=== PATIENT | female | born 1935 | race Caucasian/White ===

== ENCOUNTER 2017-02-16 14:44 | Inpatient (IN) | payer MEDICARE, MEDICAID ==
[2017-02-16] MEDS: traMADol TAB* 50 MG PO ONE ×2 (16:42→17:37)
--- NOTE | 2017-02-16 16:53 | RAD ---
Indication: RIGHT hip and knee pain post fall. Comparison: October 31, 2008 radiographs. Technique: Crosstable AP and crosstable lateral views of the RIGHT knee. Report: Negative for joint effusion. Unremarkable articular alignment accounting for portable technique and approximate 30 degrees flexion at the femoral-tibial articulation. While positioning and portable technique limits assessment no fracture is visualized. Unremarkable soft tissue contours. Peripheral vascular calcifications. IMPRESSION: Limited exam without evidence for fracture.
--- NOTE | 2017-02-16 16:55 | RAD ---
Indication: RIGHT hip and knee pain post fall. Comparison: March 14, 2014 Technique: AP pelvis and AP and frog-leg lateral views RIGHT hip. Report: Transcervical mildly impacted RIGHT femoral neck fracture with varus angulation. No pelvic fracture or joint diastases evident. Cannulated lag screws at the LEFT femoral neck. Unremarkable soft tissue contours. Peripheral vascular calcifications. IMPRESSION: Acute RIGHT femoral neck fracture.
[2017-02-16 16:57] LABS: Hematocrit 38 % (35-47); Hemoglobin 13.7 g/dl (12.0-16.0); Mean Corpuscular HGB Conc 36 g/dl (31-36); Mean Corpuscular Hemoglobin 32 pg (27-31); Mean Corpuscular Volume 91 fL (80-97); Mean Platelet Volume 8 um3 (7.4-10.4); Red Blood Count 4.22 10^6/ul (4.0-5.4); Red Cell Distribution Width 13 % (10.5-15); White Blood Count 10.5 10^3/ul (3.5-10.8)
[2017-02-16 17:10] LABS: Albumin 4.2 g/dL (3.2-5.2); BUN/Creatinine Ratio 15.3 (8-20); Calcium 9.4 mg/dL (8.6-10.3); EGFR African American 100.5 (>60); EGFR Non-African American 78.1 (>60); Globulin 2.7 g/dL (2-4); Potassium 4.4 mmol/L (3.5-5.0); Total Bilirubin 1.6 mg/dL (0.2-1.0); Total Protein 6.9 g/dL (6.4-8.9)
[2017-02-16] MEDS ORDERED: Acetaminophen TAB* 325 MG PO PRN (19:16)
[2017-02-16] MEDS ORDERED: HYDROmorphone INJ* 2 MG/ML CARPUJECT SYRINGE IV SLOW PU PRN (19:47)
[2017-02-16] MEDS ORDERED: Ondansetron INJ* 2 MG/ML VIAL IV PRN (19:48)
--- NOTE | 2017-02-16 21:30 | HP ---
HISTORY AND PHYSICAL: DATE OF ADMISSION: 02/16/17 PRIMARY CARE PROVIDER: None. ATTENDING PHYSICIAN: Suraj Luna MD * (report dictated by Leonila Borrego NP). CHIEF COMPLAINT: Right hip pain. HISTORY OF PRESENT ILLNESS: Ms. Finn is a 81-year-old female with past medical history significant for hypertension not currently on medication, diet controlled diabetes mellitus, osteomyelitis, and uterine cancer, who presents to the emergency room after a mechanical fall at home earlier today. The patient states that she was trying to leave her apartment when she turned quickly losing her footing and falling under her right side. The patient's pain was aggravated by movement and relieved by nothing. She was also having right knee pain. She reports chronic bilateral lower extremity swelling. She denied any lightheadedness or dizziness prior to the fall. The patient also denied any head injury or other injuries. The patient denies any fever, chills , chest pain, shortness of breath, nausea, vomiting, diarrhea, urinary symptoms such as dysuria or urgency, numbness, tingling. The patient reports left hip pain. The patient lives alone and walks with her walker. She states that she is able to go up a flight of stairs without shortness of breath. She is able to go grocery shopping. The patient called EMS, who brought her to the emergency room for further evaluation. While in the emergency room, the patient had a right hip and pelvis x-ray showing a right femoral neck fracture. The patient had a right knee x-ray showing no evidence of a fracture. She had labs that were unremarkable. She had an EKG showing a sinus rhythm and rate of 94. No acute signs of ischemia similar to previous EKG. Dr. Yip was consulted by emergency room, who recommended admission for the patient's right hip fracture. PAST MEDICAL HISTORY: 1. Hypertension. 2. Diabetes mellitus, diet controlled. 3. Osteomyelitis. 4. History of cellulitis. 5. Uterine cancer. 6. History of aortic stenosis, moderate to severe. PAST SURGICAL HISTORY: 1. Status post left hip ORIF in 1998. 2. Status post I and D of the right great toe. 3. Status post total abdominal hysterectomy with bilateral salpingo- oophorectomy in 2000. 4. Status post D and C. 5. Status post tonsillectomy at age 17. HOME MEDICATIONS: Include: 1. Ibuprofen 400 mg oral twice daily as needed for pain. 2. Probiotics 1 tablet oral daily. 3. Calcium plus D 500/600mg 1 tablet oral daily. ALLERGIES: PREDNISONE, ASPIRIN, CIPRO, PENICILLIN, SULFA, DIPHENHYDRAMINE, MORPHINE, CEPHALEXIN, AND ANTIHISTAMINES. FAMILY HISTORY: The patient's mother had a history of coronary artery disease with 2 myocardial infarctions. The patient's father had a history of congestive heart failure. The patient's father also had a history of diabetes mellitus. The patient's maternal grandmother had a history of stomach cancer and paternal grandfather with a history of colorectal cancer. SOCIAL HISTORY: The patient denies tobacco, alcohol or recreational drug use. She lives alone in senior housing. Her daughters, Judy and Dalila, will be her surrogate decision makers in the event she is unable to make decisions for herself. REVIEW OF SYSTEMS: I performed a 14-point review of systems. All the pertinent positives and negatives are mentioned in the history of present illness. The remaining review of systems is negative. PHYSICAL EXAMINATION GENERAL APPEARANCE: The patient is alert, pleasant, appears to be in no acute distress. VITAL SIGNS: Temperature 98.2, heart rate 61, respiratory rate 18, O2 sat 97% on room air, blood pressure 170/58. HEENT: Normocephalic, atraumatic. Pupils are equal and reactive to light. Extraocular movements are intact. NECK: Supple. There is no lymphadenopathy noted. RESPIRATORY: There is no accessory muscle use. The lungs are clear to auscultation bilaterally. CARDIOVASCULAR: Regular rate and rhythm. S1, S2 present. There is a 3/6 grade systolic murmur heard best at the left upper sternal border. There are no rubs or gallops heard. ABDOMEN: Soft, nontender and nondistended. There are bowel sounds present x4. EXTREMITIES: There is trace to 1+ bilateral lower extremity edema. DP and PT pulses are 2+ and symmetric. MUSCULOSKELETAL: There is no clubbing or cyanosis noted. The patient exhibits good strength in all extremities. NEUROLOGICAL: The patient is alert and oriented x4. Cranial nerves II through XII are grossly intact. PSYCHOLOGICAL: The patient is calm and cooperative. SKIN: There are no rashes or abnormalities seen. DIAGNOSTIC STUDIES/LABORATORY DATA: Sodium 139, potassium 4.4, chloride 105, CO2 29, BUN 11, creatinine 0.72, glucose 141. White blood cell count 10.5, hemoglobin 13.7, hematocrit 38, and platelet count 162,000. EKG shows a sinus rhythm, rate of 94. There are no acute signs of ischemia. This EKG is similar to previous EKG from 06/24/15. Right hip and pelvis x-ray from today. Radiologist impression: Right femoral neck fracture. Right knee x-ray from today. Radiologist impression: Limited exam without evidence of fracture. IMPRESSION: Ms. Finn is a 81-year-old female with past medical history significant for [id number] aortic stenosis, hypertension not currently on medications, diet-controlled diabetes mellitus, history of osteomyelitis and uterine cancer, who presents to the emergency room after losing her footing and falling at home sustaining a right hip fracture. She would be admitted as an inpatient for a right femoral neck fracture. ASSESSMENT/PLAN: 1. Right femoral neck fracture. The patient will be seen in consultation by Dr. Yip. The plan is for a possible surgery tomorrow. We will make the patient n.p.o. after midnight. We will type and cross 2 units of packed red blood cells. The patient will be on bedrest and have 5 pounds of [place] traction to her right lower extremity. 2. Risk stratification for surgery. According to the RCRI, the patient has 0 points placing her at a class 1 risk and a 0.4% risk of major cardiac events. The patient will need to undergo a transthoracic echocardiogram to evaluate her aortic stenosis prior to surgery in the morning. The patient has a MET score of greater than 4. She is able to walk around, she does use a walker and is able to grocery shop and reports being able to go up a flight of stairs without shortness of breath. 3. Diabetes mellitus. The patient is diet controlled. We will check a hemoglobin A1c. We will monitor glucoses a.c. and h.s. If her glucose is elevated, we will start Lispro sliding scale. We will place her on a consistent carbohydrate diet. 4. Hypertension. The patient is not currently on medications. She has been hypertensive in the emergency room. I suspect this is secondary to pain. We will follow her blood pressures and will start antihypertensives if necessary. 5. Aortic stenosis. Again, we are going to get a transthoracic echocardiogram in the morning to evaluate the patient's degree of aortic stenosis. 6. Fluids, electrolytes and nutrition. The patient will be on a consistent carbohydrate diet. 7. Code status. Full code. 8. DVT prophylaxis. The patient is at highest risk. We will place her on SCDs. We will hold chemical anticoagulation in preparation for surgery. 9. Disposition. Inpatient. TIME SPENT: Time for this admission was approximately 60 minutes, greater than half of that was spent with the patient and family discussing medications, past medical history, and the events leading up to her arrival today and performing a physical examination. The case has been reviewed with the attending, Dr. Luna, who agrees with the plan of care. Reviewed by RONALD MCGRATH 02/17/17 1215 [id number]/[facility] #: [id number] JACKIE
[2017-02-17] MEDS: traMADol TAB* 50 MG PO PRN ×2 (00:20→12:11)
--- NOTE | 2017-02-17 09:12 | ECHO ---
Patient: LULA CASTANEDA [facility] Rec#: [id number] : 1935 Date: 02/17/2017 Age: 81y Height: 165.1 cm / 65.0 in Weight: 90.72 kg / 199.9 lbs Sex: F BSA: 1.98 Room#: 335 Admit Date#: 02/16/2017 Type: Inpatient Referring: Leonila Carbajal NP Reading: Martin Chen MD Bookmaker'S Clerk: Leonila Lee RDCS CC: Martin Yip MD Transthoracic Echocardiogram Indication: Aortic Valve disorder, pre-op BP: 132/47 HR: 76 Rhythm: NSR with PACs Findings History: HTN, DM, mod-severe aortic stenosis 2013, and uterine cancer. Technical Comments: The study quality is fair. The study is technically limited due to poor acoustic windows. The study is technically limited due to patient body habitus. The study was technically limited due to the patient's inability to lay in the left lateral decubitus position. Completed at 0850. Left Ventricle: The left ventricular chamber size is normal. Moderate concentric left ventricular hypertrophy is observed. Global left ventricular wall motion and contractility are within normal limits. Left ventricular systolic function is at the lower limits of normal. The estimated ejection fraction is 50-55%. Abnormal left ventricular diastolic function is observed. Abnormal left ventricular diastolic filling is observed, consistent with impaired relaxation. Left Atrium: The left atrium is moderate to severely dilated. Right Ventricle: The right ventricular cavity size is normal. The right ventricular global systolic function is normal. Right Atrium: The right atrial cavity size is severely dilated. Aortic Valve: The aortic valve structure is not well visualized. Severe aortic leaflet calcification is visualized. There is a trace of aortic regurgitation. There is severe aortic stenosis. The mean gradient of the aortic valve is 59.1 mmHg. The peak instantaneous gradient of the aortic valve is 96.4 mmHg. The aortic valve area, by peak velocities, is calculated at 0.7 cm2. The aortic valve area, by VTI's, is calculated at 0.8 cm2. Mitral Valve: There is mitral annular calcification. The mitral valve leaflets are mildly thickened. There is moderate mitral regurgitation. The mitral regurgitant jet is eccentric. There is no evidence of mitral stenosis. Tricuspid Valve: The tricuspid valve leaflets are normal. There is moderate tricuspid regurgitation. The right ventricular systolic pressure is estimated at 64 mmHg. There is evidence of moderate to severe pulmonary hypertension. There is no tricuspid stenosis. Pulmonic Valve: The pulmonic valve appears normal. There is trace to mild pulmonic regurgitation. There is no pulmonic stenosis. Pericardium: There is no significant pericardial effusion. A pericardial fat pad is visualized. Aorta: There is mild dilatation of the ascending aorta. There is no dilatation of the aortic arch. The aortic root is normal in size. Pulmonary Artery: The main pulmonary artery appears normal. Venous: The inferior vena cava appears normal in size. There is less than 50% respiratory change in the inferior vena cava dimension. Summary: There are changes noted when compared to the previous study done on 02/28/2014,now there is increase in severity hemodynamics. MR is now moderate instead of mild then. PHTN is new now. Conclusions The left ventricular chamber size is normal. Moderate concentric left ventricular hypertrophy is observed. The estimated ejection fraction is 50-55%. Abnormal left ventricular diastolic function is observed. The left atrium is moderate to severely dilated. The left atrium is moderate to severely dilated. Severe aortic leaflet calcification is visualized. There is a trace of aortic regurgitation. There is severe aortic stenosis. There is moderate mitral regurgitation. There is moderate tricuspid regurgitation. There is trace to mild pulmonic regurgitation. There is mild dilatation of the ascending aorta. There is evidence of moderate to severe pulmonary hypertension. There is trace to mild pulmonic regurgitation. There are changes noted when compared to the previous study done on 02/28/2014,now there is increase in severity hemodynamics. MR is now moderate instead of mild then. PHTN is new now. Measurements Name Value Normal Range RVIDd (AP) 2D 3.1 cm (0.9 - 2.6) RVDdMajor (2D) 4.2 cm (2.2 - 4.4) RAd ISD 4CH 6.2 cm (3.4 - 4.9) RA (A4C)W 4.7 cm (2.9 - 4.6) IVSd (2D) 1.3 cm (0.6 - 1) LVPWd (2D) 1.2 cm (0.6 - 1) LVIDd (2D) 4.6 cm (3.6 - 5.4) LVIDs (2D) 3.8 cm - LV FS (2D) 18 % (25 - 45) Aortic Annulus 1.6 cm (1.4 - 2.6) Ao root diameter (2D) 3.1 cm (2.1 - 3.5) Ascending Ao 3.5 cm (2.1 - 3.4) Aortic arch 2.7 cm (1.8 - 3.4) LA dimension (AP) 2D 3.5 cm (2.3 - 3.8) LAd ISD 4CH 5.4 cm (2.9 - 5.3) LA ISD 4CH W 5.1 cm (2.5 - 4.5) Name Value Normal Range LA ESV SP 4CH (A/L) 120 ml - LA ESV SP 2CH (A/L) 76 ml - LA ESV BP (A/L) 96 ml - LA ESV BP (A/L) index 48.55 ml/m2 - LA ESV SP 4CH (MOD) 109 ml - LA ESV SP 2CH (MOD) 76 ml - Name Value Normal Range MV E-wave Vmax 1.26 m/sec - MV deceleration time 260 msec - MV A-wave Vmax 1.35 m/sec - MV E:A ratio 0.93 ratio - LV septal e' Vmax 0.03 m/sec - LV lateral e' Vmax 0.04 m/sec - LV E:e' septal ratio 42 ratio - LV E:e' lateral ratio 31.5 ratio - Name Value Normal Range AV Vmax 4.9 m/sec - AV VTI 100 cm - AV peak gradient 96.4 mmHg - AV mean gradient 59.1 mmHg - LVOT diameter 2 cm - LVOT Vmax 1.08 m/sec - LVOT VTI 26 cm - LVOT peak gradient 4.7 mmHg - LVOT mean gradient 3 mmHg - DOI (VTI) 0.26 ratio - CYNTHIA (continuity Vmax) 0.7 cm2 - CYNTHIA (continuity VTI) 0.8 cm2 - LAVERN Vmax 0.71 m/sec - Name Value Normal Range MV Vmax 1.52 m/sec - MV VTI 43.48 cm - MV peak gradient 9.27 mmHg - MV mean gradient 3.6 mmHg - MV PHT 88.41 msec - MR Vmax 7.03 m/sec - MR VTI 171.2 cm - MVA (PHT) 2.48 cm2 - MVA (continuity VTI) 1.84 cm2 - Name Value Normal Range TR Vmax 3.75 m/sec - TR peak gradient 56 mmHg - RAP 8 mmHg - RVSP 64 mmHg - IVC diameter 1.76 cm - Name Value Normal Range PV Vmax 0.79 m/sec - PV peak gradient 2.47 mmHg - WA end-diastolic Vmax 1.09 m/sec -
--- NOTE | 2017-02-17 10:21 | PN ---
Subjective Date of Service: 02/17/17 Interval History: Patient seen and examined at bedside. Denies fever, chills, shortness of breath , chest discomfort, N/V/D. Pt states that her pain is controlled with Tramadol. Pt is upset that she will not be able to get her hip fracture fixed here today. Discussed with Pt and her daughter about the need to transfer to another facility to get an aortic valve replacement prior to repairing her hip due to the degree of aortic stenosis. Family History: Unchanged from Admission Social History: Unchanged from Admission Past Medical History: Unchanged from Admission Objective Active Medications: Acetaminophen (Tylenol Tab*) 650 mg PO Q4H PRN Reason: FEVER/PAIN Hydromorphone HCl (Dilaudid Inj*) 0.5 mg IV SLOW PU Q4H PRN Reason: PAIN Lactated Ringer's (Lactated Ringers 1000 Ml Bag*) 1,000 mls @ 75 mls/hr IV PER RATE LANI Ondansetron HCl (Zofran Inj*) 4 mg IV Q6H PRN Reason: NAUSEA Tramadol HCl (Ultram*) 50 mg PO Q6H PRN Reason: PAIN Vital Signs 02/16/17 02/16/17 02/16/17 19:00 19:30 22:36 Temperature 98.7 F Pulse Rate 90 77 Respiratory 16 16 Rate Blood Pressure 168/94 154/61 (mmHg) O2 Sat by Pulse 99 98 Oximetry 02/17/17 02/17/17 02/17/17 00:20 00:25 02:12 Temperature 98.1 F Pulse Rate 77 Respiratory 16 16 16 Rate Blood Pressure 137/60 (mmHg) O2 Sat by Pulse 93 Oximetry 02/17/17 02/17/17 02/17/17 03:26 07:26 08:51 Temperature 98.2 F 98.4 F Pulse Rate 72 74 Respiratory 16 16 16 Rate Blood Pressure 132/47 134/42 (mmHg) O2 Sat by Pulse 92 92 Oximetry Oxygen Devices in Use Now: None Appearance: NAD, laying in bed Ears/Nose/Mouth/Throat: Mucous Membranes Moist Respiratory: Symmetrical Chest Expansion and Respiratory Effort, Clear to Auscultation Cardiovascular: NL Sounds; No Murmurs; No JVD, RRR, - - 3-4/6 systolic murmur heard best at the left upper sternal border Abdominal: NL Sounds; No Tenderness; No Distention Extremities: - Skin: No Rash or Ulcers Neurological: Alert and Oriented x 3, NL Muscle Strength and Tone Lines/Tubes/Other Access: Clean, Dry and Intact Peripheral IV - site benign Nutrition: Taking PO's Result Diagrams: 02/16/17 16:48 02/16/17 16:48 Assess/Plan/Problems-Billing Assessment: Ms. Finn is a 81 yo female with PMH significant for HTN, DM - diet controlled , osteomyelitits, aortic stenosis and uterine CA who presented to the emergency room with complaints of right hip pain after a fall at home. - Patient Problems (1) Fracture of right hip Code(s): S72.001A - FRACTURE OF UNSP PART OF NECK OF RIGHT FEMUR, INIT SNOMED Code(s): 747332794 Comment: - Surgery is on hold d/t the Pt's severe . Pt will need to have an AVR - Continue pain management and 5 lbs gallegos's traction (2) Aortic stenosis, severe Code(s): I35.0 - NONRHEUMATIC AORTIC (VALVE) STENOSIS SNOMED Code(s): 56304784 Comment: - Followed by Dr. Hernandez outpatient - worse, will possibly need to be transfered for an TAVR (3) Diabetes Code(s): E11.9 - TYPE 2 DIABETES MELLITUS WITHOUT COMPLICATIONS SNOMED Code(s) : 68263998 Comment: - Diet controlled and Hg A1c 5.8 (4) HTN (hypertension) Code(s): I10 - ESSENTIAL (PRIMARY) HYPERTENSION SNOMED Code(s): 71024350 Comment: - Not currently on medication - Normotensive at this time (5) DVT prophylaxis Code(s): GIP2645 - SNOMED Code(s): 673821929 Comment: - Heparin Sub-q and SCDs (6) Full code status Code(s): Z78.9 - OTHER SPECIFIED HEALTH STATUS SNOMED Code(s): 428531425 Status and Disposition: Inpatient. Plan for possible transfer to another facility for an AVR.
--- NOTE | 2017-02-17 11:20 | CONS ---
CONSULTATION REPORT:* ADDENDUM: I discussed this patient further with Dr. Christianson from cardiology services at [facility] in [place], who kindly will facilitate transfer for this patient to his facility for aortic valvoplasty or TAVR and then after that surgery for her left hip as per Dr. Yip. I have discussed this with the hospitalist service. Any further recommendation is pending her clinical outcome. [id number]/[facility] #: [id number] MTDD
[2017-02-17 12:08] VITALS: BP 152/50
--- NOTE | 2017-02-17 12:35 | CONS ---
CC: Hospitalist Service, Leonila Muniz NP; Dr. Yip, Orthopedic Service; Dr. Hernandez; Dr. Chen CONSULTATION REPORT: DATE OF CONSULT: 02/17/17 HISTORY OF PRESENT ILLNESS: I was asked by hospitalist service and Dr. Yip to see this 81-year-old female patient who was hospitalized after she had a fall and subsequently fracture of the left hip. She does have history of aortic stenosis and echocardiogram that is in the system from February 2014 showed her EF to be 50% to 55% with probably moderate aortic stenosis. At that time, her aortic valve area was 1.08 sq. cm and the mean gradient of 34 mmHg. Because of that, a followup transthoracic echocardiogram was done this morning and read by me. Her EF is 50% to 55%. She does have a critical aortic stenosis with significant progression of her aortic stenosis, hemodynamics appreciated her calculated aortic valve area is 0.7 sq. cm with significantly elevated mean gradient. She also was found to have moderate mitral insufficiency and also [id number] pulmonary hypertension, which is new for her. Herself, she does have history of diabetes mellitus, hypertension, history of uterine cancer. She is status post total abdominal hysterectomy and bilateral salpingo-oophorectomy, history of surgery on the right hip in 1998. She gives no history of smoking, no drinking, no illicit drug use. She gives no history of congestive heart failure. No history of myocardial infarction. No history of coronary artery disease. Cardiology consult was further requested to risk stratify her before she goes into her left hip surgery in light of her critical valvular aortic stenosis. In talking to her, she was very emotional. Her daughter was in the exam room today. She lives by herself. She stated that she is active, taking care of her daily activity. She stated that she gives no history of chest pain, no shortness of breath, no orthopnea, no PND, no dizziness, no syncope, no fever, no chills, no nausea, no vomiting, no hematochezia, no swelling in the lower extremities is appreciated. PAST MEDICAL HISTORY: Includes diabetes mellitus, diet controlled; history of systemic arterial hypertension; history of cellulitis; cancer of the uterus, status post surgery; also now critical valvular aortic stenosis; history of osteomyelitis. PAST SURGICAL HISTORY: Includes history of tonsillectomy, history of total abdominal hysterectomy and bilateral salpingo-oophorectomy, history of left hip ORIF in 1998. MEDICATIONS: As an outpatient include: 1. Calcium supplements. 2. Ibuprofen p.r.n. Her medications as an inpatient include: 1. Tylenol 650 mg p.o. q.4 hours p.r.n. 2. Zofran 4 mg IV q.6 hours p.r.n. 3. Tramadol 50 mg p.o. q.6 hours p.r.n. for pain. ALLERGIES: She had multiple allergies to medications including ASPIRIN, CEPHALEXIN, CIPRO, MORPHINE, PREDNISONE, PENICILLIN, and DIPHENHYDRAMINE. FAMILY HISTORY: No family history of premature coronary artery disease. SOCIAL HISTORY: No history of smoking, drinking, or illicit drug abuse. She lives by herself. REVIEW OF SYSTEMS: Her review of all other systems essentially is negative. PHYSICAL EXAM: She is very emotional in the exam room but she is not in acute distress. Her vitals, blood pressure is 132/47, temperature 98.2, pulse 72, she is sinus rhythm. Head and Neck Exam: Normocephalic, atraumatic head. Ears , Nose, and Throat: Essentially benign. Neck: Supple. JVP is not elevated. No carotid bruit. No masses in the neck are appreciated. Chest: Clear to auscultation. No rales, no wheezes, no added sounds appreciated. Heart: There is a grade 3-4/6 systolic murmur in the left sternal border. No rubs appreciated. Abdomen: Benign, soft, positive bowel sounds. Extremities: She is status post fracture of the left hip. Skin exam is normal. Psych: Normal affect and mood. HYDRO OPERATOR: No focal deficits are appreciated. DIAGNOSTIC STUDIES/LAB DATA: Her echo as described. Her labs, white blood cells 10.5, hemoglobin 13.7, hematocrit 38, and platelets 162. Her chemistries, sodium 139, potassium 4.4, chloride 105, carbon dioxide 29, BUN 11, creatinine 0.72. Hemoglobin A1c 5.8. LFTs are normal. Her EKG from 02/16/17, yesterday, showed her to be in normal sinus rhythm, heart rate 94 beats per minute, nonspecific T-wave abnormality is appreciated and nonspecific QRS widening is appreciated. IMPRESSION: The patient is a 81-year-old female with: 1. Status post presentation of fracture of the left hip. 2. Known history of aortic stenosis but by a recent echo done today showed her to have a critical aortic stenosis by hemodynamics, her aortic valve area is at 0.7 and the aortic valve mean gradient was 59 mmHg, peak gradient 96 mmHg. 3. Pulmonary hypertension, moderate to severe, with a PA systolic pressure about 65 mmHg. 4. Moderate mitral insufficiency. 5. Diabetes mellitus, diet controlled. 6. Systemic arterial hypertension. 7. Abnormal EKG as described. 8. Obesity. PLAN: The patient definitely given her comorbidities and aortic stenosis, which is critical, is a high risk to proceed with her surgery. This was discussed with anesthesiologist and hospitalist service. I had a lengthy discussion with the patient and her daughter was available at bedside. I indicated to her that options include to proceed to have her hip surgery done at our facility keeping in mind she is a high risk based on her age, comorbidities, and critical aortic stenosis. Other options would be consideration for percutaneous aortic valve replacement at a facility that will do that, she can have also her surgery of the hip at that facility under close observation, and the third option would be not to do anything regarding her hip or her aortic valve, which apparently that is not her choice. The patient and the daughter given the patient is active, she wants something to be done about her hip. I have discussed all options as well with the hospitalist service awaiting the family discussion and further recommendations. I have placed a phone call to Dr. Sinha at the [facility] to discuss this patient further with feasibility for TAVR for her aortic stenosis. I answered all of their concerns and questions up to their satisfaction. Continue current medications as you are already doing, for her comorbidities, pain management as well. TIME SPENT: More than half of at least 60 to 65 plus minutes was in the education and counseling mode explaining all of the above and answering all their concerns or questions up to their satisfaction. [id number]/[facility] #: [id number] JACKIE
--- NOTE | 2017-02-17 13:08 | TRS ---
CC: Dr. Martin Yip; Dr. Mumtaz Chen; [facility] * DATE OF ADMISSION: 02/16/2017. DATE OF DISCHARGE: 02/17/2017. AGE: 81. ATTENDING PHYSICIAN: Dr. Robert Luna * (dictated by Raffaele Vegas NP). PRIMARY CARE PHYSICIAN: None. PRIMARY DIAGNOSES: 1. Right femoral neck fracture. 2. Severe aortic stenosis. SECONDARY DIAGNOSES: 1. Hypertension, not currently on medications. 2. Diabetes mellitus, diet controlled. 3. History of osteomyelitis. 4. Uterine cancer. CONSULTATIONS WHILE IN THE HOSPITAL: Dr. Mumtaz Chen with Cardiology. STUDIES WHILE IN THE HOSPITAL: 1. Right hip and pelvis x-ray, 02/16/2017: Radiologist's impression: Right femoral neck fracture. 2. Right knee x-ray, 02/16/2017: Radiologist's impression: Limited exam without evidence of fracture. 3. Transthoracic echocardiogram, 02/17/2017: Test Tech's conclusion: The left ventricular chamber size is normal. Moderate concentric left ventricular hypertrophy is observed. The estimated ejection fraction is 50 to 55 percent. Abnormal left ventricular diastolic function is observed. The left atrium is moderate to severely dilated. The right atrium is moderate to severely dilated. Severe aortic leaflet calcification is visualized. There is trace of aortic regurgitation. Severe aortic stenosis. Moderate mitral regurgitation. Moderate tricuspid regurgitation. Trace to mild pulmonic regurgitation. Mild dilatation of the ascending aorta. There is evidence of moderate to severe pulmonary hypertension. There are changes noted when compared to the previous study done on 02/28/2014, now there is increase in aortic stenosis severity hemodynamics. MR is now moderate instead of mild then. Pulmonary hypertension is new now. HOME MEDICATIONS: 1. Ibuprofen 400 mg oral twice daily as needed for pain. 2. Probiotic one tablet oral daily. 3. Calcium plus D 500/600 one tablet oral daily. HOSPITAL MEDICATIONS: 1. Acetaminophen 650 mg oral every 4 hours as needed for fever or pain. 2. Heparin Sodium 5000 units subcutaneous every 8 hours. 3. Hydromorphone 0.5 mg IV every 4 hours as needed for pain. 4. Lactated Ringers 75 ml an hour. 5. Zofran 4 mg IV every 6 hours as needed for nausea. 6. Tramadol 50 mg oral every 6 hours as needed for pain. HISTORY OF PRESENT ILLNESS/HOSPITAL COURSE: Ms. Finn is a 81-year-old female with a past medical history significant for hypertension, not currently on medication, diet controlled diabetes mellitus, history of osteomyelitis and uterine cancer who presented to the emergency room after a mechanical fall at home on 02/16/2017. The patient states that she was trying to leave her apartment when she quickly turned, losing her footing, and fell on her right side. The patient's pain was aggravated by movement and relieved by nothing. The patient was also reporting right knee pain. She also reported chronic bilateral lower extremity swelling. She denied any lightheadedness or dizziness prior to her fall. She denied hitting her head or any other injuries. At baseline, the patient lives alone in senior housing and walks with a walker. She reported being able to go up a flight of stairs without shortness of breath , able to go grocery shopping and carry her groceries with the assistance of her walker. The patient called EMS and was brought to the emergency room for further evaluation of her symptoms. In the emergency room, the patient had a right hip and pelvis x-ray showing a right femoral neck fracture. The patient also had a right knee x-ray showing no evidence for fracture. She had labs that were unremarkable. She had an EKG showing a sinus rhythm at a rate of 94 with no acute signs of ischemia. This EKG was similar to previous EKG's in the computer system. Dr. Yip was initially consulted by the emergency room who recommended admission by the Hospitalists for the patient's right hip fracture. While in the hospital, the patient's pain was controlled by Tramadol. The patient underwent a transthoracic echocardiogram this morning revealing an increase in the patient's aortic stenosis severity and worsening mitral valve regurgitation that was now moderate instead of mild and new pulmonary hypertension. The patient was seen in consultation by Dr. Chen with Cardiology after the patient's echo findings of severe aortic stenosis. It was felt that the patient was a very high risk candidate for surgery and that it would be ideal for the patient to be transferred to another facility for an aortic valve replacement prior to repair of her right hip fracture. Dr. Patrice Christianson with Cardiology has accepted the patient at [facility]. Dr. Castillo Leos with Orthopedic Surgery has also been contacted by Dr. Martin Yip with Orthopedic Surgery and he plans to see the patient when she arrives at [facility]. Ms. Finn is stable for transfer to [facility] today. Vital signs are as follows: Temperature 98.1, heart rate 65, respiratory rate 16, O2 sat 91 percent on room air, blood pressure 152/50. DISCHARGE PLAN: Ms. Finn will be transferred to [facility] for possible aortic valve replacement and repair of her right hip fracture. She should be on bed rest. I will defer further management of her orthopedic status to Dr. Leos's team at [facility]. As far as the patient's diabetes, her hemoglobin A1c is 5.8 and she is diet controlled. The patient has been noted to be slightly hypertensive here with systolic blood pressures in the 130s to 170s. I suspect this is pain related, but if she continues to have hypertension, I recommend considering starting her on antihypertensives. It is to note that the patient currently does not have a primary care provider in the area. I would recommend assisting her with setting up a primary care provider prior to her discharge from [facility]. This is a summarized report of a complex medical history and hospital stay. For further details, please see the entire medical record. Time for this transfer was approximately 60 minutes, greater than half of that was spent with the patient and family discussing the transfer plans and instructions. CONDITION ON TRANSFER: Stable. RAFFAELE VEGAS, TONY [id number]/[facility] #: [id number] JACKIE
[2017-02-17] MEDS ORDERED: Heparin VIAL(*) 5000 UNITS/ML VIAL (FIVE THOUSAND) SUBCUT SCH (14:00)
--- NOTE | 2017-02-19 12:23 | ED ---
Maite Obregon Thomas, scribed for Barry Sanchez MD on 02/16/17 at 1531 . Lower Extremity - HPI Summary HPI Summary: The patient is a 81 y/o F BIBA c/o R hip pain s/p an accidental fall that occurred earlier today. The pain is constant. The pain is aggravated by movement and is alleviated by nothing. She rates the pain 6/10. She additionally c/o R knee pain, chronic bilateral leg swelling, and R hand pain. She denies dizziness and lightheadedness. She is accompanied by her daughter. PMHx: DM, heart murmur, L hip fracture. PSHx: L hip repair. SHx: retired and lives with family. FHx: cardiac disease. She is accompanied by her daughter. - History of Current Complaint Stated Complaint: FALL, HIP PAIN Time Seen by Provider: 02/16/17 15:04 Hx Obtained From: Patient, Family/Laboratory Chemical Assistant - daughter is present Hx Last Menstrual Period: post jean Mechanism Of Injury: Fall From A Standing Position Onset of Pain: Immediate Pain Intensity: 6 Pain Scale Used: 0-10 Numeric Timing: Constant Location: Is Discrete @ - R hip, R knee, R hand Associated Signs And Symptoms: Positive: Swelling - chronic bilateral, Knee Pain - R, Other - R hand pain, R hip pain; NEGATIVE: dizziness, lightheadedness. Negative: Dizziness Aggravating Factor(s): Movement Alleviating Factor(s): Nothing Able to Bear Weight: No - Allergies/Home Medications Allergies/Adverse Reactions: Allergies Allergy/AdvReac Type Severity Reaction Status Date / Time Prednisone Allergy Severe HEAVY Verified 07/02/15 15:22 BLEEDING Aspirin Allergy Unknown Unknown Verified 07/02/15 15:22 Reaction Details Ciprofloxacin Allergy Unknown Unknown Verified 07/02/15 15:22 Reaction Details Penicillins Allergy Unknown Unknown Verified 07/02/15 15:22 Reaction Details Sulfa Antibiotics Allergy Unknown Unknown Verified 07/02/15 15:22 Reaction Details Diphenhydramine Allergy Unknown Verified 07/02/15 15:22 Reaction Details Morphine AdvReac Unknown Unknown Verified 02/16/17 19:50 Reaction Details Cephalexin [From Keflex] AdvReac GI Upset Verified 07/02/15 15:22 ANTIHISTAMINES Allergy Unknown Unknown Uncoded 07/02/15 15:22 Reaction Details Home Medications: Home Medications Calcium Carbonate-Cholecalcife [Calcium 500 +D3 500-600 mg-Unit] 1 tab PO DAILY 02/16/17 [History Confirmed 02/16/17] Ibuprofen TAB* [Advil TAB*] 400 mg PO BID PRN 02/16/17 [History Confirmed ] Lactobacillus [Probiotic Acidophilus] 1 cap PO DAILY 02/16/17 [History Confirmed 02/16/17] PMH/Surg Hx/FS Hx/Imm Hx Previously Healthy: No Endocrine/Hematology History: Reports: Hx Diabetes Denies: Hx Thyroid Disease Cardiovascular History: Reports: Hx Hypertension, Other Cardiovascular Problems/ Disorders - heart murmur Denies: Hx Pacemaker/ICD Respiratory History: Denies: Hx Asthma, Hx Chronic Obstructive Pulmonary Disease (COPD) GI History: Denies: Hx Ulcer History: Denies: Hx Dialysis Musculoskeletal History: Denies: Hx Arthritis, Hx Back Problems Sensory History: Reports: Hx Cataracts - BILAT, Hx Contacts or Glasses Denies: Hx Hearing Aid Opthamlomology History: Reports: Hx Cataracts - BILAT, Hx Contacts or Glasses Neurological History: Denies: Hx Dementia, Hx Seizures Psychiatric History: Denies: Hx Panic Disorder - Cancer History Cancer Type, Location and Year: UTERINE CA Hx Chemotherapy: No Hx Radiation Therapy: No - Surgical History Surgery Procedure, Year, and Place: LEFT HIP FX/PINNING 1998, HYSTERECTOMY 2000. t&a at age 17, cataract surgery bilat eyes Hx Anesthesia Reactions: No - Immunization History Date of Tetanus Vaccine: Unk Date of Influenza Vaccine: None, philisophically opposed Infectious Disease History: No Infectious Disease History: Denies: Hx Clostridium Difficile, Hx Hepatitis, Hx Human Immunodeficiency Virus (HIV), Hx of Known/Suspected MRSA, Hx Shingles, Hx Tuberculosis, Hx Known/ Suspected VRE, Hx Known/Suspected VRSA, History Other Infectious Disease, Traveled Outside the [place] in Last 30 Days - Family History Known Family History: Positive: Cardiac Disease - Mother, father and brother - Social History Alcohol Use: None Substance Use Type: Reports: None Smoking Status (MU): Never Smoked Tobacco Have You Smoked in the Last Year: No Review of Systems Negative: Fever, Chills Negative: Erythema - eyes Negative: Sore Throat Negative: Chest Pain Negative: Shortness Of Breath, Cough Negative: Abdominal Pain, Vomiting, Nausea Negative: dysuria, hematuria Positive: Other - R hip pain, R knee pain, chronic bilateral leg swelling, R hand pain. Negative: Myalgia, Edema - legs Negative: Rash Neurological: Other - NEGATIVE: dizziness, lightheadedness All Other Systems Reviewed And Are Negative: Yes Physical Exam - Summary Physical Exam Summary: Constitutional: Well-developed, Well-nourished, Alert. (-) Distressed Skin: Warm, Dry HENT: Normocephalic; Atraumatic Eyes: Conjunctiva normal Neck: Musculoskeletal ROM normal neck. (-) JVD, (-) Stridor, (-) Tracheal deviation Cardio: Rhythm regular, rate normal, Heart sounds normal; Intact distal pulses; The pedal pulses are 2+ and symmetric. Radial pulses are 2+ and symmetric. (-) Murmur Pulmonary/Chest wall: Effort normal. (-) Respiratory distress, (-) Wheezes, (-) Rales Abd: Soft, (-) Tenderness, (-) Distension, (-) Guarding, (-) Rebound Musculoskeletal: (-) Edema. There is no palpable tenderness of the hands. I am unable to move the right leg due to the pain. There is tenderness to the mid femur. There is pain with passive ROM of the knee. THere is no knee tenderness. There is some clicking with ROM of the knee. Lymph: (-) Cervical adenopathy Neuro: Alert, Oriented x3 Psych: Mood and affect Normal Triage Information Reviewed: Yes Vital Signs On Initial Exam: Initial Vitals Temp Pulse Resp BP Pulse Ox 98.2 F 90 18 157/91 99 02/16/17 15:22 02/16/17 15:22 02/16/17 15:22 02/16/17 15:22 02/16/17 15:22 Vital Signs Reviewed: Yes - Calmar Coma Scale Coma Scale Total: 15 Diagnostics - Vital Signs Vital Signs Temp Pulse Resp BP Pulse Ox 02/16/17 15:27 86 98 02/16/17 15:22 98.2 F 90 18 157/91 99 - Laboratory Result Diagrams: 02/16/17 16:48 02/16/17 16:48 Lab Statement: Any lab studies that have been ordered have been reviewed, and results considered in the medical decision making process. - Radiology Knee XR Xray Interpretation: No Acute Changes - Limited exam without evidence for fracture. ED physician has reviewed this report and agrees. Radiology Interpretation Completed By: Radiologist Hip XR Xray Interpretation: Positive (See Comments) - Acute right femoral neck fracture. ED physician has reviewed this report and agrees. Radiology Interpretation Completed By: Radiologist - EKG 15:55 Cardiac Rate: NL - 94 BPM EKG Rhythm: Sinus Rhythm EKG Interpretation: No STEMI. Lower Extremity Course/Dx - Course Assessment/Plan: The patient is a 81 y/o F BIBA c/o R hip pain s/p an accidental fall that occurred earlier today. The pain is constant. The pain is aggravated by movement and is alleviated by nothing. She rates the pain 6/10. She additionally c/o R knee pain, chronic bilateral leg swelling, and R hand pain. She denies dizziness and lightheadedness. She is accompanied by her daughter. PMHx: DM, heart murmur, L hip fracture. PSHx: L hip repair. SHx: retired and lives with family. FHx: cardiac disease. She is accompanied by her daughter. In the ED course the patient was given Ultram. Bloodwork was obtained. Knee XR shows no Fx. Hip XR shows acute right femoral neck fracture. I consulted with Dr. Yip, orthopedics, who says that the patient will need surgery and he recommends admission by the hospitalists. He would like a Harrison's traction. I also consulted with Dr. Anderson, hospitalist, at 18:23. She will admit the patient. The patient is diagnosed with femoral head fracture. - Diagnoses Provider Diagnoses: Fracture of femoral head - Physician Notifications Discussed Care Of Patient With: Martin Yip Time Discussed With Above Provider: 17:10 Instructed by Provider To: Other - I consultd with Dr. Yip, orthopedics, who says that the patient will need surgery and he recommends admission by the hospitalists. He would like a Harrison's traction. I also consulted with Dr. Anderson, hospitalist, at 18:23. She will admit the patient. Discharge - Discharge Plan Condition: Fair Disposition: ADMITTED TO [facility] documentation as recorded by the Maite rapp Thomas accurately reflects the service I personally performed and the decisions made by me, Barry Sanchez MD.
== END 2017-02-17 13:00 | disposition short-term general hospital (02) | DRG 536 ==
LOC: ED 14:44 → SSU 18:46
PROVIDERS: ADMIT Internal Medicine; ATTEND Internal Medicine
DX: S72.001A Fracture of unspecified part of neck of right femur, initial encounter for closed fracture (principal); E11.69 Type 2 diabetes mellitus with other specified complication; I27.20 Pulmonary hypertension, unspecified; M86.9 Osteomyelitis, unspecified; I08.3 Combined rheumatic disorders of mitral, aortic and tricuspid valves; E66.9 Obesity, unspecified; I77.819 Aortic ectasia, unspecified site; W18.30XA Fall on same level, unspecified, initial encounter; I10 Essential (primary) hypertension; Z85.42 Personal history of malignant neoplasm of other parts of uterus; Z90.79 Acquired absence of other genital organ(s); Z90.722 Acquired absence of ovaries, bilateral; Z88.5 Allergy status to narcotic agent; Z88.0 Allergy status to penicillin; Z88.2 Allergy status to sulfonamides; Z88.8 Allergy status to other drugs, medicaments and biological substances; Z82.49 Family history of ischemic heart disease and other diseases of the circulatory system; Z83.3 Family history of diabetes mellitus; Z80.0 Family history of malignant neoplasm of digestive organs; Z68.33 Body mass index [BMI] 33.0-33.9, adult; Y92.039 Unspecified place in apartment as the place of occurrence of the external cause; Z79.01 Long term (current) use of anticoagulants
CPT/HCPCS: 36415; 80053; 83036; 85027; 85610; 85730; 86850; 86900; 86901; 93005; 93306; A9270-GY

== ENCOUNTER 2017-07-16 12:49 | Emergency (ER) | payer MEDICARE, MEDICAID ==
[2017-07-16 14:30] LABS: ABS Basophils 0.1 10^3/ul (0-0.2); ABS Eosinophils 0.3 10^3/ul (0-0.6); ABS Lymphocytes 1.4 10^3/ul (1.0-4.8); ABS Monocytes 0.4 10^3/ul (0-0.8); ABS Neutrophils 4.2 10^3/ul (1.5-7.7); ABS Nucleated RBC 0 10^3/ul; Corrected Retic Count 1.7 % (0.5-1.5); Hematocrit 29 % (35-47); Hematocrit for Retic CNT 29 % (35-47); Hemoglobin 10.1 g/dl (12.0-16.0); Immature Retic Fraction 0.48; Lymphocyte % 21.9 % (25-47); Mean Corpuscular HGB Conc 35 g/dl (31-36); Mean Corpuscular Hemoglobin 34 pg (27-31); Mean Corpuscular Volume 96 fL (80-97); Mean Platelet Volume 8 um3 (7.4-10.4); Nucleated Red Blood Cells % 0; Platelet Count 220 10^3/ul (150-450); RBC Retic Count 3.01 10^6/ul (4.6-6.2); Red Blood Count 3.01 10^6/ul (4.0-5.4); Red Cell Distribution Width 12 % (10.5-15); White Blood Count 6.5 10^3/ul (3.5-10.8)
[2017-07-16 14:52] LABS: EGFR Non-African American 56.6 (>60)
[2017-07-16 15:02] LABS: Urine Appearance Clear; Urine Blood 1+ (Negative); Urine Color Straw; Urine Ketones Negative (Negative); Urine Protein Negative (Negative); Urine Specific Gravity 1.004 (1.010-1.030); Urine Urobilinogen Negative (Negative)
[2017-07-16] MEDS ORDERED: Cyanocobalamin INJ * 1,000 MCG/ML VIAL 1 ML VIAL IM ONE (15:29)
[2017-07-16 16:10] VITALS: BP 155/69
--- NOTE | 2017-07-20 19:31 | ED ---
Pepe Obregon Gabriel, scribed for Chaitanya Urias MD on 07/16/17 at 1355 . Complex/Multi-Sys Presentation - HPI Summary HPI Summary: This patient is a 82 year old F presenting to [facility] after being sent by here PCP for cyanosis in her finger tips. The patient rates the pain 0/10 in severity. Patient reports being cold frequently. Patient denies SOB, black stool , and pain. Pt had blood work last week and was diagnosed with anemia. - History Of Current Complaint Chief Complaint: EDGeneral Hx Obtained From: Patient Onset/Duration: Still Present Timing: Constant Severity Currently: None Severity Initially: Mild Associated Signs And Symptoms: Positive: Other - cyanosis in her finger tips. Negative: SOB, Chest Pain, Abdominal Pain, Back Pain - Allergies/Home Medications Allergies/Adverse Reactions: Allergies Allergy/AdvReac Type Severity Reaction Status Date / Time prednisone Allergy Severe heavy Verified 07/16/17 14:02 bleeding aspirin Allergy Mild GI Upset Verified 07/16/17 14:02 cephalexin Allergy Mild GI Upset Verified 07/16/17 14:10 ciprofloxacin Allergy Mild GI Upset Verified 07/16/17 14:03 Penicillins Allergy Mild Rash Verified 07/16/17 14:04 Sulfa (Sulfonamide Allergy Mild Edema Verified 07/16/17 14:05 Antibiotics) morphine Allergy Unknown Unknown Verified 07/16/17 14:09 Reaction Details diphenhydramine Allergy GI Upset Verified 07/16/17 14:06 ANTIHISTAMINES Allergy Unknown Unknown Uncoded 07/02/15 15:22 Reaction Details PMH/Surg Hx/FS Hx/Imm Hx Endocrine/Hematology History: Reports: Hx Diabetes, Hx Anemia Denies: Hx Thyroid Disease Cardiovascular History: Reports: Hx Hypertension, Other Cardiovascular Problems/ Disorders - heart murmur Denies: Hx Aneurysm, Hx Angina, Hx Cardiac Arrest, Hx Coronary Artery Disease , Hx Deep Vein Thrombosis, Hx Pacemaker/ICD Respiratory History: Denies: Hx Asthma, Hx Chronic Obstructive Pulmonary Disease (COPD) GI History: Denies: Hx Ulcer History: Denies: Hx Dialysis Musculoskeletal History: Denies: Hx Arthritis, Hx Back Problems Sensory History: Reports: Hx Cataracts - BILAT, Hx Contacts or Glasses Denies: Hx Glaucoma, Hx Hearing Aid Opthamlomology History: Reports: Hx Cataracts - BILAT, Hx Contacts or Glasses Denies: Hx Glaucoma Neurological History: Denies: Hx Dementia, Hx Headaches, Hx Migraine, Hx Seizures, Hx Transient Ischemic Attacks (TIA) Psychiatric History: Denies: Hx Panic Disorder - Cancer History Cancer Type, 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 t&a at age 17, cataract surgery bilat eyes Hx Anesthesia Reactions: No - Immunization History Date of Tetanus Vaccine: Unk Date of Influenza Vaccine: None, philisophically opposed Infectious Disease History: No Infectious Disease History: Denies: Hx Clostridium Difficile, Hx Hepatitis, Hx Human Immunodeficiency Virus (HIV), Hx of Known/Suspected MRSA, Hx Shingles, Hx Tuberculosis, Hx Known/ Suspected VRE, Hx Known/Suspected VRSA, History Other Infectious Disease, Traveled Outside the in Last 30 Days - Family History Known Family History: Positive: Cardiac Disease - Mother, father and brother - Social History Lives: Alone Alcohol Use: None Substance Use Type: Reports: None Smoking Status (MU): Never Smoked Tobacco Have You Smoked in the Last Year: No Review of Systems Positive: Other - cyanosis in her finger tips Negative: Shortness Of Breath Gastrointestinal: Negative - black stool Musculoskeletal: Negative - pain All Other Systems Reviewed And Are Negative: Yes Physical Exam - Summary Physical Exam Summary: Appearance: Well-appearing, Well-nourished Skin: decubitus on the left heal in stage 0-1 Eyes: Normal, PERRL, EOMI, sclera anicteric ENT: Normal Neck: Supple, nontender Respiratory: Clear to auscultation Cardiovascular: S1, S2, murmur of the aortic valve replacement with no mechanical heart sounds, no rub, no gallop, no cyanosis that I can see Abdomen: Soft, nontender, no organomegaly Bowel sounds: Present Musculoskeletal: Normal, Strength/ROM Intact, no edema, pulses symmetrical Neurological: Normal, A&Ox3, cranial nerves II-XII WNL, follows commands, gait not tested, sensation intact to pin and light touch Psychiatric: affect normal, behavior appropriate, dressed appropriately, judgment intact Triage Information Reviewed: Yes Vital Signs On Initial Exam: Initial Vitals Temp Pulse Resp BP Pulse Ox 98.8 F 57 18 145/36 100 07/16/17 12:53 07/16/17 12:53 07/16/17 12:53 07/16/17 12:53 07/16/17 12:53 Vital Signs Reviewed: Yes Diagnostics - Vital Signs Vital Signs Temp Pulse Resp BP Pulse Ox 07/16/17 12:53 98.8 F 57 18 145/36 100 - Laboratory Result Diagrams: 07/16/17 14:19 07/16/17 14:19 Lab Statement: Any lab studies that have been ordered have been reviewed, and results considered in the medical decision making process. Complex Multi-Symp Course/Dx Assessment/Plan: This patient is a 82 year old F presenting to [facility] after being sent by here PCP for cyanosis in her finger tips. The patient rates the pain 0/10 in severity. Patient reports being cold frequently. Patient denies SOB , black stool, and pain. Pt had blood work last week and was diagnosed with anemia. Bloodwork shows anemia. In the ED course the patient was given B12. 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 Patient will be discharged with prescription for folic acid and follow up from Dr. Schmitz. The patient is agreeable with this plan. - Diagnoses Provider Diagnoses: Secondary hemolytic anemia, Peripheral cyanosis Discharge - Discharge Plan Condition: Good Disposition: HOME Prescriptions: Folic Acid 1 mg PO DAILY #30 tablet Patient Education Materials: Iron Rich Diet (ED), Hemolytic Anemia (DC), Vitamin B12 Deficiency (ED) Referrals: Coral Schmitz MD [Primary Care Provider] - 4 Days Additional Instructions: RETURN TO EMERGENCY DEPARTMENT FOR ANY NEW OR WORSENING SYMPTOMS The documentation as recorded by the Pepe rapp Gabriel accurately reflects the service I personally performed and the decisions made by me, Chaitanya Urias MD.
== END 2017-07-16 16:10 | disposition home or self-care (01) ==
LOC: ED 12:49
DX: T50.995A Adverse effect of other drugs, medicaments and biological substances, initial encounter (principal); R23.0 Cyanosis; D59.4 Other nonautoimmune hemolytic anemias; Z95.2 Presence of prosthetic heart valve; Z88.6 Allergy status to analgesic agent; Z88.5 Allergy status to narcotic agent; Z88.0 Allergy status to penicillin; Z88.2 Allergy status to sulfonamides; Z88.8 Allergy status to other drugs, medicaments and biological substances; Z88.3 Allergy status to other anti-infective agents
CPT/HCPCS: 36415; 80053; 81003; 81015; 82607; 82746; 85025; 85045; 87086; 96372; 99283; J3420

== ENCOUNTER 2017-09-21 11:36 | Emergency (ER) | payer MEDICARE, MEDICAID ==
--- OUTSIDE RECORDS SUMMARY | 2017-09-21 11:56 | XMS REPORT ---
:1935 External Reference #:[id number] Author Organization [facility] Address [address] [address] Phone [phone] Care Team Providers Name Role Phone Coral Schmitz MD Primary Care Physician Unavailable Payers Type Date Identification Numbers Payment Provider Subscriber Medicare Primary Effective: Policy Number: Medicare Ashley Finn 2000 [id number] PayID: [id number] [address] [place] [address] [facility] Policy Number: [id number] Medicaid Ashley Finn PayID: [id number] [address] [place] [address] Problems Date Description Provider Status Onset: 01/08/2011 Neurologic disorder associated with type Sapphire Sultana M.D. Active 2 diabetes mellitus Onset: 01/08/2011 Benign essential hypertension Sapphire Sultana M.D. Active Onset: 02/16/2014 Aortic valve disorder Zuleyka Hernandez M.D. Active Note: severe s/p TAVR Onset: 02/16/2014 Supraventricular premature beats Zuleyka Hernandez M.D. Active Onset: 02/16/2014 Essential hypertension Zuleyka Hernandez M.D. Active Onset: 08/10/2014 Cataract Sapphire Sultana M.D. Active Onset: 08/10/2014 Metabolic disease Sapphire Sultana M.D. Active Onset: 04/01/2016 Osteoporosis Coral Schmitz M.D. Active Onset: Chronic atrial fibrillation Active Onset: Coronary atherosclerosis Active Onset: Diastolic heart failure Active Onset: Left bundle branch block Active Onset: Peripheral vascular disease Active Family History Date Family Member(s) Problem(s) Comments General dementia Father Diabetes Father Congestive Heart Failure (CHF) Father Hypertension Mother Hypertension Siblings 1 Brother, valve replacement 2012 Social History Type Date Description Comments Occupation Retired ETOH Use Denies alcohol use Smoking Patient has never smoked Recreational Drug Use Denies Drug Use Daily Caffeine Consumes on average 2 cups of regular coffee per day Exercise Type/Frequency Exercises regularly walks/rides stationary bike daily General Hx Text 38 yr 2 children cig no etoh rare exercise walks caffiene 1 cup Allergies, Adverse Reactions, Alerts Date Description Reaction Status Severity Comments 12/18/2010 Penicillin Urticaria active 12/18/2010 Morphine Urticaria active 12/18/2010 Antihistamines, active Loratadine-type 01/12/2014 Aspirin active 02/16/2014 Sulfa redness/swelling LE active 02/16/2014 Ciprofloxacin active 11/16/2014 Prednisone bleeding active Medications Medication Date Status Form Strength Qnty SIG Indications Ordering Provider Atorvastatin 07/19 Active Tablets 40mg 90tab 1 by mouth E78.5 Coral Calcium /2018 s every day Cheryl Schmitz Ferrous 07/19 Active Tablets 324(38Fe) 60tab take one D64.9 Coral Gluconate /2018 mg s tablet by Schmitz mouth twice a M.D. day Underpads Extra 07/15 Active Misc 23"X36" 108un medicaid id Giacomo Salinas Large /2017 its [id number] cruz, length of M.D. need 99, icd10 r39.81 Adult Protective 07/15 Active 200un medicaid id Giacomo Salinas Underwear its [id number] johnson, length of M.D. need 99, icd10 r39.81, size xl Panty Liner/ 07/15 Active 200un medicaid id Giacomo Salinas Shield its [id number] cruz, length of M.D. need 99, icd10 r39.81, size xl Potassium 06/15 Active Tablets 20Meq 60tab once a day Coral Chloride ER /2018 ER s Cheryl Schmitz Contour Lancets 04/27 Active 100un Check bs bid E11.65 Coral /2017 its e11.65 Cheryl Schmitz Contour Strips 04/27 Active 100un Check bid Coral /2017 its Cheryl Schmitz Lancets Micro 07/17 Active Misc Thin 33G 100un use twice E11.9 Coral Thin 33G /2015 its daily and as Ainsley, needed M.D. Florentino Contour 07/17 Active Strips 60uni ck FS am E11.8 Sapphire Blood Glucose /2015 ts fasting and 2 Rd, Test Strips hours after M.D. dinner Telfa Adhesive 03/16 Active Pads 3"X4" 1unit Apply as E884.5 Zuleyka Dressing /2013 s directed Cheryl Hernandez Cloth Adhesive 03/16 Active Tape 1"X10yds 1unit E884.5 Zuleyka Surgical Tape /2013 s David 1"X10yds M.DIssa Shower Sit 03/08 Active 1unit as directed Sapphire s Cheryl Sultana Florentino Contour 01/16 Active Strips 50uni 2-3 x week Vik Blood Glucose /2013 ts Dx Code Tressa, CANCER REGISTRY COORDINATOR Test Strips 250.62 Quad Cane 01/12 Active Misc 1unit use as needed V15.88 Sapphire /[address] [email or web address], Cheryl 250.62 Ibuprofen Active Capsules 200mg 2 cap po as Unknown /0000 needed Pradaxa Active Capsules 150mg 60cap take 1 Coral s capsule by Schmitz, mouth twice a M.D. day Sotalol HCL Active Tablets 80mg one bid Unknown 0000 Furosemide Active Tablets 20mg take 1 tablet Unknown 0000 by mouth once daily Clopidogrel Active Tablets 75mg 30tab take 1 tablet Coral Bisulfate 0000 s by mouth once Schmitz, daily M.D. Spironolactone Active Tablets 25mg once a day Unknown 0000 Depend Underwear 06/18 Hx Misc 4Boxe wear as Coral For Wom s needed for Sofia Schmitz Maximum - incontinence M.DIssa Absorbency 07/15 Potassium 06/15 Hx Tablets 20Meq 1 by mouth Coral Chloride Tonie ER every day Ainsley, - M.D. 06/15 Ibuprofen 05/18 Hx Tablets 400mg 30tab 1 tablet by L03.031 Tom s mouth twice D. - daily as Shruthirajat, 04/27 needed for pain Doxycycline 05/18 Hx Tablets 100mg 14tab 1 tab by L03.031 Tom castro s mouth twice a D. - day with food Melquiadesgeraldorajat, 05/25. Doxycycline 03/06 Hx Capsules 100mg 28cap 1 capsulet by L03.115 Issac Lg s mouth twice a Peruvian, - day for 14 [employer]CER REGISTRY COORDINATOR Calcium 500 + D3 11/13 Hx Tablets 500-600mg 60tab 1 tab by Sapphire -Unit s mouth 2x per Rd, - day M.D. 07/19 Doxy 100 10/20 Hx Solution 100mg Rec D. - Irene, 10/20. Clindamycin HCL 10/10 Hx Capsules 300mg 21cap 1 tabs by L03.115 s mouth 3 times D. - a day Irene, 10/20 Cephalexin 09/12 Hx Capsules 500mg 42cap take one s capsule by D. - mouth three Irene, 10/10 times a day . Cephalexin 07/09 Hx Capsules 500mg 42cap take one s capsule by D. - mouth three Irene, 07/27 times a day . Cephalexin 11/16 Hx Tablets 500mg 20tab 1 tab by 681.10 Pato s mouth twice a Tito, CANCER REGISTRY COORDINATOR - day 07/08 Furosemide 11/16 Hx Tablets 20mg 60tab 1 tbs by 782.3 Pato s mouth twice a Francis, CANCER REGISTRY COORDINATOR - day a day - 07/17 pt not taking Metoprolol 11/16 Hx Tablets 25mg 30tab 1 by mouth 401.1 Pato Succinate ER 24HR s every day - Tito CANCER REGISTRY COORDINATOR - pt not taking 07/17 Lisinopril 09/28 Hx Tablets 2.5mg 30tab 1 by mouth 401.1 s every day - Rd, - pt not taking M.D. 07/17 Lancets 09/28 Hx Misc 100un use twice 250.[address] daily and as Rd, - needed M.D. 07/17 Clotrimazole 03/08 Hx Cream 1% 65gm apply twice a 110.5 day for 2-3 Rd, - days as M.D. 07/13 needed Nystop 03/08 Hx Powder [id number] 60uni apply twice a 110.5 t/GM ts day Rd - M.D. 07/13 No Active 01/12 Hx Unknown Medications /2013 - 01/12 Furosemide 01/12 Hx Tablets 20mg 30tab take one half 459.[address] - mouth every M.D. 03/08 Claritin 01/12 Hx Capsules 10mg 30cap 1 by mouth 995.[address], - M.D. 03/08 Florentino Contour 03/06 Hx Strips 50uni qd and prn Sapphire Blood Glucose /[address], Test Strips - M.D. 01/12 Ciprofloxacin 01/08 Hx Tablets 500mg 10tab 1 tab po 682.6 Sapphire Extended-Release /2010 ER 24HR s every day for Rd, - 10 days M.D. 01/12 Blood Pressure 12/18 Hx Misc 1unit take bp 2-3 x 401.1 Sapphire Arm Cuff /[address] - M.D. 01/12 Clindamycin HCL Hx Capsules 300mg 28cap 1 tab po qid Unknown /0000 s for 9 days - 01/08 Doxycycline Hx Tablets 100mg 1 tablet Unknown Hyclate /0000 twice a day x - 10days as per 07/08 Urgent Care /2015 visit 06/01/15 Apap 0000 Hx Tablets 325mg 2 tabs by Unknown /0000 mouth q4hrs - as needed. 07/13 Norvasc 00 Hx Tablets 10mg 1 by mouth Unknown /0000 every day - 07/13 Ceftriaxone 0000 Hx Solution 2gm iv every 24 Unknown Sodium /0000 Rec hours x 14 - days 07/10 Probiotic 00 Hx Capsules 1 by mouth Unknown Acidophilus /0000 once a day - 07/19 Clotrimazole 00 Hx Cream 1% apply once Unknown /0000 daily - 03/05 Doxycycline 00 Hx Tablets 100mg 1 po qd Unknown Hyclate /0000 - 11/11 Doxycycline 00 Hx Capsules 100mg take 1 Unknown Monohydrate /0000 capsule by - mouth once 11/17 /2015 Potassium Hx Tablets 40Meq one bid Cator, Chloride Tonie ER /0000 Kd Rodriguez MD 06/15 Atorvastatin Hx Tablets 80mg take 1 tablet Unknown Calcium /0000 by mouth at - bedtime 07/19 Metolazone Hx Tablets 2.5mg take 2 Unknown /0000 tablets by - mouth daily 07/19 30 /2017 Before Furosemide Immunizations CPT Code Status Date Vaccine Lot # [id number] Refused 07/19/2017 Pneumococcal Conjugate Vaccine 13 Valent For Intramuscular Use 50927 Refused 04/27/2017 Zoster (Zostavax) [id number] Refused 04/27/2017 Tdap - Tetanus/Diptheria/Acellular Pertussis 39047 Refused 04/27/2017 Influenza Virus Vaccine, Quadrivalent, Split, Preservative Free 32382 Refused 04/27/2017 Pneumococcal Conjugate Vaccine 13 Valent For Intramuscular Use 57761 Refused 01/12/2014 Pneumonia Vaccine [id number] Refused 01/12/2014 Flu Vaccine Split Virus Preservative Free For Indiv 3Yr Older Vital Signs Date Vital Result Comment 09/21/2017 Height 65 inches 5'5" Weight 179.00 lb BP Systolic 110 mmHg BP Diastolic 60 mmHg BMI (Body Mass Index) 29.8 kg/m2 08/18/2017 Height 65 inches 5'5" Weight 178.00 lb BP Systolic 122 mmHg BP Diastolic 66 mmHg Respiratory Rate 20 /min Pain Level 5 BMI (Body Mass Index) 29.6 kg/m2 07/28/2017 Height 65 inches 5'5" Weight 178.00 lb BP Systolic 116 mmHg BP Diastolic 72 mmHg Respiratory Rate 20 /min Body Temperature 97.6 F Pain Level 10 BMI (Body Mass Index) 29.6 kg/m2 07/19/2017 Weight 178.00 lb Heart Rate 52 /min BP Systolic Sitting 112 mmHg BP Diastolic Sitting 60 mmHg O2 % BldC Oximetry 95 % 04/27/2017 Weight 183.00 lb Heart Rate 61 /min BP Systolic Sitting 120 mmHg BP Diastolic Sitting 80 mmHg Body Temperature 97.6 F O2 % BldC Oximetry 86 % 01/28/2017 Height 65 inches 5'5" Weight 209.00 lb Heart Rate 96 /min BP Systolic Sitting 154 mmHg BP Diastolic Sitting 84 mmHg Respiratory Rate 14 /min Body Temperature 98.6 F BMI (Body Mass Index) 34.8 kg/m2 10/14/2016 Height 65 inches 5'5" Weight 207.00 lb Heart Rate 96 /min BP Systolic Sitting 148 mmHg BP Diastolic Sitting 80 mmHg Respiratory Rate 16 /min Body Temperature 99.1 F BMI (Body Mass Index) 34.4 kg/m2 07/13/2016 Height 65 inches 5'5" Weight 208.00 lb Heart Rate 64 /min BP Systolic Sitting 138 mmHg BP Diastolic Sitting 84 mmHg Respiratory Rate 14 /min Body Temperature 98.5 F BMI (Body Mass Index) 34.6 kg/m2 06/01/2016 Height 65 inches 5'5" Weight 208.00 lb Heart Rate 72 /min BP Systolic Sitting 162 mmHg BP Diastolic Sitting 84 mmHg Respiratory Rate 14 /min Body Temperature 98.5 F BMI (Body Mass Index) 34.6 kg/m2 05/18/2016 Height 65 inches 5'5" Weight 208.00 lb Heart Rate 72 /min BP Systolic Sitting 158 mmHg BP Diastolic Sitting 80 mmHg Respiratory Rate 14 /min Body Temperature 99.1 F BMI (Body Mass Index) 34.6 kg/m2 04/06/2016 Height 65 inches 5'5" Weight 205.00 lb Heart Rate 72 /min BP Systolic Sitting 140 mmHg BP Diastolic Sitting 82 mmHg Respiratory Rate 14 /min Body Temperature 98.2 F BMI (Body Mass Index) 34.1 kg/m2 03/06/2016 Height 65 inches 5'5" Weight 201.38 lb Heart Rate 80 /min BP Systolic Sitting 140 mmHg BP Diastolic Sitting 88 mmHg Respiratory Rate 14 /min Body Temperature 98.4 F BMI (Body Mass Index) 33.5 kg/m2 11/13/2015 Height 65 inches 5'5" Weight 199.00 lb Heart Rate 88 /min BP Systolic Sitting 148 mmHg BP Diastolic Sitting 80 mmHg Respiratory Rate 14 /min Body Temperature 99.3 F BMI (Body Mass Index) 33.1 kg/m2 10/25/2015 Height 65 inches 5'5" Weight 202.00 lb Heart Rate 65 /min BP Systolic Sitting 146 mmHg BP Diastolic Sitting 78 mmHg BP Systolic Recheck 132 mmHg BP Diastolic Recheck 76 mmHg Body Temperature 97.5 F O2 % BldC Oximetry 98 % BMI (Body Mass Index) 33.6 kg/m2 10/21/2015 Weight 200.00 lb cast on Heart Rate 87 /min BP Systolic Sitting 158 mmHg BP Diastolic Sitting 82 mmHg O2 % BldC Oximetry 96 % 10/16/2015 Height 65 inches 5'5" Weight 203.00 lb Heart Rate 68 /min BP Systolic Sitting 132 mmHg BP Diastolic Sitting 68 mmHg Respiratory Rate 16 /min Body Temperature 98.9 F Pain Level 9 BMI (Body Mass Index) 33.8 kg/m2 10/11/2015 Height 65 inches 5'5" Weight 203.00 lb Heart Rate 80 /min BP Systolic Sitting 146 mmHg BP Diastolic Sitting 86 mmHg Respiratory Rate 16 /min Body Temperature 98.6 F BMI (Body Mass Index) 33.8 kg/m2 09/30/2015 Height 65 inches 5'5" Weight 203.00 lb Heart Rate 88 /min BP Systolic Sitting 130 mmHg BP Diastolic Sitting 80 mmHg Respiratory Rate 14 /min Body Temperature 98.8 F BMI (Body Mass Index) 33.8 kg/m2 09/23/2015 Height 65 inches 5'5" Weight 203.00 lb Heart Rate 72 /min Respiratory Rate 18 /min Body Temperature 97.7 F Pain Level 9 BMI (Body Mass Index) 33.8 kg/m2 09/16/2015 Height 65 inches 5'5" Weight 203.00 lb Heart Rate 80 /min BP Systolic Sitting 138 mmHg BP Diastolic Sitting 70 mmHg Body Temperature 98.8 F Pain Level 6 BMI (Body Mass Index) 33.8 kg/m2 07/29/2015 Height 65 inches 5'5" Weight 201.12 lb Heart Rate 84 /min BP Systolic Sitting 152 mmHg BP Diastolic Sitting 95 mmHg Respiratory Rate 16 /min Body Temperature 98.7 F BMI (Body Mass Index) 33.5 kg/m2 07/24/2015 Height 65 inches 5'5" Weight 203.00 lb Body Temperature 96.7 F BMI (Body Mass Index) 33.8 kg/m2 07/18/2015 Height 65 inches 5'5" Weight 198.00 lb Heart Rate 79 /min BP Systolic 148 mmHg BP Diastolic 80 mmHg Body Temperature 98.1 F O2 % BldC Oximetry 98 % BMI (Body Mass Index) 32.9 kg/m2 07/15/2015 Height 65 inches 5'5" Weight 201.12 lb Heart Rate 88 /min BP Systolic Sitting 132 mmHg BP Diastolic Sitting 74 mmHg Respiratory Rate 14 /min Body Temperature 99.4 F BMI (Body Mass Index) 33.5 kg/m2 07/12/2015 Height 65 inches 5'5" Weight 203.00 lb Body Temperature 97.7 F Pain Level 4 BMI (Body Mass Index) 33.8 kg/m2 07/03/2015 Height 65 inches 5'5" Weight 203.00 lb Heart Rate 79 /min BP Systolic 152 mmHg BP Diastolic 82 mmHg BMI (Body Mass Index) 33.8 kg/m2 11/16/2014 Weight 200.00 lb Heart Rate 70 /min BP Systolic Sitting 176 mmHg BP Diastolic Sitting 78 mmHg Body Temperature 97.4 F O2 % BldC Oximetry 96 % 09/28/2014 Height 65 inches 5'5" Weight 196.00 lb Heart Rate 68 /min BP Systolic Sitting 128 mmHg BP Diastolic Sitting 80 mmHg Body Temperature 98.7 F O2 % BldC Oximetry 99 % BMI (Body Mass Index) 32.6 kg/m2 08/09/2014 Height 65 inches 5'5" Weight 193.00 lb Heart Rate 76 /min BP Systolic Sitting 146 mmHg BP Diastolic Sitting 84 mmHg O2 % BldC Oximetry 96 % BMI (Body Mass Index) 32.1 kg/m2 07/02/2014 Height 65 inches 5'5" Weight 296.00 lb Heart Rate 84 /min BP Systolic Sitting 152 mmHg recheck 138/72 BP Diastolic Sitting 79 mmHg recheck 138/72 Body Temperature 98.5 F O2 % BldC Oximetry 98 % BMI (Body Mass Index) 49.3 kg/m2 03/16/2014 Heart Rate 84 /min BP Systolic Sitting 152 mmHg Ra, reg cuff BP Diastolic Sitting 84 mmHg Ra, reg cuff BP Systolic Standing 144 mmHg Ra BP Diastolic Standing 80 mmHg Ra Respiratory Rate 16 /min 03/14/2014 Height 65 inches 5'5" Weight 203.31 lb with shoes Heart Rate 76 /min BP Systolic 140 mmHg La lg cuff BP Diastolic 80 mmHg La lg cuff BP Systolic Sitting 142 mmHg LA lg cuff BP Diastolic Sitting 70 mmHg LA lg cuff Respiratory Rate 16 /min BMI (Body Mass Index) 33.8 kg/m2 03/08/2014 Height 65 inches 5'5" Weight 202.25 lb Heart Rate 84 /min BP Systolic Sitting 124 mmHg BP Diastolic Sitting 80 mmHg Body Temperature 97.3 F Pain Level 9 O2 % BldC Oximetry 97 % BMI (Body Mass Index) 33.7 kg/m2 02/16/2014 Height 65 inches 5'5" Weight 204.00 lb Heart Rate 84 /min BP Systolic 162 mmHg Ra large cuff BP Diastolic 86 mmHg Ra large cuff BP Systolic Sitting 166 mmHg LA BP Diastolic Sitting 84 mmHg LA BP Systolic Standing 158 mmHg LA BP Diastolic Standing 84 mmHg LA Respiratory Rate 18 /min BMI (Body Mass Index) 33.9 kg/m2 01/12/2014 Weight 208.25 lb Heart Rate 74 /min BP Systolic 154 mmHg BP Diastolic 74 mmHg BP Systolic Sitting 167 mmHg BP Diastolic Sitting 78 mmHg Body Temperature 97.6 F O2 % BldC Oximetry 95 % 01/08/2011 Weight 221.00 lb Heart Rate 70 /min BP Systolic Sitting 150 mmHg BP Diastolic Sitting 76 mmHg 12/18/2010 Height 65 inches 5'5" Weight 229.00 lb Heart Rate 72 /min BP Systolic Sitting 152 mmHg L BP Diastolic Sitting 78 mmHg L Body Temperature 98.0 F BMI (Body Mass Index) 38.1 kg/m2 Results Test Date Test Result H/L Range Note Iron & Iron Binding Capacity 07/19/2017 Iron 99 g/dL 50-212 Unsaturated Iron Binding 377 g/dL Total Iron Binding Capacity 476 g/dL High 250-450 Transferrin 340 mg/dL 203-362 % Iron Saturation 21 % 15-55 Laboratory test finding 07/19/2017 Ferritin 25.1 ng/mL 11-307 LDH 241 U/L 140-271 Protein Electrophoresis 07/19/2017 Total Protein(Pep) 6.9 g/dL 6.3 - 7.9 Albumin 3.7 g/dL 3.4-4.7 Alpha-1 Globulin 0.3 g/dL 0.1-0.3 Alpha-2 Globulin 0.8 g/dL 0.6-1.0 Beta Globulin 1.0 g/dL 0.7-1.2 Gamma Globulin 1.1 g/dL 0.6-1.6 Albumin/Globulin Ratio 1.17 Impression See Comment 1 Laboratory test finding 07/19/2017 Hemoglobin A1c 5.3 5-7 Laboratory test finding 07/16/2017 Folic Acid (Folate) 19.05 ng/mL > 3.99 Vitamin B12 330 pg/mL 180-914 2 Comp Metabolic Panel 07/16/2017 Sodium 137 mmol/L 133-145 Potassium 4.2 mmol/L 3.5-5.0 Chloride 104 mmol/L 101-111 Co2 Carbon Dioxide 27 mmol/L 22-32 Anion Gap 6 mmol/L 2-11 Glucose 144 mg/dL High 70-100 Blood Urea Nitrogen 21 mg/dL 6-24 Creatinine 0.95 mg/dL 0.51-0.95 BUN/Creatinine Ratio 22.1 High 8-20 Calcium 9.8 mg/dL 8.6-10.3 Total Protein 6.6 g/dL 6.4-8.9 Albumin 4.1 g/dL 3.2-5.2 Globulin 2.5 g/dL 2-4 Albumin/Globulin Ratio 1.6 1-3 Total Bilirubin 1.80 mg/dL High 0.2-1.0 Alkaline Phosphatase 114 U/L High 34-104 Alt 11 U/L 7-52 Ast 20 U/L 13-39 Egfr Non- 56.6 >60 Egfr 72.8 >60 3 Retic Count 07/16/2017 Retic Count 2.6 % High 0.5-1.5 Corrected Retic Count 1.7 % High 0.5-1.5 Maturation Factor Retic 2.0 Retic Index 0.90 Mean Retic Volume 104.3 Immature Retic Fraction 0.48 RBC Retic Count 3.01 10^6/uL Low 4.6-6.2 Hematocrit for Retic CNT 29 % Low 35-47 CBC Auto Diff 07/16/2017 White Blood Count 6.5 10^3/uL 3.5-10.8 Red Blood Count 3.01 10^6/uL Low 4.0-5.4 Hemoglobin 10.1 g/dL Low 12.0-16.0 Hematocrit 29 % Low 35-47 Mean Corpuscular Volume 96 fL 80-97 Mean Corpuscular Hemoglobin 34 pg High 27-31 Mean Corpuscular HGB Conc 35 g/dL 31-36 Red Cell Distribution Width 12 % 10.5-15 Platelet Count 220 10^3/uL 150-450 Mean Platelet Volume 8 um3 7.4-10.4 Abs Neutrophils 4.2 10^3/uL 1.5-7.7 Abs Lymphocytes 1.4 10^3/uL 1.0-4.8 Abs Monocytes 0.4 10^3/uL 0-0.8 Abs Eosinophils 0.3 10^3/uL 0-0.6 Abs Basophils 0.1 10^3/uL 0-0.2 Abs Nucleated RBC 0 10^3/uL Granulocyte % 65.2 % 38-83 Lymphocyte % 21.9 % Low 25-47 Monocyte % 6.8 % 0-7 Eosinophil % 5.0 % 0-6 Basophil % 1.1 % 0-2 Nucleated Red Blood Cells % 0 Urine Culture And Sensitivities 07/16/2017 Urine Culture SEE RESULT BELOW 4 Urinalysis Profile 07/16/2017 Urine Color Straw Urine Appearance Clear Urine Specific [place] 1.004 Low 1.010-1.030 Urine pH 6.0 5-9 Urine Urobilinogen Negative Negative Urine Ketones Negative Negative Urine Protein Negative Negative Urine Leukocytes Negative Negative Urine Blood 1+ Negative Urine Nitrite Negative Negative Urine Bilirubin Negative Negative Urine Glucose Negative Negative Urine White Blood Cell Trace(0-5/hpf) Absent Urine Red Blood Cell Trace(0-2/hpf) Absent Urine Bacteria Absent Absent Urine Squamous Epithelial Cell Present Absent Liver Function Panel 06/30/2017 Total Protein 6.1 g/dL Low 6.4-8.9 Albumin 3.9 g/dL 3.2-5.2 Globulin 2.2 g/dL 2-4 Albumin/Globulin Ratio 1.8 1-3 Total Bilirubin 2.30 mg/dL High 0.2-1.0 Alkaline Phosphatase 91 U/L 34-104 Alt 9 U/L 7-52 Direct Bilirubin 0.40 mg/dL High 0.03-0.18 Indirect Bilirubin 1.9 mg/dL High 0.3-1.0 Ast 20 U/L 13-39 CBC Auto Diff 06/30/2017 White Blood Count 5.7 10^3/uL 3.5-10.8 Red Blood Count 2.77 10^6/uL Low 4.0-5.4 Hemoglobin 9.7 g/dL Low 12.0-16.0 Hematocrit 28 % Low 35-47 Mean Corpuscular Volume 100 fL High 80-97 Mean Corpuscular Hemoglobin 35 pg High 27-31 Mean Corpuscular HGB Conc 35 g/dL 31-36 Red Cell Distribution Width 13 % 10.5-15 Platelet Count 199 10^3/uL 150-450 Mean Platelet Volume 8 um3 7.4-10.4 Abs Neutrophils 4.0 10^3/uL 1.5-7.7 Abs Lymphocytes 1.1 10^3/uL 1.0-4.8 Abs Monocytes 0.3 10^3/uL 0-0.8 Abs Eosinophils 0.3 10^3/uL 0-0.6 Abs Basophils 0.1 10^3/uL 0-0.2 Abs Nucleated RBC 0 10^3/uL Granulocyte % 69.6 % 38-83 Lymphocyte % 18.6 % Low 25-47 Monocyte % 6.0 % 1-9 Eosinophil % 4.8 % 0-6 Basophil % 1.0 % 0-2 Nucleated Red Blood Cells % 0 Laboratory test finding 06/30/2017 LDH 243 U/L 140-271 Laboratory test finding 04/29/2017 Magnesium 1.7 mg/dL Low 1.9-2.7 Comp Metabolic Panel 04/29/2017 Albumin 4.0 g/dL 3.2-5.2 Sodium 138 mmol/L 133-145 Potassium 3.4 mmol/L Low 3.5-5.0 Chloride 99 mmol/L Low 101-111 Alkaline Phosphatase 125 U/L High 34-104 Alt 12 U/L 7-52 Ast 24 U/L 13-39 Co2 Carbon Dioxide 29 mmol/L 22-32 Anion Gap 10 mmol/L 2-11 Glucose 168 mg/dL High 70-100 Blood Urea Nitrogen 27 mg/dL High 6-24 Creatinine 1.17 mg/dL High 0.51-0.95 BUN/Creatinine Ratio 23.1 High 8-20 Calcium 9.7 mg/dL 8.6-10.3 Total Protein 6.8 g/dL 6.4-8.9 Globulin 2.8 g/dL 2-4 Albumin/Globulin Ratio 1.4 1-3 Total Bilirubin 3.30 mg/dL High 0.2-1.0 Egfr Non- 44.5 >60 Egfr 57.2 >60 5 Urine Microalbumin Random 04/29/2017 Ur Microalbumin (mg/L) < 15.0 mg/L Urine Creatinine 87.91 mg/dL Urine Microalbumin/Creatinine TNP ug/mg <31 6 Lipid Profile (Trig/Chol/HDL) 04/29/2017 Triglycerides 115 mg/dL 7 Cholesterol 97 mg/dL 8 HDL Cholesterol 34.0 mg/dL 9 LDL Cholesterol 40 mg/dL 10 Laboratory test finding 04/27/2017 Hemoglobin A1c 6.4 5-7 Laboratory test finding 10/25/2015 Hemoglobin A1c 5.6 5-7 Laboratory test finding 10/16/2015 C Reactive Protein 4.56 mg/L < 5.00 11 Basic Metabolic Panel 10/16/2015 Sodium 139 mmol/L 133-145 Potassium 4.3 mmol/L 3.5-5.0 Chloride 106 mmol/L 101-111 Co2 Carbon Dioxide 25 mmol/L 22-32 Anion Gap 8 mmol/L 2-11 Glucose 110 mg/dL High 70-100 Blood Urea Nitrogen 15 mg/dL 6-24 Creatinine 0.67 mg/dL 0.51-0.95 BUN/Creatinine Ratio 22.4 High 8-20 Calcium 9.5 mg/dL 8.6-10.3 Egfr Non- 85.1 >60 Egfr 109.5 >60 12 Comp Metabolic Panel 09/18/2015 Sodium 139 mmol/L 133-145 Potassium 4.3 mmol/L 3.5-5.0 Chloride 106 mmol/L 101-111 Co2 Carbon Dioxide 26 mmol/L 22-32 Anion Gap 7 mmol/L 2-11 Glucose 116 mg/dL High 70-100 Blood Urea Nitrogen 15 mg/dL 6-24 Creatinine 0.70 mg/dL 0.51-0.95 BUN/Creatinine Ratio 21.4 High 8-20 Calcium 9.2 mg/dL 8.6-10.3 Total Protein 6.7 g/dL 6.4-8.9 Albumin 4.4 g/dL 3.2-5.2 Globulin 2.3 g/dL 2-4 Albumin/Globulin Ratio 1.9 1-3 Total Bilirubin 1.60 mg/dL High 0.2-1.0 Alkaline Phosphatase 118 U/L High 34-104 Alt 14 U/L 7-52 Ast 22 U/L 13-39 Egfr Non- 80.9 >60 Egfr 104.1 >60 13 Lipid Profile (Trig/Chol/HDL) 09/18/2015 Triglycerides 53 mg/dL 14 Cholesterol 143 mg/dL 15 HDL Cholesterol 64.2 mg/dL 16 LDL Cholesterol 68 mg/dL 17 Laboratory test finding 09/18/2015 C Reactive Protein 4.45 mg/L < 5.00 18 Urine Microalbumin Random 07/18/2015 Ur Microalbumin (mg/L) 13.0 mg/L Urine Creatinine 80.04 mg/dL Urine Microalbumin/Creatinine 16.2 ug/mg <31 Basic Metabolic Panel 07/15/2015 Sodium 139 mmol/L 133-145 Potassium 4.1 mmol/L 3.5-5.0 Chloride 104 mmol/L 101-111 Co2 Carbon Dioxide 29 mmol/L 22-32 Anion Gap 6 mmol/L 2-11 Glucose 113 mg/dL High 70-100 Blood Urea Nitrogen 16 mg/dL 6-24 Creatinine 0.67 mg/dL 0.51-0.95 BUN/Creatinine Ratio 23.9 High 8-20 Calcium 9.2 mg/dL 8.6-10.3 Egfr Non- 85.1 >60 Egfr 109.5 >60 19 Laboratory test finding 07/15/2015 C Reactive Protein 3.57 mg/L < 5.00 20 CBC Auto Diff 07/10/2015 White Blood Count 5.9 10^3/uL 3.5-10.8 Red Blood Count 3.89 10^6/uL Low 4.0-5.4 Hemoglobin 12.4 g/dL 12.0-16.0 Hematocrit 36 % 35-47 Mean Corpuscular Volume 93 fL 80-97 Mean Corpuscular Hemoglobin 32 pg High 27-31 Mean Corpuscular HGB Conc 34 g/dL 31-36 Red Cell Distribution Width 13 % 10.5-15 Platelet Count 182 10^3/uL 150-450 Mean Platelet Volume 8 um3 7.4-10.4 Abs Neutrophils 4.0 10^3/uL 1.5-7.7 Abs Lymphocytes 1.2 10^3/uL 1.0-4.8 Abs Monocytes 0.3 10^3/uL 0-0.8 Abs Eosinophils 0.3 10^3/uL 0-0.6 Abs Basophils 0.1 10^3/uL 0-0.2 Abs Nucleated RBC 0 10^3/uL Granulocyte % 67.8 % 38-83 Lymphocyte % 20.5 % Low 25-47 Monocyte % 4.9 % 1-9 Eosinophil % 5.7 % 0-6 Basophil % 1.1 % 0-2 Nucleated Red Blood Cells % 0 Comp Metabolic Panel 07/10/2015 Sodium 137 mmol/L 133-145 Potassium 4.3 mmol/L 3.5-5.0 Chloride 105 mmol/L 101-111 Co2 Carbon Dioxide 28 mmol/L 22-32 Anion Gap 4 mmol/L 2-11 Glucose 128 mg/dL High 70-100 Blood Urea Nitrogen 12 mg/dL 6-24 Creatinine 0.65 mg/dL 0.51-0.95 BUN/Creatinine Ratio 18.5 8-20 Calcium 9.1 mg/dL 8.6-10.3 Total Protein 6.7 g/dL 6.4-8.9 Albumin 4.2 g/dL 3.2-5.2 Globulin 2.5 g/dL 2-4 Albumin/Globulin Ratio 1.7 1-3 Total Bilirubin 1.00 mg/dL 0.2-1.0 Alkaline Phosphatase 91 U/L 34-104 Alt 18 U/L 7-52 Ast 22 U/L 13-39 Egfr Non- 88.2 >60 Egfr 113.4 >60 21 Laboratory test finding 07/10/2015 C Reactive Protein 3.49 mg/L < 5.00 22 CBC Auto Diff 07/03/2015 White Blood Count 6.9 10^3/uL 3.5-10.8 Red Blood Count 3.81 10^6/uL Low 4.0-5.4 Hemoglobin 12.4 g/dL 12.0-16.0 Hematocrit 36 % 35-47 Mean Corpuscular Volume 94 fL 80-97 Mean Corpuscular Hemoglobin 33 pg High 27-31 Mean Corpuscular HGB Conc 35 g/dL 31-36 Red Cell Distribution Width 13 % 10.5-15 Platelet Count 186 10^3/uL 150-450 Mean Platelet Volume 8 um3 7.4-10.4 Abs Neutrophils 4.3 10^3/uL 1.5-7.7 Abs Lymphocytes 1.8 10^3/uL 1.0-4.8 Abs Monocytes 0.4 10^3/uL 0-0.8 Abs Eosinophils 0.4 10^3/uL 0-0.6 Abs Basophils 0.1 10^3/uL 0-0.2 Abs Nucleated RBC 0.01 10^3/uL Granulocyte % 62.4 % 38-83 Lymphocyte % 25.6 % 25-47 Monocyte % 5.3 % 1-9 Eosinophil % 6.0 % 0-6 Basophil % 0.7 % 0-2 Nucleated Red Blood Cells % 0.1 Comp Metabolic Panel 07/03/2015 Sodium 139 mmol/L 133-145 Potassium 3.9 mmol/L 3.5-5.0 Chloride 107 mmol/L 101-111 Co2 Carbon Dioxide 27 mmol/L 22-32 Anion Gap 5 mmol/L 2-11 Glucose 114 mg/dL High 70-100 Blood Urea Nitrogen 13 mg/dL 6-24 Creatinine 0.63 mg/dL 0.51-0.95 BUN/Creatinine Ratio 20.6 High 8-20 Calcium 9.0 mg/dL 8.6-10.3 Total Protein 6.6 g/dL 6.4-8.9 Albumin 4.1 g/dL 3.2-5.2 Globulin 2.5 g/dL 2-4 Albumin/Globulin Ratio 1.6 1-3 Total Bilirubin 1.00 mg/dL 0.2-1.0 Alkaline Phosphatase 91 U/L 34-104 Alt 16 U/L 7-52 Ast 21 U/L 13-39 Egfr Non- 91.4 >60 Egfr 117.5 >60 23 Laboratory test finding 07/03/2015 C Reactive Protein 3.03 mg/L < 5.00 24 Laboratory test finding 06/22/2015 Partial Thrombo Time 72.4 seconds High 26.0-36.3 PTT Magnesium 2.0 mg/dL 1.9-2.7 Blood Culture SEE RESULT BELOW 25 Inr/Protime 06/22/2015 Inr 1.11 0.89-1.11 Laboratory test finding 06/22/2015 C Reactive Protein 10.49 mg/L High &lt ; 5.00 26 B-Type Natriuretic Peptide BNP 144 pg/mL High 27 Comp Metabolic Panel 06/22/2015 Sodium 139 mmol/L 133-145 Potassium 4.1 mmol/L 3.5-5.0 Chloride 104 mmol/L 101-111 Co2 Carbon Dioxide 29 mmol/L 22-32 Anion Gap 6 mmol/L 2-11 Glucose 124 mg/dL High 70-100 Blood Urea Nitrogen 12 mg/dL 6-24 Creatinine 0.74 mg/dL 0.51-0.95 BUN/Creatinine Ratio 16.2 8-20 Calcium 9.6 mg/dL 8.6-10.3 Total Protein 7.2 g/dL 6.4-8.9 Albumin 4.4 g/dL 3.2-5.2 Globulin 2.8 g/dL 2-4 Albumin/Globulin Ratio 1.6 1-3 Total Bilirubin 1.60 mg/dL High 0.2-1.0 Alkaline Phosphatase 102 U/L 34-104 Alt 12 U/L 7-52 Ast 19 U/L 13-39 Egfr Non- 75.9 >60 Egfr 97.6 >60 28 Laboratory test finding 06/22/2015 Lactic Acid 0.9 mmol/L 0.5-2.0 29 CBC Auto Diff 06/22/2015 White Blood Count 7.0 10^3/uL 3.5-10.8 Red Blood Count 4.23 10^6/uL 4.0-5.4 Hemoglobin 13.4 g/dL 12.0-16.0 Hematocrit 40 % 35-47 Mean Corpuscular Volume 93 fL 80-97 Mean Corpuscular Hemoglobin 32 pg High 27-31 Mean Corpuscular HGB Conc 34 g/dL 31-36 Red Cell Distribution Width 13 % 10.5-15 Platelet Count 190 10^3/uL 150-450 Mean Platelet Volume 8 um3 7.4-10.4 Abs Neutrophils 4.7 10^3/uL 1.5-7.7 Abs Lymphocytes 1.5 10^3/uL 1.0-4.8 Abs Monocytes 0.4 10^3/uL 0-0.8 Abs Eosinophils 0.4 10^3/uL 0-0.6 Abs Basophils 0.1 10^3/uL 0-0.2 Abs Nucleated RBC 0 10^3/uL Granulocyte % 67.2 % 38-83 Lymphocyte % 21.3 % Low 25-47 Monocyte % 5.0 % 1-9 Eosinophil % 5.6 % 0-6 Basophil % 0.9 % 0-2 Nucleated Red Blood Cells % 0 Laboratory test 06/01/2015 Wound Culture/Sensi SEE RESULT BELOW 30 finding Laboratory test 06/01/2015 Wound Culture/Sensi SEE RESULT BELOW 31 finding CBC Auto Diff 08/09/2014 White Blood Count 7.5 10^3/uL 4.8-10.8 Red Blood Count 3.95 10^6/uL Low 4.0-5.4 Hemoglobin 13.0 g/dL 12.0-16.0 Hematocrit 37 % 35-47 Mean Corpuscular Volume 95 fL 80-97 Mean Corpuscular Hemoglobin 33 pg High 27-31 Mean Corpuscular HGB Conc 35 g/dL 31-36 Red Cell Distribution Width 13 % 10.5-15 Platelet Count 233 10^3/uL 150-450 Mean Platelet Volume 9 um3 7.4-10.4 Abs Neutrophils 4.7 10^3/uL 1.5-7.7 Abs Lymphocytes 2.0 10^3/uL 1.0-4.8 Abs Monocytes 0.4 10^3/uL 0-0.8 Abs Eosinophils 0.4 10^3/uL 0-0.6 Abs Basophils 0.1 10^3/uL 0-0.2 Abs Nucleated RBC 0 10^3/uL Granulocyte % 62.3 % 38-83 Lymphocyte % 26.0 % 25-47 Monocyte % 5.6 % 1-9 Eosinophil % 5.1 % 0-6 Basophil % 1.0 % 0-2 Nucleated Red Blood Cells % 0 Comp Metabolic Panel 08/09/2014 Sodium 140 mmol/L 133-145 Potassium 4.2 mmol/L 3.5-5.0 Chloride 105 mmol/L 101-111 Co2 Carbon Dioxide 31 mmol/L 22-32 Anion Gap 4 mmol/L 2-11 Glucose 111 mg/dL High 70-100 Blood Urea Nitrogen 12 mg/dL 6-24 Creatinine 0.67 mg/dL 0.51-0.95 BUN/Creatinine Ratio 17.9 8-20 Calcium 9.3 mg/dL 8.6-10.3 Total Protein 6.6 g/dL 6.4-8.9 Albumin 4.4 g/dL 3.2-5.2 Globulin 2.2 g/dL 2-4 Albumin/Globulin Ratio 2.0 1-3 Total Bilirubin 1.70 mg/dL High 0.2-1.0 Alkaline Phosphatase 118 U/L High 34-104 Alt 13 U/L 7-52 Ast 18 U/L 13-39 Egfr Non- 85.3 >60 Egfr 109.8 >60 32 Laboratory test finding 08/09/2014 Hemoglobin A1c 5.7 5-7 Urine Microalbumin Random 03/08/2014 Ur Microalbumin (mg/L) 19.0 mg/L Urine Creatinine 170.37 mg/dL Urine Microalbumin/Creatinine 11.1 Less Than 31 Lipid Profile (Trig/Chol/HDL) 01/12/2014 Triglycerides 55 mg/dL 33, 34 Cholesterol 143 mg/dL 33, 35 HDL Cholesterol 62.4 mg/dL 33, 36 LDL Cholesterol 70 mg/dL 33, 37 Laboratory test finding 01/12/2014 Hemoglobin A1c 5.8 5-7 Comp Metabolic Panel 01/12/2014 Sodium 139 mmol/L 133-145 33 Potassium 4.7 mmol/L 3.7-5.6 33 Chloride 105 mmol/L 101-111 33 Co2 Carbon Dioxide 28 mmol/L 22-32 33 Anion Gap 6 mmol/L 2-11 33 Glucose 116 mg/dL High 70-100 33 Blood Urea Nitrogen 13 mg/dL 6-24 33 Creatinine 0.69 mg/dL 0.51-0.95 33 BUN/Creatinine Ratio 18.8 8-20 33 Calcium 9.5 mg/dL 8.6-10.3 33 Total Protein 6.6 g/dL 6.4-8.9 33 Albumin 4.4 g/dL 3.2-5.2 33 Globulin 2.2 g/dL 2-4 33 Albumin/Globulin Ratio 2.0 1-3 33 Total Bilirubin 1.50 mg/dL High 0.2-1.0 33 Alkaline Phosphatase 93 U/L 34-104 33 Alt 18 U/L 7-52 33 Ast 23 U/L 13-39 33 Egfr Non- 82.7 >60 33 Egfr 106.4 >60 33, 38 Thyroid Panel 01/05/2011 Free Thyroxine 0.93 ng/dL 0.61-1.24 39 Thyroxine 7.7 g/dL 5-12 39 TSH 2.33 MIU/ML 0.34-5.60 39 Lipid Profile (Trig/Chol/HDL) 01/05/2011 Triglyceride 48 mg/dL 40-200 39 Cholesterol 149 mg/dL Less Than 200 39, 40 High Density Lipoprotein 57 mg/dL 40-60 39, 41 Cholesterol/HDL Ratio 2.61 AVERAGE 1-4.44 39 Low Density Lipoprotein 82 mg/dL Less Than 100 39, 42 Laboratory test finding 01/05/2011 Hemoglobin A1c 6.8 % High Less Than 6.0 39, 43 1 RESULT: No apparent monoclonal protein on serum electrophoresis. Test Performed by: [facility] - [address] [address] 2 Normal Range 180 to 914 Indeterminate Range 145 to 180 Deficient Range <145 3 Because ethnic data is not always readily available, this report includes an eGFR for both -Americans and non- Americans. The National Kidney Disease Education Program (NKDEP) does not endorse the use of the MDRD equation for patients that are not between the ages of 18 and 70, are , have extremes of body size, muscle mass, or nutritional status, or are non- or non-. According to the National Kidney Foundation, irrespective of diagnosis, the stage of the disease is based on the level of kidney function: Stage Description GFR(mL/min/1.73 m(2)) 1 Kidney damage with normal or decreased GFR 90 2 Kidney damage with mild decrease in GFR 60-89 3 Moderate decrease in GFR 30-59 4 Severe decrease in GFR 15-29 5 Kidney failure <15 (or dialysis) 4 SEE RESULT BELOW Name: TONYAASHLEY B : [address]: Chaitanya Urias MD Acct: [id number] Unit: [id number] AGE: 82 Location: ED Re07/16/17 SEX: F Status: DEP ER SPEC: [id number] GHISLAINE: 07/16/[address] [facility] [address]: Chaitanya Urias MD REQ: [id number] RECD: 07/16/17 STATUS: [facility] DR: Coral Schmitz MD _ SOURCE: URINE [facility]: ORDERED: Urine Culture Procedure Result Reported Site Urine Culture Final 07/17/17- 1220 ML No Growth (<1,000 CFU/mL) * ML - Main Lab . END OF REPORT DEPARTMENT OF PATHOLOGY, [address] [place] [address] Devante Be M.D. Director [facility] # [id number] 5 Because ethnic data is not always readily available, this report includes an eGFR for both -Americans and non- Americans. The National Kidney Disease Education Program (NKDEP) does not endorse the use of the MDRD equation for patients that are not between the ages of 18 and 70, are , have extremes of body size, muscle mass, or nutritional status, or are non- or non-. According to the National Kidney Foundation, irrespective of diagnosis, the stage of the disease is based on the level of kidney function: Stage Description GFR(mL/min/1.73 m(2)) 1 Kidney damage with normal or decreased GFR 90 2 Kidney damage with mild decrease in GFR 60-89 3 Moderate decrease in GFR 30-59 4 Severe decrease in GFR 15-29 5 Kidney failure <15 (or dialysis) 6 Unable to calculate due to low microalbumin 7 Desirable: <150 Borderline High: 150-199 High: 200-499 Very High: >500 8 Desirable: <200 Borderline High: 200-239 High: >239 9 Low: <40 Desirable: 40-60 High: >60 10 Desirable: <100 Near Optimal: 100-129 Borderline High: 130-159 High: 160-189 Very High: >189 11 Acute inflammation: >10.00 12 Because ethnic data is not always readily available, this report includes an eGFR for both -Americans and non- Americans. The National Kidney Disease Education Program (NKDEP) does not endorse the use of the MDRD equation for patients that are not between the ages of 18 and 70, are , have extremes of body size, muscle mass, or nutritional status, or are non- or non-. According to the National Kidney Foundation, irrespective of diagnosis, the stage of the disease is based on the level of kidney function: Stage Description GFR(mL/min/1.73 m(2)) 1 Kidney damage with normal or decreased GFR 90 2 Kidney damage with mild decrease in GFR 60-89 3 Moderate decrease in GFR 30-59 4 Severe decrease in GFR 15-29 5 Kidney failure <15 (or dialysis) 13 Because ethnic data is not always readily available, this report includes an eGFR for both -Americans and non- Americans. The National Kidney Disease Education Program (NKDEP) does not endorse the use of the MDRD equation for patients that are not between the ages of 18 and 70, are , have extremes of body size, muscle mass, or nutritional status, or are non- or non-. According to the National Kidney Foundation, irrespective of diagnosis, the stage of the disease is based on the level of kidney function: Stage Description GFR(mL/min/1.73 m(2)) 1 Kidney damage with normal or decreased GFR 90 2 Kidney damage with mild decrease in GFR 60-89 3 Moderate decrease in GFR 30-59 4 Severe decrease in GFR 15-29 5 Kidney failure <15 (or dialysis) 14 Desirable <150 Borderline high 150-199 High 200-499 Very High >500 15 Desirable <200 Borderline high 200-239 High >239 16 Low <40 Desirable: 40-60 High: >60 17 Desirable: <100 mg/dL Near Optimal: 100-129 mg/dL Borderline High: 130-159 mg/dL High: 160-189 mg/dL Very High: >189 mg/dL 18 Acute inflammation: >10.00 19 Because ethnic data is not always readily available, this report includes an eGFR for both -Americans and non- Americans. The National Kidney Disease Education Program (NKDEP) does not endorse the use of the MDRD equation for patients that are not between the ages of 18 and 70, are , have extremes of body size, muscle mass, or nutritional status, or are non- or non-. According to the National Kidney Foundation, irrespective of diagnosis, the stage of the disease is based on the level of kidney function: Stage Description GFR(mL/min/1.73 m(2)) 1 Kidney damage with normal or decreased GFR 90 2 Kidney damage with mild decrease in GFR 60-89 3 Moderate decrease in GFR 30-59 4 Severe decrease in GFR 15-29 5 Kidney failure <15 (or dialysis) 20 Acute inflammation: >10.00 21 Because ethnic data is not always readily available, this report includes an eGFR for both -Americans and non- Americans. The National Kidney Disease Education Program (NKDEP) does not endorse the use of the MDRD equation for patients that are not between the ages of 18 and 70, are , have extremes of body size, muscle mass, or nutritional status, or are non- or non-. According to the National Kidney Foundation, irrespective of diagnosis, the stage of the disease is based on the level of kidney function: Stage Description GFR(mL/min/1.73 m(2)) 1 Kidney damage with normal or decreased GFR 90 2 Kidney damage with mild decrease in GFR 60-89 3 Moderate decrease in GFR 30-59 4 Severe decrease in GFR 15-29 5 Kidney failure <15 (or dialysis) 22 Acute inflammation: >10.00 23 Because ethnic data is not always readily available, this report includes an eGFR for both -Americans and non- Americans. The National Kidney Disease Education Program (NKDEP) does not endorse the use of the MDRD equation for patients that are not between the ages of 18 and 70, are , have extremes of body size, muscle mass, or nutritional status, or are non- or non-. According to the National Kidney Foundation, irrespective of diagnosis, the stage of the disease is based on the level of kidney function: Stage Description GFR(mL/min/1.73 m(2)) 1 Kidney damage with normal or decreased GFR 90 2 Kidney damage with mild decrease in GFR 60-89 3 Moderate decrease in GFR 30-59 4 Severe decrease in GFR 15-29 5 Kidney failure <15 (or dialysis) 24 Acute inflammation: >10.00 25 SEE RESULT BELOW Name: ASHLEY FINN Jef : [address]: Jacob Ye MD Acct: [id number] Unit: [id number] AGE: 80 Location: [place] [address] Re06/23/15 Dis: 06/27/15 SEX: F Status: DIS IN SPEC: [id number] GHISLAINE: 06/23/[address] [facility] [address]: Jarod Miller MD REQ: [id number] RECD: 06/23/15 STATUS: COMP OTHR DR: Sapphire Sultana MD _ SOURCE: BLOOD,VENO SPDESC: ORDERED: Blood Cult COMMENTS: Patient is On Antibiotics? NO WENT FOR SECOND SET OF BC AND PATIENT WAS NOT IN THE ROOM SHE WAS GETTING AN ULTRA SOUND- [id number] Procedure Result Reported Site Aerobic Culture Bottle Final 06/28/151242 ML No Growth Day 5 Anaerobic Culture Bottle Final 06/28/151242 ML No Growth Day 5 * ML - MAIN LAB ([facility]) . END OF REPORT * ML=Testing performed at Main Lab DEPARTMENT OF PATHOLOGY, [address] [place] [address] Devante Be M.D. Director [facility] # [id number] 26 Acute inflammation: >10.00 27 >100 to <200 pg/mL: likely compensated congestive heart failure (CHF) 200 to 400 pg/mL: likely moderate CHF >400 pg/mL: likely moderate to severe CHF 28 Because ethnic data is not always readily available, this report includes an eGFR for both -Americans and non- Americans. The National Kidney Disease Education Program (NKDEP) does not endorse the use of the MDRD equation for patients that are not between the ages of 18 and 70, are , have extremes of body size, muscle mass, or nutritional status, or are non- or non-. According to the National Kidney Foundation, irrespective of diagnosis, the stage of the disease is based on the level of kidney function: Stage Description GFR(mL/min/1.73 m(2)) 1 Kidney damage with normal or decreased GFR 90 2 Kidney damage with mild decrease in GFR 60-89 3 Moderate decrease in GFR 30-59 4 Severe decrease in GFR 15-29 5 Kidney failure <15 (or dialysis) 29 [facility] Severe Sepsis and Septic Shock Management Bundle Measure requires all lactic acids initially measuring >2.0mmol/L be repeated. 30 SEE RESULT BELOW Name: ASHLEY FINN : [address]: Deepak Taylor Acct: [id number] Unit: [id number] AGE: 80 Location: [facility] Re06/01/15 SEX: F Status: DEP ER SPEC: [id number] GHISLAINE: 06/01/15-[address] [facility] [address]: Diego PAK REQ: [id number] RECD: 06/02/15123 STATUS: AKILAH ESQUIVEL DR: Lorri Velez MD _ SOURCE: TOE [facility] ORDERED: Culture Stain Procedure Result Reported Site Wound/Misc Gram Stain Final 06/02/15- 1331 ML 2+ Neutrophils 1+ Epithelial Cells 1+ Gram Negative Bacilli 1+ Gram Negative Diplococci Wound/Misc Culture Final 06/04/15- 0913 ML Organism 1 STAPHYLOCOCCUS AUREUS Quantity 1+ Beta Lactamase Negative Organism 2 NORMAL RANDI Quantity 1+ 1. STAPHYLOCOCCUS AUREUS M.I.C. RX --------- ------ Penicillin 0.06 S Clindamycin <=0.25 S Erythromycin >=8 R Gentamicin <=0.5 S Linezolid 2 S Nitrofurantoin <=16 S Oxacillin <=0.25 S * Quinupristin/Dalfopristin <=0.25 S Rifampin <=0.5 S Tetracycline <=1 S CONTINUED ON NEXT PAGE * ML=Testing performed at Main Lab DEPARTMENT OF PATHOLOGY, [address] [place] [address] Devante Be M.D. Director [facility] # [id number] Patient: ASHLEY FINN [id number] (Continued) Specimen: [id number] Collected: 06/01/15-1299 Received: 06/02/15-1231 (Continued) Procedure Result Reported Site Wound/Misc Culture Final (continued) 06/04/15- 912 1. STAPHYLOCOCCUS AUREUS (continued) M.I.C. RX --------- ------ Doxycycline - Deduced S * Minocycline - Deduced S Trimethoprim/Sulfamethoxazole <=10 S Vancomycin 1 S Imipenem-Deduced S * Ampicillin/Sulbactam-Deduced S Cefazolin-Deduced S * These antibiotics are not available in the [facility] Formulary Contact the Microbiology Department for any additional antibiotic reporting. * ML - MAIN LAB ([facility]) . END OF REPORT * ML=Testing performed at Main Lab DEPARTMENT OF PATHOLOGY, [address] [place] [address] Devante Be M.D. Director [facility] # [id number] 31 SEE RESULT BELOW Name: ASHLEY FINN : [address]: Deepak Taylor Acct: [id number] Unit: [id number] AGE: 80 Location: [facility] Re06/01/15 SEX: F Status: DEP ER SPEC: [id number] GHISLAINE: 06/01/15-[address] [facility] [address]: Diego PAK REQ: [id number] RECD: 06/02/15123 STATUS: RES DR: Lorri Velez MD _ SOURCE: TOE SPDESC:RT THIRD ORDERED: Culture Stain Procedure Result Reported Site Wound/Misc Gram Stain Final 06/02/15- 1331 ML 2+ Neutrophils 1+ Epithelial Cells 1+ Gram Negative Bacilli 1+ Gram Negative Diplococci Wound/Misc Culture PENDING * ML - MAIN LAB ([facility]) . END OF REPORT * ML=Testing performed at Main Lab DEPARTMENT OF PATHOLOGY, [address] [place] [address] Devante Be M.D. Director [facility] # [id number] 32 Because ethnic data is not always readily available, this report includes an eGFR for both -Americans and non- Americans. The National Kidney Disease Education Program (NKDEP) does not endorse the use of the MDRD equation for patients that are not between the ages of 18 and 70, are , have extremes of body size, muscle mass, or nutritional status, or are non- or non-. According to the National Kidney Foundation, irrespective of diagnosis, the stage of the disease is based on the level of kidney function: Stage Description GFR(mL/min/1.73 m(2)) 1 Kidney damage with normal or decreased GFR 90 2 Kidney damage with mild decrease in GFR 60-89 3 Moderate decrease in GFR 30-59 4 Severe decrease in GFR 15-29 5 Kidney failure <15 (or dialysis) 33 FASTING 10 HOUR 34 Desirable <150 Borderline high 150-199 High 200-499 Very High >500 35 Desirable <200 Borderline high 200-239 High >239 36 Low <40 Desirable: 40-60 High: >60 37 Desirable <100 Near Optimal 100-129 Borderline high 130-159 High 160-189 Very High >189 38 Because ethnic data is not always readily available, this report includes an eGFR for both -Americans and non- Americans. The National Kidney Disease Education Program (NKDEP) does not endorse the use of the MDRD equation for patients that are not between the ages of 18 and 70, are , have extremes of body size, muscle mass, or nutritional status, or are non- or non-. According to the National Kidney Foundation, irrespective of diagnosis, the stage of the disease is based on the level of kidney function: Stage Description GFR(mL/min/1.73 m(2)) 1 Kidney damage with normal or decreased GFR 90 2 Kidney damage with mild decrease in GFR 60-89 3 Moderate decrease in GFR 30-59 4 Severe decrease in GFR 15-29 5 Kidney failure <15 (or dialysis) 39 FASTING 40 CHOLESTEROL INTERPRETATION: Desirable: Less than 200 MG/DL Borderline-High Risk: 200-239 MG/DL High-Risk: 240 MG/DL and over 41 HDL INTERPRETATION: Undesirable: High Risk: Less than 40 MG/DL Desirable: Low Risk: Greater than 60 MG/DL 42 LDL INTERPRETATION: Low Risk Optimal Level: LDL Less than 100 MG/DL Near or Above Optimal: LDL 100-129 MG/DL Borderline High Risk: LDL 130-159 MG/DL High Risk: LDL 160-189 MG/DL Very High Risk: LDL Greater than 189 MG/DL 43 THERAPEUTIC TARGET FOR THE TREATMENT OF DIABETES MELLITUS PATIENTS IS <7% HBA1C, AND IN SELECTIVE PATIENTS <6.0%. PLEASE REFER TO [employer] DIABETIC CARE GUIDELINES FOR FURTHER INFORMATION. Procedures Date CPT Code Description Status Comment 06/12/2017 Diabetic Foot Exam Completed 02/17/2017 28156 ECHO Transthorasic Realtime 2D Completed W Doppler & Color Flow Hosp 11/19/2016 27697 Destruction Of Benign Lesions Completed Any Method 1-14 lesions 10/29/2016 04206 Destruction Of Benign Lesions Completed Any Method 1-14 lesions 01/21/2016 Mammogram Completed 10/31/2015 Bone Mineral Density Test Completed 06/25/2015 72895 Amputation Toe MP JT Completed 06/23/2015 13239 EKG, Interpretation Only Completed 02/04/2015 Diabetic Retinal Eye Exam Completed 01/15/2015 Mammogram Completed 01/12/2015 Mammogram Completed Document: 01/12/14 - Mammogram Result 08/09/2014 Diabetic Retinal Eye Exam Completed 02/28/2014 51294 ECHO Transthoracic, Real-Time Completed 2D With Doppler And Color Flow 02/16/2014 98612 EKG Tracing & Completed Interpretation 01/12/2014 Mammogram Completed 07/09/2011 Mammogram Completed 01/08/2011 Mammogram Completed Encounters Type Date Location Provider CPT E/M Dx Office Visit 09/15/2017 [facility] [place] [address] L89.620 2:30p [facility] E11.621 Office Visit 08/18/2017 1:45p [facility] M.D. 74832 M76.62 C.M.A. Office Visit 07/28/2017 1:30p [facility] M.D. 23611 M76.62 C.M.A. M79.672 Office Visit 07/19/2017 12:10p [facility] Coral Schmitz M.D. 17020 E11.8 - [place] D64.9 M79.672 E78.5 Office Visit 04/27/2017 2:00p [facility] Coral Schmitz M.D. 51522 E11.8 - [place] I50.32 I87.2 M20.61 L89.329 H61.23 E78.5 R10.11 R25.2 Office Visit 02/17/2017 10:47a [facility] Mary Chen, 67957 Z01.810 MStephanie S72.001D I35.0 Office Visit 02/17/2017 [facility] Sharlene, 62421 S72.001A 9:49a Assoc,[facility] Hospital[facility] E11.8 I10 Office Visit 02/16/2017 [facility] Sharlene, 62224 S72.001A 9:48a Assoc,pc CANCER REGISTRY COORDINATOR Hospitalists E11.8 I10 Office Visit 01/28/2017 2:20p [facility] Nat Bonilla, 35967 Z86.19 Infectious Diseases M.DIssa R60.0 I87.2 I89.0 Office Visit 10/14/2016 2:00p [facility] Nat Bonilla, 87961 Z86.19 Infectious Diseases M.D. R21 Office Visit 07/13/2016 2:40p [facility] Nat Bonilla, 98361 R60.0 Infectious Diseases M.D. Z86.19 M21.41 Office Visit 06/01/2016 3:20p [facility] Nat Bonilla, 20786 R60.0 Infectious Diseases M.D. I87.2 L03.115 Office Visit 05/18/2016 2:20p [facility] Nat Bonilla, 98588 R60.0 Infectious Diseases M.D. L03.031 Office Visit 04/06/2016 2:40p [facility] Nat Bonilla, 89820 R21 Infectious Diseases M.D. R60.0 I87.2 Office Visit 03/06/2016 4:00p [facility] Internal Medicine Issac Woodward, TONY [address] L03.115 - [address] Office Visit 11/13/2015 2:20p [facility] Tom Mishra 24764 L03.119 Infectious Sanjana Bonilla M.D. Office Visit 10/21/2015 4:00p [facility] Tom Mishra 78634 L03.115 Infectious Diseases Cheryl Bonilla L97.511 Office Visit 10/16/2015 2:15p [facility] M.D. 85014 L03.115 C.M.AIssa M86.271 L03.031 Office Visit 10/11/2015 11:10a [facility] Tom Mishra 30622 L03.115 Infectious Diseases Cheryl Bonilla L97.511 M86.171 Office Visit 09/30/2015 3:40p [facility] Tom Mishra 82974 L03.115 Infectious Diseases Cheryl Bonilla L97.511 Office Visit 09/16/2015 3:20p [facility] Tom Mishra 31435 Z89.421 Infectious Sanjana Bonilla M.D. L03.115 Office Visit 07/29/2015 3:20p [facility] Tom Mishra 28074 M86.671 Infectious Sanjana Bonilla M.D. Z89.421 Office Visit 07/18/2015 11:40a [facility] Internal Medicine Sapphire Sultana M.D. 60751 M86.671 - Sumit M25.511 E11.8 I10 Office Visit 07/15/2015 2:20p [facility] Tom Mishra 54360 M86.671 Infectious Diseases Cheryl Bonilla M79.604 M79.89 Office Visit 06/27/2015 1:35p [facility], Shayla Calvillo, 04067 L03.119 Hospitalists N.P. I10 E11.8 I49.9 Office Visit 06/26/2015 1:34p [facility] Shayla Calvillo, 92980 L03.119 Hospitalists N.P. 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 I10 E11.8 I49.9 Office Visit 06/23/2015 8:08a [facility] Tom Mishra 34709 L03.115 Infectious Diseases Cheryl Bonilla L97.519 E11.9 B95.8 Office Visit 06/22/2015 1:31p [facility], 88396 L03.119 Assoc, Hospitalists N.P. I10 E11.8 I49.9 Office Visit 11/16/2014 10:30a [facility] [place] [address] 681.10 [place] 782.3 401.1 Office Visit 09/28/2014 11:40a [facility] Medicine Sapphire Sultana M.D. 92788 250.00 - [place]erman V15.88 401.1 627.8 Office Visit 08/09/2014 12:40p [facility] Medicine Sapphire Sultana M.D. 47396 250.62 - [place] V15.88 401.1 366.9 250.00 Office Visit 07/02/2014 2:00p [facility] [place] [address] V72.84 [place] 366.9 Office Visit 03/16/2014 11:30a [facility] PASHA Rogers 58368 424.1 401.1 E884.5 Office Visit 03/14/2014 11:00a [facility] Zuleyka Hernandez M.D. 95941 E884.5 [facility] 424.1 959.01 401.9 Office Visit 03/08/2014 10:40a [facility] Internal Medicine Sapphire Sultana M.D. 86481 110.5 - [place] 840.8 844.9 Office Visit 02/16/2014 11:30a [facility] Zuleyka Hernandez M.D. 59309 424.1 [employer] 785.9 427.61 401.9 Office Visit 01/12/2014 9:40a [facility] Medicine Sapphire Sultana M.D. 21419 995.3 - [place] 277.9 401.1 424.1 459.81 785.9 V76.19 Office Visit 01/08/2011 11:00a DO Not Use [employer] AT Sapp[place] Sultana M.D. [address] [facility] 401.1 682.6 Office Visit 12/18/2010 4:00p DO Not Use [employer] AT [place] Sultana M.D. 03636 682.6 [place] 682.6 401.1 401.1 Plan of Care Future Appointment(s):09/29/2017 1:45 pm - Nolan Verde M.D. at [facility]10/19/2017 1:00 pm - Coral Schmitz M.D. at [facility] Internal Medicine - [id number]/15/2018 - Coral Schmizt M.D.L03.031 Cellulitis of right toeComments:I am concerned aboutbone infection , and I think it is a good idea to go to the hospital for admission to [facility] , spoke with Dr. Miller
--- OUTSIDE RECORDS SUMMARY | 2017-09-21 11:56 | XMS REPORT ---
:1935 External Reference #:[id number] Author Organization product development director [facility] Address [address] [place] [address] Phone [phone] Care Team Providers Name Role Phone Sultana Sapphire Primary Care Physician Unavailable Payers Type Date Identification Numbers Payment Provider Subscriber Medicare Primary Policy Number: [id number] Medicare [facility] Ashley Finn PayID: [id number] [address] [address] [place] [address] Medigap Part B Policy Number: [id number] Medicaid [place] Ashley Finn PayID: [id number] [address] [place] [address] Problems Date Description Provider Status Onset: 09/22/2011 History of malignant neoplasm of Chago Catalan M.D. Active uterine body Onset: 04/22/2012 Heart murmur Chago Catalan M.D. Active Family History Date Family Member(s) Problem(s) Comments General Cancer General Heart Disease General Heart Murmur General Hypertension General Diabetes Father due to Natural Causes () Mother due to Heart Disease () Number of Children 1Healthy Paternal Grandfather due to Rectal Cancer () Paternal Grandmother due to Natural Causes () Maternal Grandfather due to Natural Causes () Maternal Grandmother due to Stomach Cancer () Social History Type Date Description Comments Education Highest level of education completed is 12th grade Marital Status Patient is single Living Situation Patient lives alone Cigarette Use Never smoked cigarettes Alcohol Does not drink alcohol Smoking Patient has never smoked Drug Use Never used drugs Daily Caffeine Drinks on average 1 cup of coffee a day Exercise Type/Frequency Current Exercises regularly Seat Belt/Car Seat Always uses a seat belt Currently Active The patient is currently not sexually active Contraceptive Methods Does not currently use any method of control STD's No STD history Allergies, Adverse Reactions, Alerts Date Description Reaction Status Severity Comments 08/14/2004 Penicillin active 08/14/2004 Antihistamine active 01/24/2009 Morphine active 04/22/2012 Aspirin active 03/07/2015 Sulfa active 03/07/2015 Cipro active 03/07/2015 Prednisone active Medications Medication Date Status Form Strength Qnty SIG Indications Ordering Provider Calmoseptine 08/31/ Active Ointment 0.44-20.6% 113gm apply thin Chago Brown 2018 layer to Gelber, affected M.D. area tid Iron / Active Tablets 28mg Unknown 0000 Lasix / Active Tablets 20mg 1 by mouth Unknown 0000 every day as needed wt gain 3 lbs or more with edema Potassium / Active Tablets 75mg Unknown 0000 Plavix / Active Tablets 75mg Unknown 0000 Pradaxa / Active Capsules 150mg one tablet Unknown 0000 by mouth twice a day Clotrimazole-7 09/23/ Hx Cream 1% 1Tube apply to B37.3 Chago Maria G. 2015 - area twice Gelber, 03/12/ a day M.D. 2015 Zovirax 03/07/ Hx Ointment 5% 30gm apply to Chago Maria G. 2014 - area 5 x Gelber, 09/23/ aday M.D. 2015 No Active 10/28/ Hx Unknown Medications 2012 - 2014 Clotrimazole 04/22/ Hx Cream 1% 15gm apply to Chago Maria G. 2011 - area bid x Gelber, days M.D. 2012 Florentino Microlet 04/03/ Hx Misc 100uni use as Chago A. Lanckeaton 2008 directed Gelber, 05/24/ M.D. 2012 Ascensia Elite 02/07/ Hx STRP 100uni Use as Chago A. Test 2008 Directed Gelber, M.D. 2011 Elite XL Test 01/24/ Hx 100uni Use as Chago A. Strips 2008 Directed Gelber, 01/15/ M.D. 2012 Lancets 01/24/ Hx Misc 23G 100uni as Chago Brown 2008 - Directed Gelber, 05/24/ M.D. 2011 Elite XL 10/05/ Hx 100uni To Use Chago Brown Glucose Test 2007 - ts Daily For Gelber, Strips 01/08/ Blood M.D. 2008 Sugar Testing Glucose Test 10/03/ Hx 100uni To Use qid Chago Brown Strips 2007 - For Blood Gelber, 10/05/ Sugar M.D. 2007 Testing Micro Lancets 09/12/ Hx 1units 1 box to Chago Brown For Blood 2005 - use w/ Gelber, Glucose Testing 01/08/ elite xl M.D. 2008 glucose meter Keflex / Hx Unknown - 2015 Calcium + D3 / Hx Tablets 600-200 1 po qd Unknown - 2017 Probiotic / Hx Capsules 1 po qd Unknown - 2017 Medications Administered in Office Medication Date Status Form Strength Qnty SIG Indications Ordering Provider PT SCRN Tbco Administered Injection Chago Brown Id as Non User 018 Cheryl Catalan Vital Signs Date Vital Result Comment 08/31/2017 BP Systolic 108 mmHg BP Diastolic 70 mmHg Height 62.5 inches 5'2.50" Weight 178.00 lb BMI (Body Mass Index) 32.0 kg/m2 Last Menstrual Period [id number] 1 Parity 1 08/09/2017 BP Systolic 142 mmHg BP Diastolic 76 mmHg Height 62.5 inches 5'2.50" Weight 180.00 lb BMI (Body Mass Index) 32.4 kg/m2 Last Menstrual Period [id number] 1 Parity 1 03/26/2016 BP Systolic 146 mmHg BP Diastolic 76 mmHg Height 62.5 inches 5'2.50" Weight 208.00 lb BMI (Body Mass Index) 37.4 kg/m2 1 Parity 1 09/24/2015 BP Systolic 140 mmHg BP Diastolic 92 mmHg Height 62.5 inches 5'2.50" 1 Parity 1 03/07/2015 BP Systolic 146 mmHg BP Diastolic 76 mmHg Height 62.5 inches 5'2.50" Weight 198.00 lb BMI (Body Mass Index) 35.6 kg/m2 Last Menstrual Period [id number] 1 Parity 1 02/27/2014 BP Systolic 128 mmHg BP Diastolic 76 mmHg Height 62.5 inches 5'2.50" Weight 202.00 lb BMI (Body Mass Index) 36.4 kg/m2 1 Parity 1 05/29/2013 BP Systolic 138 mmHg BP Diastolic 82 mmHg Height 62.5 inches 5'2.50" Weight 204.00 lb BMI (Body Mass Index) 36.7 kg/m2 1 Parity 1 10/28/2012 BP Systolic 142 mmHg BP Diastolic 78 mmHg Height 62.5 inches 5'2.50" Weight 205.00 lb BMI (Body Mass Index) 36.9 kg/m2 1 Parity 1 04/22/2012 BP Systolic 132 mmHg BP Diastolic 74 mmHg Height 62.5 inches 5'2.50" Weight 197.00 lb BMI (Body Mass Index) 35.5 kg/m2 1 Parity 1 09/22/2011 BP Systolic 116 mmHg BP Diastolic 68 mmHg Height 62.5 inches 5'2.50" Weight 190.00 lb BMI (Body Mass Index) 34.2 kg/m2 04/09/2011 BP Systolic 126 mmHg BP Diastolic 82 mmHg Height 62.5 inches 5'2.50" Weight 196.00 lb BMI (Body Mass Index) 35.3 kg/m2 1 Parity 1 09/02/2010 BP Systolic 122 mmHg BP Diastolic 74 mmHg Weight 232.00 lb 1 Parity 1 10/31/2009 BP Systolic 132 mmHg BP Diastolic 76 mmHg Height 63 inches 5'3" Weight 228.00 lb BMI (Body Mass Index) 40.4 kg/m2 01/24/2009 BP Systolic 156 mmHg BP Diastolic 84 mmHg Height 63 inches 5'3" Weight 226.00 lb BMI (Body Mass Index) 40.0 kg/m2 03/29/2008 BP Systolic 130 mmHg BP Diastolic 70 mmHg Height 63 inches 5'3" Weight 224.00 lb BMI (Body Mass Index) 39.7 kg/m2 Last Menstrual Period 0 08/30/2006 BP Systolic 160 mmHg BP Diastolic 86 mmHg Height 63 inches 5'3" Weight 236.00 lb BMI (Body Mass Index) 41.8 kg/m2 Last Menstrual Period 0 1 Parity 1 09/18/2005 BP Systolic 172 mmHg BP Diastolic 80 mmHg Height 63 inches 5'3" Weight 234.00 lb BMI (Body Mass Index) 41.4 kg/m2 1 Parity 2 1 adopted Results Test Date Test Result H/L Range Note Laboratory test finding 03/26/2016 Cytology SEE RESULT BELOW 1 Laboratory test finding 09/24/2015 Cytology SEE RESULT BELOW 2 Human Papilloma Virus Rna Negative Negative 3 Laboratory test finding 03/07/2015 Cytology SEE RESULT BELOW 4 Laboratory test finding 02/27/2014 Cytology RUN DATE: <SEE NOTE&gt ; 5 Laboratory test finding 05/29/2013 Cytology RUN DATE: <SEE NOTE&gt ; 6 Laboratory test finding 10/28/2012 Cytology RUN DATE: <SEE NOTE&gt ; 7 Laboratory test finding 04/22/2012 Cytology RUN DATE: <SEE NOTE&gt ; 8 Laboratory test finding 09/22/2011 Cytology <SEE NOTE&gt ; 9 Laboratory test finding 04/09/2011 Cytology <SEE NOTE&gt ; 10 Laboratory test finding 09/02/2010 Cytology <SEE NOTE&gt ; 11 Laboratory test finding 10/31/2009 Cytology <SEE NOTE&gt ; 12 Laboratory test finding 01/24/2009 Cytology <SEE NOTE&gt ; 13 Laboratory test finding 03/29/2008 Cytology <SEE NOTE&gt ; 14 Laboratory test finding 08/30/2006 Cytology <SEE NOTE&gt ; 15 Pap Test 09/22/2005 Cytology Run: 09/23/05 14 <SEE NOTE> 16 1 SEE RESULT BELOW Name: ASHLEY FINN : [address]: Chago Catalan MD Acct: [id number] Unit: [id number] AGE: 81 Location: [facility] Re03/26/16 SEX: F Status: REG REF SPEC: [id number] GHISLAINE: 03/26/16-[address]: Chago Catalan MD REQ: [id number] RECD: 03/26/16 STATUS: SOUT _ ORDERED: IMAGE ANALYSIS COMMENTS: [id number] FINAL DIAGNOSIS Negative for Intraepithelial lesion or Malignancy A. Vaginal Specimen Adequacy: Satisfactory of evaluation Patient Information: HPV: Thin Layer Pap Test w/reflex to high risk HPV RNA testing when ASCUS Actual Specimen Date: 03/26/16 LMP If Unknown: 1990 Date of Last Specimen: 09/24/15 Post Menopausal?: Y Hysterectomy?: Y Other Pertinent History: HX of uterine cancer. Signed (signature on file) Sarahy Granger MD [id number] This Pap test was evaluated with the assistance of the ThinPrep Test Imaging System. Due to cytologic findings at the director financial planning microscope, comprehensive manual rescreening by a Blocker [employer] Forms may be required. The Pap Smear is a screening test designed to aid in the detection of premalignant and malignant conditions of the uterine cervix. It is not a diagnostic procedure and should not be used as the sole means of detecting cervical cancer. Both false- positive and false- negative reports do occur. Depending on your risk status, a Pap smear should be obtained and evaluated every 1-3 years. END OF REPORT * ML=Testing performed at Main Lab DEPARTMENT OF PATHOLOGY, [address] [place] [address] Devante Be M.D. Director [facility] # [id number] 2 SEE RESULT BELOW Name: ASHLEY FINN Jef : [address]: Chago Catalan MD Acct: [id number] Unit: [id number] AGE: 80 Location: [facility] Re09/24/15 SEX: F Status: REG REF SPEC: [id number] GHISLAINE: 09/24/15-[address]: Chago Catalan MD REQ: [id number] RECD: 09/24/15 STATUS: SOUT _ ORDERED: IMAGE ANALYSIS, HPV/Thin Prep COMMENTS: [id number] FINAL DIAGNOSIS Negative for Intraepithelial lesion or Malignancy Fungal organisms morphologically consistent with Esperanza species A. Vaginal Specimen Adequacy: Satisfactory of evaluation Patient Information: HPV: High risk HPV RNA testing regardless of pap results. Actual Specimen Date: 09/24/15 Date of Last Specimen: 03/07/15 Post Menopausal?: Y Hysterectomy?: Y Date Time Test Result Flag (u) Normal Range 09/24/15 1418 HPV RNA Negative Negative The high-risk HPV types detected by the assay include: 16, 18, 31, 33, 35, 39, 45, 51, 52, 56, 58, 59, 66, and 68. Signed (signature on file) JESUSITA Correa ([facility]) 09/24 1407 This Pap test was evaluated with the assistance of the Forrstp Test Imaging System. Due to cytologic findings at the director financial planning microscope, comprehensive manual rescreening by a Blocker [employer] Forms may be required. The Pap Smear is a screening test designed to aid in the detection of premalignant and malignant conditions of the uterine cervix. It is not a diagnostic procedure and should not be used as the sole means of detecting cervical cancer. Both false- positive and false- negative reports do occur. Depending on your risk status, a Pap smear should be obtained and evaluated every 1-3 years. END OF REPORT * ML=Testing performed at Main Lab DEPARTMENT OF PATHOLOGY, [address] [place] [address] Devante Be M.D. Director [facility] # [id number] 3 The high-risk HPV types detected by the assay include: 16, 18, 31, 33, 35, 39, 45, 51, 52, 56, 58, 59, 66, and 68. 4 SEE RESULT BELOW Name: TONYAASHLEY Jef : [address]: Chago Catalan MD Acct: [id number] Unit: [id number] AGE: 79 Location: [facility] Re03/07/15 SEX: F Status: REG REF SPEC: [id number] GHISLAINE: 03/07/15 [facility] DR: Chago Catalan MD REQ: [id number] RECD: 03/07/15 STATUS: SOUT _ ORDERED: IMAGE ANALYSIS FINAL DIAGNOSIS Negative for Intraepithelial lesion or Malignancy A. Vaginal Specimen Adequacy: Satisfactory of evaluation Patient Information: HPV: Thin Layer Pap Test w/reflex to high risk HPV RNA testing when ASCUS Actual Specimen Date: 03/07/15 LMP If Unknown: 1990 Date of Last Specimen: 02/27/14 Previous Abnormal Pap Smears?:Y If Yes, enter Diagnosis: Endometrial cancer Signed (signature on file) Sarahy Granger MD 06/24 1438 This Pap test was evaluated with the assistance of the ThinPrep Test Imaging System. Due to cytologic findings at the director financial planning microscope, comprehensive manual rescreening by a Blocker [employer] Forms may be required. The Pap Smear is a screening test designed to aid in the detection of premalignant and malignant conditions of the uterine cervix. It is not a diagnostic procedure and should not be used as the sole means of detecting cervical cancer. Both false- positive and false- negative reports do occur. Depending on your risk status, a Pap smear should be obtained and evaluated every 1-3 years. END OF REPORT * ML=Testing performed at Main Lab DEPARTMENT OF PATHOLOGY, [facility] [employer] [place], [place] [address] Devante Be M.D. Director [facility] # [id number] 5 RUN DATE: 02/28/14 [facility] LAB LIVE PAGE 1 RUN TIME: 5713 [facility] [employer] [place], [place] [address] Specimen Inquiry Name: ASHLEY FINN : [address]: Chago Catalan MD Acct: [id number] Unit: [id number] AGE: 78 Location: [facility] Re02/27/14 SEX: F Status: REG REF SPEC: [id number] GHISLAINE: 02/27/14 [facility] DR: Chago Catalan MD REQ: [id number] RECD: 02/27/14 STATUS: SOUT _ ORDERED: IMAGE ANALYSIS FINAL DIAGNOSIS Negative for Intraepithelial lesion or Malignancy A. Vaginal Specimen Adequacy: Satisfactory of evaluation Patient Information: HPV: Thin Layer Pap Test w/reflex to high risk HPV DNA testing when ASCUS Actual Specimen Date: 02/27/14 LMP If Unknown: 1990 Date of Last Specimen: 05/29/13 Hysterectomy?: Y Previous Abnormal Pap Smears?:Y Other Pertinent History: Endometrial cancer Signed (signature on file) JESUSITA Herrera ([facility]) 02/28/14 1525 This Pap test was evaluated with the assistance of the NetragonPrep Test Imaging System. Due to cytologic findings at the director financial planning microscope, comprehensive manual rescreening by a Blocker [employer] Forms may be required. The Pap Smear is a screening test designed to aid in the detection of premalignant and malignant conditions of the uterine cervix. It is not a diagnostic procedure and should not be used as the sole means of detecting cervical cancer. Both false- positive and false- negative reports do occur. Depending on your risk status, a Pap smear shoudl be obtained and evaluated every 1-3 years. END OF REPORT * ML=Testing performed at Main Lab DEPARTMENT OF PATHOLOGY, [facility] [employer] [place], [place] [address] Devante eB M.D. Director [facility] # [id number] 6 RUN DATE: 05/30/13 [facility] LAB LIVE PAGE 1 RUN TIME: 5432 [facility] [employer] [place], [place] [address] Specimen Inquiry Name: ASHLEY FINN : [address]: Chago Catalan MD Acct: [id number] Unit: [id number] AGE: 78 Location: [facility] Re05/29/13 SEX: F Status: REG REF SPEC: [id number] GHISLAINE: 05/29/13-1354 [facility] DR: Chago Catalan MD REQ: [id number] RECD: 05/29/13633 STATUS: SOUT _ ORDERED: IMAGE ANALYSIS FINAL DIAGNOSIS Negative for Intraepithelial lesion or Malignancy A. Vaginal Specimen Adequacy: Satisfactory of evaluation Patient Information: HPV: Thin Layer Pap Test w/reflex to high risk HPV DNA testing when ASCUS Actual Specimen Date: 05/29/13 LMP If Unknown: 2000 Date of Last Specimen: 10/28/12 Hysterectomy?: Y Signed (signature on file) Svetlana JESUSITA Deshpande ([facility]) 05/30/13 1236 This Pap test was evaluated with the assistance of the NetragonPrep Test Imaging System. Due to cytologic findings at the director financial planning microscope, comprehensive manual rescreening by a Blocker [employer] Forms may be required. The Pap Smear is a screening test designed to aid in the detection of premalignant and malignant conditions of the uterine cervix. It is not a diagnostic procedure and should not be used as the sole means of detecting cervical cancer. Both false- positive and false- negative reports do occur. Depending on your risk status, a Pap smear shoudl be obtained and evaluated every 1-3 years. END OF REPORT * ML=Testing performed at Main Lab DEPARTMENT OF PATHOLOGY, [facility] [employer] [place] [address] Devante Be M.D. Director [facility] Permit #[id number] 7 RUN DATE: 10/31/12 [facility] LAB LIVE PAGE 1 RUN TIME: 1306 [facility] [employer] [place], [place] [address] Specimen Inquiry Name: TONYAASHLEY Jef : [address]: Chago Catalan MD Acct: [id number] Unit: [id number] AGE: 77 Location: [facility] Re10/28/12 SEX: F Status: REG REF SPEC: [id number] GHISLAINE: 10/28/12-1333 [facility] DR: Chago Catalan MD REQ: [id number] RECD: 10/28/12 STATUS: SOUT _ ORDERED: IMAGE ANALYSIS FINAL DIAGNOSIS Negative for Intraepithelial lesion or Malignancy A. Vaginal Specimen Adequacy: Satisfactory of evaluation Patient Information: HPV: Thin Layer Pap Test w/reflex to high risk HPV DNA testing when ASCUS Actual Specimen Date: 10/30/12 Date of Last Specimen: 04/22/12 Post Menopausal?: Y Hysterectomy?: Y Signed (signature on file) JESUSITA Correa ([facility]) 10/31 1305 This Pap test was evaluated with the assistance of the VIPerks Test Imaging System. Due to cytologic findings at the director financial planning microscope, comprehensive manual rescreening by a Blocker [employer] Forms may be required. The Pap Smear is a screening test designed to aid in the detection of premalignant and malignant conditions of the uterine cervix. It is not a diagnostic procedure and should not be used as the sole means of detecting cervical cancer. Both false- positive and false- negative reports do occur. Depending on your risk status, a Pap smear shoudl be obtained and evaluated every 1-3 years. END OF REPORT * ML=Testing performed at Main Lab DEPARTMENT OF PATHOLOGY, [facility] [employer] [place], [place] [address] Devante Be M.D. Director [facility] Permit #[id number] 8 RUN DATE: 04/26/12 [facility] LAB LIVE PAGE 1 RUN TIME: [address] [place] [address] Specimen Inquiry Name: TONYAASHLEY Jef : [address]: Hossein FRANK,Chago Brown Acct: [id number] Unit: [id number] AGE: 77 Location: [facility] Re04/22/12 SEX: F Status: REG REF SPEC: [id number] GHISLAINE: 04/22/12-145[facility] DR: Hossein FRANK, Chago Brown REQ: [id number] RECD: 04/25/12-0889 STATUS: SOUT _ ORDERED: IMAGE ANALYSIS Negative for Intraepithelial lesion or Malignancy A. Vaginal Specimen Adequacy: Satisfactory of evaluation Patient Information: HPV: Thin Layer Pap Test w/reflex to high risk HPV DNA testing when ASCUS Actual Specimen Date: 04/22/12 Date of Last Specimen: 09/22/11 Previous Abnormal Pap Smears?:Y If Yes, enter Diagnosis: Endometrial cancer Signed (signature on file) JESUSITA Correa ([facility]) 04/26 1047 This Pap test was evaluated with the assistance of the NetragonPrep Test Imaging System. Due to cytologic findings at the director financial planning microscope, comprehensive manual rescreening by a Blocker [employer] Forms may be required. The Pap Smear is a screening test designed to aid in the detection of premalignant and malignant conditions of the uterine cervix. It is not a diagnostic procedure and should not be used as the sole means of detecting cervical cancer. Both false- positive and false- negative reports do occur. Depending on your risk status, a Pap smear shoudl be obtained and evaluated every 1-3 years. END OF REPORT * ML=Testing performed at Main Lab DEPARTMENT OF PATHOLOGY, [address] [place] [address] Devante Be M.D. Director [facility] Permit #[id number] --- RUN DATE: 09/23/11 [facility] NMI LIVE PAGE 1 RUN TIME: 1128 Specimen Inquiry RUN USER: INTERFACE -- Name: ASHLEY FINN Status: REG REF Re09/22/11 Age/Sex: 76/F Unit#: [id number] Location: [facility]. : [birth year] -- Specimen: [id number] SOUT Spec Date:09/22/[address]: Chago aggarwal MD Spec Type: CYTOLOGY Received:09/23/11 Copies to: SOURCE VAGINAL Thin Prep with Reflex HPV Test PATIENT INFORMATION ACTUAL COLLECTION DATE: 09/22/11 POST MENOPAUSAL? Yes HYSTERECTOMY? Yes PREVIOUS ABNORMAL PAP SMEARS Yes If YES, diagnosis: endometrial cancer ADEQUACY OF SPECIMEN Satisfactory for evaluation * DIAGNOSIS NEGATIVE FOR INTRAEPITHELIAL LESION OR MALIGNANCY * This Pap test was evaluated with the assistance of the ThinPrep Pap Test Imaging System. The Pap Smear is a screening test designed to aid in the detection of premalign ant and malignant conditions of the uterine cervix. It is not a diagnostic procedure a nd should not be used as the sole means of detecting cervical cancer. Both false- positiv e and false-negative reports do occur. Depending on your risk status, a Pap smear marva uld be obtained and evaluated every one to three years. Initial evaluation performed by Opal WILEY(AS[facility]) 09/23/11 Final Interpretation electronically signed by: Opal WILEY(ASCP) 09/23/11 1128 -- -- DEPARTMENT OF PATHOLOGY, [address] [place] [address] [facility] Permit #[id number] Cheryl Chappell M.D. Sales Technician Home Theater Dir amari -- 10 ---- RUN DATE: 04/10/11 [facility] NMI LIVE PAGE 1 RUN TIME: 3734 Specimen Inquiry RUN USER: INTERFACE -- Name: ASHLEY FINN Status: REG REF Re04/09/11 Age/Sex: 76/F Unit#: [id number] Location: [facility]. : [birth year] -- Specimen: [id number] SOUT Spec Date: 04/09/[address]: Chago carver MD Spec Type: CYTOLOGY Received: 04/10/11-1103 Copies to: SOURCE VAGINAL Thin Prep with Reflex HPV Test PATIENT INFORMATION ACTUAL COLLECTION DATE: 04/09/11 HYSTERECTOMY? Yes PREVIOUS ABNORMAL PAP SMEARS Yes If YES, diagnosis: endometrial cancer PATIENT HISTORY: Last menstrual period 08/2010 ADEQUACY OF SPECIMEN Satisfactory for evaluation * DIAGNOSIS NEGATIVE FOR INTRAEPITHELIAL LESION OR MALIGNANCY * This Pap test was evaluated with the assistance of the ThinPrep Pap Test Imaging System. The Pap Smear is a screening test designed to aid in the detection of premalign ant and malignant conditions of the uterine cervix. It is not a diagnostic procedure a nd should not be used as the sole means of detecting cervical cancer. Both false- positiv e and false-negative reports do occur. Depending on your risk status, a Pap smear marva uld be obtained and evaluated every one to three years. Initial evaluation performed by Opal WILEY(ASCP) 04/10/11 Final Interpretation electronically signed by: Opal WILEY(ASCP) 04/10/11 1413 -- -- DEPARTMENT OF PATHOLOGY, [address] [place] [address] [facility] Permit #[id number] Cheryl Chappell M.D. Sales Technician Home [employer] Dir amari -- 11 ---- RUN DATE: 09/03/10 [facility] NMI LIVE PAGE 1 RUN TIME: 1301 Specimen Inquiry RUN USER: INTERFACE -- Name: ASHLEY FINN Status: REG REF Re09/02/10 Age/Sex: 75/F Unit#: [id number] Location: [facility]. : [birth year] -- Specimen: [id number] [id number] Spec Date: 09/02/[address]: Chago carver MD Spec Type: CYTOLOGY Received: 09/03/10 Copies to: SOURCE VAGINAL Thin Prep with Reflex HPV Test PATIENT INFORMATION ACTUAL COLLECTION DATE: 09/02/10 HYSTERECTOMY? Yes DATE OF PRIOR SPECIMEN: 10/31/09 ADEQUACY OF SPECIMEN Satisfactory for evaluation * DIAGNOSIS NEGATIVE FOR INTRAEPITHELIAL LESION OR MALIGNANCY * This Pap test was evaluated with the assistance of the ThinPrep Pap Test Imaging System. The Pap Smear is a screening test designed to aid in the detection of premalign ant and malignant conditions of the uterine cervix. It is not a diagnostic procedure a nd should not be used as the sole means of detecting cervical cancer. Both false- positiv e and false-negative reports do occur. Depending on your risk status, a Pap smear marva uld be obtained and evaluated every one to three years. Final Interpretation electronically signed by: Bjorn DESHPANDE(ASCP) 04/27/11 130 0 -- -- DEPARTMENT OF PATHOLOGY, [address] [place] [address] [facility] Permit #[id number] Cheryl Chappell M.D. Sales Technician Home Theater Dir amari -- 12 ---- RUN DATE: 11/01/09 [facility] NMI LIVE PAGE 1 RUN TIME: 0351 Specimen Inquiry RUN USER: INTERFACE -- Name: ASHLEY FINN Status: REG REF Re10/31/09 Age/Sex: 74/F Unit#: [id number] Location: [facility]. : 37 -- Specimen: [id number] SOUT Spec Date: 10/31/[address]: Chago carver MD Spec Type: CYTOLOGY Received: 11/01/09-1147 Copies to: SOURCE VAGINAL Thin Prep with Reflex HPV Test PATIENT INFORMATION ACTUAL COLLECTION DATE: 10/31/09 POST MENOPAUSAL? Yes HYSTERECTOMY? Yes PREVIOUS ABNORMAL PAP SMEARS Yes If YES, diagnosis: Uterine cancer ADEQUACY OF SPECIMEN Satisfactory for evaluation * DIAGNOSIS NEGATIVE FOR INTRAEPITHELIAL LESION OR MALIGNANCY * Reactive cellular changes associated with * Inflammation (includes typical repair) * This Pap test was evaluated with the assistance of the ThinPrep Pap Test Imaging System. Due to cytologic findings at the director financial planning microscope, comprehensive manual rescreening by a [employer] was required. The Pap Smear is a screening test designed to aid in the detection of premalign ant and malignant conditions of the uterine cervix. It is not a diagnostic procedure a nd should not be used as the sole means of detecting cervical cancer. Both false- positiv e and false-negative reports do occur. Depending on your risk status, a Pap smear marva uld be obtained and evaluated every one to three years. Initial evaluation performed by Bjorn DESHPANDE(ASC) 11/01/09 Final Interpretation electronically signed by: MINERVA COLES 11/01/09 1453 -- DEPARTMENT OF PATHOLOGY, [address] [place] [address] [facility] Permit #[id number] Devante Be M.D. Director Minerva Coles M.D. Sales Technician Home Theater Dir amari -- 13 ---- RUN DATE: 01/25/09 [facility] NMI LIVE PAGE 1 RUN TIME: 6606 Specimen Inquiry RUN USER: INTERFACE -- Name: ASHLEY FINN Status: REG REF Re01/24/09 Age/Sex: 73/F Unit#: [id number] [facility] -- Specimen: [id number] [id number] Spec Date: 01/24/[address]: Chago carver MD Spec Type: CYTOLOGY Received: 01/25/09-1128 Copies to: SOURCE ECTOCERVICAL/ENDOCERVICAL Thin Prep with Reflex HPV Test PATIENT INFORMATION ACTUAL COLLECTION DATE: 01/24/09 PREVIOUS ABNORMAL PAP SMEARS No DATE OF PRIOR SPECIMEN: 05/10/07 ADEQUACY OF SPECIMEN Satisfactory for evaluation * Lab. info. hx. indicates hysterectomy with cx. removed 2000 DIAGNOSIS NEGATIVE FOR INTRAEPITHELIAL LESION OR MALIGNANCY * This Pap test was evaluated with the assistance of the ThinPrep Pap Test Imaging System. The Pap Smear is a screening test designed to aid in the detection of premalign ant and malignant conditions of the uterine cervix. It is not a diagnostic procedure a nd should not be used as the sole means of detecting cervical cancer. Both false- positiv e and false-negative reports do occur. Depending on your risk status, a Pap smear marva uld be obtained and evaluated every one to three years. Final Interpretation electronically signed by: Bjorn DESHPANDE(ASCP) 01/25/09 141 5 -- -- DEPARTMENT OF PATHOLOGY, [address] [place] [address] [facility] Permit #[id number] Cheryl Chappell M.D. Assistant Dir amari -- 14 ---- RUN DATE: 03/30/08 [facility] NMI LIVE PAGE 1 RUN TIME: 9937 Specimen Inquiry RUN USER: INTERFACE -- Name: ASHLEY FINN Status: REG REF Re03/29/08 Age/Sex: 73/F Unit#: [id number] Location: [facility]. : 37 -- Specimen: [id number] SOUT Spec Date: 03/29/[address]: Chago carver MD Spec Type: CYTOLOGY Received: 03/30/08-1259 Copies to: SOURCE VAGINAL Thin Prep with Reflex HPV Test PATIENT INFORMATION ACTUAL COLLECTION DATE: 03/29/08 HYSTERECTOMY? Yes DATE OF PRIOR SPECIMEN: 10/05/07 ADEQUACY OF SPECIMEN Satisfactory for evaluation * DIAGNOSIS NEGATIVE FOR INTRAEPITHELIAL LESION OR MALIGNANCY * This Pap test was evaluated with the assistance of the ThinPrep Pap Test Imaging System. The Pap Smear is a screening test designed to aid in the detection of premalign ant and malignant conditions of the uterine cervix. It is not a diagnostic procedure a nd should not be used as the sole means of detecting cervical cancer. Both false- positive and false-negative reports do occur. Depending on your risk status, a Pap smear marva uld be obtained and evaluated every one to three years. Final Interpretation electronically signed by: Opal WILEY(ASCP) 03/30/08 1636 -- -- DEPARTMENT OF PATHOLOGY, [address] [place] [address] [facility] Permit #[id number] Cheryl Chappell M.D. Sales Technician Home Theater amari -- 15 ---- RUN DATE: 09/02/06 [facility] NMI LIVE PAGE 1 RUN TIME: 1345 Specimen Inquiry RUN USER: INTERFACE [id number] ASHLEY FINN 71/F <REG REF 08/30> ([id number]) CATHIE Catalan MD, Chago Parsons -- Specimen: [id number] SOUT Spec Date: 08/30/[address]: Chago carver MD Spec Type: CYTOLOGY Received: 09/01/06-1146 Copies to: SOURCE VAGINAL Thin Prep with Reflex HPV Test PATIENT INFORMATION ACTUAL COLLECTION DATE: 08/30/06 HYSTERECTOMY? Yes PREVIOUS ABNORMAL PAP SMEARS Yes If YES, diagnosis: Endometrial cancer PATIENT HISTORY: Prior 09/2005, Unknown ADEQUACY OF SPECIMEN Satisfactory for evaluation * DIAGNOSIS NEGATIVE FOR INTRAEPITHELIAL LESION OR MALIGNANCY * This Pap test was evaluated with the assistance of the [employer] Radio Pap Test Imaging System. The Pap Smear is a screening test designed to aid in the detection of premalign ant and malignant conditions of the uterine cervix. It is not a diagnostic procedure a nd should not be used as the sole means of detecting cervical cancer. Both false- positive and false-negative reports do occur. Depending on your risk status, a Pap smear marva uld be obtained and evaluated every one to three years. Final Interpretation electronically signed by: Opal WILEY(ASCP) 09/02/06 1345 -- -- DEPARTMENT OF PATHOLOGY, [address] [place] [address] [facility] Permit #[id number] Makayla Morris II, M.D. Director Devante Be M.D. Sales Technician Home Theater Bjorn irector -- Run: 09/23/05 1448 LIS Specimen Inquiry Run User: INTERFACE -- Name: ASHLEY FINN Age/Sex: 70/F Location: [facility] Facility#: [id number] Unit#: [id number] Status: REG REF Room/Bed: Re09/18/05 Disch: Att Dr: Chago Catalan MD. -- Spec #: [id number] Recd: 09/22/050843 Status: NOAH Norris #: [id number] SpType: CYTOLOGY Sub Dr: Gelber,Chago A. MD. ADEQUACY OF SPECIMEN Satisfactory for evaluation * DIAGNOSIS NEGATIVE FOR INTRAEPITHELIAL LESION OR MALIGNANCY * Reactive cellular changes associated with * Inflammation (includes typical repair) * Anucleate squames consistent with hyperkeratosis. SOURCE VAGINAL Thin Prep with Reflex HPV Test The Pap Smear is a screening test designed to aid in the detection of premalign ant and malignant conditions of the uterine cervix. It is not a diagnostic procedure an d should not be used as the sole means of detecting cervical cancer. Both false-positive and false-negative reports do occur. Depending on your risk status, a Pap smear marva uld be obtained and evaluated every one to three years. PATIENT INFORMATION ACTUAL COLLECTION DATE: 09/18/05 POST MENOPAUSAL? Yes HYSTERECTOMY? Yes PREVIOUS ABNORMAL PAP SMEARS Yes If YES, diagnosis: VAGINAL/UTERINE CANCER DATE OF PRIOR SPECIMEN: 02/26/05 PREVIOUS CYTOLOGY/SURGICAL SPECIMEN #: [id number] UTERINE VAGINAL CARCINOMA -- Signed Bjorn DESHPANDE(ASC) 09/23/05 MAKAYLA MORRIS MD 09/23/05 -- END OF REPORT Procedures Date CPT Code Description Status 01/28/2017 Mammogram Completed Encounters Type Date Location Provider CPT E/M Dx Office Visit 08/09/2017 9:40a [facility] Chago Catalan M.D. 13520 L02.224 Office Visit 03/26/2016 1:00p [facility] Chago Catalan M.D. 30409 Z01.411 Office Visit 09/24/2015 1:20p [facility] Chago Catalan M.D. 68066 Z85.42 B37.3 Office Visit 03/07/2015 1:00p [facility] Chago Catalan M.D. 56756 Z01.419 Z85.42 Office Visit 02/27/2014 1:20p [facility] Chago Catalan M.D. 83003 V10.42 Office Visit 05/29/2013 1:20p [facility] Chago Catalan M.D. 37702 V10.42 Office Visit 10/28/2012 1:00p [facility] Office Chago Catalan M.D. 82678 V10.42 V67.01 Office Visit 04/22/2012 2:40p [facility] Chago Catalan M.D. 27176 V10.42 V67.01 785.2 V76.2 V15.89 Office Visit 09/22/2011 1:00p [facility] Office Chago Catalan M.D. 93134 V15.89 V10.42 Office Visit 04/09/2011 1:00p [facility] Office Chago Catalan M.D. 54922 V67.01 V15.89 233.2 V72.31 V76.2 Office Visit 09/02/2010 1:00p [facility] Chago Catalan M.D. 60101 V15.89 Office Visit 10/31/2009 1:20p [facility] Chago Catalan M.D. 09863 233.2 Office Visit 01/24/2009 2:00p [facility] Chago Catalan M.D. 69179 V72.31 V15.89 V76.2 Office Visit 03/29/2008 3:20p [facility] Chago Catalan M.D. 83538 233.2 Office Visit 10/04/2007 2:20p [facility] Chago Catalan M.D. 84145 233.2 V72.31 V15.89 Office Visit 08/30/2006 1:20p [facility] Chago Catalan M.D. 07806 V72.31 233.2 V76.41 V76.2 Office Visit 09/18/2005 1:00p [facility] Chago Catalan M.D. 02768 V76.2 233.2 V72.31 V76.41 Office Visit 02/26/2005 1:20p [facility] Chago Catalan M.D. 01497 239.5 Office Visit 08/14/2004 11:00a [facility] Office Chago Catalan M.D. 88703 239.5 Office Visit 03/13/2003 2:15p [facility] Chago Catalan M.D. 50480 239.5 Plan of Care 08/31/2017 - Chago Catalan M.D.L02.224 Furuncle of groinComments:resolved
--- NOTE | 2017-09-21 12:50 | RAD ---
INDICATION: Erythema and swelling overlying the distal right great toe TECHNIQUE: 3 views of the right great toe were obtained. FINDINGS: The visualized bones exhibit diffuse demineralization. 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 There is valgus deformity involving the first and second metatarsal phalangeal and interphalangeal joints. There is no definite focal bony destruction there would be seen in the setting of osteomyelitis. IMPRESSION: Degenerative changes as described above without definite radiographic signs of osteomyelitis.
[2017-09-21 13:12] LABS: ABS Basophils 0 10^3/ul (0-0.2); ABS Eosinophils 0.3 10^3/ul (0-0.6); ABS Lymphocytes 1.7 10^3/ul (1.0-4.8); ABS Monocytes 0.5 10^3/ul (0-0.8); ABS Neutrophils 4.9 10^3/ul (1.5-7.7); ABS Nucleated RBC 0 10^3/ul; Eosinophil % 4.4 % (0-6); Hematocrit 29 % (35-47); Hemoglobin 10.1 g/dl (12.0-16.0); Mean Corpuscular HGB Conc 35 g/dl (31-36); Mean Corpuscular Hemoglobin 34 pg (27-31); Mean Corpuscular Volume 96 fL (80-97); Mean Platelet Volume 8.2 um3 (7.4-10.4); Nucleated Red Blood Cells % 0.1; Platelet Count 202 10^3/ul (150-450); Red Blood Count 3.01 10^6/ul (4.0-5.4); Red Cell Distribution Width 15 % (10.5-15); White Blood Count 7.4 10^3/ul (3.5-10.8)
[2017-09-21 13:22] LABS: EGFR Non-African American 71.1 (>60)
[2017-09-21 14:08] VITALS: BP 125/49
--- NOTE | 2017-09-21 15:47 | ED ---
Pepe Obregon Gabriel, scribed for Jayme Mares MD on 09/21/17 at 1155 . Skin Complaint - HPI Summary HPI Summary: This patient is a 82 year old F presenting to [facility] accompanied by her mother after being sent by her PCP for a right foot infection. Pt has had the wound for a week and it began draining this morning. The patient rates the pain 4/10 in severity. Patient reports edema of the affected foot. She is a diet- controlled diabetic with A1c of 5.3 last check. Pt is on blood thinner. She had multiple foot infections and a toe amputation. - History of Current Complaint Chief Complaint: EDSoftTissueLowExtr Time Seen by Provider: 09/21/17 11:46 Stated Complaint: RT FOOT PROBLEM-DR SENT Hx Obtained From: Patient, Family/Jewel Hole Finish Opener Hx Last Menstrual Period: post jean Onset/Duration: Started Weeks Ago, Still Present Timing: Constant Onset Severity: Mild Current Severity: Mild Pain Intensity: 4 Pain Scale Used: 0-10 Numeric Associated Signs & Symptoms: Negative - fever - Additional Pertinent History Primary Care Physician: [id number] - Allergy/Home Medications Allergies/Adverse Reactions: Allergies Allergy/AdvReac Type Severity Reaction Status Date / Time prednisone Allergy Severe heavy Verified 07/16/17 14:02 bleeding aspirin Allergy Mild GI Upset Verified 07/16/17 14:02 cephalexin Allergy Mild GI Upset Verified 07/16/17 14:10 ciprofloxacin Allergy Mild GI Upset Verified 07/16/17 14:03 Penicillins Allergy Mild Rash Verified 07/16/17 14:04 Sulfa (Sulfonamide Allergy Mild Edema Verified 07/16/17 14:05 Antibiotics) morphine Allergy Unknown Unknown Verified 07/16/17 14:09 Reaction Details diphenhydramine Allergy GI Upset Verified 07/16/17 14:06 ANTIHISTAMINES Allergy Unknown Unknown Uncoded 07/02/15 15:22 Reaction Details Home Medications: Home Medications Aspirin EC TAB* [Ecotrin EC Low Dose 81 MG*] 81 mg PO DAILY 09/21/17 [History Confirmed 09/21/17] Atorvastatin* [Lipitor*] 40 mg PO DAILY 09/21/17 [History Confirmed 09/21/17] Dabigatran CAP(NF) [Pradaxa CAP(NF)] 150 mg PO BID 09/21/17 [History Confirmed 09/21/17] Ferrous Sulfate TAB* 325 mg PO DAILY 09/21/17 [History Confirmed 09/21/17] Potassium Chlor TAB* [Klor Con ER TAB*] 20 meq PO DAILY 09/21/17 [History Confirmed 09/21/17] Sotalol TAB* [Betapace 80 MG TAB*] 80 mg PO BID 09/21/17 [History Confirmed ] Spironolactone TAB* [Aldactone TAB*] 25 mg PO DAILY 09/21/17 [History Confirmed 09/21/17] PMH/Surg Hx/FS Hx/Imm Hx Endocrine/Hematology History: Reports: Hx Diabetes Denies: Hx Thyroid Disease, Hx Anemia Cardiovascular History: Reports: Hx Atrial Fibrillation, Hx Hypertension, Other Cardiovascular Problems/Disorders - heart murmur Denies: Hx Aneurysm, Hx Angina, Hx Cardiac Arrest, Hx Coronary Artery Disease , Hx Deep Vein Thrombosis, Hx Pacemaker/ICD Respiratory History: Denies: Hx Asthma, Hx Chronic Obstructive Pulmonary Disease (COPD) GI History: Denies: Hx Ulcer History: Denies: Hx Dialysis Musculoskeletal History: Denies: Hx Arthritis, Hx Back Problems Sensory History: Reports: Hx Cataracts - BILAT, Hx Contacts or Glasses Denies: Hx Glaucoma, Hx Hearing Aid Opthamlomology History: Reports: Hx Cataracts - BILAT, Hx Contacts or Glasses Denies: Hx Glaucoma Neurological History: Denies: Hx Dementia, Hx Headaches, Hx Migraine, Hx Seizures, Hx Transient Ischemic Attacks (TIA) Psychiatric History: Denies: Hx Panic Disorder - Cancer History Cancer Type, 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 t&a at age 17, cataract surgery bilat eyes Hx Anesthesia Reactions: No - Immunization History Date of Tetanus Vaccine: Unk Date of Influenza Vaccine: None, philisophically opposed Infectious Disease History: No Infectious Disease History: Denies: Hx Clostridium Difficile, Hx Hepatitis, Hx Human Immunodeficiency Virus (HIV), Hx of Known/Suspected MRSA, Hx Shingles, Hx Tuberculosis, Hx Known/ Suspected VRE, Hx Known/Suspected VRSA, History Other Infectious Disease, Traveled Outside the [place] in Last 30 Days - Family History Known Family History: Positive: Cardiac Disease - Mother, father and brother - Social History Lives: With Family Alcohol Use: None Substance Use Type: Reports: None Smoking Status (MU): Never Smoked Tobacco Have You Smoked in the Last Year: No Review of Systems Negative: Fever Positive: Edema Positive: Other - wound to the right foot All Other Systems Reviewed And Are Negative: Yes Physical Exam - Summary Physical Exam Summary: Appearance: Well appearing, no pain distress Skin: warm, dry, reflects adequate perfusion Head/face: normal Eyes: EOMI, YESENIA ENT: normal Neck: supple, non-tender Respiratory: CTA, breath sounds present Cardiovascular: RRR, pulses symmetrical, blowing systolic murmur Abdomen: non-tender, soft Bowel Sounds: present Musculoskeletal: normal, strength/ROM intact, very flat arches, bilateral LE 1- 2 pitting edema, great toe of right foot is diffusely tender, ingrown nail plate , yellowish drainage from proximal fold, hard callous of plantar surface off the tarsal metal tarsal joint Neuro: normal, sensory motor intact, A&Ox3 Triage Information Reviewed: Yes Vital Signs On Initial Exam: Initial Vitals Temp Pulse Resp BP Pulse Ox 97.5 F 80 16 145/25 96 09/21/17 11:38 09/21/17 11:38 09/21/17 11:38 09/21/17 11:38 09/21/17 11:38 Vital Signs Reviewed: Yes Procedures - Procedure Summary Procedure Summary: Incision and drainage of paronychia: The digit was cleaned with chlorhexidine. A Digital block using 4cc lido 1% was performed. I bluntly dissected off the toenail and removed it. Then I placed 2x2 gauze square under the nail fold. The wound was dressed with 2 x 2 gauze and Coban overlying to provide some pressure. Bleeding was minimal. She tolerated this well without complication. She was given a postop shoe to accommodate the dressing. Diagnostics - Vital Signs Vital Signs Temp Pulse Resp BP Pulse Ox 09/21/17 11:38 97.5 F 80 16 145/25 96 - Laboratory Lab Results: Lab Results 09/21/17 09/21/17 09/21/17 Range/Units 12:49 12:49 12:49 WBC 7.4 (3.5-10.8) 10^3/ul RBC 3.01 L (4.0-5.4) 10^6/ul Hgb 10.1 L (12.0-16.0) g/dl Hct 29 L (35-47) % MCV 96 (80-97) fL MCH 34 H (27-31) pg MCHC 35 (31-36) g/dl RDW 15 (10.5-15) % Plt Count 202 (150-450) 10^3/ul MPV 8.2 (7.4-10.4) um3 Neut % (Auto) 65.2 (38-83) % Lymph % (Auto) 23.0 L (25-47) % [place] % (Auto) 6.8 (0-7) % Eos % (Auto) 4.4 (0-6) % Baso % (Auto) 0.6 (0-2) % Absolute Neuts (auto) 4.9 (1.5-7.7) 10^3/ul Absolute Lymphs (auto) 1.7 (1.0-4.8) 10^3/ul Absolute Monos (auto) 0.5 (0-0.8) 10^3/ul Absolute Eos (auto) 0.3 (0-0.6) 10^3/ul Absolute Basos (auto) 0 (0-0.2) 10^3/ul Absolute Nucleated RBC 0 10^3/ul Nucleated RBC % 0.1 ESR 42 H (0-40) mm/Hr Sodium 139 (139-145) mmol/L Potassium 5.0 (3.5-5.0) mmol/L Chloride 108 (101-111) mmol/L Carbon Dioxide 26 (22-32) mmol/L Anion Gap 5 (2-11) mmol/L BUN 16 (6-24) mg/dL Creatinine 0.78 (0.51-0.95) mg/dL Est GFR ( Amer) 91.4 (>60) Est GFR (Non-Af Amer) 71.1 (>60) BUN/Creatinine Ratio 20.5 H (8-20) Glucose 123 H (70-100) mg/dL Lactic Acid 1.5 (0.5-2.0) mmol/L Calcium 9.4 (8.6-10.3) mg/dL C-Reactive Protein 5.02 H (< 5.00) mg/L Result Diagrams: 09/21/17 12:49 09/21/17 12:49 Lab Statement: Any lab studies that have been ordered have been reviewed, and results considered in the medical decision making process. - Radiology toe xray Radiology Interpretation Completed By: Radiologist - Degenerative changes as described above without definite radiographic signs of osteomyelitis. ED physician has reviewed this radiology report. Course/Dx - Course Course Of Treatment: Patient with obvious perionychia with yellowish drainage from the proximal nail fold. IV antibiotic given. Patient with multiple drug allergies. Culture obtained. Incision and drainage and toenail removal performed. Discussed with the surgeon to provide her wound care. They did not recommend waiting given that she was on anticoagulant. Bleeding was minimal. She will follow-up with wound care tomorrow. - Differential Diagnoses - Skin Complaint Differential Diagnoses: Other - Paronychia, soft tissue infection, osteomyelitis , microangiopathy, large vessel arterial insufficiency - Diagnoses Provider Diagnoses: Paronychia of great toe of right foot - Physician Notifications Discussed Care Of Patient With: Diego Dash - recommends incision and drainage at the bedside without delay for anticoagulant Time Discussed With Above Provider: 12:34 Instructed by Provider To: Other - We discussed patient care with Dr. Dash and they recommended taking the toenail off myself. Discharge - Sign-Out/Discharge Documenting (check all that apply): Discharge/Admit/Transfer - Discharge Plan Condition: Good Disposition: HOME Prescriptions: Clindamycin Cap(NF) [Clindamycin Cap 300 mg Cap(NF)] 300 mg PO TID #21 cap Lactobacillus Acidophilus [Acidophilus Lactobacilli] 1 cap PO BID #20 cap Patient Education Materials: Paronychia (ED) Referrals: Sourav Steele MD [Medical Doctor] - Coral Schmitz MD [Primary Care Provider] - Additional Instructions: Keep clean and dry. Warm compresses on the area. Continue antibiotic and probiotic. Wound check in 1-2 days by wound care or your doctor. There is no evidence at this time for osteomyelitis. - Billing Disposition and Condition Condition: GOOD Disposition: HOME The documentation as recorded by the Pepe rapp Gabriel accurately reflects the service I personally performed and the decisions made by , Jayme Mares MD.
== END 2017-09-21 14:07 | disposition home or self-care (01) ==
LOC: ED 11:36
DX: L03.031 Cellulitis of right toe (principal); E11.9 Type 2 diabetes mellitus without complications; Z89.429 Acquired absence of other toe(s), unspecified side; Z88.8 Allergy status to other drugs, medicaments and biological substances; Z88.6 Allergy status to analgesic agent; Z88.3 Allergy status to other anti-infective agents; Z88.0 Allergy status to penicillin; Z88.2 Allergy status to sulfonamides
CPT/HCPCS: 10060; 36415; 80048; 83605; 85025; 85652; 86140; 87040; 87070; 87205; 87640; 87641; 99282

== ENCOUNTER 2017-09-21 23:30 | Emergency (ER) | payer MEDICARE, MEDICAID ==
[2017-09-22] MEDS ORDERED: Bupivacaine 0.5% W/EPI SDV* 10 ML VIAL INJ ONE (01:33)
[2017-09-22] MEDS ORDERED: Bupivacaine 0.5% W/EPI SDV* 30 ML VIAL INJ ONE (01:33)
[2017-09-22] MEDS ORDERED: Lidocaine 1%* 5 ML VIAL INJ ONE (01:34)
[2017-09-22 02:55] VITALS: BP 136/57
--- NOTE | 2017-09-24 20:46 | ED ---
Rodolfo Obregon Sixian, scribed for Shan Taveras MD on 09/22/17 at 0139 . Lower Extremity - HPI Summary HPI Summary: This patient is a 82 year old F presenting to ED with a chief complaint of LE complaints of her right big toe since 1300 today. The patient rates the pain 10/ 10 in severity. Symptoms aggravated and alleviated by nothing. The pt was here earlier today and states that her toenail was removed. Her pain has increased and she took Tylenol at home. - History of Current Complaint Chief Complaint: EDExtremityLower Stated Complaint: RT FOOT PAIN Time Seen by Provider: 09/22/17 01:30 Hx Obtained From: Patient Hx Last Menstrual Period: post jean Onset of Pain: Hours, Prior to Arrival Onset/Duration: Hours Severity Currently: Severe Pain Intensity: 10 Pain Scale Used: 0-10 Numeric Timing: Constant, Lasting Hours Associated Signs And Symptoms: Positive: Negative Aggravating Factor(s): Nothing Alleviating Factor(s): Nothing - Allergies/Home Medications Allergies/Adverse Reactions: Allergies Allergy/AdvReac Type Severity Reaction Status Date / Time prednisone Allergy Severe heavy Verified 09/21/17 23:35 bleeding aspirin Allergy Mild GI Upset Verified 09/21/17 23:35 cephalexin Allergy Mild GI Upset Verified 09/21/17 23:35 ciprofloxacin Allergy Mild GI Upset Verified 09/21/17 23:35 Penicillins Allergy Mild Rash Verified 09/21/17 23:35 Sulfa (Sulfonamide Allergy Mild Edema Verified 09/21/17 23:35 Antibiotics) morphine Allergy Unknown Unknown Verified 09/21/17 23:35 Reaction Details diphenhydramine Allergy GI Upset Verified 09/21/17 23:35 ANTIHISTAMINES Allergy Unknown Unknown Uncoded 09/21/17 23:35 Reaction Details PMH/Surg Hx/FS Hx/Imm Hx Endocrine/Hematology History: Reports: Hx Diabetes Denies: Hx Thyroid Disease, Hx Anemia Cardiovascular History: Reports: Hx Atrial Fibrillation, Hx Hypertension, Other Cardiovascular Problems/Disorders - heart murmur Denies: Hx Aneurysm, Hx Angina, Hx Cardiac Arrest, Hx Coronary Artery Disease , Hx Deep Vein Thrombosis, Hx Pacemaker/ICD Respiratory History: Denies: Hx Asthma, Hx Chronic Obstructive Pulmonary Disease (COPD) GI History: Denies: Hx Ulcer History: Denies: Hx Dialysis Musculoskeletal History: Denies: Hx Arthritis, Hx Back Problems Sensory History: Reports: Hx Cataracts - BILAT, Hx Contacts or Glasses Denies: Hx Glaucoma, Hx Hearing Aid Opthamlomology History: Reports: Hx Cataracts - BILAT, Hx Contacts or Glasses Denies: Hx Glaucoma Neurological History: Denies: Hx Dementia, Hx Headaches, Hx Migraine, Hx Seizures, Hx Transient Ischemic Attacks (TIA) Psychiatric History: Denies: Hx Panic Disorder - Cancer History Cancer Type, 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 t&a at age 17, cataract surgery bilat eyes Hx Anesthesia Reactions: No - Immunization History Date of Tetanus Vaccine: Unk Date of Influenza Vaccine: None, philisophically opposed Infectious Disease History: No Infectious Disease History: Denies: Hx Clostridium Difficile, Hx Hepatitis, Hx Human Immunodeficiency Virus (HIV), Hx of Known/Suspected MRSA, Hx Shingles, Hx Tuberculosis, Hx Known/ Suspected VRE, Hx Known/Suspected VRSA, History Other Infectious Disease, Traveled Outside the [place] in Last 30 Days - Family History Known Family History: Positive: Cardiac Disease - Mother, father and brother - Social History Alcohol Use: None Substance Use Type: Reports: None Smoking Status (MU): Never Smoked Tobacco Have You Smoked in the Last Year: No Review of Systems Negative: Fever Musculoskeletal: Other - pain in R big toe All Other Systems Reviewed And Are Negative: Yes Physical Exam - Summary Physical Exam Summary: Appearance: Well-appearing, Well-nourished, lying in bed comfortably Skin: Warm, dry, no obvious rash Eyes: sclera anicteric, no conjunctiva pallor ENT: mucous membranes moist, pharynx appears normal Neck: Supple, nontender Respiratory: Clear to auscultation, no signs of respiratory distress Cardiovascular: Normal S1, S2. No murmurs. Normal distal pulses in tibial and radial bilaterally. Abdomen: Soft, nontender, normal active bowel sounds present Musculoskeletal: Normal, Strength/ROM Intact Neurological: A&Ox3, awake and alert, mentation is normal, speech is fluent and appropriate Psychiatric: affect is normal, does not appear anxious or depressed Triage Information Reviewed: Yes Vital Signs On Initial Exam: Initial Vitals Temp Pulse Resp BP Pulse Ox 97.4 F 59 14 148/42 99 09/21/17 23:31 09/21/17 23:31 09/21/17 23:31 09/21/17 23:31 09/21/17 23:31 Vital Signs Reviewed: Yes Musculoskeletal: Positive: Other - The left great toe has had nail removed, there is some mild oozing from the nail bed. There is some mild erythema and swelling which family says is better than pre procedure. Diagnostics - Vital Signs Vital Signs Temp Pulse Resp BP Pulse Ox 09/21/17 23:31 97.4 F 59 14 148/42 99 - Laboratory Lab Statement: Any lab studies that have been ordered have been reviewed, and results considered in the medical decision making process. Lower Extremity Course/Dx - Course Course Of Treatment: Pt presents with worsening pain after removal of nail to treat paronychia earlier today. Presumably had a block then which has now worn off. Pt was given a digital block with a mix of 1% lidocaine and 0.5% bupivicaine w/ epi, total of 7 ml on both sides of the base of the toe. - Diagnoses Provider Diagnoses: Paronychia of great toe of left foot Discharge - Sign-Out/Discharge Documenting (check all that apply): Discharge/Admit/Transfer - Discharge Plan Condition: Improved Disposition: HOME Referrals: Corla Schmitz MD [Primary Care Provider] - Additional Instructions: Follow up as scheduled with wound care. Leave this dressing on until you see them. They may elect to leave it on, or they may decide to change it, but I would defer to their judgment. The block that I gave you should last at least through the night. RETURN TO THE EMERGENCY DEPARTMENT FOR CHANGING OR WORSENING SYMPTOMS. - Billing Disposition and Condition Condition: IMPROVED Disposition: HOME The documentation as recorded by the Rodolfo rapp Sixian accurately reflects the service I personally performed and the decisions made by me, Shan Taveras MD.
== END 2017-09-22 02:57 | disposition home or self-care (01) ==
LOC: ED 23:30
DX: L03.031 Cellulitis of right toe (principal); Z88.8 Allergy status to other drugs, medicaments and biological substances; Z88.6 Allergy status to analgesic agent; Z88.3 Allergy status to other anti-infective agents; Z88.0 Allergy status to penicillin; Z88.2 Allergy status to sulfonamides
CPT/HCPCS: 96374; 99283

== ENCOUNTER → 2018-01-06 11:05 | Day surgery (SDC) | payer MEDICARE, MEDICAID ==
[~2018-01-06 11:05] MED LIST: Clopidogrel TAB* 75 MG ONE; Flumazenil* 0.1 MG/ML 5 ML MDV ONE; Heparin 2 UNITS/ML IVPREMIX* 1,000 ML IV ONE; Heparin(*) 1000 UNIT/ML 10 ML VIAL CATH LAB IV ONE; Iodixanol* (CONTRAST) 320 MG/ML 100 ML SDV ONE; Ketorolac INJ* 30 MG/ML 1 ML VIAL ONE; LORazepam TAB(*) 1 MG ONE; Lidocaine 1% INJ* 10 MG/ML 30 ML SDV ONE; Midazolam* 1 MG/ML 10 ML VIAL (10 MG) ONE; Naloxone* 0.4 MG/ML 1 ML VIAL ONE; Ondansetron INJ* 2 MG/ML VIAL ONE; VERAPAMIL 2.5 MG/ML 2 ML VIAL ** 5 mg/2 ml ONE; fentaNYL* 50 MCG/ML 2 ML VIAL (100 MCG VIAL) ONE; nitroGLYCERIN DRIP* 25,000 MCG/250 ML BTL ONE
[2018-01-06 11:54] LABS: ABS Basophils 0.1 10^3/ul (0-0.2); ABS Eosinophils 0.4 10^3/ul (0-0.6); ABS Lymphocytes 1.4 10^3/ul (1.0-4.8); ABS Monocytes 0.4 10^3/ul (0-0.8); ABS Neutrophils 5.5 10^3/ul (1.5-7.7); ABS Nucleated RBC 0 10^3/ul; Hematocrit 33 % (35-47); Hemoglobin 11.7 g/dl (12.0-16.0); Lymphocyte % 18.1 % (25-47); Mean Corpuscular HGB Conc 36 g/dl (31-36); Mean Corpuscular Hemoglobin 34 pg (27-31); Mean Corpuscular Volume 96 fL (80-97); Mean Platelet Volume 8.6 um3 (7.4-10.4); Nucleated Red Blood Cells % 0; Platelet Count 206 10^3/ul (150-450); Red Blood Count 3.45 10^6/ul (4.00-5.40); Red Cell Distribution Width 13 % (10.5-15); White Blood Count 7.8 10^3/ul (3.5-10.8)
[2018-01-06 12:10] LABS: EGFR Non-African American 60.2 (>60)
[2018-01-06 12:22] LABS: INR 2.06 (0.77-1.02)
--- NOTE | 2018-01-06 18:03 | RAD ---
CPT II Codes: G9500 Procedure(s) performed: 1. Diagnostic left lower extremity arteriogram. 2. Revascularization of occluded left distal superficial femoral artery. 3. Atherectomy and balloon angioplasty of the left superficial femoral artery 4. Balloon angioplasty of the left posterior tibial artery. 5. Minx closure device to the left common femoral arteriotomy. Date of service: January 06, 2018 Indication for procedure: Nonhealing left heel wound Comparison: CTA aorta with runoff October 12, 2017 Contrast: 75 mL of Visipaque Fluoroscopy Time: 30.7 minutes Vessels Accessed: Percutaneous access was obtained with ultrasound guidance in the left common femoral artery in the antegrade direction towards the foot. Catheter arteriography, with the catheter tip located within the lumen of the following arteries, was performed at the left superficial femoral artery, left popliteal artery and left posterior tibial artery. Anesthesia: Conscious sedation with IV Fentanyl and Versed as well as local 1% lidocaine injected locally at the arteriotomy site. Conscious sedation time: Timeout: 1345 hours Case end: 1611 hours Total conscious sedation time: 2 hours and 26 minutes Additional medications: * 400 mcg IA nitroglycerin injected intermittently throughout the course of the procedure to alleviate arterial spasm. * IV heparin 2000 Units to achieve a goal ACT of 250-300. * The patient received 1 mg of p.o. Ativan prior to the onset of the procedure. PROCEDURE NOTE AND INTRAPROCEDURAL IMAGING FINDINGS: Immediately prior to the procedure the patient signed consent after thoroughly discussing all risks, benefits and alternative therapies. The patient was positioned on the fluoroscopy table in the supine position and the bilateral groins were shaved, prepped and the patient was draped in standard sterile fashion. Using fluoroscopic imaging the location of the left common femoral head was marked externally with a skin marker on the patient's groin. Utilizing sonographic guidance and palpation, the left common femoral artery was cannulated overlying the femoral head with a 21-gauge needle. An ultrasound image was saved. A microwire was slowly and smoothly advanced into the common femoral artery under fluoroscopic imaging. No buckling of the wire was visualized to indicate dissection. Under fluoroscopic control the microwire was directed into the left superficial femoral artery. The needle was removed and over the wire a 5-Swiss sheath was advanced until the tip terminated in the left superficial femoral artery. The wire and stiffener removed and blood was freely expressed from the sheath. A 0.035 inch Bentson wire was advanced into the left superficial femoral artery, the 5-Swiss sheath removed and replaced with a 5-Swiss SideArm access sheath. Despite prior CTA calcified vasculopathy required catheter arteriography for superior characterization of the left lower extremity arteries. Through the side arm of the access sheath arteriography was performed demonstrating appropriate arteriotomy at the left common femoral artery. The distal left external iliac artery is patent flowing into the femoral profundus and proximal left superficial femoral artery. Through the side arm of the access sheath the more distal left superficial femoral artery was imaged revealing a focal calcified occlusion at the distal left superficial femoral artery as it courses through Jason's canal. Utilizing a 4-Swiss curved tip catheter and a hydrophilic 0.035 inch wire the occlusion was passed and the 4-Swiss curved tip catheter was advanced into the popliteal artery. Contrast arteriography was performed from this point demonstrating the popliteal artery to be adequately patent providing in-line flow into the proximal upper half of the left anterior tibial artery, tibioperoneal trunk and the proximal portions of the peroneal artery and posterior tibial artery. From the popliteal artery contrast arteriography was performed of the lower left leg demonstrating in-line flow in the anterior tibial artery up to the ankle. The peroneal artery is diminutive but provides in-line flow to the ankle. The left posterior tibial artery becomes increasingly narrowed before becoming totally occluded at approximately the lower third left leg. Finally contrast arteriography of the left foot was performed this demonstrated in-line flow in the left anterior tibial artery into the dorsalis pedis artery and essentially demonstrated single vessel runoff into the foot from the ESTEFANI. Small supplemental branches from the peroneal artery are seen. The posterior tibial artery is essentially occluded beyond the lower third of the left leg. There is collateralized retrograde filling provided by the left ESTEFANI and pedal loop to cover the heel including the tarsal branches and plantar branches of the hindfoot. Over the 0.035 inch wire the 5-Swiss access sheath was exchanged for a 7-Swiss, 23 cm access sheath which was advanced into the superficial femoral artery under fluoroscopic control. Wire exchange was performed positioning a 0.0014" Viper wire across the occluded left distal superficial femoral artery. Under fluoroscopic control the wire was advanced to the mid-level left posterior tibial artery securing access. Over the Viper wire atherectomy was performed at the calcified occlusion of the distal left superficial femoral artery utilizing a Borden 2.4 Deflecting atherectomy device. Contrast was injected intermittently demonstrating improved patency at the previously occluded location of the distal left superficial femoral artery. Satisfied with the appearance postatherectomy the device was removed and over the microwire a 5 mm x 40 mm Nanocross the lumen was advanced across the previous site of occlusion and balloon angioplasty was performed. The balloon was inflated to 13 ariel corresponding to an approximate diameter of 5.36 mm. The balloon remained inflated for minimum of 2 minutes to address vasospasm. Subsequent arteriogram showed brisk flow through the previously occluded left distal superficial femoral artery. Contrast was seen filling as far as the proximal left ESTEFANI and tibioperoneal trunk. Next, attention was turned to try to revascularize the occluded left posterior tibial artery. Utilizing a 0.014" Advantage wire and a [email or web address] microcatheter the wire was advanced as far as the level of the upper half of the calcaneus. With the wire securing access the catheter was removed and a Nanocross Elite 2.0-1.5 mm x 210 mm balloon was advanced into the left posterior tibial artery and balloon angioplasty was performed. Unfortunately the balloon could not be advanced beyond the lower third of the left lower leg where the WINDOW TINTER was most severely occluded. With the wire still in place the 2 10 mm length balloon was removed and replaced with a 1.5 mm x 15 mm Emerge balloon which was advanced further almost approaching the ankle joint and balloon angioplasty was performed. The strategy was to create a channel that the larger balloon could be advanced through. Unfortunately, the 210 mm length balloon that was previously used was not able to be advanced further than the level of the ankle joint. The balloon was removed and the microwire was exchanged for a 4-Swiss catheter for a 0.035 inch Savant Systemsson wire which securing access across the previously occluded distal left superficial femoral artery. Over the wire balloon angioplasty was performed at the superficial femoral artery with a 6 mm x 60 mm paclitaxel coated InPact balloon. The balloon was inflated to 12 ariel corresponding to a diameter measurement of 6.37 mm. The balloon remained inflated for a total of 3 minutes to a sure adequate drug delivery to the endothelium. The balloon was removed and arteriogram from the proximal left superficial femoral artery demonstrated wide patency through the artery and into the proximal portion of the left anterior tibial artery and the proximal most portions of the peroneal and posterior tibial artery as well as the tibioperoneal trunk. Over the wire the access sheath was exchanged for a new 7-Swiss, 11 cm length access sheath intended specifically for percutaneous arterial closure. Through the side arm of the access sheath additional arteriograms of the left common femoral artery demonstrated an appropriate puncture of the common femoral artery above the bifurcation and below the inferior epigastric artery. After an appropriate resterilization of the arteriotomy and exchange for new sterile gloves, a Minx closure device was deployed at the common femoral arteriotomy and pressure held for approximately 15 minutes. There were no signs of bleeding at the percutaneous arterial access site and the site was dressed with sterile gauze and Tegaderm. The patient tolerated the procedure well and was transferred to angiography holding bay for standard post procedural observation. SUMMARY OF PROCEDURE, IMAGING FINDINGS AND INTERVENTIONS PERFORMED: 1. Diagnostic studies performed: * Arterial access was obtained at the left common femoral artery in the antegrade direction (i.e. towards the foot) with ultrasound guidance. A sonographic image was recorded. * Diagnostic catheter angiography (necessary to perform the appropriate interventions) was performed with the catheter tip in the left superficial femoral artery, left popliteal artery and left posterior tibial artery. * Catheter arteriography was performed of the entire left lower extremity arterial segment from the left external iliac artery to the forefoot * At the conclusion of the procedure arteriography was performed through the side arm of the access sheath to image the distal left external iliac artery, left common femoral artery and proximal superficial femoral artery and femoral profundus. 2. Interpretation of diagnostic studies performed: * Focal occlusion at the distal left superficial femoral artery as the artery passes through Jason's canal. * Approximately at the distal third left lower leg the left posterior tibial artery becomes completely occluded. * Arteriography performed for the purpose of deploying a percutaneous arterial closure device demonstrates adequately patent right external iliac artery, common femoral artery and proximal superficial femoral artery and femoral profundus. 3. Surgical interventions performed: * Catheter wire revascularization of the occluded distal left superficial femoral artery. * Atherectomy of the left superficial femoral artery utilizing a 2.4 Borden Deflecting Atherectomy catheter. * Balloon angioplasty of the distal left superficial femoral artery first with a 5 mm x 40 Nanocross and later with a 6 mm x 60 mm paclitaxel coated InPact balloon. * Attempt was made to revascularize the distally occluded left posterior tibial artery. The balloon was advanced as far as the level of the ankle joint but communication with the pedal loop was not achieved. * Balloon angioplasty of the left posterior tibial artery with a Garpun Elite 2.0-1.5 mm x 210 mm balloon and a 1.5 mm x 15 mm Kaleio Emerge balloon. * Closure of the left common femoral artery was achieved with a Minx closure device followed by 15 minutes of gentle manual pressure. 4. Interpretation of interventions performed: * Final arteriography demonstrated brisk flow through the previously occluded distal left superficial femoral artery as far as the proximal ESTEFANI and proximal most peroneal and posterior tibial arteries. Plan: 1. Aspirin 81 mg p.o. daily for life. 2. Plavix 75 mg p.o. every other day x 6 months. 3. Clinical and imaging follow-up according to standard Interventional Radiology protocol.
--- NOTE | 2018-01-06 18:24 | PN ---
Progress Note - Progress Note Date of Service: 01/06/18 SOAP: Date of Service: 01/06/18 Subjective: Left heel pain is unchanged. No pain in forefoot or LLE. 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 Minx closure device deployed at left CF arteriotomy without issue. Plan: 1. Discharge to home. 2. Signs and symptoms of distal left foot emboli (cyanotic discoloration, black toes, new forefoot pain) were discussed with the patient and her daughter Amaya. They were very specifically instructed to come to ER if signs of emboli occur. 3. Visiting nurse scheduled to see patient tomorrow. 4. Plavix 75 mg PO every day (1st dose today). 5. Routine IR follow up barring any post endovascular complication.
[2018-01-06 18:42] VITALS: BP 145/70
--- NOTE | 2018-01-07 11:33 | RAD ---
INDICATION: Reduced ulceration at the left foot status post atherectomy of calcified occlusion of the left superficial femoral artery COMPARISON: Same day catheter arteriography as well as CT aorta with runoff TECHNIQUE: Humphrey scale, color Doppler, and spectral analysis utilized to image the left lower extremity arteries. Flow velocities were determined at each visualized artery. REPORT: Due to readily palpable pulses at the left common femoral and popliteal arteries only the popliteal and infrapopliteal arteries were examined. There is flow documented through the popliteal artery into the tibioperoneal trunk and proximal anterior tibial artery. There is mild increase in flow velocity at the tibioperoneal trunk measuring up to 136 cm/s. The left posterior tibial artery is occluded in its distal third consistent with prior imaging including the arteriography. The peroneal artery where visualized measures 57 cm/s. There is flow in the anterior tibial artery throughout its length continuing into the dorsalis pedis artery. Slow flow velocity as recorded in the distalmost ESTEFANI measuring 12 cm/s while flow velocity in the left dorsalis pedis artery measures 29 cm/s. IMPRESSION: 1. 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 2. Although velocity is slow to the distal left ESTEFANI and dorsalis pedis artery patency appears a maintained. Examination is exacerbated by the patient's bradycardia with a heart rate not exceeding 45 bpm (this is the patient's pharmacologic baseline).
== END | disposition home or self-care (01) ==
LOC: CHICATH 11:05
PROVIDERS: ATTEND Radiology Diagnostic Radiology
DX: I70.262 Atherosclerosis of native arteries of extremities with gangrene, left leg (principal); Z79.899 Other long term (current) drug therapy; I10 Essential (primary) hypertension; M81.0 Age-related osteoporosis without current pathological fracture; I47.1 Supraventricular tachycardia; I48.91 Unspecified atrial fibrillation; I35.0 Nonrheumatic aortic (valve) stenosis; I44.7 Left bundle-branch block, unspecified; I25.10 Atherosclerotic heart disease of native coronary artery without angina pectoris; E11.9 Type 2 diabetes mellitus without complications; Z79.01 Long term (current) use of anticoagulants
CPT/HCPCS: 36415; 76937; 80048; 85025; 85347; 85610; 85730; 99156; 99157; A9270-GY; C1724; C1725; C1760; C1769; C1887; C1894; C2623; J1644; J1885; J2250; J2310; J2405; J3010

== ENCOUNTER 2018-02-02 13:33 | Inpatient (IN) | payer MEDICARE, MEDICAID ==
--- OUTSIDE RECORDS SUMMARY | 2018-02-02 13:44 | XMS REPORT | Continuity of Care Document ---
:1935 External Reference #:[id number] Author Name Apollo Braga MD Address [address] [address] Care Team Providers Name Role Phone Coral Schmitz M.D. Care Team Information Shoe Singer Unavailable Coral Schmitz M.D. Primary Care Physician Unavailable Payers Type Date Identification Numbers Payment Provider Subscriber Policy Number: [id number] Medicare-[facility] Ashley Finn PayID: [id number] [address] [place] [address] Policy Number: [id number] Medicaid/C Ashley Finn Group Name: 2 1 Medicare Primary PayID: [id number] [address] [place] [address] Advance Directives Description No Information Available Problems Description No Information Family History Date Family Member(s) Problem(s) Comments General Diabetes General Heart Attack General Heart Disease Social History Type Date Description Comments Sex Unknown Occupation Retired Tobacco Use Start: Unknown Never Smoked Cigarettes Tobacco Use Start: Unknown Never Smoked Cigars Tobacco Use Start: Unknown Never Smoked A Pipe Smokeless Tobacco Never Used Smokeless Tobacco ETOH Use Denies alcohol use Tobacco Use Start: Unknown Patient has never smoked Smoking Status Reviewed: 01/27/18 Patient has never smoked Allergies, Adverse Reactions, Alerts Date Description Reaction Status Severity Comments 05/28/2017 Ahist Antihistamine Active 05/28/2017 Aspirin Active 05/28/2017 Morphine Active 05/28/2017 Penicillin Active 05/28/2017 Prednisone Active 05/28/2017 sulfa Active Medications Medication Date Status Form Strength Qnty SIG Indications Ordering Provider Spironolactone 00/00/ Active Tablets 25mg Unknown 0000 Atorvastatin 00/00/ Active Tablets 80mg take 1 Unknown Calcium 0000 tablet by mouth at bedtime Clopidogrel 00/00/ Active Tablets 75mg take 1 Unknown Bisulfate 0000 tablet by mouth once daily Sotalol HCL / Active Tablets 80mg take 1 Unknown 0000 tablet by mouth twice a day Pradaxa / Active Capsules 150mg take 1 Unknown 0000 capsule by mouth twice a day Aspir-81 / Active Tablets DR 81mg 1 by Schmitz, 0000 mouth Coral every day M.D. Iron (Ferrous / Active Tablets 256(28Fe) as needed Ainsley Gluconate) 0000 mg Coral M.D. Furosemide / Hx Tablets 40mg take 1 Unknown 0000 - tablet by mouth 2017 once daily Potassium / Hx Tablets ER 20Meq take 2 Unknown Chloride Tonie ER 0000 - tablets by mouth 2017 twice a day Immunizations Description No Information Available Vital Signs Date Vital Result Comment 01/27/2018 12:28pm Weight 176.00 lb Weight 79.834 kg Height 65 inches 5'5" Height in cm's 165.1 cm BMI (Body Mass Index) 29.3 kg/m2 05/28/2017 10:41am BP Systolic 130 mmHg BP Diastolic 73 mmHg Heart Rate 66 /min Respiratory Rate 16 /min Weight 176.00 lb Weight 79.834 kg Height 65 inches 5'5" Height in cm's 165.1 cm BMI (Body Mass Index) 29.3 kg/m2 Results Description No Information Available Procedures Date Code Description Status 01/27/2018 66367 Tympanometry Completed 01/27/2018 83784 Comprehensive Audiogram Completed Encounters Type Date Location Provider Dx Diagnosis Office Visit 01/27/2018 Arcelia,Lio Salinas R51 Headache 11:30a 05/10/07 MD Maria Luz Office Visit 05/28/2017 Arcelia,After Apollo Salinas H61.23 Impacted cerumen, 10:45a 05/10/07 MD Maria Luz bilateral Plan of Treatment No Information Available
--- OUTSIDE RECORDS SUMMARY | 2018-02-02 13:45 | XMS REPORT ---
:1935 External Reference #:[id number] Author Organization [facility] Address [address] [place] [address] [place] [address] Phone [phone] Care Team Providers Name Role Phone Coral Schmitz MD Primary Care Physician Unavailable Payers Type Date Identification Numbers Payment Provider Subscriber Medicare Primary Effective: Policy Number: Medicare Ashley Finn 1998 [id number] PayID: [id number] [address] [place] [address] [facility] Part B Policy Number: [id number] Medicaid Ashley Finn PayID: [id number] [address] [place] [address] Problems Date Description Provider Status Onset: 01/08/2011 [...] block Active Onset: Peripheral vascular disease Active Onset: 10/19/2017 Urge incontinence of urine Coral Schmitz M.D. Active Onset: 11/17/2017 Atherosclerosis of arteries of the Aniket Jose M.D. Active extremities Family History Date Family Member(s) Problem(s) Comments General dementia Father Diabetes Father Congestive Heart Failure (CHF) Father Hypertension Mother Hypertension Siblings 1 Brother, valve replacement 2012 Social History Type Date Description Comments Lives With Daughter Occupation Retired ETOH Use Denies alcohol use Smoking Patient has never smoked Recreational Drug Use Denies Drug Use Daily Caffeine Consumes on average 1 cup of regular coffee per day Exercise Type/Frequency Does not exercise General Hx Text 38 yr 2 children cig no etoh rare exercise walks caffiene 1 cup Allergies, Adverse Reactions, Alerts Date Description Reaction Status Severity Comments 12/18/2010 Penicillin Urticaria active 12/18/2010 Morphine Urticaria active 12/18/2010 Antihistamines, active Loratadine-type 02/16/2014 Sulfa redness/swelling LE active 02/16/2014 Ciprofloxacin active 11/16/2014 Prednisone bleeding active Medications Medication Date Status Form Strength Qnty SIG Indications Ordering Provider Atorvastatin 11/17 Active Tablets 40mg 1 by mouth E78.5 Coral Calcium /2018 every day Cheryl Schmitz Clopidogrel 11/17 Active Tablets 75mg 180ta 75 mg by mouth I70.262 Aniket Ackerman Bisulfate /2018 bs daily to be Damon, started 5-7 M.D. days before arteriography with Dr. Jose. Aspirin Adult 10/19 Active Tablets 81mg 90tab once a day Coral Low Dose /2018 DR ken take otc Cheryl Schmitz Ferrous 07/19 Active Tablets 324(38Fe) 60tab take one D64.9 Coral Gluconate /2018 mg s tablet by Schmitz, mouth once a M.D. day Underpads Extra 07/15 Active Misc 23"X36" 108un medicaid id Giacomo MedinaIssa Black /2018 its [id number], Haylie, length of need M.D. 99, icd10 r39.81 Adult 07/15 Active 200un medicaid id Coral Protective its [id number], Schmitz, Underwear length of need M.D. 99, icd10 r39.81, size large Panty Liner/ 07/15 Active 200un medicaid id Giacomo Tovar its [id number], Haylie, length of need M.D. 99, icd10 r39.81, size xl Contour Lancets 04/27 Active 100un Check bs bid E11.65 its e11.65 Cheryl Schmitz Contour Strips 04/27 Active 100un Check bid Coral /2017 its Cheryl Schmitz Lancets Micro 07/17 Active Misc Thin 33G 100un use twice E11.9 Coral Thin 33G its daily and as Ainsley, needed M.D. Florentino Contour 07/17 Active Strips 60uni ck FS am E11.8 [place] Blood Glucose ts fasting and 2 Rd Test Charlene hours after M.D. dinner Telfa Adhesive 03/16 Active Pads 3"X4" 1unit Apply as E884.5 Zuleyka Dressing /2013 s directed Cheryl Hernandez Cloth Adhesive 03/16 Active Tape 1"X10yds 1unit E884.5 Zuleyka Surgical Tape /2013 s David 1"X10yds M.DIssa Shower Sit 03/08 Active 1unit as directed [place]hire /2014 s Cheryl Sultana Florentino Contour 01/16 Active Strips 50uni 2-3 x week Vik Blood Glucose /2013 ts Dx Code 250.62 TONY Bustillos Test Strips Quad Cane 01/12 Active Misc 1unit use as needed V15.88 S[place]hire s dx code Rd v15.88, 250.62 M.DIssa Pradaxa Active Capsules 150mg 60cap take 1 capsule s by mouth twice Schmitz, a day M.D. Sotalol HCL Active Tablets 80mg one bid Unknown 0000 Furosemide Active Tablets 20mg as needed Unknown Spironolactone Active Tablets 25mg once a day Unknown Tylenol Extra Active Tablets 500mg 2 by mouth 3 Unknown Strength /0000 times daily as needed Nitrofurantoin 11/24 Hx Capsules 100mg 10cap 1 by mouth Coral Macrocrystal /2017 s twice a day Ainsley, - M.D. 11/29 Potassium 11/17 Hx Tablets 10Meq 1 by mouth Coral Chloride Tonie ER every day Ainsley, ER - M.D. 01/12 Atorvastatin 11/04 Hx Tablets 80mg 1 by mouth E78.5 Coral Calcium /2017 every day Ainsley, - M.D. 11/17 Potassium 11/04 Hx Tablets 20Meq 1 by mouth Coral Chloride Tonie ER every day Schmitz, ER - M.D. 11/17 Potassium 10/20 Hx Tablets 10Meq 90tab 1 by mouth Coral Chloride Tonie ER s every day Ainsley, ER - M.D. 11/04 Benzonatate 09/29 Hx Capsules 100mg 7caps 1 tab at J20.9 Coral /2017 night as Ainsley, - needed for M.D. 10/06 cough Atorvastatin 07/19 Hx Tablets 40mg 90tab 1 by mouth E78.5 Coral Calcium /2017 s every day Ainsley, - M.D. 11/04 Depend 06/18 Hx Misc 4Boxe wear as needed Coral Underwear s for Curtis Schmitz Men Large - incontinence M.D. Maximum 07/15 Absorbency Potassium 06/15 Hx Tablets 20Meq 1 by mouth Coral Chloride Tonie ER every day Ainsley, ER - M.D. 06/15 Potassium 06/15 Hx Tablets 20Meq 60tab once a day Coral Chloride ER ER s Ainsley - M.D. 10/20 Ibuprofen 05/18 Hx Tablets 400mg 30tab 1 tablet by L03.031 Tom s mouth twice D. - daily as Irene, 04/27 needed for .D. pain Doxycycline 05/18 Hx Tablets 100mg 14tab 1 tab by mouth L03.031 Tom Hyclate /2016 s twice a day D. - with food Irene, 05/25 M.D. Doxycycline 03/06 Hx Capsules 100mg 28cap 1 capsulet by L03.115 Issac Hyclate s mouth twice a Cuban, - day for 14 [employer] Calcium 500 + 11/13 Hx Tablets 500-600mg 60tab 1 tab by mouth Sapphire -Unit s 2x per day Rd, - M.D. 07/19 Doxy 100 10/20 Hx Solution 100mg Rec D. - Irene, 10/20.D Clindamycin HCL 10/10 Hx Capsules 300mg 21cap 1 tabs by L03.115 s mouth 3 times D. - a day Irene, 10/20. Cephalexin 09/12 Hx Capsules 500mg 42cap take one s capsule by D. - mouth three Irene, 10/10 times a day . Cephalexin 07/09 Hx Capsules 500mg 42cap take one s capsule by D. - mouth three Irene, 07/27 times a day . Cephalexin 11/16 Hx Tablets 500mg 20tab 1 tab by mouth 681.10 s twice a day TONY Francis - 07/08 Furosemide 11/16 Hx Tablets 20mg 60tab 1 tbs by mouth 782.3 s twice a day a TONY Francis - day - pt not 07/17 Metoprolol 11/16 Hx Tablets 25mg 30tab 1 by mouth 401.1 Pato Succinate ER ER 24HR s every day - pt TONY Francis - not taking 07/17 Lisinopril 09/28 Hx Tablets 2.5mg 30tab 1 by mouth 401.1 s every day - pt Rd, - not taking M.D. 07/17 Lancets 09/28 Hx Misc 100un use twice 250.00 its daily and as Rd, - needed M.D. 07/17 Clotrimazole 03/08 Hx Cream 1% 65gm apply twice a 110.5 day for 2-3 Rd, - days as needed M.D. 07/13 Nystop 03/08 Hx Powder 251143Dxq 60uni apply twice a 110.5 t/GM ts day Kd Sultana M.D. 07/13 No Active 01/12 Hx Unknown Medications /2013 - 01/12 Furosemide 01/12 Hx Tablets 20mg 30tab take one half 459.[address] - mouth every M.D. 03/08 Claritin 01/12 Hx Capsules 10mg 30cap 1 by mouth 995.3 s every day Kd Sultana M.D. 03/08 Florentino Contour 03/06 Hx Strips 50uni qd and prn [place] Blood Glucose ts Rd Test Strips - M.DIssa 01/12 Ciprofloxacin 01/08 Hx Tablets 500mg 10tab 1 tab po every 682.6 [place] Extended- ER 24HR s day for 10 Sultana e - eliseo .DIssa 01/12 Blood Pressure 12/18 Hx Misc 1unit take bp 2-3 x 401.1 [place] Arm Cuff s per day Kd Sultana M.D. 01/12 Clindamycin HCL Hx Capsules 300mg 28cap 1 tab po qid Unknown /0000 s for 9 days - 01/08 Ibuprofen Hx Capsules 200mg 2 cap po as Unknown /0000 needed - 10/19 Doxycycline Hx Tablets 100mg 1 tablet twice Unknown Hyclate /0000 a day x 10days - as per Urgent 07/08 Care visit /201506/01/15 Apap 00 Hx Tablets 325mg 2 tabs by Unknown /0000 mouth q4hrs as - needed. 07/13 Norvasc Hx Tablets 10mg 1 by mouth Unknown /0000 every day - 07/13 Ceftriaxone Hx Solution 2gm iv every 24 Unknown Sodium /0000 Rec hours x 14 - days 07/10 Probiotic 00 Hx Capsules 1 by mouth Unknown Acidophilus /0000 once a day - 07/19 Clotrimazole Hx Cream 1% apply once Unknown /0000 daily - 03/05 Doxycycline Hx Tablets 100mg 1 po qd Unknown Hyclate /0000 - 11/11 Doxycycline 0000 Hx Capsules 100mg take 1 capsule Unknown Monohydrate /0000 by mouth once - daily 11/17 Potassium 00 Hx Tablets 40Meq one bid Cator, Chloride Tonie /0000 SHARLENE Rodriguez MD 06/15 Atorvastatin 00 Hx Tablets 80mg take 1 tablet Unknown Calcium /0000 by mouth at - bedtime 07/19 Metolazone 00 Hx Tablets 2.5mg take 2 tablets Unknown /0000 by mouth daily - 30 Minutes 07/19 Furosemide Clopidogrel 00 Hx Tablets 75mg 30tab take 1 tablet Coral Bisulfate /0000 s by mouth once Schmitz, - daily M.D. 07/20 Clindamycin HCL Hx Capsules 300mg take two tabs Unknown /0000 one hour prior - to dental work 09/28 Probiotic 00 Hx Capsules 1 by mouth Unknown Acidophilus /0000 every day - 10/02 Clopidogrel 00 Hx Tablets 75mg 1 by mouth Unknown Bisulfate /0000 every day - 11/16 Immunizations CPT Code Status Date Vaccine Lot # [id number] Refused 01/18/2018 Influenza Virus Vaccine, Quadrivalent, Split, Preservative Free [id number] Refused 07/19/2017 Pneumococcal Conjugate Vaccine 13 Valent For Intramuscular Use 95037 Refused 04/27/2017 Zoster (Zostavax) [id number] Refused 04/27/2017 Tdap - Tetanus/Diptheria/Acellular Pertussis 69882 Refused 04/27/2017 Influenza Virus Vaccine, Quadrivalent, Split, Preservative Free 68336 Refused 04/27/2017 Pneumococcal Conjugate Vaccine 13 Valent For Intramuscular Use 95141 Refused 01/12/2014 Pneumonia Vaccine [id number] Refused 01/12/2014 Flu Vaccine Split Virus Preservative Free For Indiv 3Yr Older Vital Signs Date Vital Result Comment 01/18/2018 Height 65 inches 5'5" Weight 178.00 lb Heart Rate 52 /min BP Systolic Sitting 118 mmHg BP Diastolic Sitting 74 mmHg O2 % BldC Oximetry 99 % BMI (Body Mass Index) 29.6 kg/m2 01/12/2018 Height 65 inches 5'5" Weight 175.00 lb Heart Rate 58 /min BP Systolic Sitting 155 mmHg BP Diastolic Sitting 59 mmHg Respiratory Rate 18 /min Body Temperature 97.3 F BMI (Body Mass Index) 29.1 kg/m2 12/27/2017 Height 65 inches 5'5" Weight 178.00 lb Heart Rate 54 /min BP Systolic Sitting 134 mmHg BP Diastolic Sitting 78 mmHg O2 % BldC Oximetry 97 % BMI (Body Mass Index) 29.6 kg/m2 11/17/2017 Height 65 inches 5'5" Weight 178.00 lb w/ shoes Heart Rate 56 /min BP Systolic Sitting 142 mmHg lue lg cuff BP Diastolic Sitting 64 mmHg lue lg cuff Respiratory Rate 18 /min BMI (Body Mass Index) 29.6 kg/m2 Ejection Fraction 50-55% echo 03/30/17 10/19/2017 Height 65 inches 5'5" Weight 174.00 lb Heart Rate 52 /min BP Systolic 124 mmHg BP Diastolic 54 mmHg O2 % BldC Oximetry 99 % BMI (Body Mass Index) 29.0 kg/m2 09/29/2017 Height 65 inches 5'5" Weight 174.00 lb Heart Rate 34 /min BP Systolic Sitting 130 mmHg BP Diastolic Sitting 72 mmHg O2 % BldC Oximetry 98 % BMI (Body Mass Index) 29.0 kg/m2 09/24/2017 Weight 176.00 lb Heart Rate 74 /min BP Systolic Sitting 94 mmHg BP Diastolic Sitting 56 mmHg Body Temperature 99.8 F tylenol at 10:00am O2 % BldC Oximetry 95 % 09/21/2017 Height 65 inches 5'5" Weight 179.00 [...] Test Result H/L Range Note Laboratory test 01/06/2018 Partial Thrombo 187.4 seconds High 26.0-36.3 1 finding Time PTT Inr/Protime 01/06/2018 Inr 2.06 High 0.77-1.02 2 CBC Auto Diff 01/06/2018 White Blood Count 7.8 10^3/uL 3.5-10.8 Red Blood Count 3.45 10^6/uL Low 4.00-5.40 Hemoglobin 11.7 g/dL Low 12.0-16.0 Hematocrit 33 % Low 35-47 Mean Corpuscular Volume 96 fL 80-97 Mean Corpuscular Hemoglobin 34 pg High 27-31 Mean Corpuscular HGB Conc 36 g/dL 31-36 Red Cell Distribution Width 13 % 10.5-15 Platelet Count 206 10^3/uL 150-450 Mean Platelet Volume 8.6 um3 7.4-10.4 Abs Neutrophils 5.5 10^3/uL 1.5-7.7 Abs Lymphocytes 1.4 10^3/uL 1.0-4.8 Abs Monocytes 0.4 10^3/uL 0-0.8 Abs Eosinophils 0.4 10^3/uL 0-0.6 Abs Basophils 0.1 10^3/uL 0-0.2 Abs Nucleated RBC 0 10^3/uL Granulocyte % 70.5 % 38-83 Lymphocyte % 18.1 % Low 25-47 Monocyte % 5.6 % 0-7 Eosinophil % 5.0 % 0-6 Basophil % 0.8 % 0-2 Nucleated Red Blood Cells % 0 Laboratory test finding 01/06/2018 Poc Activated Clotting 282 seconds 3 Time Laboratory test finding 01/06/2018 Poc Activated Clotting 314 seconds 4 Time Basic Metabolic Panel 01/06/2018 Sodium 140 mmol/L 135-145 Chloride 107 mmol/L 101-111 Co2 Carbon Dioxide 26 mmol/L 22-32 Glucose 121 mg/dL High 70-100 Blood Urea Nitrogen 18 mg/dL 6-24 Creatinine 0.90 mg/dL 0.51-0.95 BUN/Creatinine Ratio 20.0 8-20 Calcium 9.7 mg/dL 8.6-10.3 Egfr Non- 60.2 >60 Egfr 72.9 >60 5 Potassium 5.0 mmol/L 3.5-5.0 Anion Gap 7 mmol/L 2-11 Laboratory test finding 01/06/2018 Poc Activated Clotting 306 seconds 6 Time Laboratory test finding 01/06/2018 Poc Activated Clotting 306 seconds 7 Time Basic Metabolic Panel 12/17/2017 Sodium 140 mmol/L 135-145 Potassium 4.7 mmol/L 3.5-5.0 Chloride 109 mmol/L 101-111 Co2 Carbon Dioxide 25 mmol/L 22-32 Anion Gap 6 mmol/L 2-11 Calcium 9.0 mg/dL 8.6-10.3 Glucose 152 mg/dL High 70-100 Blood Urea Nitrogen 22 mg/dL 6-24 Creatinine 0.91 mg/dL 0.51-0.95 BUN/Creatinine Ratio 24.2 High 8-20 Egfr Non- 59.5 >60 Egfr 72.0 >60 8 Urinalysis Profile 11/26/2017 Urine Color Yellow 9 Urine Appearance Clear 9 Urine Specific [place] 1.009 Low 1.010-1.030 9 Urine pH 5.0 5-9 9 Urine Urobilinogen Negative Negative 9 Urine Ketones Negative Negative 9 Urine Protein Negative Negative 9 Urine Leukocytes Negative Negative 9 Urine Blood Negative Negative 9 Urine Nitrite Negative Negative 9 Urine Bilirubin Negative Negative 9 Urine Glucose Negative Negative 9 Urine Culture And 11/26/2017 Urine Culture SEE RESULT BELOW 9, 10 Sensitivities Laboratory test 11/11/2017 Potassium 4.8 mmol/L 3.5-5.0 finding Laboratory test 10/20/2017 Potassium 5.0 mmol/L 3.5-5.0 finding Laboratory test 10/19/2017 Hemoglobin A1c 5.2 5-7 finding Rapid Influenza A & B 09/24/2017 Influenza A NEGATIVE Negative 11 Molecular Molecular Influenza B Molecular NEGATIVE Negative Laboratory test 09/24/2017 Rapid Influenza A B SEE RESULT BELOW 12 finding Antigen Basic Metabolic Panel 09/21/2017 Sodium 139 mmol/L 139-145 Potassium 5.0 mmol/L 3.5-5.0 Chloride 108 mmol/L 101-111 Co2 Carbon Dioxide 26 mmol/L 22-32 Anion Gap 5 mmol/L 2-11 Glucose 123 mg/dL High 70-100 Blood Urea Nitrogen 16 mg/dL 6-24 Creatinine 0.78 mg/dL 0.51-0.95 BUN/Creatinine Ratio 20.5 High 8-20 Calcium 9.4 mg/dL 8.6-10.3 Egfr Non- 71.1 >60 Egfr 91.4 >60 13 Laboratory test finding 09/21/2017 C Reactive Protein 5.02 mg/L High < 5.00 14 Lactic Acid 1.5 mmol/L 0.5-2.0 15 Laboratory test 09/21/2017 MRSA/S. aureus Ssti SEE RESULT BELOW 16 finding PCR Wound Culture/Sensi 09/21/2017 Wound/Misc SEE RESULT BELOW 17 Culture-Gram Stain Laboratory test 09/21/2017 Erythrocyte Sed Rate 42 mm/Hr High 0-40 finding Blood Culture SEE RESULT BELOW 18 CBC Auto Diff 09/21/2017 White Blood Count 7.4 10^3/uL 3.5-10.8 Red Blood Count 3.01 10^6/uL Low 4.0-5.4 Hemoglobin 10.1 g/dL Low 12.0-16.0 Hematocrit 29 % Low 35-47 Mean Corpuscular Volume 96 fL 80-97 Mean Corpuscular Hemoglobin 34 pg High 27-31 Mean Corpuscular HGB Conc 35 g/dL 31-36 Red Cell Distribution Width 15 % 10.5-15 Platelet Count 202 10^3/uL 150-450 Mean Platelet Volume 8.2 um3 7.4-10.4 Abs Neutrophils 4.9 10^3/uL 1.5-7.7 Abs Lymphocytes 1.7 10^3/uL 1.0-4.8 Abs Monocytes 0.5 10^3/uL 0-0.8 Abs Eosinophils 0.3 10^3/uL 0-0.6 Abs Basophils 0 10^3/uL 0-0.2 Abs Nucleated RBC 0 10^3/uL Granulocyte % 65.2 % 38-83 Lymphocyte % 23.0 % Low 25-47 Monocyte % 6.8 % 0-7 Eosinophil % 4.4 % 0-6 Basophil % 0.6 % 0-2 Nucleated Red Blood Cells % 0.1 Iron & Iron Binding Capacity 07/19/2017 Iron [...] 0.6-1.6 Albumin/Globulin Ratio 1.17 Impression See Comment 19 Laboratory test finding 07/19/2017 Hemoglobin A1c 5.3 5-7 Urinalysis Profile 07/16/2017 Urine Color Straw Urine Appearance Clear Urine Specific [place] 1.004 Low 1.010-1.030 Urine pH 6.0 5-9 Urine Urobilinogen Negative Negative Urine Ketones Negative Negative Urine Protein Negative Negative Urine Leukocytes Negative Negative Urine Blood 1+ Negative Urine Nitrite Negative Negative Urine Bilirubin Negative Negative Urine Glucose Negative Negative Urine White Blood Cell Trace(0-5/hpf) Absent Urine Red Blood Cell Trace(0-2/hpf) Absent Urine Bacteria Absent Absent Urine Squamous Epithelial Cell Present Absent Urine Culture And 07/16/2017 Urine Culture SEE RESULT BELOW 20 Sensitivities CBC Auto Diff 07/16/2017 White Blood Count [...] 0-2 Nucleated Red Blood Cells % 0 Retic Count 07/16/2017 Retic Count 2.6 % High 0.5-1.5 Corrected Retic Count 1.7 % High 0.5-1.5 Maturation Factor Retic 2.0 Retic Index 0.90 Mean Retic Volume 104.3 Immature Retic Fraction 0.48 RBC Retic Count 3.01 10^6/uL Low 4.6-6.2 Hematocrit for Retic CNT 29 % Low 35-47 Comp Metabolic Panel 07/16/2017 Sodium 137 mmol/L [...] Egfr Non- 56.6 >60 Egfr 72.8 >60 21 Laboratory test finding 07/16/2017 Folic Acid (Folate) 19.05 ng/mL >3.99 Vitamin B12 330 pg/mL 180-914 22 Liver Function Panel 06/30/2017 Total Protein 6.1 [...] test finding 06/30/2017 LDH 243 U/L 140-271 Lipid Profile (Trig/Chol/HDL) 04/29/2017 Triglycerides 115 mg/dL 23 Cholesterol 97 mg/dL 24 HDL Cholesterol 34.0 mg/dL 25 LDL Cholesterol 40 mg/dL 26 Urine Microalbumin Random 04/29/2017 Ur Microalbumin (mg/L) < 15.0 mg/L Urine Creatinine 87.91 mg/dL Urine Microalbumin/Creatinine TNP ug/mg <31 27 Comp Metabolic Panel 04/29/2017 Albumin 4.0 g/dL [...] Egfr Non- 44.5 >60 Egfr 57.2 >60 28 Laboratory test finding 04/29/2017 Magnesium 1.7 mg/dL Low 1.9-2.7 Laboratory test finding 04/27/2017 Hemoglobin A1c 6.4 5-7 Laboratory test finding 10/25/2015 Hemoglobin A1c 5.6 5-7 Laboratory test finding 10/16/2015 C Reactive Protein 4.56 mg/L < 5.00 29 Basic Metabolic Panel 10/16/2015 Sodium 139 mmol/L 133-145 Potassium 4.3 mmol/L 3.5-5.0 Chloride 106 mmol/L 101-111 Co2 Carbon Dioxide 25 mmol/L 22-32 Anion Gap 8 mmol/L 2-11 Glucose 110 mg/dL High 70-100 Blood Urea Nitrogen 15 mg/dL 6-24 Creatinine 0.67 mg/dL 0.51-0.95 BUN/Creatinine Ratio 22.4 High 8-20 Calcium 9.5 mg/dL 8.6-10.3 Egfr Non- 85.1 >60 Egfr 109.5 >60 30 Comp Metabolic Panel 09/18/2015 Sodium 139 mmol/L [...] Egfr Non- 80.9 >60 Egfr 104.1 >60 31 Lipid Profile (Trig/Chol/HDL) 09/18/2015 Triglycerides 53 mg/dL 32 Cholesterol 143 mg/dL 33 HDL Cholesterol 64.2 mg/dL 34 LDL Cholesterol 68 mg/dL 35 Laboratory test finding 09/18/2015 C Reactive Protein 4.45 mg/L < 5.00 36 Urine Microalbumin Random 07/18/2015 Ur Microalbumin (mg/L) [...] Egfr Non- 85.1 >60 Egfr 109.5 >60 37 Laboratory test finding 07/15/2015 C Reactive Protein 3.57 mg/L < 5.00 38 CBC Auto Diff 07/10/2015 White Blood Count [...] Egfr Non- 88.2 >60 Egfr 113.4 >60 39 Laboratory test finding 07/10/2015 C Reactive Protein 3.49 mg/L < 5.00 40 CBC Auto Diff 07/03/2015 White Blood Count [...] Egfr Non- 91.4 >60 Egfr 117.5 >60 41 Laboratory test finding 07/03/2015 C Reactive Protein 3.03 mg/L < 5.00 42 Laboratory test finding 06/22/2015 Partial Thrombo Time 72.4 seconds High 26.0-36.3 PTT Magnesium 2.0 mg/dL 1.9-2.7 Blood Culture SEE RESULT BELOW 43 Inr/Protime 06/22/2015 Inr 1.11 0.89-1.11 Laboratory test finding 06/22/2015 C Reactive Protein 10.49 mg/L High < 5.00 44 B-Type Natriuretic Peptide BNP 144 pg/mL High 45 Comp Metabolic Panel 06/22/2015 Sodium 139 mmol/L [...] Egfr Non- 75.9 >60 Egfr 97.6 >60 46 Laboratory test finding 06/22/2015 Lactic Acid 0.9 mmol/L 0.5-2.0 47 CBC Auto Diff 06/22/2015 White Blood Count [...] Blood Cells % 0 Laboratory test finding 06/01/2015 Wound Culture/Sensi SEE RESULT BELOW 48 Laboratory test finding 06/01/2015 Wound Culture/Sensi SEE RESULT BELOW 49 Laboratory test finding 08/09/2014 Hemoglobin A1c 5.7 5-7 Comp Metabolic Panel 08/09/2014 Sodium 140 mmol/L [...] Egfr Non- 85.3 >60 Egfr 109.8 >60 50 CBC Auto Diff 08/09/2014 White Blood Count [...] Nucleated Red Blood Cells % 0 Urine Microalbumin Random 03/08/2014 Ur Microalbumin (mg/L) 19.0 mg/L Urine Creatinine 170.37 mg/dL Urine Microalbumin/Creatinine 11.1 Less Than 31 Lipid Profile (Trig/Chol/HDL) 01/12/2014 Triglycerides 55 mg/dL 51, 52 Cholesterol 143 mg/dL 51, 53 HDL Cholesterol 62.4 mg/dL 51, 54 LDL Cholesterol 70 mg/dL 51, 55 Comp Metabolic Panel 01/12/2014 Sodium 139 mmol/L 133-145 51 Potassium 4.7 mmol/L 3.7-5.6 51 Chloride 105 mmol/L 101-111 51 Co2 Carbon Dioxide 28 mmol/L 22-32 51 Anion Gap 6 mmol/L 2-11 51 Glucose 116 mg/dL High 70-100 51 Blood Urea Nitrogen 13 mg/dL 6-24 51 Creatinine 0.69 mg/dL 0.51-0.95 51 BUN/Creatinine Ratio 18.8 8-20 51 Calcium 9.5 mg/dL 8.6-10.3 51 Total Protein 6.6 g/dL 6.4-8.9 51 Albumin 4.4 g/dL 3.2-5.2 51 Globulin 2.2 g/dL 2-4 51 Albumin/Globulin Ratio 2.0 1-3 51 Total Bilirubin 1.50 mg/dL High 0.2-1.0 51 Alkaline Phosphatase 93 U/L 34-104 51 Alt 18 U/L 7-52 51 Ast 23 U/L 13-39 51 Egfr Non- 82.7 >60 51 Egfr 106.4 >60 51, 56 Laboratory test finding 01/12/2014 Hemoglobin A1c 5.8 5-7 Thyroid Panel 01/05/2011 Free Thyroxine 0.93 ng/dL 0.61-1.24 57 Thyroxine 7.7 g/dL 5-12 57 TSH 2.33 MIU/ML 0.34-5.60 57 Lipid Profile (Trig/Chol/HDL) 01/05/2011 Triglyceride 48 mg/dL 40-200 57 Cholesterol 149 mg/dL Less Than 200 57, 58 High Density Lipoprotein 57 mg/dL 40-60 57, 59 Cholesterol/HDL Ratio 2.61 AVERAGE 1-4.44 57 Low Density Lipoprotein 82 mg/dL Less Than 100 57, 60 Laboratory test finding 01/05/2011 Hemoglobin A1c 6.8 % High Less Than 6.0 57, 61 1 Verbal to [id number] by [email or web address] at 1222 on 01/06/18. Results read back accurately. 2 Verbal to [id number] by [email or web address] at 1222 on 01/06/18. Results read back accurately. 3 Rac Specialist: [id number] Reference Range: 74-125 seconds 4 Rac Specialist: [id number] Reference Range: 74-125 seconds 5 Because ethnic data is not always [...] 5 Kidney failure <15 (or dialysis) 6 Rac Specialist: [id number] Reference Range: 74-125 seconds 7 Rac Specialist: [id number] Reference Range: 74-125 seconds 8 Because ethnic data is not always readily [...] 15-29 5 Kidney failure <15 (or dialysis) 9 [id number] SEE RESULT BELOW Name: ASHLEY FINN : [address]: Coral Schmitz MD Acct: [id number] Unit: [id number] AGE: 82 Location: [facility] Re11/26/17 SEX: F Status: REG REF SPEC: [id number] GHISLAINE: 11/26/17-[address]: Coral Schmitz MD REQ: [id number] RECD: 11/26/17 STATUS: COMP _ S[facility] ORDERED: Urine Culture COMMENTS: [id number] QUERIES: Urine Source: Random Procedure Result Reported Site Urine Culture Final 11/27/17- 1612 ML No growth of clinically significant organisms * ML - Main Lab . END OF REPORT DEPARTMENT OF PATHOLOGY, [address] [place] [address] Devante Be M.D. Director [facility] # [id number] 11 Rac Specialist: [id number] 12 SEE RESULT BELOW Name: ASHLEY FINN: [address]: Gabriela Lopez MD Acct: [id number] Unit: [id number] AGE: 82 Location: [facility] Re09/24/17 SEX: F Status: REG REF SPEC: [id number] GHISLAINE: 09/24/[address]: Gabriela Lopez MD REQ: [id number] RECD: 09/24/17 STATUS: COMP _ SOURCE: NASAL SPDESC: ORDERED: Flu A B Request COMMENTS: [id number] Procedure Result Reported Site Rapid Influenza A B Request Final 09/24/172043 ML Specimen received for Influenza A/B Molecular testing * ML - Main Lab . END OF REPORT DEPARTMENT OF PATHOLOGY, [address] [place] [address] Devante Be M.D. Director [facility] # [id number] 13 Because ethnic data is not always [...] 5 Kidney failure <15 (or dialysis) 14 Acute inflammation: >10.[address] [facility] Severe Sepsis and Septic Shock Management Bundle Measure requires all lactic acids initially measuring >2.0 mmol/L be repeated. 16 SEE RESULT BELOW Name: ASHLEY FINN : [address]: Jayme Mares MD Acct: [id number] Unit: [id number] AGE: 82 Location: ED Re09/21/17 SEX: F Status: DEP ER SPEC: [id number] GHISLAINE: 09/21/17-[address]: Jayme Mares MD REQ: [id number] RECD: 09/21/17 STATUS: AKILAH ESQUIVEL DR: Coral Schmitz MD _ SOURCE: TOE SPDESC:RIGHT LEG ORDERED: MRSA/SA SSTI, Culture Stain Procedure Result Reported Site MRSA/S. aureus SSTI PCR Final 09/21/17- 1402 ML Organism 1 MRSA NEGATIVE Organism 2 S.AUREUS NEGATIVE Wound/Misc Gram Stain Final 09/21/17- 1251 ML 3+ Epithelial Cells 4+ Neutrophils 4+ Gram Positive Cocci 1+ Gram Positive Bacilli Wound/Misc Culture Final 09/23/17- 0843 ML Organism 1 NORMAL RANDI Quantity 2+ * ML - Main Lab . END OF REPORT DEPARTMENT OF PATHOLOGY, [address] [place] [address] Devante Be M.D. Director [facility] # [id number] 17 SEE RESULT BELOW Name: ASHLEY FINN Jef : [address]: Jayme Mares MD Acct: [id number] Unit: [id number] AGE: 82 Location: ED Re09/21/17 SEX: F Status: REG ER SPEC: [id number] GHISLAINE: 09/21/17-[address]: Jayme Mares MD REQ: [id number] RECD: 09/21/17122 STATUS: RES LAURITAHR DR: Coral Schmitz MD _ SOURCE: TOE SPDESC:RIGHT LEG ORDERED: Culture Stain Procedure Result Reported Site Wound/Misc Gram Stain Final 09/21/17- 1251 ML 3+ Epithelial Cells 4+ Neutrophils 4+ Gram Positive Cocci 1+ Gram Positive Bacilli Wound/Misc Culture PENDING * ML - Main Lab . END OF REPORT DEPARTMENT OF PATHOLOGY, [address] [place] [address] Devante Be M.D. Director [facility] # [id number] 18 SEE RESULT BELOW Name: ASHLEY FINN : [address]: Jayme Mares MD Acct: [id number] Unit: [id number] AGE: 82 Location: ED Re09/21/17 SEX: F Status: DEP ER SPEC: [id number] GHISLAINE: 09/21/17 [facility] DR: Jayme Mares MD REQ: [id number] RECD: 09/21/17 STATUS: AKILAH ESQUIVEL DR: Coral Schmitz MD _ SOURCE: BLOOD,VENO SPDESC: ORDERED: Blood Cult COMMENTS: Patient is On Antibiotics? NO Procedure Result Reported Site Aerobic Culture Bottle Final 09/26/17- 1302 ML No Growth Day 5 Anaerobic Culture Bottle Final 09/26/17- 1302 ML No Growth Day 5 * ML - Main Lab . END OF REPORT DEPARTMENT OF PATHOLOGY, [address] [place] [address] Devante Be M.D. Director [facility] # [id number] 19 RESULT: No apparent monoclonal protein on serum electrophoresis. Test Performed by: [address] [address] 20 SEE RESULT BELOW Name: ASHLEY FINN : [address]: Chaitanya Urisa MD Acct: [id number] Unit: [id number] AGE: 82 Location: ED Re07/16/17 SEX: F Status: DEP ER SPEC: [id number] GHISLAINE: 07/16/17 [facility] DR: Chaitanya Urias MD REQ: [id number] RECD: 07/16/17 STATUS: AKILAH ESQUIVEL DR: Coral Schmitz MD _ SOURCE: URINE SPDESC: ORDERED: Urine Culture Procedure Result Reported Site Urine Culture Final 07/17/17- 1220 ML No Growth (<1,000 CFU/mL) * ML - Main Lab . END OF REPORT DEPARTMENT OF PATHOLOGY, [address] [place] [address] Devante Be M.D. Director [facility] # [id number] 21 Because ethnic data is not always [...] 5 Kidney failure <15 (or dialysis) 22 Normal Range 180 to 914 Indeterminate Range 145 to 180 Deficient Range <145 23 Desirable: <150 Borderline High: 150-199 High: 200-499 Very High: >500 24 Desirable: <200 Borderline High: 200-239 High: >239 25 Low: <40 Desirable: 40-60 High: >60 26 Desirable: <100 Near Optimal: 100-129 Borderline High: 130-159 High: 160-189 Very High: >189 27 Unable to calculate due to low microalbumin 28 Because ethnic data is not always [...] 5 Kidney failure <15 (or dialysis) 29 Acute inflammation: >10.00 30 Because ethnic data is not always readily [...] 15-29 5 Kidney failure <15 (or dialysis) 31 Because ethnic data is not always readily [...] 15-29 5 Kidney failure <15 (or dialysis) 32 Desirable <150 Borderline high 150-199 High 200-499 Very High >500 33 Desirable <200 Borderline high 200-239 High >239 34 Low <40 Desirable: 40-60 High: >60 35 Desirable: <100 mg/dL Near Optimal: 100-129 mg/dL Borderline High: 130-159 mg/dL High: 160-189 mg/dL Very High: >189 mg/dL 36 Acute inflammation: >10.00 37 Because ethnic data is not always readily [...] 15-29 5 Kidney failure <15 (or dialysis) 38 Acute inflammation: >10.00 39 Because ethnic data is not always readily [...] 15-29 5 Kidney failure <15 (or dialysis) 40 Acute inflammation: >10.00 41 Because ethnic data is not always readily [...] 15-29 5 Kidney failure <15 (or dialysis) 42 Acute inflammation: >10.00 43 SEE RESULT BELOW Name: TONYAASHLEY WAY : [address]: Jacob Ye MD Acct: [id number] Unit: [id number] AGE: 80 Location: [facility] 419-02 Re06/23/15 Dis: 06/27/15 SEX: F Status: DIS IN SPEC: [id number] GHISLAINE: 06/23/[address] [facility] [address]: Jarod Miller MD REQ: [id number] RECD: 06/23/15 STATUS: AKILAH ESQUIVEL DR: Sapphire Sultana MD _ SOURCE: BLOOD,VENO SPDESC: ORDERED: Blood Cult COMMENTS: Patient is On Antibiotics? NO WENT FOR SECOND SET OF BC AND PATIENT WAS NOT IN THE ROOM SHE WAS GETTING AN ULTRA SOUND- [id number] Procedure Result Reported Site Aerobic Culture Bottle Final 06/28/15- 1242 ML No Growth Day 5 Anaerobic Culture Bottle Final 06/28/15- 1242 ML No Growth Day 5 * ML - MAIN LAB ([facility]) . END OF REPORT * ML=Testing performed at Main Lab DEPARTMENT OF PATHOLOGY, [address] [place] [address] Devante Be M.D. Director [facility] # [id number] 44 Acute inflammation: >10.00 45 >100 to <200 pg/mL: likely compensated congestive heart failure (CHF) 200 to 400 pg/mL: likely moderate CHF >400 pg/mL: likely moderate to severe CHF 46 Because ethnic data is not always readily [...] 15-29 5 Kidney failure <15 (or dialysis) [address] [facility] Severe Sepsis and Septic Shock Management Bundle Measure requires all lactic acids initially measuring >2.0mmol/L be repeated. 48 SEE RESULT BELOW Name: TONYAASHLEY Jef : [address]: Deepak Taylor Acct: [id number] Unit: [id number] AGE: 80 Location: [facility] Re06/01/15 SEX: F Status: DEP ER SPEC: [id number] GHISLAINE: 06/01/15-[address] [facility] [address]: Diego Anne III PA REQ: [id number] RECD: 06/02/15 STATUS: AKILAH ESQUIVEL DR: Lorri Velez MD [...] performed at Main Lab DEPARTMENT OF PATHOLOGY, [address] [place] [address] Devante Be M.D. Director [facility] # [id number] Patient: TONYAASHLEY Fuchs [id number] (Continued) Specimen: [id number] Collected: 06/01/15 Received: 06/02/15-1230 (Continued) Procedure Result Reported Site Wound/Misc Culture Final (continued) 06/04/15912 1. STAPHYLOCOCCUS AUREUS (continued) M.I.C. RX --------- ------ Doxycycline - Deduced S * Minocycline - Deduced S Trimethoprim/Sulfamethoxazole <=10 S Vancomycin 1 S Imipenem-Deduced S * Ampicillin/Sulbactam-Deduced S Cefazolin-Deduced S * These antibiotics are not available in the [facility] Formulary Contact the Microbiology Department for any additional antibiotic reporting. * ML - MAIN LAB ([facility]) . END OF REPORT * ML=Testing performed at Main Lab DEPARTMENT OF PATHOLOGY, [address] [place] [address] Devante Be M.D. Director [facility] # [id number] 49 SEE RESULT BELOW Name: ASHLEY FINN : [address]: Deepak Taylor Acct: [id number] Unit: [id number] AGE: 80 Location: [facility] Re06/01/15 SEX: F Status: DEP ER SPEC: [id number] GHISLAINE: 06/01/15-[address] [place] [address] DR: Diego PAK REQ: [id number] RECD: 06/02/15-1231 STATUS: RES [facility] DR: Lorri Velez MD _ SOURCE: TOE [facility]:RT THIRD ORDERED: Culture Stain Procedure Result Reported Site Wound/Misc Gram Stain Final 06/02/15- 1331 ML 2+ Neutrophils 1+ Epithelial Cells 1+ Gram Negative Bacilli 1+ Gram Negative Diplococci Wound/Misc Culture PENDING * ML - MAIN LAB ([facility]) . END OF REPORT * ML=Testing performed at Main Lab DEPARTMENT OF PATHOLOGY, [address] [place] [address] Devante Be M.D. Director [facility] # [id number] 50 Because ethnic data is not always readily [...] 15-29 5 Kidney failure <15 (or dialysis) 51 FASTING 10 HOUR 52 Desirable <150 Borderline high 150-199 High 200-499 Very High >500 53 Desirable <200 Borderline high 200-239 High >239 54 Low <40 Desirable: 40-60 High: >60 55 Desirable <100 Near Optimal 100-129 Borderline high 130-159 High 160-189 Very High >189 56 Because ethnic data is not always readily [...] 15-29 5 Kidney failure <15 (or dialysis) 57 FASTING 58 CHOLESTEROL INTERPRETATION: Desirable: Less than 200 MG/DL Borderline-High Risk: 200-239 MG/DL High-Risk: 240 MG/DL and over 59 HDL INTERPRETATION: Undesirable: High Risk: Less than 40 MG/DL Desirable: Low Risk: Greater than 60 MG/DL 60 LDL INTERPRETATION: Low Risk Optimal Level: LDL Less than 100 MG/DL Near or Above Optimal: LDL 100-129 MG/DL Borderline High Risk: LDL 130-159 MG/DL High Risk: LDL 160-189 MG/DL Very High Risk: LDL Greater than 189 MG/DL 61 THERAPEUTIC TARGET FOR THE TREATMENT OF DIABETES MELLITUS PATIENTS IS <7% HBA1C, AND IN SELECTIVE PATIENTS <6.0%. PLEASE REFER TO [employer] DIABETIC CARE GUIDELINES FOR FURTHER INFORMATION. Procedures Date CPT Code Description Status Comment 06/12/2017 Diabetic Foot Exam Completed 02/17/2017 04396 ECHO Transthorasic Realtime 2D Completed W Doppler & Color Flow Hosp 11/19/2016 54488 Destruction Of Benign Lesions Completed Any Method 1-14 lesions 10/29/2016 36879 Destruction Of Benign Lesions Completed Any Method 1-14 lesions 01/21/2016 Mammogram Completed 10/31/2015 Bone Mineral Density Test Completed 06/25/2015 19082 Amputation Toe MP JT Completed 06/23/2015 94704 EKG, Interpretation Only Completed 02/04/2015 Diabetic Retinal Eye Exam Completed 01/15/2015 Mammogram Completed 01/12/2015 Mammogram Completed Document: 01/12/14 - Mammogram Result 08/09/2014 Diabetic Retinal Eye Exam Completed 02/28/2014 09614 ECHO Transthoracic, Real-Time Completed 2D With Doppler And Color Flow 02/16/2014 02653 EKG Tracing & Interpretation Completed 01/12/2014 Mammogram Completed 07/09/2011 Mammogram Completed 01/08/2011 Mammogram Completed Encounters Type Date Location Provider CPT E/M Dx Office Visit 01/12/2018 [facility] [place] [address] E11.621 2:00p [facility] Office Visit 12/27/2017 [facility] Coral Schmitz, 52857 R51 10:10a - Daya Luna Office Visit 12/22/2017 [place] [place] [address] E11.621 2:00p [facility] Office Visit 12/08/2017 [facility] [place] [address] E11.621 2:15p [facility] L89.620 Office Visit 11/24/2017 2:00p [facility] [place] [address] E11.621 [facility] Office Visit 11/17/2017 2:45p [facility] Aniket Jose, 44959 I70.262 Of Meena Luna Office Visit 11/11/2017 12:45p [facility] [place] [address] L89.620 [facility] E11.621 Office Visit 11/03/2017 2:00p [facility] [place] [address] E11.621 [facility] Office Visit 10/27/2017 1:30p [facility] [place] [address] E11.621 [facility] Office Visit 10/20/2017 1:00p [facility] [place] [address] E11.621 [facility] L89.620 Office Visit 10/19/2017 1:00p [facility] Coral Schmitz 94323 E11.621 Kd Stapleton M.D. I73.9 N39.41 E87.6 Office Visit 10/13/2017 2:30p [facility] [place] [address] L89.620 [facility] E11.621 Office Visit 10/06/2017 2:30p [facility] [place] [address] L89.620 [facility] Office Visit 09/29/2017 2:40p [facility] Coral Schmitz 25125 J20.9 - Daya Luna D64.9 Office Visit 09/29/2017 12:45p [facility] [place] [address] L89.620 [facility] E11.621 Office Visit 09/24/2017 11:20a [facility] Internal Gabriela Lopez 41640 R05 Zeb Arana M.D. Office Visit 09/22/2017 1:30p [facility] [place] [address] E11.621 [facility] L89.620 Office Visit 09/21/2017 10:10a [facility] Coral Schmitz 04015 L03.031 Kd Stapleton M.D. E11.621 Office Visit 09/15/2017 2:30p [facility] [place] [address] L89.620 [facility] E11.621 Office Visit 08/18/2017 1:45p [facility] M.D. 53937 M76.62 C.M.AIssa Office Visit 07/28/2017 1:30p [facility] M.D. 54724 M76.62 C.M.A. M79.672 Office Visit 07/19/2017 12:10p [facility] Internal Nanda QuinonezD. 57375 E11.8 - [place] D64.9 M79.672 E78.5 Office Visit 04/27/2017 2:00p [facility] Coral Schmitz M.D. 16909 E11.8 - [place] I50.32 I87.2 M20.61 L89.329 H61.23 E78.5 R10.11 R25.2 Office Visit 02/17/2017 10:47a [facility] Mary Chen, 50295 Z01.810 M.DIssa S72.001D I35.0 Office Visit 02/17/2017 [facility] KvngElmo, 98394 S72.001A 9:49a Assoc,pc [employer] Hospitalists E11.8 I10 Office Visit 02/16/2017 [facility] Sharlene, 19320 S72.001A 9:48a Assoc,pc [employer] Hospitalists E11.8 I10 Office Visit 01/28/2017 2:20p [facility] Nat Bonilla, 92960 Z86.19 Infectious Diseases M.D. R60.0 I87.2 I89.0 Office Visit 10/14/2016 2:00p [facility] Nat Bonilla, 90668 Z86.19 Infectious Diseases M.D. R21 Office Visit 07/13/2016 2:40p [facility] Nat Bonilla, 84997 R60.0 Infectious Diseases M.D. Z86.19 M21.41 Office Visit 06/01/2016 3:20p [facility] Nat Bonilla, 96371 R60.0 Infectious Diseases M.D. I87.2 L03.115 Office Visit 05/18/2016 2:20p [facility] Nat Bonilla, 34634 R60.0 Infectious Diseases M.D. L03.031 Office Visit 04/06/2016 2:40p [facility] Nat Bonilla, 70988 R21 Infectious Diseases M.D. R60.0 I87.2 Office Visit 03/06/2016 4:00p [facility] [place] [address] L03.[address] - [address] Office Visit 11/13/2015 2:20p [facility] Nat Mishra 87647 L03.119 Infectious Sanjana Bonilla M.D. Office Visit 10/21/2015 4:00p [facility] Nat Mishra 12007 L03.115 Infectious Diseases Cheryl Bonilla L97.511 Office Visit 10/16/2015 2:15p [facility] M.D. 10957 L03.115 C.M.AIssa M86.271 L03.031 Office Visit 10/11/2015 11:10a [facility] Nat Mishra 79371 L03.115 Infectious Diseases Cheryl Bonilla L97.511 M86.171 Office Visit 09/30/2015 3:40p [facility] Nat Mishra 20054 L03.115 Infectious Sanjana Bonilla M.D. L97.511 Office Visit 09/16/2015 3:20p [facility] Nat Mishra 95856 Z89.421 Infectious Sanjana Bonilla M.D. L03.115 Office Visit 07/29/2015 3:20p [facility] Nat Mishra 56270 M86.671 Infectious Sanjana Bonilla M.D. Z89.421 Office Visit 07/18/2015 11:40a [facility] Sapphire Sultana M.D. 15640 M86.671 - [place] M25.511 E11.8 I10 Office Visit 07/15/2015 2:20p [facility] Nat Mishra 04895 M86.671 Infectious Sanjana Bonilla M.D. M79.604 M79.89 Office Visit 06/27/2015 1:35p [facility], Shayla Calvillo, 75026 L03.119 Hospitalists N.P. I10 E11.8 I49.9 Office Visit 06/26/2015 1:34p [facility], Shayla Calvillo, 35232 L03.119 Hospitalists N.P. I10 E11.8 I49.9 Office Visit 06/26/2015 8:45a [facility] Nat Mishra 34896 M86.571 Infectious Diseases Cheryl Bonilla B95.61 E11.9 Z89.411 E66.9 Office Visit 06/25/2015 7:00a [facility], 96478 M86.671 Shannon Luna M86.171 Office Visit 06/25/2015 1:33p [facility], 18922 L03.119 Assoc, Hospitalists [employer] I10 E11.8 I49.9 Office Visit 06/24/2015 1:33p [facility], 29814 L03.119 Assoc,pc Hospitalists [employer] I10 E11.8 I49.9 Office Visit 06/23/2015 1:32p [facility], 37402 L03.119 Assoc, Hospitalists N.P. I10 E11.8 I49.9 Office Visit 06/23/2015 8:08a [facility] Bjorn 73293 L03.115 Infectious Diseases Cheryl Bonilla L97.519 E11.9 B95.8 Office Visit 06/22/2015 1:31p [facility], 88711 L03.119 Assoc, Hospitalists N.P. I10 E11.8 I49.9 Office Visit 11/16/2014 10:30a [facility] [place] [address] 681.10 [place] 782.3 401.1 Office Visit 09/28/2014 11:40a [facility] Sapphire Sultana M.D. 53552 250.00 - [place] V15.88 401.1 627.8 Office Visit 08/09/2014 12:40p [facility] Sapphire Sultana M.D. 51206 250.62 - [place] V15.88 401.1 366.9 250.00 Office Visit 07/02/2014 2:00p [facility] [place] [address] V72.84 [place] 366.9 Office Visit 03/16/2014 11:30a [facility] PASHA Rogers 34132 424.1 401.1 E884.5 Office Visit 03/14/2014 11:00a [facility] Z[facility]ka Hernandez M.D. 58981 E884.5 [facility] 424.1 959.01 401.9 Office Visit 03/08/2014 10:40a [facility] Sapphire Sultana M.D. 40033 110.5 - [place] 840.8 844.9 Office Visit 02/16/2014 11:30a [facility] Z[facility]ka Hernandez M.D. 85278 424.1 [employer] 785.9 427.61 401.9 Office Visit 01/12/2014 9:40a [facility] Sapphire Sultana M.D. 57730 995.3 - [place] 277.9 401.1 424.1 459.81 785.9 V76.19 Office Visit 01/08/2011 11:00a DO Not Use [facility] [employer] AT Sapphire Sultana M.D. 31794 250.62 [facility] 401.1 682.6 Office Visit 12/18/2010 4:00p DO Not Use [employer] AT Sapphire Sultana M.D. 14602 682.6 [facility] 682.6 401.1 401.1 Plan of Care Future Appointment(s):04/20/2018 12:10 pm - Coral Schmitz M.D. at [facility] - Kvcwopixi21/11/2018 - Coral Schmitz M.D.H70.11 Chronic mastoiditis, right earComments:your hearing is affected on the right side and for the lump on your Right side behind the ear , I amreferring you to an ENTReferral:Apollo Braga MD, [id number] HeadacheComments:sometimes headaches are due to medication called spironolactone and sotalol can cause headache too, you can discuss with Dr. Garcia you can use tylenol for the headache
[2018-02-02] MEDS ORDERED: NS 0.9% 1000 ML* 2,000 ML IV ONE (13:51)
[2018-02-02] MEDS ORDERED: Acetaminophen TAB* 325 MG PO ONE (13:51)
[2018-02-02] MEDS ORDERED: cefTRIAXone(*) 2 GM in NS 0.9% 100 ML* 100 ML IVPB ONE (13:53)
[2018-02-02] MEDS ORDERED: Vancomycin(*) 1,250 MG in NS 0.9% 250 ML* 250 ML IVPB ONE (13:54)
[2018-02-02] MEDS ORDERED: NS 0.9% 250 ML* 250 ML ONE (13:57)
[2018-02-02 14:26] LABS: ABS Basophils 0 10^3/ul (0-0.2); ABS Eosinophils 0 10^3/ul (0-0.6); ABS Lymphocytes 0.4 10^3/ul (1.0-4.8); ABS Monocytes 0.4 10^3/ul (0-0.8); ABS Neutrophils 9.4 10^3/ul (1.5-7.7); ABS Nucleated RBC 0 10^3/ul; Eosinophil % 0 % (0-6); Hematocrit 30 % (35-47); Hemoglobin 10.5 g/dl (12.0-16.0); Lymphocyte % 3.9 % (25-47); Mean Corpuscular HGB Conc 35 g/dl (31-36); Mean Corpuscular Hemoglobin 34 pg (27-31); Mean Corpuscular Volume 97 fL (80-97); Mean Platelet Volume 8.1 um3 (7.4-10.4); Nucleated Red Blood Cells % 0; Platelet Count 141 10^3/ul (150-450); Red Blood Count 3.12 10^6/ul (4.00-5.40); Red Cell Distribution Width 13 % (10.5-15); White Blood Count 10.2 10^3/ul (3.5-10.8)
[2018-02-02 14:43] LABS: EGFR Non-African American 47.3 (>60); INR 2.09 (0.77-1.02)
--- NOTE | 2018-02-02 14:53 | RAD ---
HISTORY: HEADACHE SEPSIS COMPARISONS: September 24, 2017 VIEWS: 1: frontal AP view of the chest at 2:39 PM FINDINGS: LINES AND TUBES: None. CARDIOMEDIASTINAL SILHOUETTE: The cardiomediastinal silhouette is normal for portable technique. PLEURA: The costophrenic angles are sharp. No pleural abnormalities are noted. LUNG PARENCHYMA: There is hyperinflation. ABDOMEN: The upper abdomen is clear. There is no subphrenic gas. BONES AND SOFT TISSUES: No bone or soft tissue abnormalities are noted. IMPRESSION: NO ACTIVE CARDIOPULMONARY DISEASE.
--- NOTE | 2018-02-02 15:21 | RAD ---
HISTORY: HEADACHE FEVER COMPARISONS: August 03, 2014 TECHNIQUE: Multiple contiguous axial CT scans were obtained of the head without intravenous contrast. FINDINGS: HEMORRHAGE/INFARCT: There is no hemorrhage or acute infarct. MASSES/SHIFT: There is no mass or shift. EXTRA-AXIAL SPACES: There are no extra-axial fluid collections. SULCI AND VENTRICLES: The sulci and ventricles are normal in size and position for the patient's stated age. CEREBRUM: There are no focal parenchymal abnormalities. BRAINSTEM: There are no focal parenchymal abnormalities. CEREBELLUM: There are no focal parenchymal abnormalities. VESSELS: The vessels are grossly normal. PARANASAL SINUSES: The paranasal sinuses are clear. ORBITS: The orbits are unremarkable. BONES AND SOFT TISSUE: No bone or soft tissue abnormalities are noted. OTHER: None IMPRESSION: NO ACUTE INTRACRANIAL PATHOLOGY.
[2018-02-02 16:26] LABS: Urine Appearance Cloudy; Urine Blood 1+ (Negative); Urine Color Amber; Urine Ketones Negative (Negative); Urine Protein 1+(30 mg/dL) (Negative); Urine Specific Gravity 1.027 (1.010-1.030); Urine Urobilinogen Negative (Negative)
[2018-02-02 16:28] LABS: Urine Red Blood Cell 1+(3-5/hpf) (Absent); Urine White Blood Cell Trace(0-5/hpf) (Absent)
[2018-02-02] MEDS ORDERED: Aspirin 81 mg CHEW TAB* 81 MG TAB.CHEW PO ONE (16:38)
--- NOTE | 2018-02-02 16:38 | ED ---
Headache - HPI Summary HPI Summary: This patient is an 82 year old F presenting to [facility] accompanied by her daughter and her daughters stefan with a chief complaint of dull HADLEY for 7 weeks. She notes a recent MRI for similar sx was (-). She was referred to her ENT who found nothing diagnostic. She endorses a bad tooth which bothered her for the past few days. Yesterday, 02/01/18 pt noted lethargy, fatigue, hypersomnia, weakness, and photophobia. Her daughter endorses temperature of 99 (normal temperature of 97). In ED her temperature was 101.1. Pt endorses neck stiffness (PMHx bone spurs), tachycardia, new onset RUE pain, non-productive cough, constant rhinorrhea (chronic), frequency (baseline, secondary to diuretics for PMHx CHF, she denies other urinary sx), abd pain, N/V with 2x emetic episodes, decreased appetite, and a left foot ulcer (pt is at wound care once every three weeks). She denies diarrhea. The patient denies PMHx HADELY or migraines. PMHx chronic neck pain; she denies recent change, PMHx CHF DM, peripheral neuropathy, and hip fx. SHx valve replacement, angioplasty. 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 - Allergies/Home Medications Allergies/Adverse Reactions: Allergies Allergy/AdvReac Type Severity Reaction Status Date / Time prednisone Allergy Severe heavy Verified 02/02/18 14:57 bleeding aspirin Allergy Mild GI Upset Verified 02/02/18 14:57 cephalexin Allergy Mild GI Upset Verified 02/02/18 14:57 ciprofloxacin Allergy Mild GI Upset Verified 02/02/18 14:57 Penicillins Allergy Mild Rash Verified 02/02/18 14:57 Sulfa (Sulfonamide Allergy Mild Edema Verified 02/02/18 14:57 Antibiotics) morphine Allergy Unknown Unknown Verified 02/02/18 14:57 Reaction Details diphenhydramine Allergy GI Upset Verified 02/02/18 14:57 ANTIHISTAMINES Allergy Unknown Unknown Uncoded 02/02/18 14:57 Reaction Details Home Medications: Home Medications Aspirin EC TAB* [Ecotrin EC Low Dose 81 MG*] 81 mg PO DAILY 02/02/18 [History Confirmed 02/02/18] Clopidogrel TAB* [Plavix TAB*] 75 mg PO DAILY 02/02/18 [History Confirmed ] Ferrous Gluconate [Iron] 236 mg PO DAILY 02/02/18 [History Confirmed 02/02/18] PMH/Surg Hx/FS Hx/Imm Hx Endocrine/Hematology History: Reports: Hx Diabetes Denies: Hx Thyroid Disease, Hx Anemia Cardiovascular History: Reports: Hx Atrial Fibrillation, Hx Hypertension, Other Cardiovascular Problems/Disorders - heart murmur Denies: Hx Aneurysm, Hx Angina, Hx Cardiac Arrest, Hx Coronary Artery Disease , Hx Deep Vein Thrombosis, Hx Pacemaker/ICD Respiratory History: Denies: Hx Asthma, Hx Chronic Obstructive Pulmonary Disease (COPD) GI History: Denies: Hx Ulcer History: Denies: Hx Dialysis, Hx Renal Disease Musculoskeletal History: Denies: Hx Arthritis, Hx Back Problems Sensory History: Reports: Hx Cataracts - BILAT, Hx Contacts or Glasses Denies: Hx Glaucoma, Hx Deafness, Hx Hearing Aid Opthamlomology History: Reports: Hx Cataracts - BILAT, Hx Contacts or Glasses Denies: Hx Glaucoma EENT History: Denies: Hx Deafness Neurological History: Denies: Hx Dementia, Hx Headaches, Hx Migraine, Hx Seizures, Hx Transient Ischemic Attacks (TIA) Psychiatric History: Denies: Hx Panic Disorder - Cancer History Cancer Type, 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 HYSTERECTOMY 2000,. T&A at age 17,. CATARACTS bilat eyes,. CARDIAC CATH (BALLOONING) FEB 2017,. RIGHT HIP PARTIAL REPLACEMENT SURGERY FOR FX,. OPEN HEART/HEART VALVE REPLACEMENT MAR 2017, Hx Anesthesia Reactions: No - Immunization History Date of Tetanus Vaccine: Unk Date of Influenza Vaccine: refuses Infectious Disease History: No Infectious Disease History: Denies: Hx Clostridium Difficile, Hx Hepatitis, Hx Human Immunodeficiency Virus (HIV), Hx of Known/Suspected MRSA, Hx Shingles, Hx Tuberculosis, Hx Known/ Suspected VRE, Hx Known/Suspected VRSA, History Other Infectious Disease, Traveled Outside the [place] in Last 30 Days - Family History Known Family History: Positive: Cardiac Disease - Mother, father and brother - Social History Occupation: Retired Lives: With Family Alcohol Use: None Hx Substance Use: No Substance Use Type: Reports: None Hx Tobacco Use: No Smoking Status (MU): Never Smoked Tobacco Have You Smoked in the Last Year: No Review of Systems Positive: Fever, Fatigue - w/ lethargy, Other - hypersomnia. Negative: Chills Positive: Photophobia. Negative: Erythema Positive: Nasal Discharge - chronic rhinorrhea. Negative: Sore Throat Positive: Palpitations - tachycardia. Negative: Chest Pain Positive: Cough - non-productive. Negative: Shortness Of Breath Positive: Abdominal Pain, Vomiting, Nausea, Other - decreased appetite. Negative: Diarrhea Positive: frequency - chronic. Negative: dysuria, hematuria Positive: Arthralgia - neck, Myalgia - neck, RUE Positive: Other - LLE ulcer. Negative: Rash Neurological: Other - NEGATIVE: dizziness Positive: Headache, Weakness All Other Systems Reviewed And Are Negative: Yes Physical Exam - Summary Physical Exam Summary: Constitutional: Well-developed, Well-nourished, Alert. (-) Distressed Skin: Warm, Dry. Stage 1 decubitus skin changes HENT: Normocephalic; Atraumatic, no dental pain or abscess. Eyes: Conjunctiva normal Neck: Reduced neck ROM. (-) JVD, (-) Stridor, (-) Tracheal deviation Cardio: Rhythm regular, rate normal, Heart sounds normal; Intact distal pulses; The pedal pulses are 2+ and symmetric. Radial pulses are 2+ and symmetric. (-) Murmur Pulmonary/Chest wall: Effort normal. (-) Respiratory distress, (-) Wheezes, (-) Rales. No chest pain. Abd: Soft, (-) epigastric tenderness, (-) Distension, (-) Guarding, (-) Rebound Musculoskeletal: (-) Edema. Reduced neck ROM Lymph: (-) Cervical adenopathy Neuro: Alert, Oriented x3 Psych: Mood and affect Normal Triage Information Reviewed: Yes Vital Signs On Initial Exam: Initial Vitals Temp Pulse Resp BP Pulse Ox 101.1 F 84 18 124/45 98 02/02/18 13:38 02/02/18 13:38 02/02/18 13:38 02/02/18 13:38 02/02/18 13:38 Vital Signs Reviewed: Yes Diagnostics - Vital Signs Vital Signs Temp Pulse Resp BP Pulse Ox 02/02/18 15:55 61 24 104/37 96 02/02/18 15:41 99.8 F 71 20 117/51 96 02/02/18 15:25 65 19 117/51 97 02/02/18 15:16 70 99/80 96 02/02/18 15:00 80 96 02/02/18 14:55 71 94/37 95 02/02/18 14:07 83 99 02/02/18 14:06 73 147/59 99 02/02/18 13:38 101.1 F 84 18 124/45 98 - Laboratory Lab Results: Lab Results 02/02/18 02/02/18 02/02/18 Range/Units 14:12 14:12 14:12 WBC 10.2 (3.5-10.8) 10^3/ul RBC 3.12 L (4.00-5.40) 10^6/ul Hgb 10.5 L (12.0-16.0) g/dl Hct 30 L (35-47) % MCV 97 (80-97) fL MCH 34 H (27-31) pg MCHC 35 (31-36) g/dl RDW 13 (10.5-15) % Plt Count 141 L (150-450) 10^3/ul MPV 8.1 (7.4-10.4) um3 Neut % (Auto) 92.2 H (38-83) % Lymph % (Auto) 3.9 L (25-47) % [place] % (Auto) 3.4 (0-7) % Eos % (Auto) 0 (0-6) % Baso % (Auto) 0.5 (0-2) % Absolute Neuts (auto) 9.4 H (1.5-7.7) 10^3/ul Absolute Lymphs (auto) 0.4 L (1.0-4.8) 10^3/ul Absolute Monos (auto) 0.4 (0-0.8) 10^3/ul Absolute Eos (auto) 0 (0-0.6) 10^3/ul Absolute Basos (auto) 0 (0-0.2) 10^3/ul Absolute Nucleated RBC 0 10^3/ul Nucleated RBC % 0 INR (Anticoag Therapy) 2.09 H (0.77-1.02) APTT 185.8 H* (26.0-36.3) seconds Sodium 135 (135-145) mmol/L Potassium 4.6 (3.5-5.0) mmol/L Chloride 103 (101-111) mmol/L Carbon Dioxide 24 (22-32) mmol/L Anion Gap 8 (2-11) mmol/L BUN 22 (6-24) mg/dL Creatinine 1.11 H (0.51-0.95) mg/dL Est GFR ( Amer) 57.2 (>60) Est GFR (Non-Af Amer) 47.3 (>60) BUN/Creatinine Ratio 19.8 (8-20) Glucose 200 H (70-100) mg/dL Lactic Acid (0.5-2.0) mmol/L Calcium 9.1 (8.6-10.3) mg/dL Total Bilirubin 3.40 H (0.2-1.0) mg/dL AST 30 (13-39) U/L ALT 20 (7-52) U/L Alkaline Phosphatase 110 H (34-104) U/L Troponin I 0.53 H* (<0.04) ng/mL Total Protein 6.3 L (6.4-8.9) g/dL Albumin 3.9 (3.2-5.2) g/dL Globulin 2.4 (2-4) g/dL Albumin/Globulin Ratio 1.6 (1-3) Urine Color Urine Appearance Urine pH (5-9) Ur Specific [place] (1.010-1.030) Urine Protein (Negative) Urine Ketones (Negative) Urine Blood (Negative) Urine Nitrate (Negative) Urine Bilirubin (Negative) Urine Urobilinogen (Negative) Ur Leukocyte Esterase (Negative) Urine WBC (Auto) (Absent) Urine RBC (Auto) (Absent) Ur Squamous Epith Cells (Absent) Urine Bacteria (Absent) Hyaline Casts (Absent) Urine Glucose (Negative) Influenza A (Rapid) (Negative) Influenza B (Rapid) (Negative) 02/02/18 02/02/18 02/02/18 Range/Units 14:12 14:40 16:15 WBC (3.5-10.8) 10^3/ul RBC (4.00-5.40) 10^6/ul Hgb (12.0-16.0) g/dl Hct (35-47) % MCV (80-97) fL MCH (27-31) pg MCHC (31-36) g/dl RDW (10.5-15) % Plt Count (150-450) 10^3/ul MPV (7.4-10.4) um3 Neut % (Auto) (38-83) % Lymph % (Auto) (25-47) % [place] % (Auto) (0-7) % Eos % (Auto) (0-6) % Baso % (Auto) (0-2) % Absolute Neuts (auto) (1.5-7.7) 10^3/ul Absolute Lymphs (auto) (1.0-4.8) 10^3/ul Absolute Monos (auto) (0-0.8) 10^3/ul Absolute Eos (auto) (0-0.6) 10^3/ul Absolute Basos (auto) (0-0.2) 10^3/ul Absolute Nucleated RBC 10^3/ul Nucleated RBC % INR (Anticoag Therapy) (0.77-1.02) APTT (26.0-36.3) seconds Sodium (135-145) mmol/L Potassium (3.5-5.0) mmol/L Chloride (101-111) mmol/L Carbon Dioxide (22-32) mmol/L Anion Gap (2-11) mmol/L BUN (6-24) mg/dL Creatinine (0.51-0.95) mg/dL Est GFR ( Amer) (>60) Est GFR (Non-Af Amer) (>60) BUN/Creatinine Ratio (8-20) Glucose (70-100) mg/dL Lactic Acid 2.9 H* (0.5-2.0) mmol/L Calcium (8.6-10.3) mg/dL Total Bilirubin (0.2-1.0) mg/dL AST (13-39) U/L ALT (7-52) U/L Alkaline Phosphatase (34-104) U/L Troponin I (<0.04) ng/mL Total Protein (6.4-8.9) g/dL Albumin (3.2-5.2) g/dL Globulin (2-4) g/dL Albumin/Globulin Ratio (1-3) Urine Color Olga Lidia Urine Appearance Cloudy Urine pH 5.0 (5-9) Ur Specific [place] 1.027 (1.010-1.030) Urine Protein 1+(30 mg/dl) A (Negative) Urine Ketones Negative (Negative) Urine Blood 1+ A (Negative) Urine Nitrate Negative (Negative) Urine Bilirubin Negative (Negative) Urine Urobilinogen Negative (Negative) Ur Leukocyte Esterase Trace A (Negative) Urine WBC (Auto) Trace(0-5/hpf) (Absent) Urine RBC (Auto) 1+(3-5/hpf) A (Absent) Ur Squamous Epith Cells Present A (Absent) Urine Bacteria Absent (Absent) Hyaline Casts Present A (Absent) Urine Glucose Negative (Negative) Influenza A (Rapid) Negative (Negative) Influenza B (Rapid) Negative (Negative) Result Diagrams: 02/02/18 14:12 02/02/18 14:12 Lab Statement: Any lab studies that have been ordered have been reviewed, and results considered in the medical decision making process. - Radiology CXR Xray Interpretation: No Acute Changes Radiology Interpretation Completed By: Radiologist - No active cardiopulmonary disease. Dr. Sanchez has reviewed this report. - CT Brain CT Interpretation: No Acute Changes CT Interpretation Completed By: Radiologist - No acute intracranial pathology. Dr. Sanchez has reviewed this report. - EKG 1357 Cardiac Rate: NL - 78 EKG Rhythm: Sinus Rhythm Ectopy: None EKG Interpretation: ST depressions in V5 and V6, no STEMI, and LBBB. Headache Course/Dx - Course Course Of Treatment: An 82-year-old F presents to the ED with a CC of HADLEY for 7 weeks. (+) neck pain and stiffness, photophobia, weakness, fatigue, hypersomnia , lethargy, decreased appetite, N/V with 2 emetic episodes, abd pain, non- productive cough, chronic rhinorrhea, chronic frequency, a LLE ulcer, fever ( 101.1 max). (-) diarrhea. Pt rx blood thinners. States she had a recent MRI which came up (-), and was referred to ENT who found nothing diagnostic for her sx. A CXR was (-). A CT brain was (-). An EKG reveals NSR of 78 BPM with no STEMI, ST depressions in V5 and V6, and LBBB. In the ED course, pt was given tylenol, nl saline, ceftriaxone, vitamin K, ASA, and vancomycin. Pt showed abnl levels of RBC, H&H, MCH, Plt count, neut %, Lymph %, abs neuts, abs lymphs, INR , an APTT of 185.8, creatinine, glucose, a lactic acid of 2.9, total bilirubin, alkaline phosphatase, a trop of 0.53, total protein, urine protein, urine blood , urine RBC, urine squamous epi cells, and urine hyaline casts. - Diagnoses Provider Diagnoses: New onset left bundle branch block (LBBB), ST segment depression, Sepsis, unspecified organism - Physician Notifications Discussed Care Of Patient With: Robert Luna Time Discussed With Above Provider: 16:30 Instructed by Provider To: Other - Accepts admission. Requested 10 mg vitamin K PO to be administered. Discharge - Sign-Out/Discharge Documenting (check all that apply): Patient Departure - admit - Discharge Plan Disposition: ADMITTED TO [facility] Referrals: Coral Schmitz MD [Primary Care Provider] - - Attestation Statements Document Initiated by Scribe: Yes Documenting Scribe: Bebeto Mohr Provider For Whom Scribe is Documenting (Include Credential): Dr. Barry Sanchez MD Scribe Attestation: Bebeto Obregon, scribed for Dr. Barry Sanchez MD on 02/02/18 at 1937. Consult Consult: [id number] Dr. Mistry: Anesthesiologist, DASHA recommends no LP for 7 days on plavix. Suggests LP could be dangerous for this pt.
[2018-02-02] MEDS ORDERED: Phytonadione Oral Solution* 5 MG/25 ML UDC PO ONE (17:08)
[2018-02-02] MEDS ORDERED: Ondansetron INJ* 2 MG/ML VIAL IV PRN (18:57)
[2018-02-02] MEDS ORDERED: Vancomycin(*) 1,000 MG in NS 0.9% 250 ML* 250 ML IVPB SCH (19:00)
[2018-02-02] MEDS ORDERED: NS 0.9% 1000 ML* 1,000 ML IV SCH (19:00)
[2018-02-02] MEDS ORDERED: Vancomycin per Pharmacy* NOTE FOLLOW UP SCH (19:00)
[2018-02-02] MEDS ORDERED: Dextrose 50% Syringe 50 ML* 25 GM/50 ML SYRINGE IV PUSH PRN (19:06)
[2018-02-02] MEDS ORDERED: Atorvastatin* 40 MG TAB PO SCH (21:00)
[2018-02-02] MEDS: Sotalol TAB* 80 MG PO SCH (22:37)
--- NOTE | 2018-02-02 23:46 | RAD ---
EXAM: MR Left Lower Extremity Without Intravenous Contrast, Foot EXAM DATE/TIME: 02/02/2018 10:01 PM CLINICAL HISTORY: The patient age is 82 years old and is female; Signs and symptoms and condition or disease; Other: Non healing ulcer; Edema; No, it is generalized; Patient HX: C/O fevers, chills and redness & pain in left foot, known non healing ulcer on left heel; Additional info: Pain redness, . * a lot of patient motion d/t pain, scanned propellers and repeats when possible, however half way through patient was unable to tolerate further repeats d/t severe pain Facility exam id and description: Mr paco keller wo mri lower extremity left w/o TECHNIQUE: Multiplanar magnetic resonance images of the left foot without intravenous contrast. COMPARISON: DX [facility] L FOOT LEFT 3+ VWS 07/28/2017 2:10 PM FINDINGS: This study concentrates on the hindfoot/ankle. Artifacts: Motion artifact limits this study. LIGAMENTS: Motion artifact limits evaluation of the deltoid ligament, without a visualized acute tear. Motion artifact limits evaluation of the anterior and posterior tibiofibular and talofibular ligaments, without a full-thickness tear visualized. TENDONS: Flexor: No visualized acute tear. Extensor: No visualized acute tear. Peroneal: No visualized acute tear. Tibialis anterior: No visualized acute tear. Tibialis posterior: No visualized acute tear. There is soft tissue swelling adjacent to the Achilles tendon, without a definitive acute tear. This is likely due to an extension of the soft tissue swelling within the hindfoot or due to true Achilles paratendinitis. Muscles: There is significant muscle atrophy. Fluid: There is a small subtalar joint effusion. There is minimal fluid within the retrocalcaneal bursa. Minimal fluid is seen within the tibiotalar joint, without significant effusion. Sinus tarsi: Edema is seen within the sinus tarsi. Plantar fascia: Heel pad swelling is seen adjacent to the proximal plantar fascia, and plantar fasciitis cannot be excluded. Bones/joints: Mild patchy edema is identified within the bone marrow of the posterior calcaneus. This is concerning for osteomyelitis in the appropriate clinical setting. There is a small collection of fluid lateral to the calcaneus and subtalar joint. This measures approximately 2.3 x 0.7 x 0.9 cm. This is suggestive of a synovial cyst, although an infectious etiology cannot be excluded. Calcaneal spurs are visualized. Dorsal degenerative spurring of the mid foot is visualized. There is no dislocation of the hindfoot/ankle. Soft tissues: There is soft tissue swelling of the heel pad and posterior to the calcaneus. Additional soft tissue swelling or cellulitis is identified at the dorsum of the foot and lateral to the ankle. IMPRESSION: 1. There is soft tissue swelling of the heel pad and posterior to the calcaneus. 2. Mild patchy edema is identified within the bone marrow of the posterior calcaneus. This is concerning for osteomyelitis in the appropriate clinical setting. 3. There is soft tissue swelling adjacent to the Achilles tendon, without a definitive acute tear. This is likely due to an extension of the soft tissue swelling within the hindfoot or due to Achilles paratendinitis. 4. Additional soft tissue swelling or cellulitis is identified at the dorsum of the foot and lateral to the ankle. 5. There is a small subtalar joint effusion. 6. There is a small collection of fluid lateral to the calcaneus and subtalar joint. This measures approximately 2.3 x 0.7 x 0.9 cm. This is suggestive of a synovial cyst, although an infectious etiology cannot be excluded. 7. Additional findings described above.
[2018-02-03] MEDS: metroNIDAZOLE IV 500 MG/100ML* 500 MG/100 ML BAG IVPB SCH ×2 (01:50→08:36)
--- NOTE | 2018-02-03 02:24 | HP ---
CC: Dr. Coral Schmitz; Dr. Romero; Dr. Iniguez; Dr. Luis * HISTORY AND PHYSICAL: DATE OF ADMISSION: 02/02/18 PRIMARY CARE PROVIDER: Dr. Coral Schmitz. ATTENDING PHYSICIAN WHILE IN THE HOSPITAL: Dr. Thelma Cortez * (report dictated by Alec Reeves NP). CHIEF COMPLAINT: 1. Weakness. 2. Nausea and vomiting. HISTORY OF PRESENT ILLNESS: Ms. Finn is an 82-year-old female patient who carries a pretty significant past medical history. She has a history of aortic stenosis, status post TAVR; history of paroxysmal atrial fibrillation; history of peripheral vascular disease; status post angioplasty to the left lower extremity; history of left heel ulcer; history of diastolic CHF; CAD; left bundle branch block; diabetes; and osteoporosis. Also history of hypertension. She comes into our ER today stating that the pretty much since last night she has been feeling weak, fatigued, she has vomited twice. She denied any chest pain or shortness of breath. Denied having any recent cough. She admitted to having chills and just not feeling well. Her daughter was concerned today when all the patient wanted to do today was just lie in bed. She could barely get up to check her blood pressure which she does every morning and so the daughter was concerned and brought her into the hospital. The patient does state that over the last 7 weeks she has been having a headache. She described it as a dull ache in the occipital part of her head. She says that it is constant, she has it on a daily basis. There is no photophobia with it. Denied nausea or vomiting associated with it. She says that the headache today has not really changed. She said this was a feeling that she did not want to check her blood sugar today, which was abnormal for the patient. She typically checks her sugar every morning and she did not want to get out of bed, so she was concerned. She has been having a headache for the last 7 weeks intermittently almost on a daily basis, mostly on the back of her head on the right side. She says that the headache today is now worse. She says her neck is always stiff. She has bone spurs on her cervical spine and she has been told that her spine is almost fuse because of how bad her cervical spine is. She said she had typically limited range of motion to this. She did admit to having chills today and there has been no chest pain, no coughing, no shortness of breath, no abdominal pain, no dysuria, frequency, but she came in, was evaluated, her troponin was elevated. It was noted that she had a fever of 101. There was concern for a possible meningitis, possible underlying infection and we were asked to evaluate for admission. PAST MEDICAL HISTORY: Significant for: 1. Hypertension. 2. Diabetes. 3. Left bundle branch block, chronic. 4. AFib. 5. CAD. 6. Aortic stenosis, status post TAVR. 7. CHF, diastolic. 8. Left heel ulcer. 9. Peripheral vascular disease. PAST SURGICAL HISTORY: 1. She has had a left hip ORIF. 2. Right hip total arthroplasty. 3. TAVR. 4. Cardiac catheterization with known occlusion of the RCA with collaterals. No stent placed. 5. Hysterectomy. 6. Angioplasty to the left lower extremity. 7. Right third toe amputation. HOME MEDICATIONS: According to the list provided includes: 1. Ferrous gluconate 236 mg p.o. daily. 2. Sotalol 80 mg p.o. b.i.d. 3. Pradaxa 150 mg p.o. b.i.d. 4. Aspirin 81 mg daily. 5. Spironolactone 25 mg daily. 6. Plavix 75 mg daily. 7. Lipitor 40 mg daily. ALLERGIES TO MEDICATIONS: Include PREDNISONE, ASPIRIN, although she is taking aspirin currently, KEFLEX, CIPRO, PENICILLIN, SULFA, MORPHINE, DIPHENHYDRAMINE, and ANTIHISTAMINES. FAMILY HISTORY: Her mother at the age of 62 of unknown reasons. Father had a history of diabetes and CVA. SOCIAL HISTORY: She does not smoke. She does not drink. Surrogate decision maker is her daughter. REVIEW OF SYSTEMS: There is a documented fever here. She denied any significant weight change. There was no double vision. There is no ear discharge. She did admit to rhinorrhea, but this has been chronic. She denies having any chest pain. No shortness of breath. No abdominal pain. There are 2 episodes of nausea and vomiting. There is no dysuria, no frequency. No seizure. No loss of consciousness. No pruritus and no skin ulcerations. Review of 14 systems completed, all others were negative. PHYSICAL EXAMINATION GENERAL: At this time, Ms. Finn is an 82-year-old female patient. She appears to be well nourished, well developed. She is sitting in the ED stretcher. She does not appear to be in any acute distress. VITAL SIGNS: Blood pressure 119/53, pulse 52, respirations 20, O2 sat 97%, temperature 101.1, it is now 99.8. HEENT: Head: Atraumatic and normocephalic. Eyes: EOMs intact. Sclerae: Anicteric, not pale. Throat: Oral mucosa appears to be moist. No oropharyngeal erythema. NECK: Supple. She has limited range of motion in the neck, but she is able to bend the neck forward. This is not causing her exquisite pain. She is nontender. She has good rotation of the cervical spine again with no pain on passive range of motion. Negative Babinski sign and Kernig sign. LUNGS: Clear to auscultation bilaterally. There was no wheezes, no rales, no rhonchi was heard. HEART: Sounds S1, S2. She had regular rate and rhythm. She had no murmurs, rubs, or gallops. ABDOMEN: Soft, it was flat. It was nontender. Bowel sounds were present. EXTREMITIES: Pulses were diminished in the pedal area, but they were palpable. She had no peripheral edema. She had 5/5 strength. NEUROLOGIC: She is awake, she is alert. She is oriented x3. Her tongue is midline. Her traffic monitor specialist were equal. She had no gross focal deficits. SKIN: Intact. She does have a small ulcer to the left heel, which is open to air. There is some mild erythema surrounding and there is tenderness to the heel. The right foot, the right great toe appears to be erythematic, but again no pain, erythema, or warmth felt. Otherwise skin in intact. LABORATORY DATA/DIAGNOSTIC STUDIES: WBC of 10.2, RBC of 3.12, hemoglobin of 10.5, hematocrit of 30, platelet count of 141. ESR pending. Her INR was 2.09, PTT of 185.8. The sodium was 135, potassium of 4.6, chloride of 103, bicarb 24 , BUN 22, creatinine 1.11, glucose 200. Initial lactate was 2.9, it is now 1.0. The calcium was 9.0. Total bili 3.4, AST 30, ALT 20. The troponin was 0.53. CRP pending. Albumin of 3.9. Urine showed 1+ protein, 1+ blood, 1+ rbc, trace leukocyte esterase. Serology is negative for flu. She had multiple imaging here in the ED starting out with chest x-ray. No acute disease noted on the x-ray. She had a brain CT obtained today, which showed no acute intracranial pathology. She had an EKG obtained today showing a left bundle branch block, rate of 78. Previous EKG from February of last year shows a normal sinus rhythm with no left bundle branch block. According to her old records, left bundle branch is chronic and this was from Dr. Garcia's notes, her washing machine loader. We do have an EKG from 12/29/17, which does show the left bundle branch block. Old medical records were reviewed. ASSESSMENT AND PLAN: Ms. Finn is an 82-year-old female patient coming in to the ED today with complaints of not feeling well, nausea, vomiting and in the ED , there was concern because she had headache, she had neck stiffness, and a fever that was concerning for meningitis. We were asked to evaluate for admission. She will be admitted under inpatient status for: 1. Sepsis. Again source is unclear. I do not believe that the patient has meningitis. She is really able to move her neck okay. She had no pain. The headache has been going for 7 weeks, it is no worse. Doing an LP certainly there is more risk right now associated with it. The patient is a vasculopath, holding her Plavix for a week in the setting of known peripheral vascular disease, coronary artery disease, and now having strong suspicion of meningitis I think is not warranted at this point. I could treat her empirically and get Dr. Luis to weigh in on this, but I do not think we should just stop her antiplatelet therapy. I am holding her Pradaxa until we hear from Dr. Luis, we may need to restart this tomorrow, but at this point, I think we can hold off. She was reversed here in the ED. I will give her empiric antibiotics and will panculture her. She is having some heel pain and tenderness, so I am going to MRI the heel as the ulcer in the left heel to make sure there is not any underlying infection, abscess collection that may be contributing to this. I am going to try to identify the source and will continue to follow. 2. Headaches. It sounds like she has been having chronic headaches that may be coming from her neck, it is particularly in the occipital area. I did touch base with Neurology. They will evaluate tomorrow, but I am holding of an LP at this point again. I think the risk of holding her antiplatelet therapy outweigh the benefits of an LP at this point. I think the risks are too high. I want to have Neurology and ID evaluate the patient. 3. Hypertension. Continue meds prescribed. 4. Diabetes. I will put on her a lispro sliding scale. 5. History of left bundle branch block, elevated troponin. She has got an EKG , has left bundle branch block. She does have a murmur on exam, it is 2/6 murmur on the aortic listening area. I am going to re-evaluate her echo. She had an echo with her primary washing machine loader that showed and EF of 50% to 55%. This was the notes in the chart. This was in August of this year. So, I am going to repeat this to make sure there has not been any changes. I will cycle the troponin. She is not having chest pain. We will continue to monitor. 6. Aortic stenosis. Again, we are going to get an echo. We will evaluate her TAVR. 7. Atrial fibrillation. Continue her sotalol, holding Pradaxa tonight until we touch base with Dr. Luis tomorrow. 8. Coronary artery disease. She is on beta-jose, aspirin, statin therapy. We will continue. 9. History of congestive heart failure. She appears to be euvolemic. I am holding her Aldactone in the setting of giddiness, we can diurese as needed. She did not appear to be acutely overloaded. 10. Left heel ulcer. Again, I am going to evaluate this with an MRI given the pain on palpation. 11. Peripheral vascular disease. Continue with her Plavix, aspirin, statin therapy. 12. Deep venous thrombosis prophylaxis. Again, her INR is 2.09. Her PTT is 185. I have ordered SCDs for the time being. We will need to again re- evaluate. We want to restart the Pradaxa tomorrow based on impression from Dr. Luis. I will continue aspirin and Plavix therapy. 13. Code status: She is a full code. 14. Fluids and nutrition: She can have a consistent carb diet. TIME SPENT: Time spent on the admission was 60 minutes, greater than half the time was spent [id number] with the patient obtaining my history and physical, other half time was spent going over the plan of care with the patient and implementing the plan of care. I did discuss the plan of care with my attending, Dr. Cortez; she is in agreement. ALEC REEVES, RETAIL TIRE SALES MANAGER [id number]/CPS #: [id number] JACKIE
--- NOTE | 2018-02-03 03:04 | PN ---
Progress Note - Progress Note Date of Service: 02/03/18 Note: Nursing called relaying report blood CX with gram positive resembling pneumococcus. Will order urine antigen and add azithromycin to current regimen which already contains coeftriaxone until further characterization yielded.
[2018-02-03] MEDS: cefTRIAXone(*) 2 GM in NS 0.9% 100 ML* 100 ML IVPB SCH ×2 (03:14→13:35)
[2018-02-03] MEDS ORDERED: Azithromycin IV(*) 500 MG in NS 0.9% 250 ML* 250 ML IVPB SCH (04:00)
[2018-02-03] MEDS: Vancomycin(*) 1,000 MG in NS 0.9% 250 ML* 250 ML IVPB SCH ×2 (04:17→15:37)
[2018-02-03 06:28] LABS: Hematocrit 25 % (35-47); Hemoglobin 8.7 g/dl (12.0-16.0); Mean Corpuscular HGB Conc 35 g/dl (31-36); Mean Corpuscular Hemoglobin 34 pg (27-31); Mean Corpuscular Volume 96 fL (80-97); Mean Platelet Volume 8.4 um3 (7.4-10.4); Platelet Count 95 10^3/ul (150-450); Red Blood Count 2.57 10^6/ul (4.00-5.40); Red Cell Distribution Width 13 % (10.5-15); White Blood Count 5.3 10^3/ul (3.5-10.8)
[2018-02-03 06:53] LABS: ABS Basophils 0 10^3/ul (0-0.2); ABS Eosinophils 0 10^3/ul (0-0.6); ABS Lymphocytes 0.7 10^3/ul (1.0-4.8); ABS Monocytes 0.2 10^3/ul (0-0.8); ABS Neutrophils 4.3 10^3/ul (1.5-7.7); ABS Nucleated RBC 0 10^3/ul; Eosinophil % 0.1 % (0-6); Lymphocyte % 13.1 % (25-47); Nucleated Red Blood Cells % 0.1
[2018-02-03] MEDS: Insulin LISPRO* 1 UNITS UNIT SUBCUT SCH ×3 (08:38→17:15)
[2018-02-03] MEDS ORDERED: Clopidogrel TAB* 75 MG PO SCH (09:00)
[2018-02-03] MEDS ORDERED: Aspirin EC TAB* 81 MG TAB.EC PO SCH (09:00)
[2018-02-03] MEDS: Sotalol TAB* 80 MG PO SCH ×2 (09:57→21:42)
--- NOTE | 2018-02-03 12:00 | ECHO ---
Patient: LULA CASTANEDA [facility] Rec#: [id number] : 1935 Date: 02/03/2018 Age: 82y Height: 165 cm / 65.0 in Weight: 79.38 kg / 175.0 lbs Sex: F BSA: 1.87 Room#: 437 Admit Date#: 02/02/2018 Type: Inpatient Referring: Alec Reeves NP Reading: Sourav Valle DO Automatic Corn Grinder Operator: Leonila Lee RDCS CC: LEONARDO DUNCAN CC: Robson Garcia Transthoracic Echocardiogram Indication: Valvular disease, weakness. BP: 120/54 HR: 75 Rhythm: NSR with PACs Findings History: S/P TAVR 03/26 Bioprosthetic Coker Odalis, A-fib, PVD, CHF, CAD, LBBB, DM, HTN. Technical Comments: The study quality is fair. Completed at 1130. Left Ventricle: The left ventricular chamber size is normal. Mild concentric left ventricular hypertrophy is observed. There is normal left ventricular systolic function. The estimated ejection fraction is 55-60%. There is a left ventricular septal wall motion abnormality observed, possibly due to the presence of a left bundle branch block. The assessment of diastolic function is non-diagnostic. The mid inferior, and apical inferior wall segments are hypokinetic (score 2). Overall wallmotion score index is 2.00 Left Atrium: The left atrium is moderately dilated. Right Ventricle: The right ventricular chamber size and systolic function are within normal limits. Right Atrium: The right atrium is mildly dilated. Aortic Valve: There is a trace of aortic regurgitation. The mean gradient of the aortic valve is 16 mmHg. peak velocity 3 m/s. AT is 67 ms and dimensionless index is 0.46 suggestive of non-obstructive prosthesis. A bio-prosthetic aortic valve is present. #[id number] coker odalis valve by history Mitral Valve: Moderate mitral annular calcification present. The mitral valve leaflets are moderately thickened. Mitral valve leaflet mobility is mildly restricted. There is mild mitral regurgitation. There is mild mitral stenosis. The mean gradient across the mitral valve is 3 mmHg. Tricuspid Valve: The tricuspid valve leaflets are normal. There is mild tricuspid regurgitation. There is evidence of mild pulmonary hypertension. There is no tricuspid stenosis. Pulmonic Valve: The pulmonic valve appears normal. There is a trace pulmonic regurgitation. There is no pulmonic stenosis. Pericardium: There is no significant pericardial effusion. Aorta: There is no dilatation of the ascending aorta. The aortic arch is not well visualized. The aortic root is normal in size. Pulmonary Artery: The main pulmonary artery is not well visualized. Venous: The inferior vena cava is dilated. There is a greater than 50% respiratory change in the inferior vena cava dimension. Conclusions The left ventricular chamber size is normal. Mild concentric left ventricular hypertrophy is observed. There is normal left ventricular systolic function. The estimated ejection fraction is 55-60%. There is a left ventricular septal wall motion abnormality observed,due to the presence of a left bundle branch block. The mid inferior, and apical inferior wall segments are hypokinetic The left atrium is moderately dilated. The right ventricular chamber size and systolic function are within normal limits. A bio-prosthetic aortic valve is present that appears to be functioning normally. Post-TAVR baseline gradients not available at time of interpretation for comparison. Mild mitral regurgitation/stenosis, valve not well visualized There is evidence of mild pulmonary hypertension. No post-TAVR echos available for comparison at time of interpretation Measurements Name Value Normal Range RVIDd (AP) 2D 2.9 cm (0.9 - 2.6) RVDdMajor (2D) 4.5 cm (2.2 - 4.4) RAd ISD 4CH 4.9 cm (3.4 - 4.9) RA (A4C)W 4.9 cm (2.9 - 4.6) IVSd (2D) 1.2 cm (0.6 - 1) LVPWd (2D) 1.1 cm (0.6 - 1) LVIDd (2D) 4.5 cm (3.6 - 5.4) LVIDs (2D) 3.7 cm - LV FS (2D) 17 % (25 - 45) Aortic Annulus 1.6 cm (1.4 - 2.6) Ao root diameter (2D) 2.2 cm (2.1 - 3.5) Ascending Ao 3.2 cm (2.1 - 3.4) LAd ISD 4CH 5.4 cm (2.9 - 5.3) LA ISD 4CH W 4.7 cm (2.5 - 4.5) Name Value Normal Range LA ESV SP 4CH (A/L) 90.3 ml - Name Value Normal Range MV E-wave Vmax 1.6 m/sec - MV deceleration time 339 msec - MV A-wave Vmax 1.2 m/sec - MV E:A ratio 1.3 ratio - LV septal e' Vmax 0.05 m/sec - LV lateral e' Vmax 0.07 m/sec - LV E:e' septal ratio 32 ratio - LV E:e' lateral ratio 22.9 ratio - Name Value Normal Range AV Vmax 3 m/sec - AV VTI 55.1 cm - AV peak gradient 36 mmHg - AV mean gradient 16 mmHg - LVOT diameter 2 cm - LVOT Vmax 1.2 m/sec - LVOT VTI 25.9 cm - LVOT peak gradient 6 mmHg - LVOT mean gradient 3 mmHg - DOI (VTI) 0.47 ratio - Name Value Normal Range MV Vmax 1.5 m/sec - MV VTI 54.3 cm - MV peak gradient 8 mmHg - MV mean gradient 3 mmHg - Name Value Normal Range TR Vmax 2.8 m/sec - TR peak gradient 32 mmHg - RAP 8 mmHg - RVSP 40 mmHg - IVC diameter 2.1 cm - Name Value Normal Range PV Vmax 0.8 m/sec - PV VTI 2 cm - Wallmotion BAS Not Seen BA Not Seen BAL Not Seen KYLE Not Seen BI Not Seen BIS Not Seen MAS Not Seen MA Not Seen MAL Not Seen MIL Not Seen VA Hypokinetic MIS Not Seen Not Seen AA Not Seen AL Not Seen AI Hypokinetic APEX Not Seen
[2018-02-03 12:04] LABS: Hematocrit 27 % (35-47); Hemoglobin 9.4 g/dl (12.0-16.0)
[2018-02-03] MEDS: Acetaminophen TAB* 325 MG PO PRN (15:35)
--- NOTE | 2018-02-03 16:49 | PN ---
Subjective Date of Service: 02/03/18 Interval History: Seen with [id number] at bedside Feels better Headache is occiptal but not present now had MRI last month for evalutation of HADLEY Objective Active Medications: Acetaminophen (Tylenol Tab*) 650 mg PO Q4H PRN PRN Reason: FEVER/PAIN Last Admin: 02/03/18 15:35 Dose: 650 mg Aspirin (Aspirin Ec Tab*) 81 mg PO DAILY@1000 [facility] Atorvastatin Calcium (Lipitor*) 40 mg PO QPM@2200 [facility] Clopidogrel Bisulfate (Plavix Tab*) 75 mg PO EVERY OTHER DAY [facility] Dabigatran (Pradaxa Cap(Nf)) 150 mg PO BID [facility] Dextrose (D50w Syringe 50 Ml*) 12.5 gm IV PUSH .FOR FS < 60 - SS PRN PRN Reason: FS < 60 Sodium Chloride (Ns 0.9% 1000 Ml*) 1,000 mls @ 75 mls/hr IV PER RATE [facility] Last Admin: 02/02/18 22:38 Dose: 75 mls/hr Ceftriaxone Sodium 2 gm/ (Sodium Chloride) 100 mls @ 200 mls/hr IVPB Q12H [facility] Last Admin: 02/03/18 13:35 Dose: 200 mls/hr Insulin Human Lispro (Humalog*) 0 units SUBCUT AC [facility]; Protocol Last Admin: 02/03/18 12:36 Dose: 2 units Ondansetron HCl (Zofran Inj*) 4 mg IV Q6H PRN PRN Reason: NAUSEA Sotalol HCl (Betapace Tab*) 80 mg PO BID@1000,2200 [facility] Spironolactone (Aldactone Tab*) 25 mg PO DAILY [facility] Vital Signs - 8 hr 02/03/18 02/03/18 02/03/18 11:34 15:11 15:21 Temperature 98.3 F 97.8 F Pulse Rate 60 48 Respiratory 20 16 Rate Blood Pressure 125/41 104/32 108/58 (mmHg) O2 Sat by Pulse 100 100 Oximetry Oxygen Devices in Use Now: None Appearance: NAD Eyes: No Scleral Icterus, PERRLA Ears/Nose/Mouth/Throat: NL Teeth, Lips, Gums, Clear Oropharnyx Neck: NL Appearance and Movements; NL JVP, Trachea Midline Respiratory: Symmetrical Chest Expansion and Respiratory Effort, Clear to Auscultation Cardiovascular: RRR, - - mid peaking MATTHEW RUSB, low rumbling LLSB Abdominal: NL Sounds; No Tenderness; No Distention, No Hepatosplenomegaly Lymphatic: No Cervical Adenopathy Extremities: - - trace LE edema Skin: - - small tunneling ulcer on left heel with surrounding erythema Neurological: Alert and Oriented x 3 Result Diagrams: 02/03/18 11:48 02/03/18 05:45 Additional Lab and Data: Lab Results 02/02/18 02/02/18 02/02/18 Range/Units 14:12 14:12 14:12 WBC 10.2 (3.5-10.8) 10^3/ul RBC 3.12 L (4.00-5.40) 10^6/ul Hgb 10.5 L (12.0-16.0) g/dl Hct 30 L (35-47) % MCV 97 (80-97) fL MCH 34 H (27-31) pg MCHC 35 (31-36) g/dl RDW 13 (10.5-15) % Plt Count 141 L (150-450) 10^3/ul MPV 8.1 (7.4-10.4) um3 Neut % (Auto) 92.2 H (38-83) % Lymph % (Auto) 3.9 L (25-47) % [place] % (Auto) 3.4 (0-7) % Eos % (Auto) 0 (0-6) % Baso % (Auto) 0.5 (0-2) % Absolute Neuts (auto) 9.4 H (1.5-7.7) 10^3/ul Absolute Lymphs (auto) 0.4 L (1.0-4.8) 10^3/ul Absolute Monos (auto) 0.4 (0-0.8) 10^3/ul Absolute Eos (auto) 0 (0-0.6) 10^3/ul Absolute Basos (auto) 0 (0-0.2) 10^3/ul Absolute Nucleated RBC 0 10^3/ul Nucleated RBC % 0 INR (Anticoag Therapy) 2.09 H (0.77-1.02) APTT 185.8 H* (26.0-36.3) seconds Sodium 135 (135-145) mmol/L Potassium 4.6 (3.5-5.0) mmol/L Chloride 103 (101-111) mmol/L Carbon Dioxide 24 (22-32) mmol/L Anion Gap 8 (2-11) mmol/L BUN 22 (6-24) mg/dL Creatinine 1.11 H (0.51-0.95) mg/dL Est GFR ( Amer) 57.2 (>60) Est GFR (Non-Af Amer) 47.3 (>60) BUN/Creatinine Ratio 19.8 (8-20) Glucose 200 H (70-100) mg/dL Lactic Acid (0.5-2.0) mmol/L Calcium 9.1 (8.6-10.3) mg/dL Total Bilirubin 3.40 H (0.2-1.0) mg/dL AST 30 (13-39) U/L ALT 20 (7-52) U/L Alkaline Phosphatase 110 H (34-104) U/L Troponin I 0.53 H* (<0.04) ng/mL Total Protein 6.3 L (6.4-8.9) g/dL Albumin 3.9 (3.2-5.2) g/dL Globulin 2.4 (2-4) g/dL Albumin/Globulin Ratio 1.6 (1-3) Urine Color Urine Appearance Urine pH (5-9) Ur Specific [place] (1.010-1.030) Urine Protein (Negative) Urine Ketones (Negative) Urine Blood (Negative) Urine Nitrate (Negative) Urine Bilirubin (Negative) Urine Urobilinogen (Negative) Ur Leukocyte Esterase (Negative) Urine WBC (Auto) (Absent) Urine RBC (Auto) (Absent) Ur Squamous Epith Cells (Absent) Urine Bacteria (Absent) Hyaline Casts (Absent) Urine Glucose (Negative) Influenza A (Rapid) (Negative) Influenza B (Rapid) (Negative) 02/02/18 02/02/18 02/02/18 Range/Units 14:12 14:40 16:15 WBC (3.5-10.8) 10^3/ul RBC (4.00-5.40) 10^6/ul Hgb (12.0-16.0) g/dl Hct (35-47) % MCV (80-97) fL MCH (27-31) pg MCHC (31-36) g/dl RDW (10.5-15) % Plt Count (150-450) 10^3/ul MPV (7.4-10.4) um3 Neut % (Auto) (38-83) % Lymph % (Auto) (25-47) % [place] % (Auto) (0-7) % Eos % (Auto) (0-6) % Baso % (Auto) (0-2) % Absolute Neuts (auto) (1.5-7.7) 10^3/ul Absolute Lymphs (auto) (1.0-4.8) 10^3/ul Absolute Monos (auto) (0-0.8) 10^3/ul Absolute Eos (auto) (0-0.6) 10^3/ul Absolute Basos (auto) (0-0.2) 10^3/ul Absolute Nucleated RBC 10^3/ul Nucleated RBC % INR (Anticoag Therapy) (0.77-1.02) APTT (26.0-36.3) seconds Sodium (135-145) mmol/L Potassium (3.5-5.0) mmol/L Chloride (101-111) mmol/L Carbon Dioxide (22-32) mmol/L Anion Gap (2-11) mmol/L BUN (6-24) mg/dL Creatinine (0.51-0.95) mg/dL Est GFR ( Amer) (>60) Est GFR (Non-Af Amer) (>60) BUN/Creatinine Ratio (8-20) Glucose (70-100) mg/dL Lactic Acid 2.9 H* (0.5-2.0) mmol/L Calcium (8.6-10.3) mg/dL Total Bilirubin (0.2-1.0) mg/dL AST (13-39) U/L ALT (7-52) U/L Alkaline Phosphatase (34-104) U/L Troponin I (<0.04) ng/mL Total Protein (6.4-8.9) g/dL Albumin (3.2-5.2) g/dL Globulin (2-4) g/dL Albumin/Globulin Ratio (1-3) Urine Color Olga Lidia Urine Appearance Cloudy Urine pH 5.0 (5-9) Ur Specific [place] 1.027 (1.010-1.030) Urine Protein 1+(30 mg/dl) A (Negative) Urine Ketones Negative (Negative) Urine Blood 1+ A (Negative) Urine Nitrate Negative (Negative) Urine Bilirubin Negative (Negative) Urine Urobilinogen Negative (Negative) Ur Leukocyte Esterase Trace A (Negative) Urine WBC (Auto) Trace(0-5/hpf) (Absent) Urine RBC (Auto) 1+(3-5/hpf) A (Absent) Ur Squamous Epith Cells Present A (Absent) Urine Bacteria Absent (Absent) Hyaline Casts Present A (Absent) Urine Glucose Negative (Negative) Influenza A (Rapid) Negative (Negative) Influenza B (Rapid) Negative (Negative) Microbiology and Other Data: Microbiology 02/03/18 12:23 Stool Occult Blood (CARRIE) - Final Stool 02/02/18 14:12 Aerobic Blood Culture - Preliminary Blood Venous Streptococcus Infantarius Anaerobic Blood Culture - Preliminary Streptococcus Infantarius 02/02/18 14:11 Aerobic Blood Culture - Preliminary Blood Venous Streptococcus Infantarius Anaerobic Blood Culture - Preliminary Streptococcus Infantarius 02/02/18 16:15 Urine Culture - Final Urine 02/02/18 16:15 Streptococcus pneumoniae Ag Screen - Final Urine Negative S. pneumo Antigen 02/02/18 14:30 Influenza Types A,B Antigen - Final Nasal Specimen received for Influenza A/B Molecular testing Assess/Plan/Problems-Billing Assessment: 82 yo F h/o s/p TAVR, afib, CAD, CHF, DM2, PVD, non healing ulcer left heel followed by wound care s/p angioplasty of left leg for revascularization last month presented with fever and fatigue found with strep bacteremia - Patient Problems (1) Streptococcal bacteremia Comment: Suspect left heel ulcer as source c/w CTX 2gIV daily check UGO (2) Chronic wound of extremity Comment: followed in wound care clinic angioplasty last month to improve wound healing (3) Osteomyelitis Comment: Suggestive on MRI Will attempt to set up bone biopsy. I would like to avoid significant trauma to the heel given chronicity of previous wound c/w CTX and vanco until biopsy (4) Atrial fibrillation Comment: restart pradaxa plavix QOD for PVD (5) Diabetes Comment: Recheck hBA1c (6) Elevated troponin I level Comment: suspect type 2 demand monitor maintain on tele (7) DVT prophylaxis Comment: pradaxa
--- NOTE | 2018-02-03 21:23 | CONS ---
CONSULTATION REPORT: DATE OF CONSULT: 02/03/18 REQUESTING PROVIDER: Alec Reeves NP CONSULTING SERVICE: Infectious Disease. REASON FOR CONSULTATION: Nausea, malaise, and sepsis. IMPRESSION: 1. Sepsis present on admission due to gram-positive bacteremia. She has 4 of 4 bottles growing gram-positive cocci in chains could be Streptococcus or Enterococcus. She does have a prosthetic heart valve so endocarditis is high on differential. 2. Status post right hip hemiarthroplasty, which is asymptomatic. I do not think that is infected. She does not have other prosthetic material present. She has a small left calcaneus ulcer, which I do not think is infected or the source of her current issues. 3. Type 2 diabetes. 4. Peripheral vascular disease. 5. Allergies to CIPRO, PENICILLIN, SULFA, and KEFLEX, but tolerating CEFTRIAXONE. RECOMMENDATION: We will continue vancomycin, and ceftriaxone. We will wait for the more information on the organism in the blood. Stop Flagyl and azithromycin. She is going to have a transthoracic echocardiogram, assuming that is negative, she will need a transesophageal echocardiogram. HISTORY OF PRESENT ILLNESS: This is an 82-year-old woman with a right hip hemiarthroplasty and a prosthetic heart valve, admitted with a few weeks of malaise, decreased energy, which has been worsening over the last week and included nausea, vomiting, inability to get out of bed on the day of admission. Her daughter got her to the emergency room. She was febrile at 38.4 and hypotensive. Her influenza PCR was negative, and pneumococcal antigen was negative. Her blood cultures are 4 of 4 bottles positive gram-positive cocci in chains. She had an MRI of her foot, which showed some soft tissue edema, bone edema in the calcaneus. She has had fever overnight. She has no right hip pain or spine pain. PAST MEDICAL HISTORY: 1. Status post TAVR. 2. Right hip fracture, status post hemiarthroplasty. 3. Hypertension. 4. Type 2 diabetes. 5. Left bundle branch block. 6. Atrial fibrillation. 7. Coronary disease. 8. Diastolic heart failure. 9. Peripheral vascular disease. 10. Status post left hip open reduction and internal fixation. 11. Status post hysterectomy. 12. Status post left lower extremity angioplasty. 13. Status post right third toe amputation. ALLERGIES: PREDNISONE, ASPIRIN, KEFLEX, CIPRO, PENICILLIN, SULFA, MORPHINE and BENADRYL. MEDICATIONS: 1. Tylenol. 2. Aspirin. 3. Lipitor. 4. Plavix. 5. Ceftriaxone 2 g every 12 hours. 6. Vancomycin 1 g every 12 hours. 7. Sotalol. SOCIAL HISTORY: She is a non-smoker. No injection drugs. Lives in [place]. No travel. FAMILY HISTORY: No recurrent infections. REVIEW OF SYSTEMS: All negative other than as noted above to 14 point review of systems. PHYSICAL EXAM: Vital Signs: Temperature 37, heart rate 70, respiratory rate 20 , blood pressure 120/49, oxygen saturation 99% on room air. In general, she is awake, and not in distress. Neurologic: She is oriented x3. Follows all commands. Moves all her extremities. HEENT: There is no conjunctival hemorrhage. Oropharynx without lesions. Neck: Supple without mass. Heart: Regular rate and rhythm without murmurs, rubs or gallops. Lungs: Clear to auscultation bilaterally. Abdomen: Soft, nontender, nondistended. There are bowel sounds present. Skin: There is no rash or splinter hemorrhage. Musculoskeletal: There is no spine tenderness to palpation. No joint tenderness. There is no Log [place] sign and she has range of motion both hips without pain. LABORATORY DATA: White blood cell count 5, hemoglobin 8, platelets 95. Creatinine 0.9, troponin 0.5. Please see impressions and recommendations as outlined above. Thank you for asking me to see Ms. Finn in consultation. [id number]/[facility] #: [id number] JACKIE
[2018-02-03] MEDS: Atorvastatin* 40 MG TAB PO SCH (21:42)
[2018-02-03] MEDS: CMC:Dabigatran CAP(NF) 150 MG CAP PO SCH (21:42)
[2018-02-04] MEDS: cefTRIAXone(*) 2 GM in NS 0.9% 100 ML* 100 ML IVPB SCH ×2 (03:33→15:01)
[2018-02-04 05:47] LABS: Hematocrit 24 % (35-47); Hemoglobin 8.4 g/dl (12.0-16.0); Mean Corpuscular HGB Conc 35 g/dl (31-36); Mean Corpuscular Hemoglobin 34 pg (27-31); Mean Corpuscular Volume 97 fL (80-97); Mean Platelet Volume 9.1 um3 (7.4-10.4); Platelet Count 85 10^3/ul (150-450); Red Blood Count 2.48 10^6/ul (4.00-5.40); Red Cell Distribution Width 13 % (10.5-15); White Blood Count 4.3 10^3/ul (3.5-10.8)
[2018-02-04 05:48] LABS: ABS Basophils 0 10^3/ul (0-0.2); ABS Eosinophils 0.2 10^3/ul (0-0.6); ABS Lymphocytes 0.9 10^3/ul (1.0-4.8); ABS Monocytes 0.5 10^3/ul (0-0.8); ABS Neutrophils 2.7 10^3/ul (1.5-7.7); ABS Nucleated RBC 0 10^3/ul
[2018-02-04 06:13] LABS: ABS Basophils 0 10^3/ul (0-0.2); ABS Neutrophils 2.9 10^3/ul (1.5-7.7); Monocytes % 2 % (0-7)
[2018-02-04 06:58] LABS: EGFR Non-African American 67.1 (>60)
[2018-02-04] MEDS: Insulin LISPRO* 1 UNITS UNIT SUBCUT SCH (09:06)
[2018-02-04] MEDS ORDERED: Vancomycin(*) 1,250 MG in NS 0.9% 250 ML* 250 ML IVPB ONE (10:00)
[2018-02-04] MEDS ORDERED: Vancomycin per Pharmacy* NOTE FOLLOW UP SCH (10:00)
[2018-02-04] MEDS ORDERED: Clopidogrel TAB* 75 MG PO SCH (10:00)
[2018-02-04] MEDS ORDERED: Midazolam* 1 MG/ML 10 ML VIAL (10 MG) ONE (12:15)
[2018-02-04] MEDS ORDERED: Naloxone* 0.4 MG/ML 1 ML VIAL ONE (12:15)
[2018-02-04] MEDS ORDERED: fentaNYL* 50 MCG/ML 2 ML VIAL (100 MCG VIAL) ONE (12:15)
[2018-02-04] MEDS ORDERED: Flumazenil* 0.1 MG/ML 5 ML MDV ONE (12:16)
[2018-02-04] MEDS ORDERED: Lidocaine 2% VISCOUS* 15 ML UDC ONE (12:16)
[2018-02-04] MEDS ORDERED: Vancomycin Trough Check NOTE FOLLOW UP ONE (14:30)
[2018-02-04] MEDS: Spironolactone TAB* 25 MG PO SCH (15:41)
[2018-02-04] MEDS: CMC:Dabigatran CAP(NF) 150 MG CAP PO SCH ×2 (15:41→21:44)
[2018-02-04] MEDS: Aspirin EC TAB* 81 MG TAB.EC PO SCH (15:42)
[2018-02-04] MEDS: Sotalol TAB* 80 MG PO SCH ×2 (15:42→21:55)
--- NOTE | 2018-02-04 16:14 | TEE ---
Patient: LULA CASTANEDA [facility] Rec#: [id number] : 1935 Date: 02/04/2018 Age: 82y Height: 165 cm / 65.0 in Weight: 184 kg / 405.5 lbs Sex: F BSA: 2.67 Room#: 437 Admit Date#: 02/02/2018 Type: Inpatient Referring: Jacob Ye MD Performing: Sourav Valle DO Reading: Sourav Valle DO Visual Effects Editor: Gabriela Crow CS Nurse: Liliya Vera RN CC: Robson Garcia CC: LEONARDO DUNCAN Transesophageal Echocardiogram Indication: Strep Bacteremia BP: 156/67 HR: 89 Rhythm: NSR with PVCs Findings History: S/P TAVR 03/2017,bioprosthetic Coker Odalis, A-fib,PVD,CHF,CAD,LBBB,DM,HTN. Technical Comments: The study quality is good. Completed at 1445. Left Ventricle: The left ventricular chamber size is normal. There is normal left ventricular systolic function. The estimated ejection fraction is 55-60%. Left Atrium: The left atrium is moderately dilated. There is no thrombus visualized in the left atrial appendage. Right Ventricle: The right ventricular chamber size and systolic function are within normal limits. Right Atrium: The right atrium is mildly dilated. A patent foramen ovale is demonstrated by color Doppler. , small Aortic Valve: A bovine bio-prosthetic aortic valve is present. There is a paravalvular leak of the bio-prosthetic aortic valve. that is mild. It appears centered at 1 to 2 o'clock on short axis UGO view. There is no aortic vegetation present. Mitral Valve: Moderate mitral annular calcification present. Mild mitral leaflet calcification is visualized. There is prolapse of the anterior leaflet of the mitral valve. that is mild. There does appear to be degenerative related detached chordae tendineae There is moderate mitral regurgitation. EOA 23 mm2 and RVol 47 ml There is no evidence of pulmonary vein flow reversal. No vegetation is observed on the mitral valve. Tricuspid Valve: The tricuspid valve leaflets are normal. There is mild to moderate tricuspid regurgitation. There is evidence of mild pulmonary hypertension. There is no tricuspid stenosis. No vegetation is observed on the tricuspid valve. Pulmonic Valve: The pulmonic valve appears normal. There is a trace pulmonic regurgitation. There is no pulmonic stenosis. No vegetation is observed on the pulmonic valve. Pericardium: There is no significant pericardial effusion. Aorta: There is no dilatation of the ascending aorta. There is no dilatation of the aortic arch. There is no dilation of the aortic root. There is plaque visualized in the descending aorta.moderate Pulmonary Artery: The main pulmonary artery appears normal. UGO Procedures: History and physical as well as labs were reviewed. The patient was in a fasting state. Risks and benefits of the procedure, including alternatives, were discussed and written informed consent was obtained. The patient and/or their health care labor service representative expressed understanding of the procedure, risks and benefits. Baseline and continuous monitoring of blood pressure, heart rate, pulse oximetry and heart rhythm was performed throughout the procedure. The appropriate time-out procedure was performed as per [facility] protocol. The patient was placed in the left lateral decubitus position. The patient's posterior pharynx was anesthetized with 20ml of 2% viscous lidocaine. The patient received IV Midazolam with a total dose of 4 mg. The patient received IV Fentanyl with a total dose of 50mcg. An oral bite block was inserted for protection of oral dentition. The multiplane transesophageal echocardiogram probe was inserted through the posterior oropharynx and advanced into the esophagus without difficulty. Multiple 2D images were obtained of the heart and its related structures. Color flow Doppler was used for evaluation. Spectral Doppler was also used. The atrial septum was interrogated with color flow Doppler. At the conclusion of the procedure the probe was removed with continuous suction without complications. The patient tolerated the procedure with no apparent complications. Conclusions There is normal left ventricular systolic function. The left atrium is moderately dilated. The right ventricular chamber size and systolic function are within normal limits. A bovine #[id number] odalis bio-prosthetic aortic valve is present that appears to be functioning normally. There is a mild paravalvular leak of the bio-prosthetic aortic valve as described within report, previously noted on 08/2017 TTE There is mild anterior leaflet mitral valve prolapse with moderate eccentric mitral regurgitation that was previously noted 03/2017 UGO. There does appear to be a degenerative related detached chordae tendineae. There is mild to moderate tricuspid regurgitation. There is moderate plaque visualized in the descending aorta/arch There is no echocardiographic evidence of infectious endocarditis Measurements Name Value Normal Range Aortic Annulus 1.7 cm (1.4 - 2.6) Ao root diameter (2D) 2.6 cm (2.1 - 3.5) Ascending Ao 3.2 cm (2.1 - 3.4) Name Value Normal Range MV E-wave Vmax 1.7 m/sec - MV deceleration time 204 msec - MV A-wave Vmax 1.1 m/sec - Name Value Normal Range MR Vmax 6.7 m/sec - MR VTI 215 cm - MR vena contracta 0.7 cm - MR PISA radius 0.6 cm - Name Value Normal Range TV Vmax 3 m/sec - RAP 3 mmHg - RVSP 39 mmHg -
--- NOTE | 2018-02-04 18:02 | PN ---
Subjective Date of Service: 02/04/18 Interval History: Feeling better, energy better, hair got cleaned up which felt good Objective Active Medications: Acetaminophen (Tylenol Tab*) 650 mg PO Q4H PRN PRN Reason: FEVER/PAIN Last Admin: 02/03/18 15:35 Dose: 650 mg Aspirin (Aspirin Ec Tab*) 81 mg PO DAILY@1000 [facility] Last Admin: 02/04/18 15:42 Dose: Not Given Atorvastatin Calcium (Lipitor*) 40 mg PO QPM@2200 [facility] Last Admin: 02/03/18 21:42 Dose: 40 mg Clopidogrel Bisulfate (Plavix Tab*) 75 mg PO EVERY OTHER DAY [facility] Dabigatran (Pradaxa Cap(Nf)) 150 mg PO BID [facility] Last Admin: 02/04/18 15:41 Dose: Not Given Dextrose (D50w Syringe 50 Ml*) 12.5 gm IV PUSH .FOR FS < 60 - SS PRN PRN Reason: FS < 60 Sodium Chloride (Ns 0.9% 1000 Ml*) 1,000 mls @ 75 mls/hr IV PER RATE [facility] Last Admin: 02/02/18 22:38 Dose: 75 mls/hr Ceftriaxone Sodium 2 gm/ (Sodium Chloride) 100 mls @ 200 mls/hr IVPB Q12H [facility] Last Admin: 02/04/18 15:01 Dose: 200 mls/hr Vancomycin HCl 1,000 mg/ (Sodium Chloride) 250 mls @ 166.667 mls/hr IVPB Q12H [facility] Ondansetron HCl (Zofran Inj*) 4 mg IV Q6H PRN PRN Reason: NAUSEA Pharmacy Consult (Vancomycin Per Pharmacy*) 1 note FOLLOW UP .VANC PER PHARMACY [facility] Pharmacy Profile Note (Vancomycin Trough Check) 1 note FOLLOW UP 929 ONE Stop: 02/06/18 09:31 Sotalol HCl (Betapace Tab*) 80 mg PO BID@1000,2200 [facility] Last Admin: 02/04/18 15:42 Dose: Not Given Spironolactone (Aldactone Tab*) 25 mg PO DAILY [facility] Last Admin: 02/04/18 15:41 Dose: Not Given Vital Signs - 8 hr 02/04/18 02/04/18 02/04/18 11:32 12:08 12:41 Temperature 98.8 F Pulse Rate 60 64 84 Respiratory 22 24 23 Rate Blood Pressure 127/40 156/67 168/87 (mmHg) O2 Sat by Pulse 100 99 98 Oximetry 02/04/18 02/04/18 02/04/18 12:44 12:47 12:49 Temperature Pulse Rate 85 53 85 Respiratory 20 21 20 Rate Blood Pressure 148/70 130/58 131/62 (mmHg) O2 Sat by Pulse 99 100 100 Oximetry 02/04/18 02/04/18 02/04/18 12:52 12:54 12:57 Temperature Pulse Rate 53 54 54 Respiratory 20 19 20 Rate Blood Pressure 129/56 116/60 125/53 (mmHg) O2 Sat by Pulse 100 100 100 Oximetry 02/04/18 02/04/18 02/04/18 12:59 13:01 13:02 Temperature Pulse Rate 54 53 89 Respiratory 20 20 18 Rate Blood Pressure 130/53 140/70 (mmHg) O2 Sat by Pulse 100 100 100 Oximetry 02/04/18 02/04/18 02/04/18 13:04 13:07 13:09 Temperature Pulse Rate 86 55 65 Respiratory 19 19 21 Rate Blood Pressure 109/57 109/62 121/53 (mmHg) O2 Sat by Pulse 100 100 99 Oximetry 02/04/18 02/04/18 02/04/18 13:12 13:14 13:17 Temperature Pulse Rate 53 55 63 Respiratory 21 21 22 Rate Blood Pressure 120/60 109/63 121/57 (mmHg) O2 Sat by Pulse 96 95 96 Oximetry 02/04/18 02/04/18 02/04/18 13:20 13:22 13:24 Temperature Pulse Rate 60 62 83 Respiratory 21 21 18 Rate Blood Pressure 130/60 136/64 157/67 (mmHg) O2 Sat by Pulse 94 95 98 Oximetry 02/04/18 02/04/18 02/04/18 13:30 13:50 15:31 Temperature 97.9 F 97.4 F Pulse Rate 63 101 51 Respiratory 22 14 16 Rate Blood Pressure 136/64 112/36 116/46 (mmHg) O2 Sat by Pulse 96 97 98 Oximetry Oxygen Devices in Use Now: None Appearance: sitting on edge of bed, NAD Eyes: No Scleral Icterus, PERRLA Ears/Nose/Mouth/Throat: NL Teeth, Lips, Gums, Clear Oropharnyx Neck: NL Appearance and Movements; NL JVP, Trachea Midline Respiratory: Symmetrical Chest Expansion and Respiratory Effort, Clear to Auscultation Cardiovascular: RRR, - - holosystolic murmur Lymphatic: No Cervical Adenopathy, No Axillary Adenopathy Extremities: - - trace-1+ edema Skin: - - small ulcer on back of left heel with surrounding erythema Neurological: Alert and Oriented x 3 Result Diagrams: 02/04/18 05:32 02/04/18 05:32 Additional Lab and Data: Lab Results 02/02/18 02/02/18 02/02/18 Range/Units 14:12 14:12 14:12 WBC 10.2 (3.5-10.8) 10^3/ul RBC 3.12 L (4.00-5.40) 10^6/ul Hgb 10.5 L (12.0-16.0) g/dl Hct 30 L (35-47) % MCV 97 (80-97) fL MCH 34 H (27-31) pg MCHC 35 (31-36) g/dl RDW 13 (10.5-15) % Plt Count 141 L (150-450) 10^3/ul MPV 8.1 (7.4-10.4) um3 Neut % (Auto) 92.2 H (38-83) % Lymph % (Auto) 3.9 L (25-47) % [place] % (Auto) 3.4 (0-7) % Eos % (Auto) 0 (0-6) % Baso % (Auto) 0.5 (0-2) % Absolute Neuts (auto) 9.4 H (1.5-7.7) 10^3/ul Absolute Lymphs (auto) 0.4 L (1.0-4.8) 10^3/ul Absolute Monos (auto) 0.4 (0-0.8) 10^3/ul Absolute Eos (auto) 0 (0-0.6) 10^3/ul Absolute Basos (auto) 0 (0-0.2) 10^3/ul Absolute Nucleated RBC 0 10^3/ul Nucleated RBC % 0 INR (Anticoag Therapy) 2.09 H (0.77-1.02) APTT 185.8 H* (26.0-36.3) seconds Sodium 135 (135-145) mmol/L Potassium 4.6 (3.5-5.0) mmol/L Chloride 103 (101-111) mmol/L Carbon Dioxide 24 (22-32) mmol/L Anion Gap 8 (2-11) mmol/L BUN 22 (6-24) mg/dL Creatinine 1.11 H (0.51-0.95) mg/dL Est GFR ( Amer) 57.2 (>60) Est GFR (Non-Af Amer) 47.3 (>60) BUN/Creatinine Ratio 19.8 (8-20) Glucose 200 H (70-100) mg/dL Lactic Acid (0.5-2.0) mmol/L Calcium 9.1 (8.6-10.3) mg/dL Total Bilirubin 3.40 H (0.2-1.0) mg/dL AST 30 (13-39) U/L ALT 20 (7-52) U/L Alkaline Phosphatase 110 H (34-104) U/L Troponin I 0.53 H* (<0.04) ng/mL Total Protein 6.3 L (6.4-8.9) g/dL Albumin 3.9 (3.2-5.2) g/dL Globulin 2.4 (2-4) g/dL Albumin/Globulin Ratio 1.6 (1-3) Urine Color Urine Appearance Urine pH (5-9) Ur Specific [place] (1.010-1.030) Urine Protein (Negative) Urine Ketones (Negative) Urine Blood (Negative) Urine Nitrate (Negative) Urine Bilirubin (Negative) Urine Urobilinogen (Negative) Ur Leukocyte Esterase (Negative) Urine WBC (Auto) (Absent) Urine RBC (Auto) (Absent) Ur Squamous Epith Cells (Absent) Urine Bacteria (Absent) Hyaline Casts (Absent) Urine Glucose (Negative) Influenza A (Rapid) (Negative) Influenza B (Rapid) (Negative) 02/02/18 02/02/18 02/02/18 Range/Units 14:12 14:40 16:15 WBC (3.5-10.8) 10^3/ul RBC (4.00-5.40) 10^6/ul Hgb (12.0-16.0) g/dl Hct (35-47) % MCV (80-97) fL MCH (27-31) pg MCHC (31-36) g/dl RDW (10.5-15) % Plt Count (150-450) 10^3/ul MPV (7.4-10.4) um3 Neut % (Auto) (38-83) % Lymph % (Auto) (25-47) % [place] % (Auto) (0-7) % Eos % (Auto) (0-6) % Baso % (Auto) (0-2) % Absolute Neuts (auto) (1.5-7.7) 10^3/ul Absolute Lymphs (auto) (1.0-4.8) 10^3/ul Absolute Monos (auto) (0-0.8) 10^3/ul Absolute Eos (auto) (0-0.6) 10^3/ul Absolute Basos (auto) (0-0.2) 10^3/ul Absolute Nucleated RBC 10^3/ul Nucleated RBC % INR (Anticoag Therapy) (0.77-1.02) APTT (26.0-36.3) seconds Sodium (135-145) mmol/L Potassium (3.5-5.0) mmol/L Chloride (101-111) mmol/L Carbon Dioxide (22-32) mmol/L Anion Gap (2-11) mmol/L BUN (6-24) mg/dL Creatinine (0.51-0.95) mg/dL Est GFR ( Amer) (>60) Est GFR (Non-Af Amer) (>60) BUN/Creatinine Ratio (8-20) Glucose (70-100) mg/dL Lactic Acid 2.9 H* (0.5-2.0) mmol/L Calcium (8.6-10.3) mg/dL Total Bilirubin (0.2-1.0) mg/dL AST (13-39) U/L ALT (7-52) U/L Alkaline Phosphatase (34-104) U/L Troponin I (<0.04) ng/mL Total Protein (6.4-8.9) g/dL Albumin (3.2-5.2) g/dL Globulin (2-4) g/dL Albumin/Globulin Ratio (1-3) Urine Color Olga Lidia Urine Appearance Cloudy Urine pH 5.0 (5-9) Ur Specific [place] 1.027 (1.010-1.030) Urine Protein 1+(30 mg/dl) A (Negative) Urine Ketones Negative (Negative) Urine Blood 1+ A (Negative) Urine Nitrate Negative (Negative) Urine Bilirubin Negative (Negative) Urine Urobilinogen Negative (Negative) Ur Leukocyte Esterase Trace A (Negative) Urine WBC (Auto) Trace(0-5/hpf) (Absent) Urine RBC (Auto) 1+(3-5/hpf) A (Absent) Ur Squamous Epith Cells Present A (Absent) Urine Bacteria Absent (Absent) Hyaline Casts Present A (Absent) Urine Glucose Negative (Negative) Influenza A (Rapid) Negative (Negative) Influenza B (Rapid) Negative (Negative) Microbiology and Other Data: Microbiology 02/03/18 12:23 Stool Occult Blood (CARRIE) - Final Stool 02/02/18 14:12 Aerobic Blood Culture - Preliminary Blood Venous Streptococcus Infantarius Anaerobic Blood Culture - Preliminary Streptococcus Infantarius 02/02/18 14:11 Aerobic Blood Culture - Preliminary Blood Venous Streptococcus Infantarius Anaerobic Blood Culture - Preliminary Streptococcus Infantarius 02/02/18 16:15 Urine Culture - Final Urine 02/02/18 16:15 Streptococcus pneumoniae Ag Screen - Final Urine Negative S. pneumo Antigen 02/02/18 14:30 Influenza Types A,B Antigen - Final Nasal Specimen received for Influenza A/B Molecular testing Assess/Plan/Problems-Billing Assessment: 82 yo F h/o s/p TAVR, afib, CAD, CHF, DM2, PVD, non healing ulcer left heel followed by wound care s/p angioplasty of left leg for revascularization last month presented with fever and fatigue found with strep bacteremia - Patient Problems (1) Streptococcal bacteremia Comment: Suspect left heel ulcer as source c/w CTX 2gIV daily Vancomycin UGO without e/o IE Repeat blood cx for clearing (2) Chronic wound of extremity Comment: followed in wound care clinic angioplasty last month to improve wound healing (3) Osteomyelitis Comment: Suggestive on MRI Perc biopsy to be done with pathology at procedure. Radiology is helping arrange the timing. At the earliest is Wednesday. The abelardo follow up with me or the covering provider with more details Wednesday. I would like to avoid significant trauma to the heel given chronicity of previous wound therefore attemp perc biopsy to confirm osteo and need for [facility] abx c/w CTX and vanco until biopsy May need PICC (4) Atrial fibrillation Comment: restart pradaxa sotalol plavix QOD for PVD (5) Diabetes Comment: Hba1c is 5.0 Pt does not have DM2 All coverage and FSG stopped (6) Elevated troponin I level Comment: suspect type 2 demand monitor maintain on tele (7) DVT prophylaxis Comment: pradaxa
[2018-02-04] MEDS: Vancomycin(*) 1,000 MG in NS 0.9% 250 ML* 250 ML IVPB SCH (21:43)
[2018-02-04] MEDS: Atorvastatin* 40 MG TAB PO SCH (21:44)
[2018-02-05] MEDS: cefTRIAXone(*) 2 GM in NS 0.9% 100 ML* 100 ML IVPB SCH ×2 (03:13→13:24)
[2018-02-05] MEDS: Vancomycin(*) 1,000 MG in NS 0.9% 250 ML* 250 ML IVPB SCH ×2 (09:00→22:15)
[2018-02-05] MEDS: Aspirin EC TAB* 81 MG TAB.EC PO SCH (10:09)
[2018-02-05] MEDS: Spironolactone TAB* 25 MG PO SCH (10:09)
[2018-02-05] MEDS: CMC:Dabigatran CAP(NF) 150 MG CAP PO SCH ×2 (10:09→22:15)
[2018-02-05] MEDS: Sotalol TAB* 80 MG PO SCH ×2 (10:09→22:42)
[2018-02-05] MEDS: Clopidogrel TAB* 75 MG PO SCH ×2 (10:13→10:29)
[2018-02-05] MEDS ORDERED: Furosemide IV* 10 MG/ML 2 ML VIAL (20 MG) IV SLOW PU ONE (13:28)
--- NOTE | 2018-02-05 15:29 | PN ---
Subjective Date of Service: 02/05/18 Interval History: Had episode of non radiating dull chest discomfort worse with deep inspiration this AM that resolved without intervention. EKG with LBBB at that time Otherwise feels energy is increasing, wants to walk Left heel pain present Objective Active Medications: Acetaminophen (Tylenol Tab*) 650 mg PO Q4H PRN PRN Reason: FEVER/PAIN Last Admin: 02/03/18 15:35 Dose: 650 mg Aspirin (Aspirin Ec Tab*) 81 mg PO DAILY@1000 [facility] Last Admin: 02/05/18 10:09 Dose: 81 mg Atorvastatin Calcium (Lipitor*) 40 mg PO QPM@2200 [facility] Last Admin: 02/04/18 21:44 Dose: 40 mg Clopidogrel Bisulfate (Plavix Tab*) 75 mg PO EVERY OTHER DAY [facility] Last Admin: 02/05/18 10:29 Dose: 75 mg Dabigatran (Pradaxa Cap(Nf)) 150 mg PO BID [facility] Last Admin: 02/05/18 10:09 Dose: 150 mg Dextrose (D50w Syringe 50 Ml*) 12.5 gm IV PUSH .FOR FS < 60 - SS PRN PRN Reason: FS < 60 Ceftriaxone Sodium 2 gm/ (Sodium Chloride) 100 mls @ 200 mls/hr IVPB Q12H [facility] Last Admin: 02/05/18 13:24 Dose: 200 mls/hr Vancomycin HCl 1,000 mg/ (Sodium Chloride) 250 mls @ 166.667 mls/hr IVPB Q12H [facility] Last Admin: 02/05/18 09:00 Dose: 166.667 mls/hr Ondansetron HCl (Zofran Inj*) 4 mg IV Q6H PRN PRN Reason: NAUSEA Pharmacy Consult (Vancomycin Per Pharmacy*) 1 note FOLLOW UP .VANC PER PHARMACY [facility] Pharmacy Profile Note (Vancomycin Trough Check) 1 note FOLLOW UP 929 ONE Stop: 02/06/18 09:31 Sotalol HCl (Betapace Tab*) 80 mg PO BID@1000,2200 [facility] Last Admin: 02/05/18 10:09 Dose: 80 mg Spironolactone (Aldactone Tab*) 25 mg PO DAILY [facility] Last Admin: 02/05/18 10:09 Dose: 25 mg Vital Signs - 8 hr 02/05/18 02/05/18 07:31 08:00 Temperature 98.3 F Pulse Rate 84 Respiratory 18 20 Rate Blood Pressure 140/50 (mmHg) O2 Sat by Pulse 99 Oximetry Oxygen Devices in Use Now: None Appearance: NAD Eyes: No Scleral Icterus, PERRLA Ears/Nose/Mouth/Throat: NL Teeth, Lips, Gums, Clear Oropharnyx Neck: NL Appearance and Movements; NL JVP, Trachea Midline Respiratory: Symmetrical Chest Expansion and Respiratory Effort, - - rales in bases Cardiovascular: RRR Abdominal: NL Sounds; No Tenderness; No Distention, No Hepatosplenomegaly Lymphatic: No Cervical Adenopathy Extremities: - - 1+ le edema Skin: - - left heel erythematous, small amount of discharge on dressing Neurological: Alert and Oriented x 3 Result Diagrams: 02/04/18 05:32 02/04/18 05:32 Additional Lab and Data: Lab Results 02/02/18 02/02/18 02/02/18 Range/Units 14:12 14:12 14:12 WBC 10.2 (3.5-10.8) 10^3/ul RBC 3.12 L (4.00-5.40) 10^6/ul Hgb 10.5 L (12.0-16.0) g/dl Hct 30 L (35-47) % MCV 97 (80-97) fL MCH 34 H (27-31) pg MCHC 35 (31-36) g/dl RDW 13 (10.5-15) % Plt Count 141 L (150-450) 10^3/ul MPV 8.1 (7.4-10.4) um3 Neut % (Auto) 92.2 H (38-83) % Lymph % (Auto) 3.9 L (25-47) % [place] % (Auto) 3.4 (0-7) % Eos % (Auto) 0 (0-6) % Baso % (Auto) 0.5 (0-2) % Absolute Neuts (auto) 9.4 H (1.5-7.7) 10^3/ul Absolute Lymphs (auto) 0.4 L (1.0-4.8) 10^3/ul Absolute Monos (auto) 0.4 (0-0.8) 10^3/ul Absolute Eos (auto) 0 (0-0.6) 10^3/ul Absolute Basos (auto) 0 (0-0.2) 10^3/ul Absolute Nucleated RBC 0 10^3/ul Nucleated RBC % 0 INR (Anticoag Therapy) 2.09 H (0.77-1.02) APTT 185.8 H* (26.0-36.3) seconds Sodium 135 (135-145) mmol/L Potassium 4.6 (3.5-5.0) mmol/L Chloride 103 (101-111) mmol/L Carbon Dioxide 24 (22-32) mmol/L Anion Gap 8 (2-11) mmol/L BUN 22 (6-24) mg/dL Creatinine 1.11 H (0.51-0.95) mg/dL Est GFR ( Amer) 57.2 (>60) Est GFR (Non-Af Amer) 47.3 (>60) BUN/Creatinine Ratio 19.8 (8-20) Glucose 200 H (70-100) mg/dL Lactic Acid (0.5-2.0) mmol/L Calcium 9.1 (8.6-10.3) mg/dL Total Bilirubin 3.40 H (0.2-1.0) mg/dL AST 30 (13-39) U/L ALT 20 (7-52) U/L Alkaline Phosphatase 110 H (34-104) U/L Troponin I 0.53 H* (<0.04) ng/mL Total Protein 6.3 L (6.4-8.9) g/dL Albumin 3.9 (3.2-5.2) g/dL Globulin 2.4 (2-4) g/dL Albumin/Globulin Ratio 1.6 (1-3) Urine Color Urine Appearance Urine pH (5-9) Ur Specific [place] (1.010-1.030) Urine Protein (Negative) Urine Ketones (Negative) Urine Blood (Negative) Urine Nitrate (Negative) Urine Bilirubin (Negative) Urine Urobilinogen (Negative) Ur Leukocyte Esterase (Negative) Urine WBC (Auto) (Absent) Urine RBC (Auto) (Absent) Ur Squamous Epith Cells (Absent) Urine Bacteria (Absent) Hyaline Casts (Absent) Urine Glucose (Negative) Influenza A (Rapid) (Negative) Influenza B (Rapid) (Negative) 02/02/18 02/02/18 02/02/18 Range/Units 14:12 14:40 16:15 WBC (3.5-10.8) 10^3/ul RBC (4.00-5.40) 10^6/ul Hgb (12.0-16.0) g/dl Hct (35-47) % MCV (80-97) fL MCH (27-31) pg MCHC (31-36) g/dl RDW (10.5-15) % Plt Count (150-450) 10^3/ul MPV (7.4-10.4) um3 Neut % (Auto) (38-83) % Lymph % (Auto) (25-47) % [place] % (Auto) (0-7) % Eos % (Auto) (0-6) % Baso % (Auto) (0-2) % Absolute Neuts (auto) (1.5-7.7) 10^3/ul Absolute Lymphs (auto) (1.0-4.8) 10^3/ul Absolute Monos (auto) (0-0.8) 10^3/ul Absolute Eos (auto) (0-0.6) 10^3/ul Absolute Basos (auto) (0-0.2) 10^3/ul Absolute Nucleated RBC 10^3/ul Nucleated RBC % INR (Anticoag Therapy) (0.77-1.02) APTT (26.0-36.3) seconds Sodium (135-145) mmol/L Potassium (3.5-5.0) mmol/L Chloride (101-111) mmol/L Carbon Dioxide (22-32) mmol/L Anion Gap (2-11) mmol/L BUN (6-24) mg/dL Creatinine (0.51-0.95) mg/dL Est GFR ( Amer) (>60) Est GFR (Non-Af Amer) (>60) BUN/Creatinine Ratio (8-20) Glucose (70-100) mg/dL Lactic Acid 2.9 H* (0.5-2.0) mmol/L Calcium (8.6-10.3) mg/dL Total Bilirubin (0.2-1.0) mg/dL AST (13-39) U/L ALT (7-52) U/L Alkaline Phosphatase (34-104) U/L Troponin I (<0.04) ng/mL Total Protein (6.4-8.9) g/dL Albumin (3.2-5.2) g/dL Globulin (2-4) g/dL Albumin/Globulin Ratio (1-3) Urine Color Olga Lidia Urine Appearance Cloudy Urine pH 5.0 (5-9) Ur Specific [place] 1.027 (1.010-1.030) Urine Protein 1+(30 mg/dl) A (Negative) Urine Ketones Negative (Negative) Urine Blood 1+ A (Negative) Urine Nitrate Negative (Negative) Urine Bilirubin Negative (Negative) Urine Urobilinogen Negative (Negative) Ur Leukocyte Esterase Trace A (Negative) Urine WBC (Auto) Trace(0-5/hpf) (Absent) Urine RBC (Auto) 1+(3-5/hpf) A (Absent) Ur Squamous Epith Cells Present A (Absent) Urine Bacteria Absent (Absent) Hyaline Casts Present A (Absent) Urine Glucose Negative (Negative) Influenza A (Rapid) Negative (Negative) Influenza B (Rapid) Negative (Negative) Microbiology and Other Data: Microbiology 02/03/18 12:23 Stool Occult Blood (CARRIE) - Final Stool 02/02/18 14:12 Aerobic Blood Culture - Preliminary Blood Venous Streptococcus Infantarius Anaerobic Blood Culture - Preliminary Streptococcus Infantarius 02/02/18 14:11 Aerobic Blood Culture - Preliminary Blood Venous Streptococcus Infantarius Anaerobic Blood Culture - Preliminary Streptococcus Infantarius 02/02/18 16:15 Urine Culture - Final Urine 02/02/18 16:15 Streptococcus pneumoniae Ag Screen - Final Urine Negative S. pneumo Antigen 02/02/18 14:30 Influenza Types A,B Antigen - Final Nasal Specimen received for Influenza A/B Molecular testing Assess/Plan/Problems-Billing Assessment: 82 yo F h/o s/p TAVR, afib, CAD, CHF, DM2, PVD, non healing ulcer left heel followed by wound care s/p angioplasty of left leg for revascularization last month presented with fever and fatigue found with strep bacteremia - Patient Problems (1) Streptococcal bacteremia Comment: Suspect left heel ulcer as source c/w CTX 2gIV daily Vancomycin UGO without e/o IE Repeat blood cx for clearing (2) Chronic wound of extremity Comment: followed in wound care clinic angioplasty last month to improve wound healing (3) Osteomyelitis Comment: Suggestive on MRI Perc biopsy to be done with pathology at procedure. Radiology is helping arrange the timing. At the earliest is Wednesday. They will follow up with me or the covering provider with more details Wednesday. I would like to avoid significant trauma to the heel given chronicity of previous wound therefore attemp perc biopsy to confirm osteo and need for group home abx c/w CTX and vanco until biopsy May need PICC (4) Atrial fibrillation Comment: restart pradaxa sotalol plavix QOD for PVD lasix x 1 for rales on 02/05 (5) Diabetes Comment: Hba1c is 5.0 Pt does not have DM2 All coverage and FSG stopped (6) Elevated troponin I level Comment: suspect type 2 demand monitor maintain on tele (7) DVT prophylaxis Comment: pradaxa
[2018-02-05] MEDS: Atorvastatin* 40 MG TAB PO SCH (22:42)
[2018-02-05] MEDS: Acetaminophen TAB* 325 MG PO PRN (23:34)
[2018-02-06] MEDS: cefTRIAXone(*) 2 GM in NS 0.9% 100 ML* 100 ML IVPB SCH ×2 (02:12→13:36)
[2018-02-06 05:21] LABS: ABS Basophils 0 10^3/ul (0-0.2); ABS Eosinophils 0.3 10^3/ul (0-0.6); ABS Lymphocytes 1.3 10^3/ul (1.0-4.8); ABS Monocytes 0.5 10^3/ul (0-0.8); ABS Neutrophils 2.9 10^3/ul (1.5-7.7); ABS Nucleated RBC 0 10^3/ul; Eosinophil % 5.9 % (0-6); Hematocrit 25 % (35-47); Hemoglobin 8.8 g/dl (12.0-16.0); Lymphocyte % 25.7 % (25-47); Mean Corpuscular HGB Conc 36 g/dl (31-36); Mean Corpuscular Hemoglobin 34 pg (27-31); Mean Corpuscular Volume 95 fL (80-97); Mean Platelet Volume 8.3 um3 (7.4-10.4); Nucleated Red Blood Cells % 0.1; Platelet Count 106 10^3/ul (150-450); Red Blood Count 2.59 10^6/ul (4.00-5.40); Red Cell Distribution Width 13 % (10.5-15)
[2018-02-06 05:38] LABS: EGFR Non-African American 83.3 (>60)
[2018-02-06] MEDS ORDERED: Vancomycin Trough Check NOTE FOLLOW UP ONE (09:30)
[2018-02-06] MEDS: Spironolactone TAB* 25 MG PO SCH (09:51)
[2018-02-06] MEDS: Aspirin EC TAB* 81 MG TAB.EC PO SCH (09:51)
[2018-02-06] MEDS: CMC:Dabigatran CAP(NF) 150 MG CAP PO SCH ×2 (09:51→22:03)
[2018-02-06] MEDS: Sotalol TAB* 80 MG PO SCH ×2 (09:51→22:03)
[2018-02-06] MEDS: Vancomycin(*) 1,000 MG in NS 0.9% 250 ML* 250 ML IVPB SCH (11:09)
[2018-02-06] MEDS: Acetaminophen TAB* 325 MG PO PRN (11:16)
--- NOTE | 2018-02-06 16:54 | PN ---
Subjective Date of Service: 02/06/18 Interval History: Sitting up in chair Left heel still painful but improving no SOB but notes LE swelling Objective Active Medications: Acetaminophen (Tylenol Tab*) 650 mg PO Q4H PRN PRN Reason: FEVER/PAIN Last Admin: 02/06/18 11:16 Dose: 650 mg Aspirin (Aspirin Ec Tab*) 81 mg PO DAILY@1000 [facility] Last Admin: 02/06/18 09:51 Dose: 81 mg Atorvastatin Calcium (Lipitor*) 40 mg PO QPM@2200 [facility] Last Admin: 02/05/18 22:42 Dose: 40 mg Clopidogrel Bisulfate (Plavix Tab*) 75 mg PO EVERY OTHER DAY [facility] Last Admin: 02/05/18 10:29 Dose: 75 mg Dabigatran (Pradaxa Cap(Nf)) 150 mg PO BID [facility] Last Admin: 02/06/18 09:51 Dose: 150 mg Dextrose (D50w Syringe 50 Ml*) 12.5 gm IV PUSH .FOR FS < 60 - SS PRN PRN Reason: FS < 60 Ceftriaxone Sodium 2 gm/ (Sodium Chloride) 100 mls @ 200 mls/hr IVPB Q12H [facility] Last Admin: 02/06/18 13:36 Dose: 200 mls/hr Ondansetron HCl (Zofran Inj*) 4 mg IV Q6H PRN PRN Reason: NAUSEA Sotalol HCl (Betapace Tab*) 80 mg PO BID@1000,2200 [facility] Last Admin: 02/06/18 09:51 Dose: 80 mg Spironolactone (Aldactone Tab*) 25 mg PO DAILY [facility] Last Admin: 02/06/18 09:51 Dose: 25 mg Vital Signs - 8 hr 02/06/18 02/06/18 12:00 15:29 Temperature 97.8 F 98.0 F Pulse Rate 73 61 Respiratory 20 14 Rate Blood Pressure 137/51 121/46 (mmHg) O2 Sat by Pulse 99 100 Oximetry Oxygen Devices in Use Now: None Appearance: NAD Eyes: No Scleral Icterus, PERRLA Ears/Nose/Mouth/Throat: NL Teeth, Lips, Gums, Clear Oropharnyx Neck: NL Appearance and Movements; NL JVP, Trachea Midline Respiratory: Symmetrical Chest Expansion and Respiratory Effort, Clear to Auscultation Cardiovascular: RRR, - - 2/6 holosystolic murmur Abdominal: NL Sounds; No Tenderness; No Distention, No Hepatosplenomegaly Lymphatic: No Cervical Adenopathy Extremities: - - left heel erythema with small punctate ulcer with minimal drainage Neurological: Alert and Oriented x 3 Result Diagrams: 02/06/18 05:10 02/06/18 05:10 Additional Lab and Data: Lab Results 02/02/18 02/02/18 02/02/18 Range/Units 14:12 14:12 14:12 WBC 10.2 (3.5-10.8) 10^3/ul RBC 3.12 L (4.00-5.40) 10^6/ul Hgb 10.5 L (12.0-16.0) g/dl Hct 30 L (35-47) % MCV 97 (80-97) fL MCH 34 H (27-31) pg MCHC 35 (31-36) g/dl RDW 13 (10.5-15) % Plt Count 141 L (150-450) 10^3/ul MPV 8.1 (7.4-10.4) um3 Neut % (Auto) 92.2 H (38-83) % Lymph % (Auto) 3.9 L (25-47) % Ocean % (Auto) 3.4 (0-7) % Eos % (Auto) 0 (0-6) % Baso % (Auto) 0.5 (0-2) % Absolute Neuts (auto) 9.4 H (1.5-7.7) 10^3/ul Absolute Lymphs (auto) 0.4 L (1.0-4.8) 10^3/ul Absolute Monos (auto) 0.4 (0-0.8) 10^3/ul Absolute Eos (auto) 0 (0-0.6) 10^3/ul Absolute Basos (auto) 0 (0-0.2) 10^3/ul Absolute Nucleated RBC 0 10^3/ul Nucleated RBC % 0 INR (Anticoag Therapy) 2.09 H (0.77-1.02) APTT 185.8 H* (26.0-36.3) seconds Sodium 135 (135-145) mmol/L Potassium 4.6 (3.5-5.0) mmol/L Chloride 103 (101-111) mmol/L Carbon Dioxide 24 (22-32) mmol/L Anion Gap 8 (2-11) mmol/L BUN 22 (6-24) mg/dL Creatinine 1.11 H (0.51-0.95) mg/dL Est GFR ( Amer) 57.2 (>60) Est GFR (Non-Af Amer) 47.3 (>60) BUN/Creatinine Ratio 19.8 (8-20) Glucose 200 H (70-100) mg/dL Lactic Acid (0.5-2.0) mmol/L Calcium 9.1 (8.6-10.3) mg/dL Total Bilirubin 3.40 H (0.2-1.0) mg/dL AST 30 (13-39) U/L ALT 20 (7-52) U/L Alkaline Phosphatase 110 H (34-104) U/L Troponin I 0.53 H* (<0.04) ng/mL Total Protein 6.3 L (6.4-8.9) g/dL Albumin 3.9 (3.2-5.2) g/dL Globulin 2.4 (2-4) g/dL Albumin/Globulin Ratio 1.6 (1-3) Urine Color Urine Appearance Urine pH (5-9) Ur Specific [place] (1.010-1.030) Urine Protein (Negative) Urine Ketones (Negative) Urine Blood (Negative) Urine Nitrate (Negative) Urine Bilirubin (Negative) Urine Urobilinogen (Negative) Ur Leukocyte Esterase (Negative) Urine WBC (Auto) (Absent) Urine RBC (Auto) (Absent) Ur Squamous Epith Cells (Absent) Urine Bacteria (Absent) Hyaline Casts (Absent) Urine Glucose (Negative) Influenza A (Rapid) (Negative) Influenza B (Rapid) (Negative) 02/02/18 02/02/18 02/02/18 Range/Units 14:12 14:40 16:15 WBC (3.5-10.8) 10^3/ul RBC (4.00-5.40) 10^6/ul Hgb (12.0-16.0) g/dl Hct (35-47) % MCV (80-97) fL MCH (27-31) pg MCHC (31-36) g/dl RDW (10.5-15) % Plt Count (150-450) 10^3/ul MPV (7.4-10.4) um3 Neut % (Auto) (38-83) % Lymph % (Auto) (25-47) % Ocean % (Auto) (0-7) % Eos % (Auto) (0-6) % Baso % (Auto) (0-2) % Absolute Neuts (auto) (1.5-7.7) 10^3/ul Absolute Lymphs (auto) (1.0-4.8) 10^3/ul Absolute Monos (auto) (0-0.8) 10^3/ul Absolute Eos (auto) (0-0.6) 10^3/ul Absolute Basos (auto) (0-0.2) 10^3/ul Absolute Nucleated RBC 10^3/ul Nucleated RBC % INR (Anticoag Therapy) (0.77-1.02) APTT (26.0-36.3) seconds Sodium (135-145) mmol/L Potassium (3.5-5.0) mmol/L Chloride (101-111) mmol/L Carbon Dioxide (22-32) mmol/L Anion Gap (2-11) mmol/L BUN (6-24) mg/dL Creatinine (0.51-0.95) mg/dL Est GFR ( Amer) (>60) Est GFR (Non-Af Amer) (>60) BUN/Creatinine Ratio (8-20) Glucose (70-100) mg/dL Lactic Acid 2.9 H* (0.5-2.0) mmol/L Calcium (8.6-10.3) mg/dL Total Bilirubin (0.2-1.0) mg/dL AST (13-39) U/L ALT (7-52) U/L Alkaline Phosphatase (34-104) U/L Troponin I (<0.04) ng/mL Total Protein (6.4-8.9) g/dL Albumin (3.2-5.2) g/dL Globulin (2-4) g/dL Albumin/Globulin Ratio (1-3) Urine Color Olga Lidia Urine Appearance Cloudy Urine pH 5.0 (5-9) Ur Specific [place] 1.027 (1.010-1.030) Urine Protein 1+(30 mg/dl) A (Negative) Urine Ketones Negative (Negative) Urine Blood 1+ A (Negative) Urine Nitrate Negative (Negative) Urine Bilirubin Negative (Negative) Urine Urobilinogen Negative (Negative) Ur Leukocyte Esterase Trace A (Negative) Urine WBC (Auto) Trace(0-5/hpf) (Absent) Urine RBC (Auto) 1+(3-5/hpf) A (Absent) Ur Squamous Epith Cells Present A (Absent) Urine Bacteria Absent (Absent) Hyaline Casts Present A (Absent) Urine Glucose Negative (Negative) Influenza A (Rapid) Negative (Negative) Influenza B (Rapid) Negative (Negative) Microbiology and Other Data: Microbiology 02/03/18 12:23 Stool Occult Blood (CARRIE) - Final Stool 02/02/18 14:12 Aerobic Blood Culture - Preliminary Blood Venous Streptococcus Infantarius Anaerobic Blood Culture - Preliminary Streptococcus Infantarius 02/02/18 14:11 Aerobic Blood Culture - Preliminary Blood Venous Streptococcus Infantarius Anaerobic Blood Culture - Preliminary Streptococcus Infantarius 02/02/18 16:15 Urine Culture - Final Urine 02/02/18 16:15 Streptococcus pneumoniae Ag Screen - Final Urine Negative S. pneumo Antigen 02/02/18 14:30 Influenza Types A,B Antigen - Final Nasal Specimen received for Influenza A/B Molecular testing Assess/Plan/Problems-Billing Assessment: 82 yo F h/o s/p TAVR, afib, CAD, CHF, DM2, PVD, non healing ulcer left heel followed by wound care s/p angioplasty of left leg for revascularization last month presented with fever and fatigue found with strep bacteremia - Patient Problems (1) Streptococcal bacteremia Comment: Suspect left heel cellulitis and/or osteomyelitis as source c/w CTX 2gIV daily d/c Vancomycin UGO without e/o IE Repeat blood cx clear (2) Chronic wound of extremity Comment: followed in wound care clinic angioplasty last month to improve wound healing (3) Osteomyelitis Comment: Suggestive on MRI Suspect benefit to bone biopsy given uncertain dx based on MRI alone. Can consider long course abx regardless since sensitivity of bone biopsy is diminishing on abx Perc biopsy to be done with pathology at procedure. Radiology is helping arrange the timing. At the earliest is Wednesday. They will follow up with me or the covering provider with more details Wednesday. I would like to avoid significant trauma to the heel given chronicity of previous wound therefore attemp perc biopsy to confirm osteo and need for alf abx c/w CTX May need PICC ID consult (4) Atrial fibrillation Comment: restart pradaxa sotalol plavix QOD for PVD lasix x 1 for rales on 02/05 (5) Diabetes Comment: Hba1c is 5.0 Pt does not have DM2 All coverage and FSG stopped (6) Elevated troponin I level Comment: suspect type 2 demand monitor maintain on tele (7) DVT prophylaxis Comment: pradaxa
[2018-02-06] MEDS: Atorvastatin* 40 MG TAB PO SCH (22:03)
[2018-02-07] MEDS: Acetaminophen TAB* 325 MG PO PRN (00:03)
[2018-02-07] MEDS: cefTRIAXone(*) 2 GM in NS 0.9% 100 ML* 100 ML IVPB SCH (02:09)
[2018-02-07 05:58] LABS: INR 1.88 (0.77-1.02)
[2018-02-07] MEDS: CMC:Dabigatran CAP(NF) 150 MG CAP PO SCH ×3 (08:08→22:05)
--- NOTE | 2018-02-07 09:08 | PN ---
Progress Note - Progress Note Date of Service: 02/07/18 SOAP: Subjective: CC: bacteremia HPI: 82 yo woman with TAVR and 6 weeks of malaise and anorexia, multiple decayed teeth and VGS bacteremia. UGO no vegetation. Has had left heel ulcer which is nearly resolved but a few days of heel tenderness which is better here. Staying off of it more than she did at home. No fever, rash, or diarrhea. Feels much better. Objective: Vital Signs Temp 36.4 C 02/07/18 03:30 Pulse 47 02/07/18 03:30 Resp 18 02/07/18 07:41 BP 130/44 02/07/18 03:30 Pulse Ox 99 02/07/18 03:30 Intake & Output 02/06/18 02/07/18 02/07/18 18:59 06:59 18:59 Intake Total 1870 593 Output Total 525 1550 Balance 1345 -957 Intake: IV Fluids 350 113 ABX - CEFTRIAXONE 113 ABX - VANCOMYCIN 350 Oral 1520 480 Output: Urine 525 1550 Other: # Bowel Movements 0 Gen:awake, no distress HEENT: no thrush; most teeth absent, some mandibular decayed teeth present Neck: no mass Heart:RRR no murmur Lungs:CTA BL Abd:+BS NTND soft Skin: no rash MSK: no spine tendernes or heel tenderness; left plantar calcaneal 1 mm ulcer no erythema MRI Left foot: calcaneous BM edema, no mention of weighting; adjacent fluid collection Microbiology 02/04/18 14:41 Blood Venous Aerobic Blood Culture - Preliminary No Growth Day 2 02/04/18 14:41 Blood Venous Anaerobic Blood Culture - Preliminary No Growth Day 2 02/02/18 14:12 Blood Venous Aerobic Blood Culture - Final Streptococcus Infantarius 02/02/18 14:12 Blood Venous Anaerobic Blood Culture - Final Streptococcus Infantarius 02/02/18 14:11 Blood Venous Aerobic Blood Culture - Final Streptococcus Infantarius 02/02/18 14:11 Blood Venous Anaerobic Blood Culture - Final Streptococcus Infantarius 02/03/18 12:23 Stool Stool Occult Blood (CARRIE) - Final 02/02/18 16:15 Urine Urine Culture - Final 02/02/18 16:15 Urine Streptococcus pneumoniae Ag Screen - Final Negative S. pneumo Antigen 02/02/18 14:30 Nasal Influenza Types A,B Antigen - Final Specimen received for Influenza A/B Molecular testing Laboratory Results - last 24 hr 02/06/18 02/07/18 10: 05:35 INR (Anticoag Therapy) 1.88 H Vancomycin Trough 17.8 Assessment: 1. Strep infantarius bacteremia in setting of TAVR and subacute illness, no vegetation and no subvalvular abscess by UGO. Overall presentation is due to infective endocarditis. There is an assoc between S. 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 2. Left heel pain, resolving chronic ulcer; chronic osteomyelitis with abscess 3. Cephalosporin allergy, tolerating ceftriaxone 4. obesity 5. Diabetes T2 Plan: 1. Ceftriaxone 2 gm daily (decr from Q12), day , weekly cbc, cmp, crp. Can hold off on bone biopsy. Discussed with Dr Anderson 35 minutes floor time >50% face to face in counseling regarding further diagnostic questions and antibiotic plans
[2018-02-07] MEDS: Sotalol TAB* 80 MG PO SCH ×2 (10:16→22:05)
[2018-02-07] MEDS: Aspirin EC TAB* 81 MG TAB.EC PO SCH (10:16)
[2018-02-07] MEDS: Spironolactone TAB* 25 MG PO SCH (10:16)
[2018-02-07] MEDS: Clopidogrel TAB* 75 MG PO SCH (10:17)
[2018-02-07] MEDS ORDERED: cefTRIAXone(*) 2 GM in NS 0.9% 100 ML* 100 ML IVPB SCH (14:00)
[2018-02-07] MEDS ORDERED: Lactobacillus Acidophilus* 1 TAB PO ONE (15:44)
--- NOTE | 2018-02-07 16:39 | PN ---
Subjective Date of Service: 02/07/18 Interval History: Pt feels well.no new complaints. Objective Active Medications: Acetaminophen (Tylenol Tab*) 650 mg PO Q4H PRN PRN Reason: FEVER/PAIN Last Admin: 02/07/18 00:03 Dose: 650 mg Aspirin (Aspirin Ec Tab*) 81 mg PO DAILY@1000 [facility] Last Admin: 02/07/18 10:16 Dose: 81 mg Atorvastatin Calcium (Lipitor*) 40 mg PO QPM@2200 [facility] Last Admin: 02/06/18 22:03 Dose: 40 mg Clopidogrel Bisulfate (Plavix Tab*) 75 mg PO EVERY OTHER DAY [facility] Last Admin: 02/07/18 10:17 Dose: 75 mg Dabigatran (Pradaxa Cap(Nf)) 150 mg PO BID@0900,2200 [facility] Last Admin: 02/07/18 10:17 Dose: 150 mg Dextrose (D50w Syringe 50 Ml*) 12.5 gm IV PUSH .FOR FS < 60 - SS PRN PRN Reason: FS < 60 Ceftriaxone Sodium 2 gm/ (Sodium Chloride) 100 mls @ 200 mls/hr IVPB Q24HR [facility] Lactobacillus Rhamnosus (Lactobacillus Acidophilus*) 1 tab PO BID [facility] Ondansetron HCl (Zofran Inj*) 4 mg IV Q6H PRN PRN Reason: NAUSEA Sotalol HCl (Betapace Tab*) 80 mg PO BID@1000,2200 [facility] Last Admin: 02/07/18 10:16 Dose: 80 mg Spironolactone (Aldactone Tab*) 25 mg PO DAILY [facility] Last Admin: 02/07/18 10:16 Dose: 25 mg Vital Signs - 8 hr 02/07/18 15:21 Temperature 96.6 F Pulse Rate 57 Respiratory 16 Rate Blood Pressure 124/45 (mmHg) O2 Sat by Pulse 100 Oximetry Oxygen Devices in Use Now: None Appearance: 82 yo F in nAD, aAOx3 Eyes: No Scleral Icterus, PERRLA Ears/Nose/Mouth/Throat: NL Teeth, Lips, Gums, Mucous Membranes Moist Neck: NL Appearance and Movements; NL JVP, Trachea Midline Respiratory: Symmetrical Chest Expansion and Respiratory Effort, Clear to Auscultation Cardiovascular: NL Sounds; No Murmurs; No JVD, RRR Abdominal: NL Sounds; No Tenderness; No Distention Lymphatic: No Cervical Adenopathy Extremities: No Clubbing, Cyanosis, - - +1 pitting pedal edema Skin: No Nodules or Sclerosis, - - L heel ulcer at 1 cm in diam Neurological: Alert and Oriented x 3, NL Muscle Strength and Tone Result Diagrams: 02/06/18 05:10 02/06/18 05:10 Additional Lab and Data: Lab Results 02/02/18 02/02/18 02/02/18 Range/Units 14:12 14:12 14:12 WBC 10.2 (3.5-10.8) 10^3/ul RBC 3.12 L (4.00-5.40) 10^6/ul Hgb 10.5 L (12.0-16.0) g/dl Hct 30 L (35-47) % MCV 97 (80-97) fL MCH 34 H (27-31) pg MCHC 35 (31-36) g/dl RDW 13 (10.5-15) % Plt Count 141 L (150-450) 10^3/ul MPV 8.1 (7.4-10.4) um3 Neut % (Auto) 92.2 H (38-83) % Lymph % (Auto) 3.9 L (25-47) % Towns % (Auto) 3.4 (0-7) % Eos % (Auto) 0 (0-6) % Baso % (Auto) 0.5 (0-2) % Absolute Neuts (auto) 9.4 H (1.5-7.7) 10^3/ul Absolute Lymphs (auto) 0.4 L (1.0-4.8) 10^3/ul Absolute Monos (auto) 0.4 (0-0.8) 10^3/ul Absolute Eos (auto) 0 (0-0.6) 10^3/ul Absolute Basos (auto) 0 (0-0.2) 10^3/ul Absolute Nucleated RBC 0 10^3/ul Nucleated RBC % 0 INR (Anticoag Therapy) 2.09 H (0.77-1.02) APTT 185.8 H* (26.0-36.3) seconds Sodium 135 (135-145) mmol/L Potassium 4.6 (3.5-5.0) mmol/L Chloride 103 (101-111) mmol/L Carbon Dioxide 24 (22-32) mmol/L Anion Gap 8 (2-11) mmol/L BUN 22 (6-24) mg/dL Creatinine 1.11 H (0.51-0.95) mg/dL Est GFR ( Amer) 57.2 (>60) Est GFR (Non-Af Amer) 47.3 (>60) BUN/Creatinine Ratio 19.8 (8-20) Glucose 200 H (70-100) mg/dL Lactic Acid (0.5-2.0) mmol/L Calcium 9.1 (8.6-10.3) mg/dL Total Bilirubin 3.40 H (0.2-1.0) mg/dL AST 30 (13-39) U/L ALT 20 (7-52) U/L Alkaline Phosphatase 110 H (34-104) U/L Troponin I 0.53 H* (<0.04) ng/mL Total Protein 6.3 L (6.4-8.9) g/dL Albumin 3.9 (3.2-5.2) g/dL Globulin 2.4 (2-4) g/dL Albumin/Globulin Ratio 1.6 (1-3) Urine Color Urine Appearance Urine pH (5-9) Ur Specific [place] (1.010-1.030) Urine Protein (Negative) Urine Ketones (Negative) Urine Blood (Negative) Urine Nitrate (Negative) Urine Bilirubin (Negative) Urine Urobilinogen (Negative) Ur Leukocyte Esterase (Negative) Urine WBC (Auto) (Absent) Urine RBC (Auto) (Absent) Ur Squamous Epith Cells (Absent) Urine Bacteria (Absent) Hyaline Casts (Absent) Urine Glucose (Negative) Influenza A (Rapid) (Negative) Influenza B (Rapid) (Negative) 02/02/18 02/02/18 02/02/18 Range/Units 14:12 14:40 16:15 WBC (3.5-10.8) 10^3/ul RBC (4.00-5.40) 10^6/ul Hgb (12.0-16.0) g/dl Hct (35-47) % MCV (80-97) fL MCH (27-31) pg MCHC (31-36) g/dl RDW (10.5-15) % Plt Count (150-450) 10^3/ul MPV (7.4-10.4) um3 Neut % (Auto) (38-83) % Lymph % (Auto) (25-47) % Towns % (Auto) (0-7) % Eos % (Auto) (0-6) % Baso % (Auto) (0-2) % Absolute Neuts (auto) (1.5-7.7) 10^3/ul Absolute Lymphs (auto) (1.0-4.8) 10^3/ul Absolute Monos (auto) (0-0.8) 10^3/ul Absolute Eos (auto) (0-0.6) 10^3/ul Absolute Basos (auto) (0-0.2) 10^3/ul Absolute Nucleated RBC 10^3/ul Nucleated RBC % INR (Anticoag Therapy) (0.77-1.02) APTT (26.0-36.3) seconds Sodium (135-145) mmol/L Potassium (3.5-5.0) mmol/L Chloride (101-111) mmol/L Carbon Dioxide (22-32) mmol/L Anion Gap (2-11) mmol/L BUN (6-24) mg/dL Creatinine (0.51-0.95) mg/dL Est GFR ( Amer) (>60) Est GFR (Non-Af Amer) (>60) BUN/Creatinine Ratio (8-20) Glucose (70-100) mg/dL Lactic Acid 2.9 H* (0.5-2.0) mmol/L Calcium (8.6-10.3) mg/dL Total Bilirubin (0.2-1.0) mg/dL AST (13-39) U/L ALT (7-52) U/L Alkaline Phosphatase (34-104) U/L Troponin I (<0.04) ng/mL Total Protein (6.4-8.9) g/dL Albumin (3.2-5.2) g/dL Globulin (2-4) g/dL Albumin/Globulin Ratio (1-3) Urine Color Olga Lidia Urine Appearance Cloudy Urine pH 5.0 (5-9) Ur Specific [place] 1.027 (1.010-1.030) Urine Protein 1+(30 mg/dl) A (Negative) Urine Ketones Negative (Negative) Urine Blood 1+ A (Negative) Urine Nitrate Negative (Negative) Urine Bilirubin Negative (Negative) Urine Urobilinogen Negative (Negative) Ur Leukocyte Esterase Trace A (Negative) Urine WBC (Auto) Trace(0-5/hpf) (Absent) Urine RBC (Auto) 1+(3-5/hpf) A (Absent) Ur Squamous Epith Cells Present A (Absent) Urine Bacteria Absent (Absent) Hyaline Casts Present A (Absent) Urine Glucose Negative (Negative) Influenza A (Rapid) Negative (Negative) Influenza B (Rapid) Negative (Negative) Microbiology and Other Data: Microbiology 02/03/18 12:23 Stool Occult Blood (CARRIE) - Final Stool 02/02/18 14:12 Aerobic Blood Culture - Preliminary Blood Venous Streptococcus Infantarius Anaerobic Blood Culture - Preliminary Streptococcus Infantarius 02/02/18 14:11 Aerobic Blood Culture - Preliminary Blood Venous Streptococcus Infantarius Anaerobic Blood Culture - Preliminary Streptococcus Infantarius 02/02/18 16:15 Urine Culture - Final Urine 02/02/18 16:15 Streptococcus pneumoniae Ag Screen - Final Urine Negative S. pneumo Antigen 02/02/18 14:30 Influenza Types A,B Antigen - Final Nasal Specimen received for Influenza A/B Molecular testing Assess/Plan/Problems-Billing Assessment: 82 yo F h/o s/p TAVR, afib, CAD, CHF, DM2, PVD, non healing ulcer left heel followed by wound care s/p angioplasty of left leg for revascularization last month presented with fever and fatigue found with strep bacteremia - Patient Problems (1) Streptococcal bacteremia Comment: Suspect left heel cellulitis could be the source, but pt has also poor dentition. As per D/w / Janelle no further w/up of left heel ulcer is needed for now c/w CTX 2gIV daily x 36 days, d/c to home f/u at infusion center after UGO without e/o IE Repeat blood cx neg (2) Aortic stenosis, severe Comment: s/p TAVR (3) Chronic wound of extremity Comment: followed in wound care clinic angioplasty last month to improve wound healing (4) Diabetes Comment: Hba1c is 5.0 Pt does not have DM2 All coverage and FSG stopped (5) Elevated troponin I level Comment: suspect type 2 demand monitor maintain on tele (6) DVT prophylaxis Comment: pradaxa Status and Disposition: inpatient
[2018-02-07] MEDS: Lactobacillus Acidophilus* 1 TAB PO SCH (22:05)
[2018-02-07] MEDS: Atorvastatin* 40 MG TAB PO SCH (22:05)
[2018-02-08 06:01] LABS: ABS Basophils 0.1 10^3/ul (0-0.2); ABS Eosinophils 0.3 10^3/ul (0-0.6); ABS Lymphocytes 1.4 10^3/ul (1.0-4.8); ABS Monocytes 0.5 10^3/ul (0-0.8); ABS Neutrophils 3.3 10^3/ul (1.5-7.7); ABS Nucleated RBC 0 10^3/ul; Eosinophil % 6.2 % (0-6); Hematocrit 25 % (35-47); Hemoglobin 8.8 g/dl (12.0-16.0); Lymphocyte % 25.2 % (25-47); Mean Corpuscular HGB Conc 36 g/dl (31-36); Mean Corpuscular Hemoglobin 34 pg (27-31); Mean Corpuscular Volume 95 fL (80-97); Mean Platelet Volume 8.1 um3 (7.4-10.4); Nucleated Red Blood Cells % 0; Platelet Count 162 10^3/ul (150-450); Red Blood Count 2.64 10^6/ul (4.00-5.40); Red Cell Distribution Width 13 % (10.5-15); White Blood Count 5.6 10^3/ul (3.5-10.8)
[2018-02-08] MEDS: Lactobacillus Acidophilus* 1 TAB PO SCH (09:13)
[2018-02-08] MEDS: Spironolactone TAB* 25 MG PO SCH (09:14)
[2018-02-08] MEDS: Aspirin EC TAB* 81 MG TAB.EC PO SCH (09:14)
[2018-02-08] MEDS: CMC:Dabigatran CAP(NF) 150 MG CAP PO SCH (09:18)
[2018-02-08] MEDS: Sotalol TAB* 80 MG PO SCH (09:21)
[2018-02-08] MEDS ORDERED: cefTRIAXone(*) 2 GM in NS 0.9% 100 ML* 100 ML IVPB SCH (12:00)
[2018-02-08 12:39] VITALS: BP 148/51
--- NOTE | 2018-02-09 08:30 | DS ---
CC: Dr. Garcia; Dr. Luis. * DISCHARGE SUMMARY: DATE OF ADMISSION: 02/02/18 DATE OF DISCHARGE TO HOME: 02/08/18 PRIMARY CARE PROVIDER: Dr. Coral Schmitz. DISCHARGE DIAGNOSES: 1. Sepsis due to Streptococcus infantarius bacteremia. The source is likely related to poor dentition, less likely to chronic resolving heel ulcer. 2. Worsening of chronic anemia likely due to hemodilution during resuscitation for sepsis in patient who had guaiac negative stool during the hospital stay. 3. Elevated troponin level likely due to demand ischemia. 4. Chronic wound of the left heel with lower extremity MRI obtained on showing possible osteomyelitis. SECONDARY DIAGNOSES: 1. History of atrial fibrillation, on Pradaxa. 2. History of diabetes. 3. History of right bundle branch block. 4. Coronary disease. 5. History of aortic stenosis status post transaortic valve replacement. 6. History of diastolic congestive heart failure, chronic. 7. Peripheral vascular disease. 8. Status post right third toe amputation. 9. History of angioplasty of the left lower extremity. MEDICATIONS AT DISCHARGE: Include: Ceftriaxone 2 g every 24 hours for a total of 35 days. The patient is going to have a PICC line placed at the infusion center and go to the infusion center daily for the continuation of IV antibiotic treatment. The remaining medications are unchanged includin. Aspirin 81 mg daily. 2. Lipitor 40 mg at bedtime. 3. Plavix 75 mg daily. 4. Pradaxa 150 mg b.i.d. 5. Ferrous gluconate 236 mg daily. 6. Sotalol 80 mg b.i.d. 7. Aldactone 25 mg daily. Lyme disease serology was negative obtained on admission. Influenza testing obtained on admission was also negative. Blood cultures obtained on 02/02/18 showed Streptococcus infantarius. Urine cultures were negative growth. Stool occult blood was negative on 02/02/18. Left lower extremity MRI obtained on 02/02/18. Impression: "There is soft tissue swelling of the heel pad and posterior to the calcaneus. Mild patchy edema is identified within the bone marrow of the posterior calcaneus. This is concerning for osteomyelitis in the appropriate clinical setting. There is soft tissue swelling adjacent to the Achilles tendon without a definite acute tear. This is likely due to extension of the soft tissue swelling within the hind foot or due to an Achilles paratenonitis. Additional soft tissue swelling also identified in the at the dorsum of the foot and lateral of the ankle. There is a small subtalar joint effusion. There was a small collection of the fluid lateral to the cancellous and subtalar joints. This measured approximately 2.3 x 0.7 x 0.9 cm. This is suggestive of a synovial cyst; although infectious etiology cannot be excluded." Brain CT obtained on 02/02/18. Impression: "No acute intracranial pathology." HOSPITALIZATION COURSE: Ashley Finn is an 82-year-old female with a history of status post transaortic valve replacement as well as peripheral vascular disease with history of chronic left heel ulcer who was seen at a hospital on the day of admission of 02/02/18 with weakness, nausea, and vomiting. The patient was noted to be septic and was placed on broad-spectrum antibiotics. Blood cultures were positive for Streptococcus infantarius and Dr. Luis saw the patient in consultation. The source of the patient's infection is in fact due to the heel ulceration. I was felt by the infectious disease specialist that the heel ulcer is the less likely source of the infection. It was suspected due to the patient's history of aortic valve replacement the patient may have endocarditis. A UGO was performed on 02/03/18 that was negative for vegetation. The bioprosthetic aortic valve appeared to be functioning normally. There was moderate mitral regurgitation noted. The patient was continued on ceftriaxone throughout her hospital stay. An MRI of the left heel showed the possibility of osteomyelitis which is likely chronic. By the time of discharge, the patient was ready to go home under the care of her daughter. The patient was recommended to have a total of 42 days of antibiotic treatment out of which she already received a week's worth during her hospital stay. For the remaining 35 days of ceftriaxone at 2 g every 24 hours the patient opted to go to the infusion center on a daily basis. Her PICC line is going to be placed at the infusion center on 02/09/18 and her appointment was scheduled at 10:30 a.m. The patient is also scheduled for a followup wound care appointment of the wound on the left heel at 1:30 p.m. Additionally, the patient complained about leg edema. She does have +1 bilateral leg edema with chronic venostasis noted and chronic skin changes. We recommended Jerome bandages to be placed or DAMIAN compression stockings to be placed for the patient and keep the legs elevated when the patient is not ambulatory. She had no evidence of shortness of breath or JVD consistent with congestive heart failure at discharge. Additionally, the patient is recommended to follow up with daily CMP, CRP, and CBC to be drawn with the report to be sent to Dr. Luis. The patient is to follow up with Dr. Luis in approximately a couple of weeks. The patient is also recommended to follow up with her primary care provider Dr. Schmitz in approximately 4 to 7 days. As mentioned above, the patient is to follow up with [facility] after discharge. PHYSICAL EXAMINATION: At the time of discharge: Blood pressure of 148/51, heart rate of 76 and regular, respiratory rate of 16, oxygen saturation 100% on room air, and temperature 97.2. General Appearance: This is a very pleasant 82 -year-old female who is in no acute distress. Alert, awake, and oriented x3. HEENT: Head atraumatic and normocephalic. Eyes: Pupils are equal, round, and reactive to light and accommodation. Oropharynx clear. Mucosa moist. Neck: Supple. No JVD, no bruits bilaterally. Cardiovascular: Regular, rate, and rhythm with 2/6 systolic ejection murmur noted on auscultation of the apex. Abdomen: Soft and nontender. Bowel sounds present in all 4 quadrants. Extremities: There is +1 pitting bilateral pedal edema. Pulses +2 bilaterally , there is no clubbing or cyanosis. On evaluation of the skin, the patient has a small ulceration to the left heel approximately 1 to 2 cm in diameter, no draining with no evidence of cellulitis. Neuro Evaluation: Speech clear. Cranial nerves II through XII grossly intact. Motor strength is 5/5 bilaterally. Please note that this is a short summary of the patient's hospitalization, please refer to further medical records for details. TIME SPENT: Approximately 35 minutes were spent on the patient's discharge. [id number] #: [id number] MTDD
== END 2018-02-08 16:30 | disposition home or self-care (01) | DRG 872 ==
LOC: ED 13:33 → MEDTELE 18:39
PROVIDERS: ADMIT Internal Medicine; ATTEND Internal Medicine
PROC: B245ZZ4 Ultrasonography of Left Heart, Transesophageal (ICD-10-PCS; principal; 2018-02-04)
DX: A40.8 Other streptococcal sepsis (principal); L97.429 Non-pressure chronic ulcer of left heel and midfoot with unspecified severity; I50.32 Chronic diastolic (congestive) heart failure; M86.672 Other chronic osteomyelitis, left ankle and foot; E11.621 Type 2 diabetes mellitus with foot ulcer; I48.0 Paroxysmal atrial fibrillation; E11.42 Type 2 diabetes mellitus with diabetic polyneuropathy; D53.9 Nutritional anemia, unspecified; R74.8 Abnormal levels of other serum enzymes; Z95.4 Presence of other heart-valve replacement; Z96.641 Presence of right artificial hip joint; I44.7 Left bundle-branch block, unspecified; I25.10 Atherosclerotic heart disease of native coronary artery without angina pectoris; I11.0 Hypertensive heart disease with heart failure; K02.9 Dental caries, unspecified; E66.9 Obesity, unspecified; I87.8 Other specified disorders of veins; R51 Headache; M81.0 Age-related osteoporosis without current pathological fracture; Z68.30 Body mass index [BMI] 30.0-30.9, adult; Z98.62 Peripheral vascular angioplasty status; Z79.84 Long term (current) use of oral hypoglycemic drugs; Z79.02 Long term (current) use of antithrombotics/antiplatelets; Z79.82 Long term (current) use of aspirin; Z79.899 Other long term (current) drug therapy; Z88.5 Allergy status to narcotic agent; Z88.8 Allergy status to other drugs, medicaments and biological substances; Z88.2 Allergy status to sulfonamides; Z88.0 Allergy status to penicillin; Z88.1 Allergy status to other antibiotic agents; Z83.3 Family history of diabetes mellitus; Z82.3 Family history of stroke
CPT/HCPCS: 36415; 70450; 71045; 80048; 80053; 80202; 81003; 81015; 82272; 83036; 83605; 83690; 84484; 85014; 85018; 85025; 85060; 85610; 85652; 85730; 86140; 86618; 87040; 87077; 87086; 87186; 87205; 87899; 93005; 93306; 99284; A9270-GY; J0456; J0696; J1940; J2250; J2310; J3010; J3370; J3490

== ENCOUNTER → 2018-04-29 09:47 | Day surgery (SDC) | payer MEDICARE, MEDICAID ==
[~2018-04-29 09:47] MED LIST changes: -Clopidogrel TAB* 75 MG ONE; -Heparin 2 UNITS/ML IVPREMIX* 1,000 ML IV ONE; +Heparin 2 UNITS/ML IVPREMIX* 2,000 ML IV ONE; +Iodixanol 320 (CONTRAST) 100 ML SDV ONE; -Iodixanol* (CONTRAST) 320 MG/ML 100 ML SDV ONE; -Ketorolac INJ* 30 MG/ML 1 ML VIAL ONE; -Ondansetron INJ* 2 MG/ML VIAL ONE; -VERAPAMIL 2.5 MG/ML 2 ML VIAL ** 5 mg/2 ml ONE; -fentaNYL* 50 MCG/ML 2 ML VIAL (100 MCG VIAL) ONE; +fentaNYL* 50 MCG/ML 5 ML VIAL (250 MCG VIAL) ONE; -nitroGLYCERIN DRIP* 25,000 MCG/250 ML BTL ONE
[2018-04-29 16:44] VITALS: BP 122/50
== END | disposition home or self-care (01) ==
LOC: CHICATH 09:47
PROVIDERS: ATTEND Radiology Diagnostic Radiology
DX: I70.262 Atherosclerosis of native arteries of extremities with gangrene, left leg (principal); E11.52 Type 2 diabetes mellitus with diabetic peripheral angiopathy with gangrene; Z79.4 Long term (current) use of insulin; M81.0 Age-related osteoporosis without current pathological fracture; I35.0 Nonrheumatic aortic (valve) stenosis; I10 Essential (primary) hypertension; I48.91 Unspecified atrial fibrillation; I44.7 Left bundle-branch block, unspecified; I25.10 Atherosclerotic heart disease of native coronary artery without angina pectoris
CPT/HCPCS: 76937; 99156; 99157; A9270-GY; C1769; C1887; C1894; J1644; J2250; J2310; J3010

== ENCOUNTER → 2018-08-19 07:04 | Day surgery (SDC) | payer MEDICARE, MEDICAID ==
[~2018-08-19 07:04] MED LIST changes: +Atropine SYRINGE* 0.1 MG/ML 10 ML SYRINGE (1 MG) ONE; -Heparin 2 UNITS/ML IVPREMIX* 2,000 ML IV ONE; +Heparin 2 UNITS/ML IVPREMIX* 2,000 UNIT/1,000 ML BAG IV ONE; -LORazepam TAB(*) 1 MG ONE; -Midazolam* 1 MG/ML 10 ML VIAL (10 MG) ONE; +Midazolam* 1 MG/ML 5 ML VIAL (5 MG) ONE; +nitroGLYCERIN DRIP* 25,000 MCG/250 ML BTL ONE
[2018-08-19 08:36] LABS: INR 1.02 (0.77-1.02)
[2018-08-19 09:39] LABS: Activated Partial Thrombo Time 103.6 seconds (26.0-36.3)
--- NOTE | 2018-08-19 15:30 | PN ---
Progress Note - Progress Note Date of Service: 08/19/18 SOAP: Subjective: Denies pain at left CF arteriotomy site or anywhere else other than her chronically painful left heel. No nausea. No SOB. 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 The distally occluded left [employer] could not be crossed for angioplasty. Plan: 1. Bedrest with left leg straight until 1730. 2. Monitor left groin, vitals and pulses per IR protocol. 3. Diet. 4. Patient and daughter Amaya instructed to start Pradaxa tomorrow and to continue all other medications otherwise. 5. Continue Plavix 75 mg PO daily for 3 more months.
[2018-08-19 17:48] VITALS: BP 137/55
== END | disposition home or self-care (01) ==
LOC: CHICATH 07:04
PROVIDERS: ATTEND Radiology Diagnostic Radiology
DX: I70.244 Atherosclerosis of native arteries of left leg with ulceration of heel and midfoot (principal); E11.621 Type 2 diabetes mellitus with foot ulcer; L97.409 Non-pressure chronic ulcer of unspecified heel and midfoot with unspecified severity; Z79.84 Long term (current) use of oral hypoglycemic drugs; I48.91 Unspecified atrial fibrillation; I47.1 Supraventricular tachycardia; I10 Essential (primary) hypertension; I25.10 Atherosclerotic heart disease of native coronary artery without angina pectoris; I44.7 Left bundle-branch block, unspecified; I35.0 Nonrheumatic aortic (valve) stenosis
CPT/HCPCS: 36415; 76937; 85347; 85610; 85730; 99156; 99157; C1769; C1887; C1894; J0461; J1644; J2250; J2310; J3010

== ENCOUNTER 2019-03-06 20:41 | Emergency (ER) | payer MEDICARE, MEDICAID ==
[2019-03-06 22:09] LABS: INR 1.57 (0.82-1.09)
[2019-03-06 22:14] LABS: ALT 11 U/L (7-52); Albumin 4.2 g/dL (3.2-5.2); Albumin/Globulin Ratio 1.6 (1-3); Alkaline Phosphatase 117 U/L (34-104); Amylase 42 U/L (29-103); BUN/Creatinine Ratio 28.7 (8-20); Blood Urea Nitrogen 29 mg/dL (6-24); C Reactive Protein 20.55 mg/L (<8.01); CO2 Carbon Dioxide 21 mmol/L (22-32); Calcium 9.3 mg/dL (8.6-10.3); Chloride 104 mmol/L (101-111); EGFR African American 63.7 (>60); EGFR Non-African American 52.6 (>60); Globulin 2.7 g/dL (2-4); Glucose 179 mg/dL (70-100); Hematocrit 27 % (35-47); Hemoglobin 8.7 g/dL (12.0-16.0); Mean Corpuscular HGB Conc 32 g/dL (31-36); Mean Corpuscular Hemoglobin 30 pg (27-31); Mean Corpuscular Volume 93 fL (80-97); Platelet Count 157 10^3/uL (150-450); Red Blood Count 2.89 10^6 /uL (3.70-4.87); Red Cell Distribution Width 16 % (10-15); Sodium 135 mmol/L (135-145); Total Protein 6.9 g/dL (6.4-8.9); White Blood Count 10.9 10^3/uL (3.5-10.8)
[2019-03-06 22:42] LABS: AST 24 U/L (13-39); Anion Gap 10 mmol/L (2-11); Potassium 5.1 mmol/L (3.5-5.0)
[2019-03-06 22:44] LABS: Nucleated Red Blood Cells % 0.1
[2019-03-06 22:50] LABS: Polychromasia 1+; Tear Drop Cells 1+
[2019-03-06 23:56] LABS: Urine Appearance Cloudy; Urine Bacteria Absent (Absent); Urine Bilirubin Negative (Negative); Urine Blood 2+ (Negative); Urine Color Amber; Urine Glucose Negative (Negative); Urine Ketones Negative (Negative); Urine Nitrite Negative (Negative); Urine Protein Negative (Negative); Urine Red Blood Cell 2+(6-10/hpf) (Absent); Urine Specific Gravity 1.024 (1.010-1.030); Urine Squamous Epithelial Cell Present (Absent); Urine Urobilinogen Negative (Negative); Urine White Blood Cell Trace(0-5/hpf) (Absent)
--- NOTE | 2019-03-07 00:35 | ED ---
Complex/Multi-Sys Presentation - HPI Summary HPI Summary: This patient is a 83 year old F presenting to [facility] with a chief complaint of feeling sick all day since earlier today. Pt states she has gallstones. Pt said she could not eat breakfast or take her medications today. The patient rates the pain 9/10 in severity. Symptoms aggravated by nothing. Symptoms alleviated by nothing. Patient reports ABD pain, lower back pain, left flank pain, vomiting , lethargy, hole in her left foot. Patient denies diarrhea. Pt denies any medication changes in the last month. Pt does not smoke, drink alcohol, or use recreational drugs. She had uterus cancer surgery, left and right hip surgery, heart valve surgery. - History Of Current Complaint Chief Complaint: EDGeneral Time Seen by Provider: 03/07/19 00:00 Hx Obtained From: Patient Onset/Duration: Sudden Onset, Lasting Days - since earlier today Timing: Constant Severity Currently: Moderate Severity Initially: Moderate Aggravating Factor(s): nothing Alleviating Factor(s): nothing Associated Signs And Symptoms: Positive: Vomiting, Abdominal Pain, Back Pain - lower, Other - positive - "feeling sick," left flank pain, lethargy, hole in her left foot.. Negative: Diarrhea - Allergies/Home Medications Allergies/Adverse Reactions: Allergies Allergy/AdvReac Type Severity Reaction Status Date / Time prednisone Allergy Severe heavy Verified 03/06/19 20:53 bleeding Penicillins Allergy Mild Rash Verified 03/06/19 20:53 Sulfa (Sulfonamide Allergy Mild Edema Verified 03/06/19 20:53 Antibiotics) morphine Allergy Unknown Unknown Verified 03/06/19 20:53 Reaction Details Antihistamines - Alkylamine Allergy Unknown Verified 03/06/19 20:53 Reaction Details Antihistamines - Ethanolamine Allergy Unknown Verified 03/06/19 20:53 Reaction Details Antihistamines - Allergy Unknown Verified 03/06/19 20:53 Ethylenediamine Reaction Details Antihistamines - Piperazine Allergy Unknown Verified 03/06/19 20:53 Reaction Details Antihistamines - Piperidine Allergy Unknown Verified 03/06/19 20:53 Reaction Details aspirin AdvReac Mild GI Upset Verified 03/06/19 20:53 cephalexin AdvReac Mild GI Upset Verified 03/06/19 20:53 ciprofloxacin AdvReac Mild GI Upset Verified 03/06/19 20:53 diphenhydramine AdvReac GI Upset Verified 03/06/19 20:53 PMH/Surg Hx/FS Hx/Imm Hx Previously Healthy: No Endocrine/Hematology History: Reports: Hx Diabetes Denies: Hx Thyroid Disease, Hx Anemia Cardiovascular History: Reports: Hx Atrial Fibrillation, Hx Coronary Artery Disease, Hx Hypertension, Hx Valvular Heart Disease, Other Cardiovascular Problems/Disorders - heart murmur Denies: Hx Aneurysm, Hx Angina, Hx Cardiac Arrest, Hx Deep Vein Thrombosis, Hx Pacemaker/ICD Respiratory History: Denies: Hx Asthma, Hx Chronic Obstructive Pulmonary Disease (COPD) GI History: Denies: Hx Ulcer History: Denies: Hx Dialysis, Hx Renal Disease Musculoskeletal History: Denies: Hx Arthritis, Hx Back Problems Sensory History: Reports: Hx Cataracts - BILAT, Hx Contacts or Glasses, Hx Hearing Problem Denies: Hx Glaucoma, Hx Deafness, Hx Hearing Aid Opthamlomology History: Reports: Hx Cataracts - BILAT, Hx Contacts or Glasses Denies: Hx Glaucoma Neurological History: Denies: Hx Dementia, Hx Headaches, Hx Migraine, Hx Seizures, Hx Transient Ischemic Attacks (TIA) Psychiatric History: Denies: Hx Panic Disorder - Cancer History Cancer Type, 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 HYSTERECTOMY 2000,. T&A at age 17,. CATARACTS bilat eyes,. CARDIAC CATH (BALLOONING) FEB 2017,. RIGHT HIP PARTIAL REPLACEMENT SURGERY FOR FX,. OPEN HEART/HEART VALVE REPLACEMENT MAR 2017, Hx Anesthesia Reactions: No - Immunization History Date of Tetanus Vaccine: Unk Date of Influenza Vaccine: refuses Infectious Disease History: No Infectious Disease History: Denies: Hx Clostridium Difficile, Hx Hepatitis, Hx Human Immunodeficiency Virus (HIV), Hx of Known/Suspected MRSA, Hx Shingles, Hx Tuberculosis, Hx Known/ Suspected VRE, Hx Known/Suspected VRSA, History Other Infectious Disease, Traveled Outside the [place] in Last 30 Days - Family History Known Family History: Positive: Cardiac Disease - Mother, father and brother - Social History Alcohol Use: None Hx Substance Use: No Substance Use Type: Reports: None Hx Tobacco Use: No Smoking Status (MU): Never Smoked Tobacco Have You Smoked in the Last Year: No Review of Systems Constitutional: Other - positive - "feeling sick," lethargy Gastrointestinal: Other - positive - left flank pain Positive: Abdominal Pain, Vomiting. Negative: Diarrhea Musculoskeletal: Other - positive - lower back pain Skin: Other - positive - hole in her left foot. All Other Systems Reviewed And Are Negative: Yes Physical Exam - Summary Physical Exam Summary: General: Well-developed, Well-nourished obese FEMALE. No acute distress. HEENT: Normocephalic, Atraumatic. Eyes: Conjuctiva normal, PERRL. Ears: TMs within normal limits. Nares: (-) discharge, (-) erythema. Oropharynx: Clear, mucous membranes moist, (-) exudates. Neck: Soft, FROM, (-) lymphadenopathy, (-) thyromegaly, (-) JVD. Cardiovascular: Normal sinus rhythm, (-) murmur. Lungs: Clear to auscultation bilaterally (-) wheezes, (-) rales, (-) rhonchi. Abdomen: Soft, mild diffuse tenderness, non-distended, (-) organomegaly, normal bowel sounds. Back: (-) CVA tenderness Extremities: No edema. 2 mm hole in left posterior heel Skin: Warm, dry, (-) rash. Neuro: Alert and oriented x3, no focal deficits. Psychiatric: Mood normal, affect normal. Triage Information Reviewed: Yes Vital Signs On Initial Exam: Initial Vitals Temp Pulse Resp BP Pulse Ox 98.5 F 78 16 149/41 99 03/06/19 20:51 03/06/19 20:51 03/06/19 20:51 03/06/19 20:51 03/06/19 20:51 Vital Signs Reviewed: Yes Procedures - Sedation Patient Received Moderate/Deep Sedation with Procedure: No Diagnostics - Vital Signs Vital Signs Temp Pulse Resp BP Pulse Ox 03/06/19 23:52 98.3 F 03/06/19 23:44 13 03/06/19 23:39 172/53 03/06/19 20:51 98.5 F 78 16 149/41 99 - Laboratory Lab Results: Lab Results 03/06/19 03/06/19 03/06/19 Range/Units 21:46 21:46 21:46 WBC 10.9 H (3.5-10.8) 10^3/uL RBC 2.89 L (3.70-4.87) 10^6 /uL Hgb 8.7 L (12.0-16.0) g/dL Hct 27 L (35-47) % MCV 93 (80-97) fL MCH 30 (27-31) pg MCHC 32 (31-36) g/dL RDW 16 H (10-15) % Plt Count 157 (150-450) 10^3/uL MPV 8.0 (7.4-10.4) fL Neut % (Auto) Not Reportable Lymph % (Auto) Not Reportable Posey % (Auto) Not Reportable Eos % (Auto) Not Reportable Baso % (Auto) Not Reportable Absolute Neuts (auto) Not Reportable Absolute Lymphs (auto) Not Reportable Absolute Monos (auto) Not Reportable Absolute Eos (auto) Not Reportable Absolute Basos (auto) Not Reportable Absolute Nucleated RBC 0.0 10^3/ul Immature Gran % 6.0 (0-9) % Neutrophils % 88.0 % Band Neutrophils % 6.0 (0-8) % Lymphocytes % 3.0 % Monocytes % 3.0 % Nucleated RBC % 0.1 Abs Neuts (Manual) 10.3 H (1.5-7.7) 10^3/ul Abs Lymphs (Manual) 0.3 L (1.0-4.8) 10^3/ul Abs Monocytes (Manual) 0.3 (0-0.8) 10^3/ul Normal RBC Morphology Not Reportable Polychromasia 1+ Tear Drop Cells 1+ INR (Anticoag Therapy) 1.57 H (0.82-1.09) Sodium 135 (135-145) mmol/L Potassium 5.1 H (3.5-5.0) mmol/L Chloride 104 (101-111) mmol/L Carbon Dioxide 21 L (22-32) mmol/L Anion Gap 10 (2-11) mmol/L BUN 29 H (6-24) mg/dL Creatinine 1.01 H (0.51-0.95) mg/dL Est GFR ( Amer) 63.7 (>60) Est GFR (Non-Af Amer) 52.6 (>60) BUN/Creatinine Ratio 28.7 H (8-20) Glucose 179 H (70-100) mg/dL Calcium 9.3 (8.6-10.3) mg/dL Total Bilirubin 2.20 H (0.2-1.0) mg/dL AST 24 (13-39) U/L ALT 11 (7-52) U/L Alkaline Phosphatase 117 H (34-104) U/L C-Reactive Protein 20.55 H (<8.01) mg/L Total Protein 6.9 (6.4-8.9) g/dL Albumin 4.2 (3.2-5.2) g/dL Globulin 2.7 (2-4) g/dL Albumin/Globulin Ratio 1.6 (1-3) Amylase 42 (29-103) U/L Lipase < 10 L (11.0-82.0) U/L Urine Color Urine Appearance Urine pH (5-9) Ur Specific [place] (1.010-1.030) Urine Protein (Negative) Urine Ketones (Negative) Urine Blood (Negative) Urine Nitrate (Negative) Urine Bilirubin (Negative) Urine Urobilinogen (Negative) Ur Leukocyte Esterase (Negative) Urine WBC (Auto) (Absent) Urine RBC (Auto) (Absent) Ur Squamous Epith Cells (Absent) Urine Bacteria (Absent) Hyaline Casts (Absent) Urine Glucose (Negative) Urine Ascorbic Acid (Negative) 03/06/19 Range/Units 23:40 WBC (3.5-10.8) 10^3/uL RBC (3.70-4.87) 10^6 /uL Hgb (12.0-16.0) g/dL Hct (35-47) % MCV (80-97) fL MCH (27-31) pg MCHC (31-36) g/dL RDW (10-15) % Plt Count (150-450) 10^3/uL MPV (7.4-10.4) fL Neut % (Auto) Lymph % (Auto) Posey % (Auto) Eos % (Auto) Baso % (Auto) Absolute Neuts (auto) Absolute Lymphs (auto) Absolute Monos (auto) Absolute Eos (auto) Absolute Basos (auto) Absolute Nucleated RBC 10^3/ul Immature Gran % (0-9) % Neutrophils % % Band Neutrophils % (0-8) % Lymphocytes % % Monocytes % % Nucleated RBC % Abs Neuts (Manual) (1.5-7.7) 10^3/ul Abs Lymphs (Manual) (1.0-4.8) 10^3/ul Abs Monocytes (Manual) (0-0.8) 10^3/ul Normal RBC Morphology Polychromasia Tear Drop Cells INR (Anticoag Therapy) (0.82-1.09) Sodium (135-145) mmol/L Potassium (3.5-5.0) mmol/L Chloride (101-111) mmol/L Carbon Dioxide (22-32) mmol/L Anion Gap (2-11) mmol/L BUN (6-24) mg/dL Creatinine (0.51-0.95) mg/dL Est GFR ( Amer) (>60) Est GFR (Non-Af Amer) (>60) BUN/Creatinine Ratio (8-20) Glucose (70-100) mg/dL Calcium (8.6-10.3) mg/dL Total Bilirubin (0.2-1.0) mg/dL AST (13-39) U/L ALT (7-52) U/L Alkaline Phosphatase (34-104) U/L C-Reactive Protein (<8.01) mg/L Total Protein (6.4-8.9) g/dL Albumin (3.2-5.2) g/dL Globulin (2-4) g/dL Albumin/Globulin Ratio (1-3) Amylase (29-103) U/L Lipase (11.0-82.0) U/L Urine Color Olga Lidia Urine Appearance Cloudy Urine pH 5.0 (5-9) Ur Specific [place] 1.024 (1.010-1.030) Urine Protein Negative (Negative) Urine Ketones Negative (Negative) Urine Blood 2+ A (Negative) Urine Nitrate Negative (Negative) Urine Bilirubin Negative (Negative) Urine Urobilinogen Negative (Negative) Ur Leukocyte Esterase Trace A (Negative) Urine WBC (Auto) Trace(0-5/hpf) (Absent) Urine RBC (Auto) 2+(6-10/hpf) A (Absent) Ur Squamous Epith Cells Present A (Absent) Urine Bacteria Absent (Absent) Hyaline Casts Present A (Absent) Urine Glucose Negative (Negative) Urine Ascorbic Acid * A (Negative) Result Diagrams: 03/06/19 21:46 03/06/19 21:46 Lab Statement: Any lab studies that have been ordered have been reviewed, and results considered in the medical decision making process. - CT Abd/Pel CT Interpretation Completed By: Radiologist Summary of CT Findings: IMPRESSION: 1. No CT findings to correlate with patient 's symptomatology. 2. Cholelithiasis. 3. Distal colonic diverticulosis. These findings were reviewed by Dr. Navarro. Complex Multi-Symp Course/Dx Course Of Treatment: 83-year-old female with abdominal pain and vomiting. CAT scan and workup showed no significant abnormality. Although nondiagnostic. Patient improved with Zofran. Had no further vomiting here. Patient discharged home on clear liquids. Zofran given. Follow up with PCP. Follow up sooner for any worsening symptoms - Diagnoses Provider Diagnoses: Abdominal pain, Vomiting Discharge ED - Sign-Out/Discharge Documenting (check all that apply): Patient Departure - discharge - Discharge Plan Condition: Stable Disposition: HOME Patient Education Materials: Abdominal Pain (ED) Referrals: Coral Schmitz MD [Primary Care Provider] - 3 Days Additional Instructions: Follow up with your primary care provider within 3 days. Return to the ED for any new or worsening symptoms. - Billing Disposition and Condition Condition: STABLE Disposition: Home - Attestation Statements Document Initiated by Jesus Manuel: Yes Documenting Scribe: Marcos Yao Provider For Whom Jesus Manuel is Documenting (Include Credential): Dr. Arlette Navarro MD Scribe Attestation: Marcos Obregon scribed for Dr. Arlette Navarro MD on 03/07/19 at 0441. Scribe Documentation Reviewed: Yes Provider Attestation: The documentation as recorded by the Marcos rapp accurately reflects the service I personally performed and the decisions made by me, Dr. Arlette Navarro MD Status of Scribe Document: Viewed
[2019-03-07] MEDS ORDERED: NS 0.9% 1000 ML** 1,000 ML IV ONE (00:36)
[2019-03-07] MEDS ORDERED: Ondansetron INJ* 2 MG/ML VIAL IV ONE (00:36)
[2019-03-07] MEDS ORDERED: Metoclopramide IV* 5 MG/ML 2 ML VIAL IV ONE (01:34)
[2019-03-07] MEDS ORDERED: Iodixanol* (CONTRAST) 320 MG/ML 100 ML SDV IV ONE (02:15)
[2019-03-07] MEDS ORDERED: Furosemide TAB* 20 MG PO PRN (03:33)
[2019-03-07] MEDS ORDERED: ACETAMINOPHEN 500 MG PO PRN (03:33)
[2019-03-07] MEDS ORDERED: O ndansetron ODT 4MG 5TAB PRPK 4 MG PAK PO ONE (03:33)
[2019-03-07 04:11] VITALS: BP 128/54
[2019-03-07] MEDS ORDERED: Dabigatran CAP(NF) 150 MG CAP PO SCH (09:00)
[2019-03-07] MEDS ORDERED: Aspirin EC TAB* 81 MG TAB.EC PO SCH (09:00)
[2019-03-07] MEDS ORDERED: Sotalol TAB* 80 MG PO SCH (09:00)
[2019-03-07] MEDS ORDERED: Atorvastatin* 40 MG TAB PO SCH (21:00)
== END 2019-03-07 04:10 | disposition home or self-care (01) ==
LOC: ED 20:41
DX: R10.84 Generalized abdominal pain (principal); R11.10 Vomiting, unspecified; M54.5 Low back pain; R53.83 Other fatigue; K80.20 Calculus of gallbladder without cholecystitis without obstruction; K57.30 Diverticulosis of large intestine without perforation or abscess without bleeding; E11.9 Type 2 diabetes mellitus without complications; I25.10 Atherosclerotic heart disease of native coronary artery without angina pectoris; I10 Essential (primary) hypertension; Z95.2 Presence of prosthetic heart valve; Z96.641 Presence of right artificial hip joint; Z88.6 Allergy status to analgesic agent; Z88.1 Allergy status to other antibiotic agents; Z88.5 Allergy status to narcotic agent; Z88.0 Allergy status to penicillin; Z88.2 Allergy status to sulfonamides; Z88.8 Allergy status to other drugs, medicaments and biological substances
CPT/HCPCS: 36415; 74177; 80053; 81003; 81015; 82150; 83690; 85025; 85610; 86140; 87040; 87086; 96361; 96374; 96375; 99284; A9270-GY; J2405; J2765; Q9967

== ENCOUNTER 2019-06-10 08:01 | Inpatient (IN) | payer MEDICARE, MEDICAID ==
--- OUTSIDE RECORDS SUMMARY | 2019-06-10 08:20 | XMS REPORT | Summary of Care ---
:1935 Author Organization [facility] Address [address] [facility] [place] [address] Care Team Providers Name Role Phone Coral Schmitz MD Primary Care Provider Reason for Visit Reason Comments Follow Up Pt. in for a Follow Up on Acute on Chronic Diastolic Heart Failure. Encounter Details Date Type Department Care Team Description 05/01/2019 Office Visit Karolina Barrow PA Acute on chronic diastolic heart failure (HCC) (Primary Dx); Cardiology 1 [facility] S/P TAVR (transcatheter aortic valve replacement); [address] [facility] [place] [address] Paroxysmal atrial fibrillation (HCC); [place] [address] ASHD (arteriosclerotic heart disease) [phone] Allergies Active Allergy Reactions Severity Noted Date Comments Altaryl Other 11/22/2012 Adult Aspirin Low GI Reaction 11/22/2012 Ciprofloxacin Hcl Other 06/22/2017 cipro w/ unknown reaction Morphine Other 11/22/2012 Penicillins Unknown Reaction 12/27/2012 Experienced rash in past, was told by MD to avoid PCN. Prednisone Other 06/19/2014 bleeding Sulfa Antibiotics Swelling 06/19/2014 documented as of this encounter (statuses as of 05/01/2019) Medications Medication Sig Dispensed Refills Start Date End Date Status potassium chloride Take 1 Tab 90 Tab 3 06/14/2017 Active (K-DUR) 20 MEQ Oral by mouth Tab CR DAILY. Ferrous Sulfate Take by 0 Active (IRON) 325 (65 Fe) MG mouth. Oral Tab Aspirin 81 MG Oral Take 81 mg 0 Active Tab by mouth. atorvastatin Take 1 Tab 90 Tab 3 05/12/2018 Active (LIPITOR) 40 MG Oral by mouth TabIndications: ASHD DAILY. (arteriosclerotic heart disease) sotalol (BETAPACE) 80 Take 1 Tab 180 Tab 3 09/01/2018 Active MG Oral by mouth TabIndications: TWICE DAILY. Paroxysmal atrial fibrillation (HCC) spironolactone Take 1 Tab 90 Tab 3 09/01/2018 Active (ALDACTONE) 25 MG by mouth Oral TabIndications: DAILY. Chronic diastolic heart failure (HCC) dabigatran (PRADAXA) Take 1 Cap 180 Cap 3 11/08/2018 Active 150 MG Oral Cap by mouth TWICE DAILY. torsemide (DEMADEX) Take 1 Tab 180 Tab 3 05/01/2019 Active 20 MG Oral Tab by mouth TWICE DAILY. furosemide (LASIX) 20 Take 40 mg 0 05/01/2019 Discontinued MG Oral Tab by mouth DAILY. documented as of this encounter (statuses as of 05/01/2019) Active Problems Problem Noted Date LBBB (left bundle branch block) 03/31/2017 Skin ulcer of sacrum, limited to breakdown of skin 03/31/2017 S/P TAVR (transcatheter aortic valve replacement) 03/30/2017 Overview: 03/30/2017. Pleural effusion 03/29/2017 NYHA class 3 heart failure with preserved ejection fraction 03/29/2017 Hypokalemia 03/29/2017 Unstable balance 03/29/2017 Orthostatic hypotension 03/25/2017 Persistent atrial fibrillation 03/15/2017 ASHD (arteriosclerotic heart disease) 03/15/2017 Acute on chronic diastolic heart failure 03/15/2017 S/P hip hemiarthroplasty 03/09/2017 Long-term (current) use of anticoagulants 02/25/2017 Overview: Patient is at [facility] Pain 02/24/2017 Aortic valve stenosis 02/17/2017 Closed fracture of neck of right femur 02/17/2017 Wrist fracture, left 08/07/2014 Wrist sprain 06/23/2014 Wrist pain, left 05/21/2014 documented as of this encounter (statuses as of 05/01/2019) Social History Tobacco Use Types Packs/Day Years Used Date Never Smoker Smokeless Tobacco: Never Used Alcohol Use Drinks/Week oz/Week Comments No Sex Assigned at Date Recorded Not on file Job Start Date Occupation Industry Not on file Not on file Not on file Travel History Travel Start Travel End No recent travel history available. documented as of this encounter Last Filed Vital Signs Vital Sign Reading Time Taken Comments Blood Pressure 138/62 05/01/2019 3:51 PM EST Pulse 72 05/01/2019 3:51 PM EST Temperature - - Respiratory Rate - - Oxygen Saturation - - Inhaled Oxygen Concentration - - Weight 88 kg (194 lb) 05/01/2019 3:51 PM EST Height 165.1 cm (5' 5") 05/01/2019 3:51 PM EST Body Mass Index 32.28 05/01/2019 3:51 PM EST documented in this encounter Patient Instructions Patient InstructionsKarolina Tomas PA - 05/01/2019 3:40 PM EST We changed your Lasix 40mg daily to Torsemide 20mg TWICE daily Follow up with us in 1 week Follow up with your primary care doctor regarding your UTI symptoms Weigh yourself every morning before breakfast, write it down and compare to yesterday's weight. Follow a heart failure diet. Eat low salt foods. Take your medicine as prescribed, do not stop unless told to do so by your doctor. Balance activity and rest periods. Check for swelling in your feet, ankles, legs, and stomach. Call your doctor's office if you: Have a weight gain of 3 pounds in 1 day or a weight gain of 5 pounds or more in 1 week. Have more shortness of breath, or are feeling dizzy. Have more swelling of your feet, ankles, legs, or stomach Are feeling more tired or have decreased exercise tolerance. Have a dry, hacky cough or increased cough when lying down Are feeling uneasy, you know something is not right It's harder to breathe when lying down, and you sleep with more pillows, or have increased night time trips to urinate documented in this encounter Progress Notes Karolina Tomas PA - 05/01/2019 3:40 PM EST [facility] Note Patient: Ashley Finn Date of : 1935 Date of Service: 05/01/2019 REFERRING PRACTITIONER: Karolina Tomas PRIMARY CARE PROVIDER: Coral Schmitz Chief Complaint: Chief Complaint Patient presents with Follow Up Pt. in for a Follow Up on Acute on Chronic Diastolic Heart Failure. History of Present Illness: We had the pleasure of seeing Ashley Finn today. She is a 84-y.o. female with a PMH of obesity, HTN, DM, chronic LBBB, paroxysmal atrial fibrillation on sotalol, PAD, CAD with PROCESSOR INSPECTOR of the RCA, and severe s/p balloon valvuloplasty 02/18/17 prior to undergoing R hip arthroplasty d/t a hip fracture. She subsequently underwent TAVR with an # 23 Coker transcatheter bioprosthetic valve via the L femoral approach on 03/30. She was cardioverted from Afib to NSR during her TAVR procedure, who presents today for follow up. Since seeing her 1 month ago, her weight has been increasing and she has noticed increased b/l lowerextremity edema. She reports compliance on a low sodium diet. Her breathing has felt the same. By our scales, her weight has been up 3lbs. Of note, she has been having recent back pain which feels like her prior UTIs. Patient denies fever, febrile illness. Positive fatigue. NEUROLOGIC: Denies transient ischemic attack or cerebrovascular accident signs or symptoms. Denies syncope or presyncopal episodes. CARDIOVASCULAR: denies chest pain, denies palpations, positive lower extremity edema. RESPITATORY: denies shortness of breath, denies orthopnea. GASTROINTESTINAL: Denies melena. GENITOURINARY: Denies hematura ornocturia. MUSCULOSKELETAL: denies claudication. All other remaining systems are negative. Except that stated above in history of present illness Cardiac Studies: TTE1: FINAL IMPRESSION: Mild concentric LVH with severe left atrial enlargement. Normal LV systolic function with no regional wall motion abnormalities; estimated LVEF 60-65%. Mild right heart enlargement with normal RV contractility. Transcatheter bioprosthetic aortic valve with acceptable gradients, as described. Calcific mitral valve disease with borderline mild stenosis and mild-moderate regurgitation. Mild elevation in estimated pulmonary arterial systolic pressure. No pericardial effusion. Compared to prior echo report 08/26/2018, transaortic gradients and calculated EOA are similar. Left and Right Heart Cath 02/18/17: RIGHT HEART CATHETERIZATION: 1. Right atrial mean pressure is 5 mmHg. 2. Right ventricular pressure is 49/5 mmHg. 3. Pulmonary artery mean pressure is 24 mmHg. 4. Pulmonary capillary wedge pressure is 10 mmHg. 5. Amita cardiac output is 5.3 liters per minute. 6. Amita cardiac index is 2.7 liters per minute per m2. LEFT HEART CATHETERIZATION: Left ventricular end-diastolic pressure is 16 mmHg. SUMMARY: 1. Severe aortic stenosis. 2. Successful balloon aortic valvuloplasty with reduction of the mean gradient from 64 to 32 mmHg with increase of the valve area from 0.7 to 1 cm2. 3. Single-vessel coronary artery disease with occluded mid right coronary artery, but appears to be a short segment occlusion, but protected at this time with collaterals from the left coronary system. Patient Active Problem List Diagnosis Wrist pain, left Wrist sprain Wrist fracture, left Aortic valve stenosis Closed fracture of neck of right femur (HCC) Pain Long-term (current) use of anticoagulants S/P hip hemiarthroplasty Persistent atrial fibrillation ASHD (arteriosclerotic heart disease) Acute on chronic diastolic heart failure (HCC) Orthostatic hypotension Pleural effusion NYHA class 3 heart failure with preserved ejection fraction (HCC) Hypokalemia Unstable balance S/P TAVR (transcatheter aortic valve replacement) LBBB (left bundle branch block) Skin ulcer of sacrum, limited to breakdown of skin ([facility]) Past Medical History: Diagnosis Date Closed fracture dislocation of hip joint (HCC) Diabetes mellitus (HCC) Fracture Past Surgical History: Procedure Laterality Date CATHETERIZATION HEART RIGHT AND LEFT 02/18/2017 Procedure: CATHETERIZATION HEART RIGHT AND LEFT; Surgeon: Patrice Christianson MD ; Location: [facility] CCL HYSTERECTOMY, ABDOMINAL AK PARTIAL HIP REPLACEMENT Right 02/19/2017 Procedure: HIP HEMIARTHROPLASTY; Surgeon: Castillo Leos MD; Location: [facility] MAIN OR AK PELVIS/HIP JOINT SURGERY UNLISTED AK REPLACE AORTIC VALVE PERQ FEMORAL ARTRY APPROACH N/A 03/30/2017 Procedure: TAVR, TRANSFEMORAL, INTEROPERATIVE UGO AND CARDIOVERSION; Surgeon : Vinayak Ko MD; Location: [facility] MAIN OR Allergies Allergen Reactions Antihistamine [Altaryl] Other Aspirin [Adult Aspirin Low] GI Reaction Ciprofloxacin Hcl Other cipro w/ unknown reaction Morphine Other Penicillins Unknown Reaction Experienced rash in past, was told by MD to avoid PCN. Prednisone Other bleeding Sulfa Antibiotics Swelling Current Outpatient Medications Medication Sig Aspirin 81 MG Oral Tab Take 81 mg by mouth. atorvastatin (LIPITOR) 40 MG Oral Tab Take 1 Tab by mouth DAILY. dabigatran (PRADAXA) 150 MG Oral Cap Take 1 Cap by mouth TWICE DAILY. Ferrous Sulfate (IRON) 325 (65 Fe) MG Oral Tab Take by mouth. potassium chloride (K-DUR) 20 MEQ Oral Tab CR Take 1 Tab by mouth DAILY. sotalol (BETAPACE) 80 MG Oral Tab Take 1 Tab by mouth TWICE DAILY. spironolactone (ALDACTONE) 25 MG Oral Tab Take 1 Tab by mouth DAILY. torsemide (DEMADEX) 20 MG Oral Tab Take 1 Tab by mouth TWICE DAILY. No current facility-administered medications for this visit. Family History Problem Relation Age of Onset Heart Disease Mother Diabetes Father Stroke Father Cancer Maternal Grandmother Cancer Maternal Grandfather Anesth Problems No family history Arthritis No family history Clotting Disorder No family history Hypertension No family history Kidney Disease No family history Thyroid Disease No family history Social History Socioeconomic History Marital status: Single Spouse name: Not on file Number of children: Not on file Years of education: Not on file Highest education level: Not on file Occupational History Not on file Social Needs Financial resource strain: Not on file Food insecurity Worry: Not on file Inability: Not on file Transportation needs Medical: Not on file Non-medical: Not on file Tobacco Use Smoking status: Never Smoker Smokeless tobacco: Never Used Substance and Sexual Activity Alcohol use: No Drug use: No Sexual activity: Not on file Lifestyle Physical activity Days per week: Not on file Minutes per session: Not on file Stress: Not on file Relationships Social connections Talks on phone: Not on file Gets together: Not on file Attends jainism service: Not on file Active member of club or organization: Not on file Attends meetings of clubs or organizations: Not on file Relationship status: Not on file Intimate partner violence Fear of current or ex partner: Not on file Emotionally abused: Not on file Physically abused: Not on file Forced sexual activity: Not on file Other Topics Concern Not on file Social History Narrative Not on file Physical Exam: Vitals: 05/01/19 1551 BP: 138/62 Pulse: 72 Weight: 194 lb (88 kg) Height: 5' 5" (1.651 m) Body mass index is 32.28 kg/m. General: Well nourished, alert 84-y.o. female in NAD HEENT: anicteric, MMM, no E/E OP, conj pink Neck: no carotid bruits, difficult to assess JVP because of neck habitus CV: RRR, normal s1/s2, no appreciable murmurs, rubs, or gallops Pulm: + crackles b/l lung bases. No increased work of breathing. Abd: soft, NT, ND, +BS. No appreciable pulsatile masses or bruits. Ext: 2+ b/l pitting lower extremity edema, no cyanosis, no cords, redness, or warmth, 2+ distal pulses Neuro: no gross focal deficits Skin: no visible lesions Labs: Lab Results Component Value Date NA 137 03/30/2019 K 5.0 03/30/2019 CL 102 03/30/2019 CO2 26 03/30/2019 GLUCOSE 212 (H) 03/30/2019 BUN 24 (H) 03/30/2019 CREATININE 1.0 03/30/2019 CALCIUM 9.2 03/30/2019 TP 7.7 2017 ALBUMIN 4.3 2017 AST 33 2017 ALT 42 2017 ALK 188 (H) 2017 TBILI 1.1 2017 EGFR 53 03/30/2019 Lab Results Component Value Date NT PRO BNP 825 (H) 03/30/2019 No results found for: CHOL, TRIG, HDL, LDL, LDLHDLRATIO, CHOLHDLRATIO Assessment & Plan: Ashley Finn is a 84-y.o. female with ICD-9-CM ICD-10-CM 1. Acute on chronic diastolic heart failure (HCC) 428.33 I50.33 BASIC METABOLIC PANEL MAGNESIUM LEVEL NT PROBNP 2. S/P TAVR (transcatheter aortic valve replacement) V43.3 Z95.2 3. Paroxysmal atrial fibrillation (HCC) 427.31 I48.0 4. ASHD (arteriosclerotic heart disease) 414.00 I25.10 1. S/p TAVR: Recent echoshowed stable gradients and valvular function. Cont ASA. Willcont to follow valve function by echo. 2.Acute onChronic Diastolic CHFwith NYHA Class IIIsymptoms: Volume status is worse, she has crackles on exam and weight is up by our scales.Recommendations are as follows: Most recent LV function:60-65% (assessed on03/01/19by echo). KATT-inhibitor or ARB:BP and LVEF normal, so no need to add. Aldosterone Antagonist:Cont 25mg spironolactone daily. Diuretics: Will discontinue Lasix 40mg daily and start Torsemide 20mg BID. Will check BMP/BNP today. Will follow up with her closely to make sure she is trending in the right direction. Follow up with me in 1 week. 3.Coronary Artery Disease,with chronically occluded RCA: Currently asymptomatic from an ischemic standpoint. I recommend the following medical regimen: Antiplatelets: Cont ASA.Given her PAD, Dr. Garcia felt is was OK to be on antiplatelet agent as well as Pradaxa. Denies any bleeding issues at this time. Statin: Atorvastatin dose is only 40mg and lipids are being followed by Dr. Schmitz. Goal LDL of <70 and ideally <50. Beta-jose: On sotalol. 4. Paroxysmal Atrial Fibrillation: The etiology of atrial fibrillation in this patient is most likely related to obesity and possibly undiagnosed DONI. The heart-rate is currently wellcontrolled onthecurrent medical regimen. This patient's [id number] score is 5. I recommend the following treatment strategy and medical regimen for this patient: Stroke prevention:Based on the patient's [id number] risk profile, I recommend continuing Pradaxa indefinitely. Rate control:Sotalol. Rhythm control:On sotalol. QTc was stable 445ms on 03/15/19 Thank you for allowing me to participate in the care of Ashley Finn. We will plan on f/u in our office in 1 week or sooner prn. If you have any questions or concerns please feel free to call our office. [place] Dale, 05/01/2019, 16:43 documented in this encounter Plan of Treatment Date Type Specialty Care Team Description 05/05/2019 Lab Internal Medicine 05/08/2019 Office Visit Cardiology Karolina Tomas PA [address] [place] [address] [phone] Name Type Priority Associated Diagnoses Order Schedule BASIC METABOLIC PANEL Lab Routine Acute on chronic diastolic Expected: heart failure (HCC) (Approximate), Expires: 05/01/2020 MAGNESIUM LEVEL Lab Routine Acute on chronic diastolic Expected: 05/01/2019 heart failure (HCC) (Approximate), Expires: 05/01/2020 NT PROBNP Lab Routine Acute on chronic diastolic Expected: 05/01/2019 heart failure (HCC) (Approximate), Expires: 05/01/2020 Health Maintenance Due Date Last Done Comments MEDICARE ANNUAL WELLNESS VISIT 1935 DTaP/Tdap/Td Vaccines (1 - Tdap) 1948 DEPRESSION SCREENING 1949 HIV SCREENING 1952 ZOSTER IMMUNIZATION SERIES (1 of 2) 1987 FALL RISK ASSESSMENT 2002 PNEUMOCOCCAL 65+YRS (1 of 2 - 2002 PCV13) INFLUENZA VACCINE (#1) 2019 HEPATITIS A IMMUNIZATION SERIES Aged Out No longer eligible based on patient's age to complete this topic HPV IMMUNIZATION SERIES Aged Out No longer eligible based on patient's age to complete this topic MENINGOCOCCAL VACCINE IMM Aged Out No longer eligible based on patient's age to complete this topic documented as of this encounter Implants Implanted Type Area Medical Videographer Device Shelf Model / Identifier Expiration Serial / Date Lot Plug, [employer] - [id number] Right: Hip JC, ROBBIE. B000- [id number] / Implanted: Qty: 1 on 02/19/2017 by Castillo Leos MD at [facility] / [id number] Bone Cement, Double 80 - [id number] Right: Hip DEPUY 05/09/2019 [id number] / Implanted: Qty: 1 on 02/19/2017 by Castillo Leos MD at [facility] / [id number] Versys Hip System Advocate Hip Prosthesis Size 13 Right: Hip [id number] / Implanted: Qty: 1 on 02/19/2017 by Castillo Leos MD at [facility] / [id number] Versys Hip System Endo Femoral Head 04/22 Taper 46mm Diameter Right: Hip MAUDE MELISSA 02/20/2024 [id number] / Implanted: Qty: 1 on 02/19/2017 by Castillo Leos MD at [facility] [employer] / [id number] 23mm Coker Shaun 3 Heart Valve/Commander De - [id number] N/A: Aortic EDWRDS 10/16/2018 [id number] / Implanted: Qty: 1 on 03/30/2017 by Vinayak Ko MD at [facility] [employer] [id number] / documented as of this encounter Results Not on filedocumented in this encounter Visit Diagnoses Diagnosis Acute on chronic diastolic heart failure (HCC) Acute on chronic diastolic heart failure S/P TAVR (transcatheter aortic valve replacement) Paroxysmal atrial fibrillation (HCC) Atrial fibrillation ASHD (arteriosclerotic heart disease) Coronary atherosclerosis of unspecified type of vessel, circle or graft documented in this encounter Insurance Payer Benefit Plan / Subscriber ID Effective Phone Address Type Group Dates [facility] Effective for FACILITIES OTHER FACILITIES all dates OTHER MEDICARE MEDICARE PART A xxxxxxxxxxx 2000-[facility] Medicare & B nt [place]ICAID [place] xxxxxxxx 2017-Pres Medicaid [place] ent Guarantor Name Account Type Relation to Date of Phone Billing Patient Address Ashley Finn Personal/Family 1935 [address] (Home) [address] [place] ([place]) [address] documented as of this encounter
--- OUTSIDE RECORDS SUMMARY | 2019-06-10 08:20 | XMS REPORT | Continuity of Care Document ---
:1935 External Reference #:[id number] Author Name Aniket Jose M.D. (transmitted by agent of provider Maddi Whitet) Address [address] [place] [address] Problems Active Problems Provider Date Neurological disorder with type 2 diabetes Sapphire Sultana M.D. Onset: 2010 mellitus Benign essential hypertension Sapphire Sultana M.D. Onset: 01/08/2011 Aortic valve disorder Zuleyka Hernandez M.D. Onset: 02/16/2014 Note: severe s/p TAVR Supraventricular premature beats Zuleyka Hernandez M.D. Onset: 02/16/2014 Essential hypertension Zuleyka Hernandez M.D. Onset: 02/16/2014 Cataract Sapphire Sultana M.D. Onset: 08/10/2014 Metabolic disease Sapphire Sultana M.D. Onset: 08/10/2014 Osteoporosis Coral Schmitz M.D. Onset: 04/01/2016 Chronic atrial fibrillation Onset: Coronary atherosclerosis Onset: Diastolic heart failure Onset: Left bundle branch block Onset: Peripheral vascular disease Onset: Urge incontinence of urine Coral Schmitz M.D. Onset: 10/19/2017 Atherosclerosis of arteries of the Aniket Jose M.D. Onset: 11/17/2017 extremities Sepsis, unspecified organism Mike Reeves N.P. Onset: 02/02/2018 Headache Mike Reeves N.P. Onset: 02/02/2018 Type 2 diabetes mellitus with diabetic Mike Reeves N.P. Onset: 2017 peripheral angiopathy without gangrene Type 2 diabetes mellitus with ulcer Mike Reeves N.P. Onset: 02/02/2018 Atrial fibrillation Jacob Ye M.D. Onset: 02/03/2018 Osteomyelitis, unspecified Jacob Ye M.D. Onset: 02/03/2018 Bacteremia Jacob Ye M.D. Onset: 02/03/2018 Ulcer of heel Jacob Ye M.D. Onset: 02/05/2018 Other specified abnormal findings of blood Jacob Ye M.D. Onset: 2017 chemistry Type 2 diabetes mellitus Coty Anderson M.D. Onset: 02/07/2018 Sepsis due to Enterococcus Coty Anderson M.D. Onset: 02/08/2018 Acquired absence of other right toe(s) Coty Anderson M.D. Onset: 02/08/2018 Cholelithiasis without obstruction Coral Schmitz M.D. Onset: 04/11/2019 Atherosclerosis of [place] arteries of left Aniket Jose M.D. Onset: 05/17 leg with ulceration of other part of foot Social History Type Date Description Comments Sex Unknown Tobacco Use Start: Unknown Never Smoked Cigarettes Smoking Status Reviewed: 05/17/19 Never Smoked Cigarettes ETOH Use Denies alcohol use Tobacco Use Start: Unknown Patient has never smoked Recreational Drug Use Denies Drug Use Exercise Type/Frequency Does not exercise pt notes that she does engage in some PT exercises Allergies, Adverse Reactions, Alerts Active Allergies Reaction Severity Comments Date Penicillin Urticaria 12/18/2010 Morphine Urticaria 12/18/2010 Antihistamines, Loratadine-type 12/18/2010 Sulfa redness/swelling LE 02/16/2014 Ciprofloxacin 02/16/2014 Prednisone bleeding 11/16/2014 Medications Active Medications SIG Qnty Indications Ordering Date Provider Torsemide 1 by mouth twice 60tabs Aniket Ackerman 05/17/2019 20mg Tablets daily Cheryl Jose Prevail Underpads 3x daily for 270units Yareli Matthews, 04/25/2019 Super Absorbancy/30" urinary M.D., FACP X 36" incontinence and Misc as needed. dx i69.959 N39.42 L24.89 Latex Gloves XL gloves, use 100units Yareli Matthews, 04/25/2019 Misc daily for urinary M.D., FACP incontinence supplies dx i69.959 N39.42 L24.89 Simplicity Garment four times a day 120units N39.42 Coralcontreras Schmitz, 2018 Liner 10"X24"/Extra for urinary M.D. 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 Large/X-Large Max dx-i69.959, N39.42 Absorb L24.89 Misc Contour Blood Glucose Use To Test Blood 100units Coral Schmitz, 2018 Test Strips Sugar Twice Daily M.D. Strips Microlet Lancets Use For Testing 100units Coral Schmitz, 04/12/2019 Misc Twice Daily And as M.D. Needed 3-In-1 Bedside Toilet as needed Dx I50.30 Coral Schmitz, 03/16/2019 i5030 M.D. 3-In-1 Misc Calmoseptine apply prn 1units Coral Schmitz, 02/16/2019 M.D. Underpads Regular change several 300units N39.41 Coral Schmitz, 2018 Misc times daily as M.D. needed. length of need= lifetime medicaid id# [id number] dx r39.81 Contour Next Blood use to test blood 200units Coral Schmitz, 03/28/2018 Glucose Test sugar twice daily. M.D. Strips brand may be altered to fit insurance coverage Florentino Microlet check cs twice 100units Coral Schmitz, 03/28/2018 Lancets daily and as M.D. Misc needed Depend Underwear For wear as needed for 4Boxes Coral Schmitz, 01/28/2018 Wom Men Large Maximum incontinence M.D. Absorbency Misc Atorvastatin Calcium 1 by mouth every E78.5 Coral Schmitz, 11/17/2017 day M.D. 40mg Tablets Aspirin Adult Low Take one tablet 90tabs Coral Schmitz, 10/19/2017 Dose once daily M.D. 81mg Tablets DR Sotalol HCL (AF) Twice Daily Unknown 09/21/2017 80mg Tablets Ferrous Gluconate take one tablet by 60tabs D64.9 Coral Schmitz, 2017 mouth once a day M.D. 324(38Fe) mg Tablets Underpads Extra Large medicaid id 108units Coral Schmitz, 07/15/2017 [id number], length M.D. 23"X36" [facility] of need 99, icd10 r39.81 Adult Protective medicaid id [id number] Gabriela 07/15/2017 Underwear [id number], length John, Eddy.Danica of need 99, icd10 r39.81,n39.49 size large Contour Strips check twice a 100units Coral Schmitz, 04/27/2017 day-does not check M.D. twice daily b/c she is short on supplies Lancets Micro Thin use twice daily 100units E11.9 Coral Schmitz, 2015 33G and as needed M.D. Thin 33G [facility] Florentino Contour Blood ck FS am fasting 60units E11.8 Sapphire Sultana, 2015 Glucose Test Strips and 2 hours after M.D. dinner Strips Shower Sit as directed 1units Sapphire Sultana, 03/08/2014 M.D. Florentino Contour Blood 2-3 x week Dx 50units Vik Bustillos NP 01/16/2014 Glucose Test Strips Code 250.62 Strips Quad Cane use as needed dx 1units V15.88 Sapphire Sultana, 01/12/2014 [facility] code v15.88, M.D. 250.62 Pradaxa take 1 capsule by 60caps Coral Schmitz, 150mg Capsules mouth twice a day M.D. Spironolactone once a day Unknown 25mg Tablets Tylenol Extra 2 by mouth 3 times Unknown Strength daily as needed 500mg Tablets Immunizations CPT Code Status Date Vaccine Lot # [id number] Refused 01/18/2018 Influenza Virus Vaccine, Quadrivalent, Split, Preservative Free 83114 Refused 07/19/2017 Pneumococcal Conjugate Vaccine 13 Valent For Intramuscular Use 25109 Refused 04/27/2017 Zoster (Zostavax) [id number] Refused 04/27/2017 Tdap - Tetanus/Diptheria/Acellular Pertussis 54559 Refused 04/27/2017 Influenza Virus Vaccine, Quadrivalent, Split, Preservative Free 38912 Refused 04/27/2017 Pneumococcal Conjugate Vaccine 13 Valent For Intramuscular Use 01223 Refused 01/12/2014 Pneumonia Vaccine [id number] Refused 01/12/2014 Flu Vaccine Split Virus Preservative Free For Indiv 3Yr Older Vital Signs Date Vital Result Comment 05/17/2019 11:39am Height 65 inches 5'5" Weight 188.50 lb w/ boots Heart Rate 60 /min R. radial, regular BP Systolic 118 mmHg LA, lg cuff BP Diastolic 58 mmHg LA, lg cuff BMI (Body Mass Index) 31.4 kg/m2 04/11/2019 11:44am Height 65 inches 5'5" Weight 191.19 lb Heart Rate 61 /min BP Systolic 130 mmHg 126/59 BP Diastolic 48 mmHg 126/59 Body Temperature 97.7 F O2 % BldC Oximetry 96 % BMI (Body Mass Index) 31.8 kg/m2 Results Test Acquired Date Facility Test Result H/L Range Note Urine 04/11/2019 [facility] Ur Microalbumin < 15.[address] (mg/L) mg/[place] [address] [phone] Urine Creatinine 143.19 mg/dL Urine Microalbumin/Creatinine TNP <31 1 Laboratory test 04/11/2019 [facility] In House Hemoglobin A1c 5.7 5-7 finding Inr/Protime 03/06/2019 [facility] Inr 1.57 High 0.82-1.[address] [place] [address] [phone] Comp Metabolic 03/06/2019 [facility] Sodium 135 mmol/L Normal 135-[address] [place] [address] [phone] Chloride 104 mmol/L Normal 101-111 Co2 Carbon Dioxide 21 mmol/L Low 22-32 Glucose 179 mg/dL High 70-100 Blood Urea Nitrogen 29 mg/dL High 6-24 Creatinine 1.01 mg/dL High 0.51-0.95 BUN/Creatinine Ratio 28.7 High 8-20 Calcium 9.3 mg/dL Normal 8.6-10.3 Total Protein 6.9 g/dL Normal 6.4-8.9 Albumin 4.2 g/dL Normal 3.2-5.2 Globulin 2.7 g/dL Normal 2-4 Albumin/Globulin Ratio 1.6 Normal 1-3 Total Bilirubin 2.20 mg/dL High 0.2-1.0 Alkaline Phosphatase 117 U/L High 34-104 Alt 11 U/L Normal 7-52 Egfr Non- 52.6 >60 Egfr 63.7 >60 3 Potassium 5.1 mmol/L High 3.5-5.0 Anion Gap 10 mmol/L Normal 2-11 Ast 24 U/L Normal 13-39 Laboratory test 03/06/2019 [facility] Amylase 42 U/L Normal 29 -[address] [place] [address] [phone] Lipase < 10 U/L Low 11.0-82.0 C Reactive Protein 20.55 mg/L High <8.01 CBC Auto 03/06/2019 [facility] White Blood 10.9 10^3/uL High 3.5-10.[address] [place] [address] [phone] Red Blood Count 2.89 10^6/uL Low 3.70-4.87 Hemoglobin 8.7 g/dL Low 12.0-16.0 Hematocrit 27 % Low 35-47 Mean Corpuscular Volume 93 fL Normal 80-97 Mean Corpuscular Hemoglobin 30 pg Normal 27-31 Mean Corpuscular HGB Conc 32 g/dL Normal 31-36 Red Cell Distribution Width 16 % High 10-15 Platelet Count 157 10^3/uL Normal 150-450 Mean Platelet Volume 8.0 fL Normal 7.4-10.4 Abs Nucleated RBC 0.0 10^3/uL Nucleated Red Blood Cells % 0.1 Manual 03/06/2019 [facility] Immature 6.0 % Normal 0-[address] [place] [address] [phone] Neutrophil % 88.0 % Band % 6.0 % Normal 0-8 Lymphocytes % 3.0 % Monocytes % 3.0 % Polychromasia 1+ Tear Drop Cells 1+ Abs Neutrophils 10.3 10^3/uL High 1.5-7.7 Abs Lymphocytes 0.3 10^3/uL Low 1.0-4.8 Abs Monocytes 0.3 10^3/uL Normal 0-0.8 Urinalysis Profile 03/06/2019 [facility] Urine Color Olga Lidia [address] [place] [address] [phone] Urine Appearance Cloudy Urine Specific Sprague 1.024 Normal 1.010-1.030 Urine pH 5.0 Normal 5-9 Urine Urobilinogen Negative Negative Urine Ketones Negative Negative Urine Protein Negative Negative Urine Leukocytes Trace Abnormal Negative Urine Blood 2+ Abnormal Negative * * Abnormal Negative 4 Urine Nitrite Negative Negative Urine Bilirubin Negative Negative Urine Glucose Negative Negative Urine White Blood Cell Trace(0-5/hpf) Absent Urine Red Blood Cell 2+(6-10/hpf) Abnormal Absent Urine Bacteria Absent Absent Urine Squamous Epithelial Cell Present Abnormal Absent Urine Hyaline Casts Present Abnormal Absent Laboratory test 03/06/2019 [facility] Blood Culture SEE RESULT [address] [place] [address] [phone] Urine Culture And 03/06/2019 [facility] Urine Culture SEE RESULT [address] [place] [address] [phone] Laboratory test 02/14/2019 [facility] B-Type 285 pg/mL High <= [address] Natriuretic 0 [place] [address] Peptide BNP [phone] Basic Metabolic 02/14/2019 [facility] Sodium 139 mmol/L Normal 135- Panel [address] [place] [address] [phone] Potassium 4.3 mmol/L Normal 3.5-5.0 Chloride 106 mmol/L Normal 101-111 Co2 Carbon Dioxide 24 mmol/L Normal 22-32 Anion Gap 9 mmol/L Normal 2-11 Glucose 131 mg/dL High 70-100 Blood Urea Nitrogen 23 mg/dL Normal 6-24 Creatinine 1.01 mg/dL High 0.51-0.95 BUN/Creatinine Ratio 22.8 High 8-20 Calcium 9.1 mg/dL Normal 8.6-10.3 Egfr Non- 52.6 >60 Egfr 63.7 >60 7 BUN/Creat/GFR 12/08/2018 [facility] Poc Blood Urea 23 mg/dL Normal 8-[address] [place] [address] [phone] Poc Creatinine 0.9 mg/dL Normal 0.6-1.3 8 Poc BUN/Creatinine Ratio 25.6 High 8-20 Egfr Non- 60.1 >60 Egfr 72.7 >60 9 1 Unable to calculate due to low microalbumin 2 Standard intensity warfarin therapeutic range: 2.0-3.0 High intensity warfarin therapeutic range: 2.5-3.5 3 Because ethnic data is not always [...] 5 Kidney failure <15 (or dialysis) 4 *Ascorbic acid is present which may interfere with detection of blood. 5 SEE RESULT BELOW Name: ASHLEY FINN Jef : [address]: Arlette Navarro MD Acct: [id number] Unit: [id number] AGE: 83 Location: ED Re03/06/19 SEX: F Status: DEP ER SPEC: [id number] GHISLAINE: 03/06/[address] [facility] [address]: Arlette Navarro MD REQ: [id number] RECD: 03/06/19 STATUS: RES [facility] DR: Coral Schmitz MD _ S[facility]: Blood Cult Procedure Result Reported Site Aerobic Culture Bottle Preliminary 03/10/19- 2156 ML No Growth Day 4 Anaerobic Culture Bottle Final 03/11/192156 ML No Growth Day 5 * ML - Main Lab . END OF REPORT DEPARTMENT OF PATHOLOGY, [address] [place] [address] Devante Be M.D. Director [facility] # [id number] 6 SEE RESULT BELOW Name: ASHLEY FINN : [address]: Arlette Navarro MD Acct: [id number] Unit: [id number] AGE: 83 Location: ED Re03/06/19 SEX: F Status: DEP ER SPEC: [id number] GHISLAINE: 03/06/[address] [facility] [address]: Arlette Navarro MD REQ: [id number] RECD: 03/06/19 STATUS: AKILAH ESQUIVEL DR: Coral Schmitz MD _ SOURCE: URINE [facility]: ORDERED: Urine Culture Procedure Result Reported Site Urine Culture Final 03/09/19- 0936 ML Organism 1 ESCHERICHIA COLI [place] Count >100,000 (Many) CFU/ML Organism 2 NORMAL RANDI [place] Count 25-50,000 (Moderate) CFU/ML 1. ESCHERICHIA COLI M.I.C. RX --------- ------ Ampicillin 16 I Cefazolin <=4 S Cefepime <=1 S Ceftriaxone <=1 S Ciprofloxacin <=0.25 S Gentamicin <=1 S Levofloxacin <=0.12 S Meropenem <=0.25 S Nitrofurantoin <=16 S Tetracycline <=1 S Pipercillin/Tazobactam <=4 S Trimethoprim/Sulfamethoxazole <=20 S Amoxicillin/Clavulanic Acid 8 S Aztreonam <=1 S Contact the Microbiology Department for any additional antibiotic reporting. * ML - Main Lab . END OF REPORT DEPARTMENT OF PATHOLOGY, [address] [place] [address] Devante Be M.D. Director [facility] # [id number] 7 Because ethnic data is not always readily [...] 15-29 5 Kidney failure <15 (or dialysis) 8 Health Information Specialist: [id number] 9 Because ethnic data is not always readily [...] 15-29 5 Kidney failure <15 (or dialysis) Procedures Date Code Description Status 03/14/2019 [id number] Mammogram Completed 04/20/2018 917193647 Diabetic Retinal Eye Exam Completed 03/11/2018 66167939 Mammogram Completed 06/12/2017 758436523 Diabetic Foot Exam Completed 01/21/2016 [id number] Mammogram Completed 10/31/2015 718542402 Bone Mineral Density Test Completed 02/04/2015 077421176 Diabetic Retinal Eye Exam Completed 01/15/2015 [id number] Mammogram Completed 01/12/2015 79397963 Mammogram Completed 08/09/2014 914626413 Diabetic Retinal Eye Exam Completed 01/12/2014 13466835 Mammogram Completed 07/09/2011 10285164 Mammogram Completed 01/08/2011 71360648 Mammogram Completed Medical Devices Description No Information Available Encounters Type Date Location Provider Dx Diagnosis Office Visit 04/19/2019 [facility] Luisa Calvillo, E11.621 Type 2 diabetes 1:30p AT [facility] mellitus with foot ulcer I73.9 Peripheral vascular disease, unspecified Office Visit 03/29/2019 1:30p Wound Care Luisa Andrews E11.621 Type 2 diabetes Center [facility] MD Rajinder mellitus with foot ulcer Office Visit 03/22/2019 12:45p Wound Care Luisa Andrews E11.621 Type 2 diabetes Center AT [facility] MD Rajinder mellitus with foot ulcer Office Visit 03/16/2019 1:20p [facility] Internal Coral I50.30 Unspecified Zeb Schmitz M.D. diastolic Ccmob (congestive) heart failure N39.0 Urinary tract infection, site not specified N39.42 Incontinence without sensory awareness Office Visit 02/16/2019 1:40p [employer] Internal [place] I50.30 Unspecified Zeb Schmitz M.D. diastolic Ccmob (congestive) heart failure R60.0 Localized edema Office Visit 02/08/2019 2:20p [facility] Internal Coral Schmitz, R60.0 Localized edema Medicine Kd Flowers M.D. Assessments Date Code Description Provider 05/17/2019 I70.245 Atherosclerosis of [place] arteries of left Aniket Jose M.D. leg with ulcerati 04/19/2019 E11.621 Type 2 diabetes mellitus with foot ulcer Luisa Calvillo MD 04/19/2019 I73.9 Peripheral vascular disease, unspecified Luisa Calvillo MD 04/11/2019 E11.621 Type 2 diabetes mellitus with foot ulcer Coral Schmitz M.D. 04/11/2019 N39.42 Incontinence without sensory awareness Coral Schmitz M.D. 04/11/2019 L24.89 Irritant contact dermatitis due to other Coral Schmitz M.D. agents 04/11/2019 D50.9 Iron deficiency anemia, unspecified Coral Schmitz M.D. 04/11/2019 E11.9 Type 2 diabetes mellitus without Coral Schmitz M.D. complications 03/29/2019 E11.621 Type 2 diabetes mellitus with foot ulcer Luisa Calvillo MD 03/22/2019 E11.621 Type 2 diabetes mellitus with foot ulcer Luisa Calvillo MD 03/16/2019 I50.30 Unspecified diastolic (congestive) heart Coral Schmitz M.D. failure 03/16/2019 N39.0 Urinary tract infection, site not specified Coral Schmitz M.D. 03/16/2019 N39.42 Incontinence without sensory awareness Coral Schmitz M.D. 02/16/2019 I50.30 Unspecified diastolic (congestive) heart Coral Schmitz M.D. failure 02/16/2019 R60.0 Localized edema Coral Schmitz M.D. 02/08/2019 R60.0 Localized edema Coral Schmitz M.D. Plan of Treatment Future Appointment(s):07/11/2019 1:00 pm - Coral Schmit[facility] M.D. at [facility] Aniket Jose M.D.I70.245 Atherosclerosis of [place] arteries of left leg with ulceratiComments:The following was discussed with Ashlye and her daughter Cecil the time of clinic visit :As had been discussed with the patient and her daughter after each angiographic intervention, we were unsuccessful and revascularizing the distal most length of the posterior tibial artery and reestablishing "the pedal loop". From a vascular perspective, reestablishing in-line flow with the distal posterior tibial artery offers the best likelihood of sustained left heel pain resolution and healing of the wound.I offered the patient and her daughter the following 3 options:1. They could continue with wound care only in the hopes of eventually healing the heel wound.2. Repeat arteriography with me with the knowledge that I do not possess any new treatment options that have not been tried during her 2 prior angiographic procedures.3. Referral to Dr. Starkey for endovascular evaluation.I have discussed the final option with the patient and her daughter in the past and today they requested I submit a referral to Dr. Starkey.Referral:Diego Starkey M.D., Radiology,Vascular/Interv Functional Status Description No Information Available Mental Status Description No Information Available Referrals Refer to Reason for Referral Status Appt Date Diego Starkey M.D. Sent [address] [place] [address] [phone]
--- OUTSIDE RECORDS SUMMARY | 2019-06-10 08:20 | XMS REPORT | Summary of Care ---
:1935 Author Organization [facility] Address 1 [facility] [place] [address] Care Team Providers Name Role Phone Coral Schmitz MD Primary Care Provider Reason for Visit Reason Comments Follow Up Pt. in for a 1 week follow up on Medication adjustment. Pt. Reports no change in symptoms. Encounter Details Date Type Department Care Team Description 05/08/2019 Office Visit ChapmanKarolina Delong PA LBBB (left bundle branch block) (Primary Dx); Cardiology 1 [facility] S/P TAVR (transcatheter aortic valve replacement); [address] [facility] [place] [address] Persistent atrial fibrillation; [place] [address] ASHD (arteriosclerotic heart disease) [phone] Allergies Active Allergy Reactions Severity Noted Date Comments Altaryl Other 11/22/2012 Adult Aspirin Low GI Reaction 11/22/2012 Ciprofloxacin Hcl Other 06/22/2017 cipro w/ unknown reaction Morphine Other 11/22/2012 Penicillins Unknown Reaction 12/27/2012 Experienced rash in past, was told by MD to avoid PCN. Prednisone Other 06/19/2014 bleeding Sulfa Antibiotics Swelling 06/19/2014 documented as of this encounter (statuses as of 05/08/2019) Medications Medication Sig Dispensed Refills Start Date End Date Status potassium chloride Take 1 Tab by 90 Tab 3 06/14/2017 Active (K-DUR) 20 MEQ Oral Tab mouth DAILY. CR Ferrous Sulfate (IRON) Take by mouth. 0 Active 325 (65 Fe) MG Oral Tab Aspirin 81 MG Oral Tab Take 81 mg by 0 Active mouth. atorvastatin (LIPITOR) 40 Take 1 Tab by 90 Tab 3 05/12/2018 Active MG Oral TabIndications: mouth DAILY. ASHD (arteriosclerotic heart disease) sotalol (BETAPACE) 80 MG Take 1 Tab by 180 Tab 3 09/01/2018 Active Oral TabIndications: mouth TWICE Paroxysmal atrial DAILY. fibrillation (HCC) spironolactone Take 1 Tab by 90 Tab 3 09/01/2018 Active (ALDACTONE) 25 MG Oral mouth DAILY. TabIndications: Chronic diastolic heart failure (HCC) dabigatran (PRADAXA) 150 Take 1 Cap by 180 Cap 3 11/08/2018 Active MG Oral Cap mouth TWICE DAILY. torsemide (DEMADEX) 20 MG Take 1 Tab by 180 Tab 3 05/01/2019 Active Oral Tab mouth TWICE DAILY. documented as of this encounter (statuses as of 05/08/2019) Active Problems Problem Noted Date LBBB (left [...] of anticoagulants 02/25/2017 Overview: Patient is at [facility] Pain 02/24/2017 Aortic valve stenosis 02/17/2017 Closed fracture of neck of right femur 02/17/2017 Wrist fracture, left 08/07/2014 Wrist sprain 06/23/2014 Wrist pain, left 05/21/2014 documented as of this encounter (statuses as of 05/08/2019) Social History Tobacco Use Types Packs/Day Years [...] Sign Reading Time Taken Comments Blood Pressure 132/68 05/08/2019 2:30 PM EST Pulse 72 05/08/2019 2:25 PM EST Temperature - - Respiratory Rate - - Oxygen Saturation - - Inhaled Oxygen Concentration - - Weight 86.2 kg (190 lb) 05/08/2019 2:25 PM EST Height 165.1 cm (5' 5") 05/08/2019 2:25 PM EST Body Mass Index 31.62 05/08/2019 2:25 PM EST documented in this encounter Patient Instructions Patient InstructionsKarolina Tomas PA - 05/08/2019 2:40 PM EST Weigh yourself every morning before breakfast, write it down and compare to yesterday' s weight. Follow a heart failure diet. Eat [...] have increased night time trips to urinate - Follow up with us in 2 weeks - No medication changes today documented in this encounter Progress Notes Karolina Tomas PA - 05/08/2019 2:40 PM EST [facility] Note Patient: Ashley Finn Date of : 1935 Date of Service: 05/08/2019 REFERRING PRACTITIONER: Karolina Tomas PRIMARY CARE PROVIDER: Coral Shcmitz Chief Complaint: Chief Complaint Patient presents with Follow Up Pt. in for a 1 week follow up on Medication adjustment. Pt. Reports no change in symptoms. History of Present Illness: We had the pleasure of seeing Ashley Finn today. She is a 84-y.o. female with a PMH of obesity, HTN, DM, chronic LBBB, paroxysmal atrial fibrillation on sotalol, PAD, CAD with HEAD ROSE GROWER of the RCA, and severe s/p balloon valvuloplasty 02/18/17 prior to undergoing R hip arthroplasty d/t a hip fracture. She subsequently underwent TAVR with an # 23 Coker transcatheter bioprosthetic valve via the L femoral approach on 03/30. She was cardioverted from Afib to NSR during her TAVR procedure, who presents today for follow up. I saw her last week for follow up, at which time she noticed increased weight gain and increased b/llower extremity edema. She still reports shortness of breath, but does admit she is not very active due b/l leg pain and an ulcer on the bottom of her foot. She is seeing surgery next week to eval the ulcer. She brought in a trend of her weights. They have been ranging 188-190 at home. Her UTI symptoms have resolved. Patient denies fever, febrile illness. POSITIVE fatigue. NEUROLOGIC: Denies transient ischemic attack or cerebrovascular accident signs or symptoms. Denies syncope or presyncopal episodes. CARDIOVASCULAR: denies chest pain, denies palpations, POSITIVE lower extremity edema. RESPITATORY: POSITIVE shortness of breath, denies orthopnea. GASTROINTESTINAL: Denies melena. GENITOURINARY: Denies hematura or nocturia. MUSCULOSKELETAL: POSITIVE claudication. All other remaining systems are negative. [...] of sacrum, limited to breakdown of skin ([facility]) Past Medical History: Diagnosis Date Closed fracture dislocation of hip joint (HCC) Diabetes mellitus (HCC) Fracture Past Surgical History: Procedure Laterality Date CATHETERIZATION HEART RIGHT AND LEFT 02/18/2017 Procedure: CATHETERIZATION HEART RIGHT AND LEFT; Surgeon: Patrice Christianson MD ; Location: [facility] CCL HYSTERECTOMY, ABDOMINAL KS PARTIAL HIP REPLACEMENT Right 02/19/2017 Procedure: HIP HEMIARTHROPLASTY; Surgeon: Castillo Leos MD; Location: [facility] MAIN OR KS PELVIS/HIP JOINT SURGERY UNLISTED KS REPLACE AORTIC VALVE PERQ FEMORAL ARTRY APPROACH N/A 03/30/2017 Procedure: TAVR, TRANSFEMORAL, INTEROPERATIVE UGO AND CARDIOVERSION; Surgeon : Vinayak Ko MD; Location: [facility] MAIN OR Allergies Allergen Reactions Antihistamine [...] file Gets together: Not on file Attends synagogue service: Not on file Active member of [...] Narrative Not on file Physical Exam: Vitals: 05/08/19 1425 05/08/19 1430 BP: (!) 152/62 132/68 BP Location: Left arm Patient Position: Sitting Pulse: 72 Weight: 190 lb (86.2 kg) Height: 5' 5" (1.651 m) Body mass index is 31.62 kg/m. General: Well nourished, alert 84-y.o. female in NAD HEENT: anicteric, MMM, no E/E OP, conj pink Neck: no carotid bruits CV: RRR, normal s1/s2,+ systolic murmur, rubs, or gallops Pulm: CTA bilaterally without wheezes, rhonchi, or rales. No increased work of breathing. Abd: soft, NT, ND, +BS. No appreciable pulsatile masses or bruits. Ext: trace/1+ pitting b/l lower extremity edema, no cyanosis, no cords, redness , or warmth, 2+ distal pulses Neuro: no gross focal deficits Skin: no visible lesions Labs: Lab Results Component Value Date NA 134 05/05/2019 K 4.4 05/05/2019 CL 97 (L) 05/05/2019 CO2 26 05/05/2019 GLUCOSE 200 (H) 05/05/2019 BUN 25 (H) 05/05/2019 CREATININE 1.2 05/05/2019 CALCIUM 8.8 05/05/2019 TP 7.7 2017 ALBUMIN 4.3 2017 AST 33 2017 ALT 42 2017 ALK 188 (H) 2017 TBILI 1.1 2017 EGFR 43 05/05/2019 Lab Results Component Value Date NT PRO BNP 741 (H) 05/05/2019 No results found for: CHOL, TRIG, HDL, LDL, LDLHDLRATIO, CHOLHDLRATIO Assessment & Plan: Ashley Finn is a 84-y.o. female with ICD-9-CM ICD-10-CM 1. LBBB (left bundle branch block) 426.3 I44.7 2. S/P TAVR (transcatheter aortic valve replacement) V43.3 Z95.2 3. Persistent atrial fibrillation 427.31 I48.19 4. ASHD (arteriosclerotic heart disease) 414.00 I25.10 1. S/p TAVR: Recent echoshowed stable gradients and valvular function. Cont ASA. Willcont to follow valve function by echo. 2.Acute onChronic Diastolic CHFwith NYHA Class IIIsymptoms: Volume status appearsto be improving, lungs are clear, lower extremity swelling is decreased and weight is slightly down by our scales. She is still shortness of breath, but I think that is also due to deconditioning as she is generally inactive due to claudication.Recommendations are as follows: Most recent LV function:60-65% (assessed on03/01/19by echo). KATT-inhibitor or ARB:BP and LVEF normal, so no need to add. Aldosterone Antagonist:Cont 25mg spironolactone daily. Diuretics:Continue Torsemide 20mg BID. Will follow up with her in 2 weeks. If she continuesto trend well on this regimen, will space out follow up. 3.Coronary Artery Disease,with chronically occluded RCA: Currently asymptomatic from an ischemic standpoint. I recommend the following medical regimen: Antiplatelets: Cont ASA.Given her PAD,Dr. Garcia felt is was OK to be onantiplatelet agent as well as Pradaxa. Denies any [...] The heart-rate is currently wellcontrolled onthecurrent medical regimen.This patient's [id number] score is 5. I recommend thefollowing treatment strategy and medical regimen for this patient: Stroke prevention:Based on the patient's [id number] risk profile, I recommend continuing Pradaxa indefinitely. Rate control:Sotalol. Rhythm control:On sotalol.QTc was stable 445ms on 03/15/19 Thank you for allowing me to participate in the care of Ashley Finn. We will plan on f/u in our office in 2 weeks or sooner prn. If you have any questions or concerns please feel free to call our office. PASHA Dale, 05/08/2019, 15:12 documented in this encounter Plan of Treatment Date Type Specialty Care Team Description 05/22/2019 Office Visit Cardiology Karolina Tomas PA [address] [place] [address] [phone] Health Maintenance Due Date Last Done Comments [...] of this encounter Implants Implanted Type Area Windlace Machine Operator Device Shelf Model / Identifier Expiration Serial / Date Lot Plug, [place] [employer]ement - [id number] Right: Hip JC, ROBBIE. B000- [id number] / Implanted: Qty: 1 on 02/19/2017 by Castillo Leos MD at [facility] / [id number] Bone Cement, Double 80gm - [id number] Right: Hip DEPUY 05/09/2019 [id number] / Implanted: Qty: 1 on 02/19/2017 by Castillo Leos MD at [facility] / [id number] Versys Hip System Advocate Hip Prosthesis Size 13 Right: Hip [id number] / Implanted: Qty: 1 on 02/19/2017 by Castillo Leos MD at [facility] / [id number] Versys Hip System Endo Femoral Head 12/14 Taper 46mm Diameter Right: Hip MAUDE MELISSA 02/20/2024 [id number] / Implanted: Qty: 1 on 02/19/2017 by Castillo Leos MD at [facility] [employer] / [id number] 23mm Coker Shaun 3 Heart Valve/Commander De - [id number] N/A: Aortic EDWRDS 10/16/2018 [id number] / Implanted: Qty: 1 on 03/30/2017 by Vinayak Ko MD at [facility] [employer] [id number] / documented as of this encounter Results Not on filedocumented in this encounter Visit Diagnoses Diagnosis LBBB (left bundle branch block) Other left bundle branch block S/P TAVR (transcatheter aortic valve replacement) Persistent atrial fibrillation Atrial fibrillation ASHD (arteriosclerotic heart disease) Coronary atherosclerosis of unspecified type of vessel, [place] or graft documented in this encounter Insurance Payer Benefit Plan / Subscriber ID Effective Dates Phone Address Type Group MEDICARE MEDICARE PART A xxxxxxxxxxx 2019-Pres Medicare & B t [place] xxxxxxxx 2017-Present Medicaid [place] Guarantor Name Account Type Relation to Date of Phone Billing Patient Address Ashley Finn Personal/Family 1935 [address] (Home) [address] [place] ([place]) [id number] documented as of this encounter
--- OUTSIDE RECORDS SUMMARY | 2019-06-10 08:21 | XMS REPORT | Continuity of Care Document ---
:1935 External Reference #:[id number] Author Name Coral Schmitz M.D. (transmitted by agent of provider Yolanda Olvera) Address [address] [facility], [place] [address] Problems Active Problems Provider Date Neurological disorder [...] 11/17/2017 extremities Sepsis, unspecified organism Mike Reeves N.Miller Onset: 02/02/2018 Headache Mike Reeves NMarry Onset: 02/02/2018 Type 2 diabetes mellitus with [...] without obstruction Coral Schmitz M.D. Onset: 04/11/2019 Social History Type Date Description Comments Sex Unknown ETOH Use Denies alcohol use Tobacco Use Start: Unknown Patient has never smoked Recreational Drug Use Denies Drug Use Smoking Status Reviewed: 04/11/19 Patient has never smoked Exercise Type/Frequency Does not exercise Allergies, Adverse Reactions, Alerts Active Allergies Reaction Severity Comments Date Penicillin Urticaria 12/18/2010 Morphine Urticaria 12/18/2010 Antihistamines, Loratadine-type 12/18/2010 Sulfa redness/swelling LE 02/16/2014 Ciprofloxacin 02/16/2014 Prednisone bleeding 11/16/2014 Medications Active Medications SIG Qnty Indications Ordering Date Provider 3-In-1 Bedside Toilet as needed Dx i5030 I50.30 Coral 03/16/2019 Cheryl Schmitz 3-In-1 Misc Calmoseptine apply tid 1units Coral 02/16/2019 Cheryl Schmitz Underpads Regular change several 300units N39.41 Coral 09/05/2018 Misc times daily as Cheryl Schmitz needed. length of need= lifetime medicaid id# [id number] dx r39.81 Furosemide 40mg Every Day Unknown 04/28/2018 20mg Tablets Contour Next Blood use to test blood 200units [facility] 03/28/2018 Glucose Test sugar twice daily. Cheryl Schmitz Strips brand may be altered to fit insurance coverage Florentino Microlet check cs twice 100units Coral 03/28/2018 Lancets daily and as needed Cheryl Schmitz Mis Aspirin Ec Low Dose Every Day Unknown 02/02/2018 81mg Tablets Depend Underwear For wear as needed for 4Boxes [facility] 01/28/2018 Wom Men Large Maximum incontinence Cheryl Schmitz Absorbency Mis Atorvastatin Calcium 1 by mouth every E78.5 Coral 11/17/2017 day Cheryl Schmitz 40mg Tablets Aspirin Adult Low once a day take otc 90tabs Coral 10/19/2017 Dose Cheryl Schmitz 81mg Tablets Sotalol HCL (AF) Twice Daily Unknown 09/21/2017 80mg Tablets Ferrous Gluconate take one tablet by 60tabs D64.9 Coral 07/19/2017 mouth once a day Cheryl Schmitz 324(38Fe) mg Tablets Panty Liner/ Shield medicaid id 200units Giacomo E. 07/15/2017 [id number], length of Cheryl Stallings need 99, icd10 r39.81, size xl Adult Protective medicaid id 200units Coral 07/15/2017 Underwear [id number], length of Cheryl Schmitz need 99, icd10 r39.81,n39.49 size large Underpads Extra Large medicaid id 108units Coral 07/15/2017 [id number], length of Cheryl Schmitz 23"X36" Mis need 99, icd10 r39.81 Contour Strips check twice a day 100units Croal 04/27/2017 Cheryl Schmitz Lancets Micro Thin use twice daily and 100units E11.9 Croal 07/18/2015 33G as needed Cheryl Schmitz Thin 33G Mis Florentino Contour Blood ck FS am fasting 60units E11.8 Sapphire Sultana, 2015 Glucose Test Strips and 2 hours after M.D. dinner Strips Shower Sit as directed 1units Sapphire Sultana, 03/08/2014 Cheryl Florentino Contour Blood 2-3 x week Dx 50units Vik Bustillos NP 01/16/2014 Glucose Test Strips Code 250.62 Strips Quad Cane use as needed dx 1units V15.88 Sapphire Sultana, 01/12/2014 Misc code v15.88, 250.62 M.D. Pradaxa take 1 capsule by 60caps Coral 150mg Capsules mouth twice a day Cheryl Schmitz Sotalol HCL one bid Unknown 80mg Tablets Spironolactone once a day Unknown 25mg Tablets Tylenol Extra 2 by mouth 3 times Unknown Strength daily as needed 500mg Tablets Nitrofurantoin 1 by mouth twice 14caps Yareli Cassie, Macrocrystal daily M.D., FACP 100mg Capsules History Medications Nitrofurantoin Monohyd 1 tab twice a 14caps Coral Schmitz, 11/09/2018 - Macro day x 7 days M.DIssa 12/19/2018 100mg Capsules Immunizations CPT Code Status Date Vaccine Lot # [id number] Refused 01/18/2018 Influenza Virus Vaccine, Quadrivalent, Split, Preservative Free 06357 Refused 07/19/2017 Pneumococcal Conjugate Vaccine 13 Valent For Intramuscular Use 67160 Refused 04/27/2017 Zoster (Zostavax) [id number] Refused 04/27/2017 Tdap - Tetanus/Diptheria/Acellular Pertussis 34981 Refused 04/27/2017 Influenza Virus Vaccine, Quadrivalent, Split, Preservative Free 01374 Refused 04/27/2017 Pneumococcal Conjugate Vaccine 13 Valent For Intramuscular Use [id number] Refused 01/12/2014 Pneumonia Vaccine [id number] Refused 01/12/2014 Flu Vaccine Split Virus Preservative Free For Indiv 3Yr Older Vital Signs Date Vital Result Comment 04/11/2019 11:44am Height 65 inches 5'5" Weight 191.19 lb Heart Rate 61 /min BP Systolic 130 mmHg 126/59 BP Diastolic 48 mmHg 126/59 Body Temperature 97.7 F O2 % BldC Oximetry 96 % BMI (Body Mass Index) 31.8 kg/m2 03/16/2019 1:11pm Height 65 inches 5'5" Weight 199.00 lb Heart Rate 59 /min BP Systolic Sitting 135 mmHg BP Diastolic Sitting 54 mmHg O2 % BldC Oximetry 100 % BMI (Body Mass Index) 33.1 kg/m2 Results Test Acquired Date Facility Test Result H/L Range Note Laboratory test 04/11/2019 [facility] House Hemoglobin A1c 5.7 5-7 finding Inr/Protime 03/06/2019 [facility] Inr 1.57 High 0.82-1.09 [address] [place] [address] [phone] Comp Metabolic 03/06/2019 [facility] Sodium 135 mmol/L Normal 135-145 Panel [address] [place] [address] [phone] Chloride 104 mmol/L Normal 101-111 Co2 Carbon [...] Egfr Non- 52.6 >60 Egfr 63.7 >60 2 Potassium 5.1 mmol/L High 3.5-5.0 Anion Gap 10 mmol/L Normal 2-11 Ast 24 U/L Normal 13-39 Laboratory test 03/06/2019 [facility] Amylase 42 U/L Normal 29 -103 finding [address] [place] [address] [phone] Lipase < 10 U/L Low 11.0-82.0 C Reactive Protein 20.55 mg/L High <8.01 CBC Auto 03/06/2019 [facility] White Blood 10.9 10^3/uL High 3.5-10.8 Diff [address] [facility] [place] [address] [phone] Red Blood Count 2.89 10^6/uL Low 3.70-4.87 [...] Red Blood Cells % 0.1 Manual 03/06/2019 [facility] Immature 6.0 % Normal 0-[address] [place] [address] [phone] Neutrophil % 88.0 % Band % 6.0 % Normal 0-8 Lymphocytes % 3.0 % Monocytes % 3.0 % Polychromasia 1+ Tear Drop Cells 1+ Abs Neutrophils 10.3 10^3/uL High 1.5-7.7 Abs Lymphocytes 0.3 10^3/uL Low 1.0-4.8 Abs Monocytes 0.3 10^3/uL Normal 0-0.8 Urinalysis Profile 03/06/2019 [facility] Urine Color Olga Lidia [address] [place] [address] [phone] Urine Appearance Cloudy Urine Specific [place] 1.024 Normal 1.010-1.030 Urine pH 5.0 Normal 5-9 Urine Urobilinogen Negative Negative Urine Ketones Negative Negative Urine Protein Negative Negative Urine Leukocytes Trace Abnormal Negative Urine Blood 2+ Abnormal Negative * * Abnormal Negative 3 Urine Nitrite Negative Negative Urine Bilirubin Negative Negative Urine Glucose Negative Negative Urine White Blood Cell Trace(0-5/hpf) Absent Urine Red Blood Cell 2+(6-10/hpf) Abnormal Absent Urine Bacteria Absent Absent Urine Squamous Epithelial Cell Present Abnormal Absent Urine Hyaline Casts Present Abnormal Absent Laboratory test 03/06/2019 [facility] Blood SEE RESULT [address] [place] [address] [phone] Urine Culture And 03/06/2019 [facility] Urine SEE RESULT [address] [place] [address] [phone] Basic Metabolic 02/14/2019 [facility] Sodium 139 mmol/L Normal 135-[address] [place] [address] [phone] Potassium 4.3 mmol/L Normal 3.5-5.0 Chloride 106 mmol/L Normal 101-111 Co2 Carbon Dioxide 24 mmol/L Normal 22-32 Anion Gap 9 mmol/L Normal 2-11 Glucose 131 mg/dL High 70-100 Blood Urea Nitrogen 23 mg/dL Normal 6-24 Creatinine 1.01 mg/dL High 0.51-0.95 BUN/Creatinine Ratio 22.8 High 8-20 Calcium 9.1 mg/dL Normal 8.6-10.3 Egfr Non- 52.6 >60 Egfr 63.7 >60 6 Laboratory test 02/14/2019 [facility] B-Type 285 pg/mL High <= [address] [place] [address] Peptide BNP [phone] BUN/Creat/GFR 12/08/2018 [facility] Poc Blood Urea 23 mg/dL Normal 8-[address] [place] [address] [phone] Poc Creatinine 0.9 mg/dL Normal 0.6-1.3 7 Poc BUN/Creatinine Ratio 25.6 High 8-20 Egfr Non- 60.1 >60 Egfr 72.7 >60 8 Lipid Profile 11/04/2018 [facility] Triglycerides 60 mg/dL 9 (Trig/Chol/HDL) [address] [place] [address] [phone] Cholesterol 104 mg/dL 10 HDL Cholesterol 49.9 mg/dL 11 LDL Cholesterol 42 mg/dL 12 CBC Auto 11/04/2018 [facility] White Blood 9.9 10^3/uL Normal 3.5-10.[address] [place] [address] [phone] Red Blood Count 3.69 10^6/uL Low 3.70-4.87 Hemoglobin 12.1 g/dL Normal 12.0-16.0 Hematocrit 35 % Normal 35-47 Mean Corpuscular Volume 94 fL Normal 80-97 Mean Corpuscular Hemoglobin 33 pg High 27-31 Mean Corpuscular HGB Conc 35 g/dL Normal 31-36 Red Cell Distribution Width 14 % Normal 10-15 Platelet Count 226 10^3/uL Normal 150-450 Mean Platelet Volume 8.6 fL Normal 7.4-10.4 Abs Neutrophils 7.1 10^3/uL Normal 1.5-7.7 Abs Lymphocytes 1.5 10^3/uL Normal 1.0-4.8 Abs Monocytes 0.6 10^3/uL Normal 0-0.8 Abs Eosinophils 0.6 10^3/uL Normal 0-0.6 Abs Basophils 0.1 10^3/uL Normal 0-0.2 Abs Nucleated RBC 0.0 10^3/uL Granulocyte % 72.0 % Lymphocyte % 15.4 % Monocyte % 5.7 % Eosinophil % 6.2 % Basophil % 0.7 % Nucleated Red Blood Cells % 0.0 Comp Metabolic 11/04/2018 [facility] Albumin 4.3 g/dL Normal 3.2-5.[address] [place] [address] [phone] Sodium 140 mmol/L Normal 135-145 Potassium 4.8 mmol/L Normal 3.5-5.0 Chloride 108 mmol/L Normal 101-111 Co2 Carbon Dioxide 28 mmol/L Normal 22-32 Anion Gap 4 mmol/L Normal 2-11 Calcium 9.9 mg/dL Normal 8.6-10.3 Total Bilirubin 1.40 mg/dL High 0.2-1.0 Total Protein 6.7 g/dL Normal 6.4-8.9 Globulin 2.4 g/dL Normal 2-4 Albumin/Globulin Ratio 1.8 Normal 1-3 Glucose 142 mg/dL High 70-100 Blood Urea Nitrogen 21 mg/dL Normal 6-24 Creatinine 0.90 mg/dL Normal 0.51-0.95 BUN/Creatinine Ratio 23.3 High 8-20 Alkaline Phosphatase 133 U/L High 34-104 Alt 12 U/L Normal 7-52 Ast 20 U/L Normal 13-39 Egfr Non- 60.1 >60 Egfr 72.7 >60 13 Laboratory test finding 10/12/2018 [facility] In House Hemoglobin A1c 5.6 5-7 1 Standard intensity warfarin therapeutic range: 2.0-3.0 High intensity warfarin therapeutic range: 2.5-3.5 2 Because ethnic data is not always readily [...] 15-29 5 Kidney failure <15 (or dialysis) 3 *Ascorbic acid is present which may interfere with detection of blood. 4 SEE RESULT BELOW Name: ASHLEY FINN : [address]: Arlette Navarro MD Acct: [id number] Unit: [id number] AGE: 83 Location: ED Re03/06/19 SEX: F Status: DEP ER SPEC: [id number] GHISLAINE: 03/06/[address] [facility] [address]: Arlette Navarro MD REQ: [id number] RECD: 03/06/19 STATUS: RES [facility] DR: Coral Schmitz MD _ SOURCE: BLOOD,VENO SPDESC: ORDERED: Blood Cult Procedure Result Reported Site Aerobic Culture Bottle Preliminary 03/10/192156 ML No Growth Day 4 Anaerobic Culture Bottle Final 03/11/19- 2156 ML No Growth Day 5 * ML - Main Lab . END OF REPORT DEPARTMENT OF PATHOLOGY, [address] [place] [address] Devante Be M.D. Director [facility] # [id number] 5 SEE RESULT BELOW Name: ASHLEY FINN : [address]: Arlette Navarro MD Acct: [id number] Unit: [id number] AGE: 83 Location: ED Re03/06/19 SEX: F Status: DEP ER SPEC: [id number] GHISLAINE: 03/06/[address]: Arlette Navarro MD REQ: [id number] RECD: 03/06/19 STATUS: AKILAH ESQUIVEL DR: Coral Schmitz MD _ SOURCE: URINE SPDESC: ORDERED: Urine Culture Procedure Result Reported Site Urine Culture Final 03/09/19- 0936 ML Organism 1 ESCHERICHIA COLI [place] Count >100,000 (Many) CFU/ML Organism 2 NORMAL RANDI [place] Count 25-50,000 (Moderate) CFU/ML 1. ESCHERICHIA COLI [...] . END OF REPORT DEPARTMENT OF PATHOLOGY, [address] [place] [address] Devante Be M.D. Director [facility] # [id number] 6 Because ethnic data is not always readily [...] 15-29 5 Kidney failure <15 (or dialysis) 7 [facility] Sales Consultant: [id number] 8 Because ethnic data is not always [...] 5 Kidney failure <15 (or dialysis) 9 Desirable: <150 Borderline High: 150-199 High: 200-499 Very High: >500 10 Desirable: <200 Borderline High: 200-239 High: >239 11 Low: <40 Desirable: 40-60 High: >60 12 Desirable: <100 Near Optimal: 100-129 Borderline High: 130-159 High: 160-189 Very High: >189 13 Because ethnic data is not always [...] (or dialysis) Procedures Date Code Description Status 04/20/2018 521151174 Diabetic Retinal Eye Exam Completed 03/11/2018 40557034 Mammogram Completed 06/12/2017 938652548 Diabetic Foot Exam Completed 01/21/2016 08476995 Mammogram Completed 10/31/2015 199237596 Bone Mineral Density Test Completed 02/04/2015 141144063 Diabetic Retinal Eye Exam Completed 01/15/2015 52046801 Mammogram Completed 01/12/2015 40936362 Mammogram Completed 08/09/2014 261199744 Diabetic Retinal Eye Exam Completed 01/12/2014 90575587 Mammogram Completed 07/09/2011 33211781 Mammogram Completed 01/08/2011 27029644 Mammogram Completed Medical Devices Description No Information Available Encounters Type Date Location Provider Dx Diagnosis Office Visit 03/29/2019 [facility] Luisa Calvillo, E11.621 Type 2 diabetes 1:30p [facility] mellitus with foot ulcer Office Visit 03/22/2019 [facility] Luisa Calvillo, E11.621 Type 2 diabetes 12:45p [facility] mellitus with foot ulcer Office Visit 03/16/2019 Meena Schmitz, I50.30 Unspecified 1:20p Medicine Kd Flowers M.D. diastolic (congestive) heart failure N39.0 Urinary tract infection, site not specified N39.42 Incontinence without sensory awareness Office Visit 02/16/2019 1:40p Meena Moncada I50.30 Unspecified Zeb Schmitz M.D. diastolic Melindaob (congestive) heart failure R60.0 Localized edema Office Visit 02/08/2019 2:20p [facility] Coral R60.0 Localized edema Zeb Schmitz M.D. Ccmob Office Visit 10/12/2018 10:15a Gagan Ackerman I70.245 [facility] [place] [facility] Jose M.D. arteries of left leg w ulceration oth prt foot Office Visit 10/12/2018 2:00p [facility] Internal Coral E11.9 Type 2 diabetes Medicine - Cheryl Schmitz mellitus without Ccmob complications M20.5x1 Other deformities of toe(s) (acquired), right foot D64.9 Anemia, unspecified Assessments Date Code Description Provider 04/11/2019 E11.621 Type 2 diabetes mellitus with foot ulcer Coral Schmitz M.D. 04/11/2019 N39.42 Incontinence without sensory awareness Coral Schmitz M.D. 04/11/2019 L24.89 Irritant contact dermatitis due to other Coral Schmitz M.D. agents 04/11/2019 D50.9 Iron deficiency anemia, unspecified Coral Schmitz M.D. 03/29/2019 E11.621 Type 2 diabetes mellitus with [...] 02/08/2019 R60.0 Localized edema Coral Schmitz M.D. 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 leg with ulcerati 10/12/2018 E11.9 Type 2 diabetes mellitus without Coral Schmitz M.D. complications 10/12/2018 M20.5x1 Other deformities of toe(s) (acquired), Coral Schmitz M.D. right foot 10/12/2018 D64.9 Anemia, unspecified Coral Schmitz, M.D. Plan of Treatment Future Appointment(s):07/11/2019 1:00 pm - Coral Schmitz M.D. at [facility] Internal Medicine - [facility]04/11/2019 - Coral Schmitz M.D.E11.621 Type 2 diabetes mellitus with foot ulcerFollow up:3 months, 20 minN39.42 Incontinence without sensory awarenessComments:your incontinence is due to high sugar, lasix daily , we discussed using the water bottles only 2 1/2 daily as food and coffe also counts towards water fmjigdV02.89 Irritant contact dermatitis due to other agentsComments:we can ask your insurance to approve the diapers that would cause less irritation use desitin for the barrier gtoleO29.9 Iron deficiency anemia, unspecifiedComments:please take iron twice a day Functional Status Description No Information Available Mental Status Description No Information Available Referrals Refer to Reason for Referral Status Appt Date Esteban Lopez DPM [facility] [address] [place] [id number] [phone]
--- NOTE | 2019-06-10 08:27 | ED ---
Abdominal Pain/Female - HPI Summary HPI Summary: Patient is a 84 y/o F presenting to [facility] with complaints of diffuse abdominal pain and lower back pain that onset last evening, 06/09/19. N/V are noted as well. No fever as vitals show temp of 97.1 F. She rates the pain 10/10 in severity. At 0300, patient took Tylenol with some relief in Sx. Patient is concerned that her Sx are related to her gallstones. PMHx of diabetes, afib, HTN , CAD, uterine CA. PSHx of hysterectomy, cataracts surgery, cardiac catheter with balloon, heart valve replacement surgery. FMHx of cardiac disease. No tobacco, alcohol, or substance usage reported. Home medications and allergies are reviewed. - History of Current Complaint Chief Complaint: EDAbdPain Stated Complaint: ABD PAIN PER EMS Time Seen by Provider: 06/10/19 08:15 Hx Obtained From: Patient Hx Last Menstrual Period: post jean Onset/Duration: Lasting Hours, Still Present Timing: Hours Severity Currently: Severe Pain Intensity: 10 Pain Scale Used: 0-10 Numeric Location: Diffuse Alleviating Factor(s): OTC Analgesics Associated Signs and Symptoms: Positive: Nausea, Vomiting. Negative: Fever - on vitals, temp 97.1 F Allergies/Adverse Reactions: Allergies Allergy/AdvReac Type Severity Reaction Status Date / Time prednisone Allergy Severe heavy Verified 06/10/19 08:17 bleeding Penicillins Allergy Mild Rash Verified 06/10/19 08:17 Sulfa (Sulfonamide Allergy Mild Edema Verified 06/10/19 08:17 Antibiotics) morphine Allergy Unknown Unknown Verified 06/10/19 08:17 Reaction Details Antihistamines - Alkylamine Allergy Unknown Verified 06/10/19 08:17 Reaction Details Antihistamines - Ethanolamine Allergy Unknown Verified 06/10/19 08:17 Reaction Details Antihistamines - Allergy Unknown Verified 06/10/19 08:17 Ethylenediamine Reaction Details Antihistamines - Piperazine Allergy Unknown Verified 06/10/19 08:17 Reaction Details Antihistamines - Piperidine Allergy Unknown Verified 06/10/19 08:17 Reaction Details aspirin AdvReac Mild GI Upset Verified 06/10/19 08:17 cephalexin AdvReac Mild GI Upset Verified 06/10/19 08:17 ciprofloxacin AdvReac Mild GI Upset Verified 06/10/19 08:17 diphenhydramine AdvReac GI Upset Verified 06/10/19 08:17 Home Medications: Home Medications Spironolactone 25 mg PO DAILY 06/10/19 [History Confirmed 06/10/19] Torsemide TAB* [Demadex 20 MG*] 20 mg PO DAILY 06/10/19 [History Confirmed 06/10] PMH/Surg Hx/FS Hx/Imm Hx Endocrine/Hematology History: Reports: Hx Diabetes Denies: Hx Thyroid Disease, Hx Anemia Cardiovascular History: Reports: Hx Atrial Fibrillation, Hx Coronary Artery Disease, Hx Hypertension, Hx Valvular Heart Disease, Other Cardiovascular Problems/Disorders - heart murmur Denies: Hx Aneurysm, Hx Angina, Hx Cardiac Arrest, Hx Deep Vein Thrombosis, Hx Pacemaker/ICD Respiratory History: Denies: Hx Asthma, Hx Chronic Obstructive Pulmonary Disease (COPD) GI History: Denies: Hx Ulcer History: Denies: Hx Dialysis, Hx Renal Disease Musculoskeletal History: Denies: Hx Arthritis, Hx Back Problems Sensory History: Reports: Hx Cataracts - BILAT, Hx Contacts or Glasses, Hx Hearing Problem Denies: Hx Glaucoma, Hx Deafness, Hx Hearing Aid Opthamlomology History: Reports: Hx Cataracts - BILAT, Hx Contacts or Glasses Denies: Hx Glaucoma Neurological History: Denies: Hx Dementia, Hx Headaches, Hx Migraine, Hx Seizures, Hx Transient Ischemic Attacks (TIA) Psychiatric History: Denies: Hx Panic Disorder - Cancer History Cancer Type, 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 HYSTERECTOMY 2000,. T&A at age 17,. CATARACTS bilat eyes,. CARDIAC CATH (BALLOONING) FEB 2017,. RIGHT HIP PARTIAL REPLACEMENT SURGERY FOR FX,. OPEN HEART/HEART VALVE REPLACEMENT MAR 2017, Hx Anesthesia Reactions: No - Immunization History Date of Tetanus Vaccine: Unk Date of Influenza Vaccine: refuses Infectious Disease History: No Infectious Disease History: Denies: Hx Clostridium Difficile, Hx Hepatitis, Hx Human Immunodeficiency Virus (HIV), Hx of Known/Suspected MRSA, Hx Shingles, Hx Tuberculosis, Hx Known/ Suspected VRE, Hx Known/Suspected VRSA, History Other Infectious Disease, Traveled Outside the [place] in Last 30 Days - Family History Known Family History: Positive: Cardiac Disease - Mother, father and brother - Social History Alcohol Use: None Hx Substance Use: No Substance Use Type: Reports: None Hx Tobacco Use: No Smoking Status (MU): Never Smoked Tobacco Have You Smoked in the Last Year: No Review of Systems Negative: Fever - No fever as vitals show temp of 97.1 F. Positive: Abdominal Pain, Vomiting, Nausea All Other Systems Reviewed And Are Negative: Yes Physical Exam - Summary Physical Exam Summary: VITAL SIGNS: Reviewed. GENERAL: Patient is a well-developed and nourished female who is lying comfortable in the stretcher. Patient is not in any acute respiratory distress. HEAD AND FACE: No signs of trauma. No ecchymosis, hematomas or skull depressions. No sinus tenderness. EYES: PERRLA, EOMI x 2, No injected conjunctiva, no nystagmus. EARS: Hearing grossly intact. Ear canals and tympanic membranes are within normal limits. MOUTH: Oropharynx within normal limits. NECK: Supple, trachea is midline, no adenopathy, no JVD, no carotid bruit, no c- spine tenderness, neck with full ROM. CHEST: Symmetric, no tenderness at palpation. LUNGS: Clear to auscultation bilaterally. No wheezing or crackles. CVS: Regular rate and rhythm, S1 and S2 present, no murmurs or gallops appreciated. ABDOMEN: Soft, RUQ tenderness. No signs of distention. No rebound, no guarding, and no masses palpated. Bowel sounds are normal. EXTREMITIES: FROM in all major joints, no edema, no cyanosis or clubbing. NEURO: Alert and oriented x 3. No acute neurological deficits. Speech is normal and follows commands. SKIN: Dry and warm. Triage Information Reviewed: Yes Vital Signs On Initial Exam: Initial Vitals Temp Pulse Resp BP Pulse Ox 97.1 F 88 22 159/69 100 06/10/19 08:12 06/10/19 08:12 06/10/19 08:12 06/10/19 08:12 06/10/19 08:12 Vital Signs Reviewed: Yes Procedures - Procedure Summary Procedure Summary: Obtained PIV access using US guidance. - Sedation Patient Received Moderate/Deep Sedation with Procedure: No Diagnostics - Vital Signs Vital Signs Temp Pulse Resp BP Pulse Ox 06/10/19 08:12 97.1 F 88 22 159/69 100 - Laboratory Result Diagrams: 06/10/19 08:43 06/10/19 08:43 Lab Statement: Any lab studies that have been ordered have been reviewed, and results considered in the medical decision making process. - Ultrasound GALLBLADDER US Ultrasound Interpretation Completed By: Radiologist Summary of Ultrasound Findings: IMPRESSION: 1. WHEN ACCOUNTING FOR DIFFERENCES IN TECHNIQUE, A 6.1 CM MASS IN THE PERIPORTAL REGION. APPEARS LARGER. SURGICAL CONSULTATION IS RECOMMENDED. 2. CHOLELITHIASIS. THIS REPORT WAS REVIEWED BY ED PHYSICIAN. - EKG 0926 Cardiac Rate: NL - rate of 88 BPM EKG Rhythm: Sinus Rhythm EKG Comparison: No Significant Change - compared to 02/05/18 Summary of EKG Findings: EKG showed NSR with rate of 88 BPM, LBBB, no STEMI, EKG is unchanged from 02/05/18. EKG was reviewed and interpreted by ED physician. Re-Evaluation - Re-Evaluation First Eval Re-Evaluation Time: 10:49 Comment: Obtained PIV access using US guidance. Abdominal Pain Fem Course/Dx - Course Course Of Treatment: This patient is an 84-year-old female who presents to the emergency department with a chief complaint of having upper abdominal pain that started with nausea and vomiting. In the ED course the patient was placed in a potline monitor, IV access was obtained, IV fluids started. Blood test w/o a significant abnormality except for in WBCs of 14.1, hemoglobin 9.6, hematocrit 29, platelets 264. Absolute neutrophils is 12.4. Sodium of 133, chloride 99, creatinine is 0.96, glucose 181, magnesium was 1.8, total bili is 2.6, alkaline phosphatase is 113 and the BNP is 324. RUQ U/S FINDINGS: A solid hypoechoic mass with is seen in the periportal region with scant internal Doppler signal. It measures 4.2 x 6.1 x 3.1 cm. The structure is in close proximity to the portal vein and hepatic artery. There are dependent gallstones with no gallbladder wall thickening or pericholecystic fluid. No intra or extrahepatic ductal distention is present. The common bile duct measured 0.5 cm in diameter. The liver is normal in size without significant focal abnormality. The pancreas is partially obscured by overlying bowel gas. The 10.1 cm right kidney is normal in size without evidence for hydronephrosis. The imaged segments of the IVC and aorta are unremarkable. IMPRESSION: 1. WHEN ACCOUNTING FOR DIFFERENCES IN TECHNIQUE, A 6.1 CM MASS IN THE PERIPORTAL REGION. APPEARS LARGER. SURGICAL CONSULTATION IS RECOMMENDED. 2. CHOLELITHIASIS. I discussed the case with Dr. Dash from surgery and he recommends a medical admission, an oncology workup before he can consult for this patient. At least time I discussed my physical exam with Dr. Dale who accepted the patient for admission. The patient is hemodynamically stable alert and oriented 3. - Diagnoses Differential Diagnosis: Positive: Bowel Obstruction, Constipation, Gall Bladder Disease Provider Diagnoses: Abdominal mass, right upper quadrant, Anemia - Provider Notifications Discussed Care Of Patient With: Diego Dash Time Discussed With Above Provider: 09:51 Instructed by Provider To: Other - Patient's case was discussed with Dr. Dash. Dr. Dash recommends medical admission, oncology workup before surgical consultation. 1007 - Patient's case was discussed with Dr. Dale, Dr. Dale accepts for admission. Discharge ED - Sign-Out/Discharge Documenting (check all that apply): Patient Departure - admit - Discharge Plan Condition: Stable Disposition: ADMITTED TO [facility] - Billing Disposition and Condition Condition: STABLE Disposition: Admitted to [facility] - Attestation Statements Document Initiated by Scribe: Yes Documenting Scribe: NAIF ALFONSO Provider For Whom Jesus Manuel is Documenting (Include Credential): GAGAN WILLARD MD Scribe Attestation: I, NAIF ALFONSO, scribed for GAGAN WILLARD MD on 06/10/19 at 1849. Scribe Documentation Reviewed: Yes Provider Attestation: The documentation as recorded by the NAIF rapp accurately reflects the service I personally performed and the decisions made by me, GAGAN WILLARD MD Status of Scribe Document: Viewed
[2019-06-10 08:56] LABS: ABS Basophils 0.1 10^3/ul (0-0.2); ABS Eosinophils 0.1 10^3/ul (0-0.6); ABS Lymphocytes 0.7 10^3/ul (1.0-4.8); ABS Monocytes 0.8 10^3/ul (0-0.8); ABS Neutrophils 12.4 10^3/ul (1.5-7.7); Eosinophil % 0.5 %; Hematocrit 29 % (35-47); Hemoglobin 9.6 g/dL (12.0-16.0); Lymphocyte % 4.8 %; Mean Corpuscular HGB Conc 33 g/dL (31-36); Mean Corpuscular Hemoglobin 33 pg (27-31); Mean Corpuscular Volume 100 fL (80-97); Mean Platelet Volume 7.5 fL (7.4-10.4); Platelet Count 264 10^3/uL (150-450); Red Cell Distribution Width 17 % (10-15); White Blood Count 14.1 10^3/uL (3.5-10.8)
[2019-06-10 09:11] LABS: Troponin I 0.01 ng/mL (<0.03)
[2019-06-10 09:12] LABS: ALT 14 U/L (7-52); AST 22 U/L (13-39); Albumin/Globulin Ratio 1.5 (1-3); Alkaline Phosphatase 113 U/L (34-104); Amylase 38 U/L (29-103); Anion Gap 8 mmol/L (2-11); BUN/Creatinine Ratio 22.9 (8-20); Blood Urea Nitrogen 22 mg/dL (6-24); C Reactive Protein 7.84 mg/L (<8.01); CO2 Carbon Dioxide 26 mmol/L (22-32); Calcium 9.2 mg/dL (8.6-10.3); Chloride 99 mmol/L (101-111); Creatine Kinase 25 U/L (10-223); EGFR African American 67.3 (>60); EGFR Non-African American 55.6 (>60); Globulin 2.7 g/dL (2-4); Glucose 181 mg/dL (70-100); Magnesium 1.8 mg/dL (1.9-2.7); Potassium 4.2 mmol/L (3.5-5.0); Sodium 133 mmol/L (135-145); Total Protein 6.7 g/dL (6.4-8.9)
[2019-06-10] MEDS ORDERED: PROCHLORPERAZINE INJ 5 MG/ML 2 ML VIAL IV PRN (10:31)
[2019-06-10] MEDS ORDERED: Magnesium Sulfate 1 GM IV* 1 GM/100 ML BAG IV ONE (10:55)
[2019-06-10] MEDS: NS 0.9% 1000 ML** 1,000 ML IV SCH (12:01)
[2019-06-10] MEDS ORDERED: Dextrose 50% Syringe 50 ML* 25 GM/50 ML SYRINGE IV PUSH PRN (12:05)
--- NOTE | 2019-06-10 13:15 | HP ---
CC: Dr. Coral Schmitz; Dr. Diego Dash; Dr. Cintron HISTORY AND PHYSICAL: DATE OF ADMISSION: 06/10/19 TIME OF EVALUATION: 10:25 a.m. PRIMARY CARE PROVIDER: Dr. Coral Schmitz. CONSULTING GENERAL SURGEON: Dr. Diego Dash. CONSULTING SERVICE ORDER DISPATCHER: Dr. Cintron. CHIEF COMPLAINT: Abdominal pain, nausea, and vomiting. HISTORY OF PRESENT ILLNESS: Ms. Finn is an 84-year-old female with a past medical history of atri al fibrillation, on Pradaxa; type 2 diabetes; coronary artery disease; aortic stenosis, status post T AVR; diastolic congestive heart failure; peripheral vascular disease, status post right third toe amp utation and angioplasty of the lower extremity; history of streptococcus septicemia, who presented to the emergency room with complaints of diffuse abdominal pain, nausea, and vomiting. The patient sta jens that last night she developed abdominal pain epigastric, radiating to the right upper quadrant, a ssociated with nausea and vomiting and she took some Tylenol with improvement. There was no alleviat ing or precipitating factor. She denies fever, chills, diarrhea, or urinary complaints. Her workup in the emergency room included a gallbladder ultrasound that showed a periportal region tumor and for that reason the hospitalist s er was called for admission. PAST MEDICAL HISTORY: 1. Hypertension. 2. Type 2 diabetes. 3. Atrial fibrillation. 4. Coronary artery disease. 5. Aortic stenosis, status post TAVR. 6. Diastolic congestive heart failure. 7. Peripheral vascular disease. The patient has a chronic left foot ulcer and she was seen by Dr. Toby rai and she had angioplasty done in August 2018 with balloon angioplasty of the proximal left FURNACE KEEPER an d tibioperoneal trunk in August 2018. 8. Reported history of uterine cancer, status post hysterectomy. PAST SURGICAL HISTORY: 1. Status post left hip ORIF. 2. Status post right hip arthroplasty. 3. Status post TAVR. 4. Status post hysterectomy. 5. Status post right third toe amputation. MEDICATION LIST: 1. Acetaminophen 500 mg p.o. t.i.d. p.r.n. pain or fever. 2. Aspirin 81 mg p.o. daily. 3. Atorvastatin 40 mg p.o. at bedtime. 4. Pradaxa 150 mg p.o. b.i.d. 5. Sotalol 80 mg p.o. b.i.d. 6. Spironolactone 25 mg p.o. daily. 7. Torsemide 20 mg p.o. daily. ALLERGIES: The patient has a long list of allergies or reactions to medications including PREDNISONE , PENICILLIN, SULFA, MORPHINE, PIPERIDINE, ETHYLENEDIAMINE, ALKANOLAMINE, ASPIRIN, CEPHALEXIN, CIPROF LOXACIN, and DIPHENHYDRAMINE. FAMILY HISTORY: Her mother at 62. She does not know the reasons. Father had a history of diab etes, CVA. She states that her grandmother had some type of "stomach cancer." SOCIAL HISTORY: No history of tobacco, alcohol, or drug use. Surrogate decision makers are her daug hters, Dalila Martinez, phone number [phone] and Judy Ward, phone number is [phone]. PHYSICAL EXAMINATION GENERAL: The patient is an obese, elderly lady, lying in the ED stretcher, in no acute distress. VITAL SIGNS: Temperature 98.7, heart rate is 62, respiratory rate is 20, oxygen saturation is 100% o n room air, blood pressure is 127/45. HEENT: Pupils are equal. Moist mucous membranes. Poor dentition with multiple broken teeth. CHEST: Breath sounds present bilaterally with no added sounds. CVS: Normal S1, S2. Regular rate and rhythm. ABDOMEN: Obese, soft, nontender, nondistended. Bowel sounds are present. EXTREMITIES: No edema. NEURO: She is alert and oriented x3. Able to move all 4 extremities. DIAGNOSTIC STUDIES/LAB DATA: The patient had a CBC that showed a WBC of 14.1, hemoglobin of 9.6, he matocrit of 29, platelets of 264 with 88% neutrophils. Chemistry showed a sodium of 133, potassium of 4.2, chloride of 99, bicarb of 26, BUN of 22, creatinine of 0.96, glucose 181, lactic acid is 1, tremaine cium is 9.2, magnesium is 1.8. LFTs showed a total bilirubin of 2.6, AST of 22, ALT of 14, alk phos of 113. CRP 7.8, BNP is 324. Amylase is 38, lipase is less than 10. Gallbladder ultrasound showed a 6.1 cm mass in the periportal region that appears larger than abdomin al CT in February 2019. EKG done on 06/10/19 at 9:24 a.m. shows sinus rhythm at 88 beats per minute with a left bundle branch block, unchanged from her prior EKG from February 2018. ASSESSMENT AND PLAN: Ms. Finn is an 84-year-old female with a complex past medical history that i ncludes type 2 diabetes; atrial fibrillation, on Pradaxa; coronary artery disease; aortic stenosis, s tatus post TAVR; diastolic congestive heart failure; peripheral vascular disease, status post right a ngioplasty of the left lower extremity, with a chronic left foot ulcer; admission for streptococcus s epticemia in February 2018, who presented to the emergency room with complaints of abdominal pain radi ating to the right upper quadrant associated with nausea and vomiting, found to have a 6.1 cm peripor margo mass. 1. Periportal mass. I am concerned this may represent malignancy as I discussed the case with Radio logy (Dr. Miah Throne) and he tells me that the mass has progressed from her prior CT. As per davi alcala, the patient and the daughter were aware that the patient had a mass in that area, but they were told in the past that it was small enough possible to biopsy. The patient actually had a CT of the a bdomen scheduled as an outpatient in the near future to follow up this lesion. Her ultrasound does sh ow cholelithiasis, but no signs of cholecystitis and although she has leukocytosis, I do not think ana asencio has cholecystitis at this time and we will not start antibiotics. She will be admitted to the [facility] floor for symptomatic treatment and I will request a consultation with General Surgery and GI to see what would be the best approach to biopsy this lesion. For now, she will be on clear liquids. 2. Type 2 diabetes. We will monitor her fingersticks and cover with a lispro sliding scale. 3. Atrial fibrillation. The patient is in sinus rhythm at this time. I discussed with the patient that we would need to hold her anticoagulation for now in preparation for possible biopsy, so I am ho lding her Pradaxa for now. If decision is made not to pursue any further workup, we would resume it, but at this point the patient is interested in having biopsy and if this is truly a malignancy, she will be interested in surgical treatment, chemo or radiation therapy. I did discuss with the patient that being off anticoagulation it would increase her risk of clots including stroke, but she underst ands that she will have a biopsy done to guide her future treatment. This will be necessary. The zamzam steiner understands that the location of her tumor may limit the options for biopsy and after consultin g with Surgery, Gastroenterology and Interventional Radiology, she still may need to be transferred t o higher level of care to have a biopsy performed. Continue sotalol. 4. Mild hypomagnesemia. We will replete. 5. Hyperlipidemia. We will continue atorvastatin. 6. DVT prophylaxis: The patient has a score of 4 on the DVT Prophylaxis Risk Assessment Guide and s he will have SCDs. 7. Code status was discussed with the patient and she wishes to be a full code. TIME SPENT: Approximately 55 minutes was spent with the patient and daughter's interview, medical re cords review, physical examination to complete this admission, more than half of this time was spent [id number] with the patient and coordination of care. [id number]/[facility] #: [id number]
[2019-06-10] MEDS ORDERED: Pantoprazole IV* 40 MG IV ONE (14:08)
[2019-06-10 14:42] LABS: % Iron Saturation 20 % (15-55); Iron 86 ug/dL (50-212); Total Iron Binding Capacity 434 mcg/dL (250-450); Transferrin 310 mg/dL (203-362)
[2019-06-10] MEDS: Acetaminophen TAB* 325 MG PO PRN ×2 (14:58→23:08)
[2019-06-10 15:00] LABS: Ferritin 64.2 ng/mL (11-307)
[2019-06-10] MEDS ORDERED: Iodixanol* (CONTRAST) 320 MG/ML 100 ML SDV IV ONE (16:11)
--- NOTE | 2019-06-10 16:15 | CONS ---
GASTROENTEROLOGY CONSULT: DATE: 06/10/19 CONSULTING PHYSICIANS Thelma Cortez, Coral Schmitz. REASON FOR CONSULTATION: Upper abdominal pain in an 84-year-old woman with known gallstones and a history of a right maximiliano hepatis area mass of unknown source. 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 Late yesterday afternoon, she complained of upper abdominal pain and feeling nauseated. It was worse through the night and this morning and she came to the emergency room where she was given some pain medication. She was afebrile with a pulse in the 80s and then falling to the 60s. Her blood pressure was 159/69 falling to 127/45. She described the upper abdominal pain as 10/10 on arrival, though Dr. Cortez, the hospitalist found her to be in no acute distress and according to Dr. Cortez denying pain at the time of the H+P. The patient to me appeared in no distress and was fairly conversational in that she is laughing at humor, though said the pain was still there and had never gone away. The daughter assisted in the history as the patient was very vague and could not give timeframes for 98% of the questions. Apparently, yesterday morning, she was okay and at her daughter's house had pancakes and eggs. She seemed fine , but was not hungry for lunch. In the evening, she began complaining of the abdominal distress described above. In general, the patient often complains of pain after meals epigastric, nonlateralizing and this has never been investigated. She does not take any [id number] medications. She says she has never had an upper endoscopy. She has a complex past history and is on Pradaxa long-term for atrial fibrillation. PAST MEDICAL HISTORY: 1. Total hysterectomy for uterine cancer in 2000. 2. Aortic stenosis - diagnosed in 2013 with a possibility of bicuspid valve mention. fall, she fell and broke her hip and this precipitated reevaluation with the aortic stenosis critical and she was transferred to [facility] where she had a TAVR. She then had the hip surgery and then finally had a bovine aortic valve replacement in March 2017. 3. Hip replacement in 1998. 4. Contralateral hip replacement in 2017. 5. Peripheral vascular disease - multiple interventions by Dr. Jose. 6. Sepsis admission - January 2018 with Streptococcus infantarius, receiving prolonged outpatient antibiotics. 7. Atrial fibrillation - on Pradaxa. 8. Diabetes - never on insulin. Her last ophthalmologic exam was prior to the fall 2016 surgeries. 9. History of right third toe amputation. 10. Chronic congestive heart failure. OUTPATIENT MEDICATIONS: Torsemide 20, spironolactone 25, sotalol 80 b.i.d., atorvastatin 40, Pradaxa 150 b.i.d., aspirin 81 mg., acetaminophen p.r.n. ALLERGIES: ASPIRIN is listed as causing GI upset. Multiple antibiotics are listed including PENICILLIN, SULFA, CEPHALEXIN, CIPRO; and PREDNISONE which is listed as causing heavy bleeding, details not reviewed. SOCIAL HISTORY: She lives in 2 locations, her own home and her daughter's, both in [facility]). She is a nonsmoker. REVIEW OF SYSTEMS: She has no history of prior upper endoscopy. She has never had a colonoscopy. She has an anemia of chronic disease with hemoglobin in the 8s fall of 2017 and rising to a best value of 12.1 in October 2018 and now lower. Iron panel in August of 2018 showed ferritin 36, saturation 13%, 64 over TIBC of 494. LFT trends show alkaline phosphatase fluctuating in a mildly elevated range from 110 to 150 over the last year and a half, although there is mild elevation of alkaline phosphatase as far back as August 2014. ALT has been absolutely normal all along. Bilirubin also fluctuates from 2013 until now. RADIOLOGY REVIEW: Right upper quadrant ultrasound - this morning shows a 5 mm common duct, thin gallbladder wall, multiple small stones and no ascites. CT review - 03/07/19 with contrast shows a mass in the maximiliano hepatis area. It is larger than on a previous CT of the abdomen 12/08/18, though it is not commented on in the February CT. In review with the radiologist, it does not appear to be directly part of the pancreas or in the duodenal wall and has somewhat of a teardrop shape on both exams even though it has expanded somewhat. It is felt to be expanded based on the ultrasound today, but there is no dilation of the duodenum or stomach. The liver itself is without masses. There are some small lesions in the lung matias with followup CT suggested for around this timeframe. IMPRESSION: This 84-year-old woman is admitted with right upper quadrant distress and is found to have an unknown mass in the portal area near vessels. She has numerous significant. with most important congestive failure probably on the basis of hypertension, diabetes and prolonged aortic valvular disease. She israther frail and has a fairly low functional status. The lesion in the right upper quadrant is enlarging slowly though not causing any ductal obstruction. It is a single unified abnormality not part of the pancreas or the duodenal wall. The nature of it is unclear. It does not appear that it would correlate well with the current symptoms, which could be from reflux or from chronic cholecystitis. There may have been a component of acute biliary colic last night. The history is somewhat inconsistent. As her clinical course is observed, it might be helpful to know whether she had a component of peptic ulcer disease and upper endoscopy is planned. A repeat CT to evaluate the lung matias and the liver area mass would be indicated. Whether she would be a candidate to evaluate the mass with an EUS and biopsy is unclear. Probably, functionally she could withstand the diagnostic studies, but whether or not the results would be clinically useful is far from clear. [id number]/[facility] #: [id number] MTDD
[2019-06-10] MEDS: Pantoprazole TAB * 40 MG TAB PO SCH (16:51)
[2019-06-10] MEDS: Insulin LISPRO* 1 UNITS UNIT SUBCUT SCH ×2 (17:32→20:34)
[2019-06-10] MEDS: Cefepime 1 GM in Dextrose(*) 1 GM/50 ML BAG IV SCH (18:32)
[2019-06-10] MEDS: Atorvastatin* 40 MG TAB PO SCH (20:34)
[2019-06-10] MEDS: Sotalol TAB* 80 MG PO SCH (20:34)
[2019-06-10 21:59] LABS: Urine Appearance Clear; Urine Bilirubin Negative (Negative); Urine Blood Negative (Negative); Urine Color Yellow; Urine Glucose Negative (Negative); Urine Ketones Negative (Negative); Urine Nitrite Negative (Negative); Urine Protein Negative (Negative); Urine Specific Gravity 1.038 (1.010-1.030); Urine Urobilinogen Negative (Negative)
[2019-06-11] MEDS: NS 0.9% 1000 ML** 1,000 ML IV SCH (04:32)
[2019-06-11] MEDS: Acetaminophen TAB* 325 MG PO PRN ×2 (05:03→18:35)
[2019-06-11] MEDS: Cefepime 1 GM in Dextrose(*) 1 GM/50 ML BAG IV SCH ×2 (05:04→18:26)
[2019-06-11 07:34] LABS: ABS Basophils 0.1 10^3/ul (0-0.2); ABS Eosinophils 0.1 10^3/ul (0-0.6); ABS Lymphocytes 0.8 10^3/ul (1.0-4.8); Eosinophil % 0.4 %; Hematocrit 25 % (35-47); Hemoglobin 8.5 g/dL (12.0-16.0); Lymphocyte % 5.1 %; Mean Corpuscular HGB Conc 35 g/dL (31-36); Mean Corpuscular Hemoglobin 34 pg (27-31); Mean Corpuscular Volume 99 fL (80-97); Mean Platelet Volume 7.6 fL (7.4-10.4); Platelet Count 207 10^3/uL (150-450); Red Blood Count 2.47 10^6 /uL (3.70-4.87); Red Cell Distribution Width 17 % (10-15); White Blood Count 14.9 10^3/uL (3.5-10.8)
[2019-06-11 07:41] LABS: ALT 19 U/L (7-52); AST 27 U/L (13-39); Albumin 3.3 g/dL (3.2-5.2); Albumin/Globulin Ratio 1.4 (1-3); Alkaline Phosphatase 100 U/L (34-104); Anion Gap 7 mmol/L (2-11); BUN/Creatinine Ratio 19.4 (8-20); Blood Urea Nitrogen 21 mg/dL (6-24); CO2 Carbon Dioxide 23 mmol/L (22-32); Calcium 8.5 mg/dL (8.6-10.3); Chloride 101 mmol/L (101-111); EGFR African American 58.8 (>60); EGFR Non-African American 48.6 (>60); Globulin 2.4 g/dL (2-4); Glucose 165 mg/dL (70-100); Sodium 131 mmol/L (135-145); Total Protein 5.7 g/dL (6.4-8.9)
[2019-06-11] MEDS: Sotalol TAB* 80 MG PO SCH ×2 (08:22→23:16)
[2019-06-11] MEDS: Pantoprazole TAB * 40 MG TAB PO SCH ×2 (08:22→18:26)
[2019-06-11] MEDS: Insulin LISPRO* 1 UNITS UNIT SUBCUT SCH ×4 (08:23→23:11)
--- NOTE | 2019-06-11 09:24 | PN ---
Subjective Date of Service: 06/11/19 Interval History: HOSPITALIST PROGRESS NOTE Patient seen and examined at bedside. Care reviewed and d/w Nila Reid RN. She still had mild RUQ pain overnight, relieved by Tylenol; pain free now. No N/ V, tolerating clear liquids well. Family History: Unchanged from Admission Social History: Unchanged from Admission Past Medical History: Unchanged from Admission Objective Active Medications: Acetaminophen (Tylenol Tab*) 650 mg PO Q6H PRN PRN Reason: MILD PAIN or TEMP > 100.4 Last Admin: 06/11/19 05:03 Dose: 650 mg Atorvastatin Calcium (Lipitor*) 40 mg PO BEDTIME [facility] Last Admin: 06/10/19 20:34 Dose: 40 mg Dextrose (D50w Syringe 50 Ml*) 12.5 gm IV PUSH .FOR FS < 60 - SS PRN PRN Reason: FS < 60 Sodium Chloride (Ns 0.9% 1000 Ml) 1,000 mls @ 75 mls/hr IV PER RATE [facility] Last Admin: 06/11/19 04:32 Dose: 75 mls/hr Cefepime HCl (Maxipime 1 Gm In Dextrose Duplex (*)) 1 gm in 50 mls @ 100 mls/ hr IV Q12H [facility] Last Admin: 06/11/19 05:04 Dose: 100 mls/hr Insulin Human Lispro (Humalog*) 0 units SUBCUT ACHS [facility]; Protocol Last Admin: 06/11/19 08:23 Dose: 3 units Pantoprazole Sodium (Protonix Tab*) 40 mg PO 0630,1700 [facility] Last Admin: 06/11/19 08:22 Dose: 40 mg Prochlorperazine Edisylate (Compazine Inj*) 5 mg IV Q6H PRN PRN Reason: NAUSEA/VOMITING Sotalol HCl (Betapace Tab*) 80 mg PO BID [facility] Last Admin: 06/11/19 08:22 Dose: 80 mg Vital Signs - 8 hr 06/11/19 06/11/19 04:11 07:15 Temperature 97.9 F 96.8 F Pulse Rate 73 83 Respiratory 19 18 Rate Blood Pressure 103/68 127/49 (mmHg) O2 Sat by Pulse 99 98 Oximetry Oxygen Devices in Use Now: None Appearance: Elderly obese lady sitting up in bed in NAD Eyes: No Scleral Icterus Ears/Nose/Mouth/Throat: Mucous Membranes Moist Neck: Trachea Midline Respiratory: Symmetrical Chest Expansion and Respiratory Effort, Clear to Auscultation Cardiovascular: RRR - Normal S1 and S2 Abdominal: - - Obese, soft, mild RUQ tenderness, BS+ Neurological: Alert and Oriented x 3, NL Muscle Strength and Tone Result Diagrams: 06/11/19 07:03 06/11/19 07:03 Assess/Plan/Problems-Billing Assessment: Mrs Finn is an 84yo F with PMH of HTN, type 2 DM, Afib on AC, CAD, s/p TAVR, diastolic CHF, PVD, uterine CA s/p hysterectomy, who presented to ED with c/o RUQ pain, found to have cholelithiasis as well as periportal mass. - Patient Problems (1) RUQ pain Comment: - Patient's pain could be secondary to biliary cholic, as she has known cholelithiasis, but she has leukocytosis, and CT showed some pericholecystic stranding. Started on Cefepime for possible acute cholecystitis. - Her total bilirubin is also higher today, although US and CT showed no CBD dilation, she may benefit of MRCP depending on GI opinion. - GI input appreciated - plan for EGD today. - Continue PPI. - Will discuss case with IR re: possibility of periportal mass biopsy. (2) Atrial fibrillation SNOMED Code(s): 90066663 Comment: - Patient is in NSR - continue Sotalol. - According to IPRO protocol for anticoagulation, as patient will need a high risk of bleeding procedure (periportal mass close to vascular structures) and has a moderate thromboemloic risk ([id number] score of 6), recommendation is to interrupt DOAC 3 days before procedure and LMWH bridging is not indicated. (3) Type 2 diabetes mellitus Comment: - Continue FS and Lispro SS. (4) HLD (hyperlipidemia) Comment: - Continue Atorvastatin. (5) DVT prophylaxis Comment: - SCDs. (6) Full code status Status and Disposition: Change to inpatient.
[2019-06-11] MEDS ORDERED: fentaNYL* 50 MCG/ML 2 ML VIAL (100 MCG VIAL) ONE (10:02)
[2019-06-11] MEDS ORDERED: Midazolam* 1 MG/ML 10 ML VIAL (10 MG) ONE (10:02)
[2019-06-11] MEDS: Torsemide TAB* 20 MG PO SCH (16:47)
[2019-06-11] MEDS: Atorvastatin* 40 MG TAB PO SCH (23:17)
--- NOTE | 2019-06-11 23:38 | PRO ---
DATE: 06/11/19 - ROOM #402 REFERRING PHYSICIAN: Coral Schmitz.* PROCEDURE: Upper endoscopy. INDICATION: This 84-year-old woman complains of abdominal pain. There is a longstanding daily invariant component and then in the last few days some increase in pain. She is known to have gallstones. She comes in taking aspirin 81 mg and Pradaxa. She is not on a PPI. Informed consent was obtained. Conversation with the patient and her daughter. ENDOSCOPIST: Dr. Cintron. MEDICATIONS : Midazolam 2, fentanyl 37.5. FINDINGS: She is a morbidly obese older woman appearing chronically ill, slightly pale and certainly deconditioned, in no distress. There is no cardiorespiratory distress. She was positioned left side down and moderate sedation administered. She tolerated the exam very well. She has a single spike lower front tooth that was avoided though the patient was aware it was at risk. ESOPHAGOGASTRODUODENOSCOPY: Larynx - symmetric without mucus accumulation. Esophagus - easily entered, the mucosa is normal in the upper, mid, and lower esophagus with the EG junction at 39, minimally loose, but no chronic changes and no erosions. Stomach - a very small papillated pattern, though the mucosa is not inflamed and appears normal. There are no erosions. The rugal pattern is symmetric and normal. No blood is seen. The antrum is normal. Duodenum - the pylorus, bulb, and second to fourth portions appear normal. IMPRESSION: 1. Normal EGD - no erosions despite the patient being on aspirin daily. 2. Abdominal pain - suspect there is a gallbladder component and possibly a functional component. She is on antibiotics. [id number]/[facility] #: [id number] [facility] CENTERBjorn
[2019-06-12 06:06] LABS: ABS Basophils 0.1 10^3/ul (0-0.2); ABS Eosinophils 0.1 10^3/ul (0-0.6); ABS Lymphocytes 1.1 10^3/ul (1.0-4.8); Eosinophil % 0.7 %; Hematocrit 24 % (35-47); Hemoglobin 8.2 g/dL (12.0-16.0); Lymphocyte % 7.9 %; Mean Corpuscular HGB Conc 34 g/dL (31-36); Mean Corpuscular Hemoglobin 34 pg (27-31); Mean Corpuscular Volume 100 fL (80-97); Platelet Count 188 10^3/uL (150-450); Red Blood Count 2.42 10^6 /uL (3.70-4.87); Red Cell Distribution Width 17 % (10-15); White Blood Count 13.3 10^3/uL (3.5-10.8)
[2019-06-12] MEDS: Cefepime 1 GM in Dextrose(*) 1 GM/50 ML BAG IV SCH ×2 (06:19→18:25)
[2019-06-12] MEDS: Pantoprazole TAB * 40 MG TAB PO SCH ×2 (06:19→18:25)
[2019-06-12] MEDS: Acetaminophen TAB* 325 MG PO PRN (06:19)
[2019-06-12 06:22] LABS: Albumin 3.1 g/dL (3.2-5.2); Albumin/Globulin Ratio 1.5 (1-3); BUN/Creatinine Ratio 17.8 (8-20); Calcium 8.4 mg/dL (8.6-10.3); EGFR African American 53.1 (>60); EGFR Non-African American 43.9 (>60); Globulin 2.1 g/dL (2-4); Indirect Bilirubin 2.2 mg/dL (0.3-1.0); Potassium 4.4 mmol/L (3.5-5.0); Total Bilirubin 3.2 mg/dL (0.2-1.0); Total Protein 5.2 g/dL (6.4-8.9)
[2019-06-12] MEDS: Sotalol TAB* 80 MG PO SCH ×2 (09:51→22:04)
[2019-06-12] MEDS: Torsemide TAB* 20 MG PO SCH (09:51)
[2019-06-12] MEDS: Insulin LISPRO* 1 UNITS UNIT SUBCUT SCH ×4 (09:51→22:05)
--- NOTE | 2019-06-12 13:02 | PN ---
Subjective Date of Service: 06/12/19 Interval History: HOSPITALIST PROGRESS NOTE Patient seen and examined at bedside. Care reviewed and d/w Nesha Amador RN. She continues to c/o intermittent RUQ pain, with no specific alleviating or precipitating factors. States she didn't like her dinner last night, but did not have any issues after eating. Hernán N/V. Family History: Unchanged from Admission Social History: Unchanged from Admission Past Medical History: Unchanged from Admission Objective Active Medications: Acetaminophen (Tylenol Tab*) 650 mg PO Q6H PRN PRN Reason: MILD PAIN or TEMP > 100.4 Last Admin: 06/12/19 06:19 Dose: 650 mg Atorvastatin Calcium (Lipitor*) 40 mg PO BEDTIME [facility] Last Admin: 06/11/19 23:17 Dose: 40 mg Dextrose (D50w Syringe 50 Ml*) 12.5 gm IV PUSH .FOR FS < 60 - SS PRN PRN Reason: FS < 60 Cefepime HCl (Maxipime 1 Gm In Dextrose Duplex (*)) 1 gm in 50 mls @ 100 mls/ hr IV Q12H [facility] Last Admin: 06/12/19 06:19 Dose: 100 mls/hr Insulin Human Lispro (Humalog*) 0 units SUBCUT ACHS [facility]; Protocol Last Admin: 06/12/19 09:51 Dose: 3 units Pantoprazole Sodium (Protonix Tab*) 40 mg PO 0630,1700 [facility] Last Admin: 06/12/19 06:19 Dose: 40 mg Prochlorperazine Edisylate (Compazine Inj*) 5 mg IV Q6H PRN PRN Reason: NAUSEA/VOMITING Sotalol HCl (Betapace Tab*) 80 mg PO BID [facility] Last Admin: 06/12/19 09:51 Dose: 80 mg Torsemide (Demadex*) 20 mg PO DAILY [facility] Last Admin: 06/12/19 09:51 Dose: 20 mg Vital Signs - 8 hr 06/12/19 07:17 Temperature 98.8 F Pulse Rate 69 Respiratory 20 Rate Blood Pressure 105/40 (mmHg) O2 Sat by Pulse 94 Oximetry Oxygen Devices in Use Now: None Appearance: Pleasant elderly lady lying in bed in NAD Eyes: No Scleral Icterus Ears/Nose/Mouth/Throat: Mucous Membranes Moist Neck: Trachea Midline Respiratory: Symmetrical Chest Expansion and Respiratory Effort, Clear to Auscultation Cardiovascular: RRR - Normal S1 and S2 Abdominal: - - Soft, NT, ND, BS+. No RUQ tenderness Neurological: Alert and Oriented x 3, NL Muscle Strength and Tone Result Diagrams: 06/12/19 05:54 06/12/19 05:54 Assess/Plan/Problems-Billing Assessment: Mrs Finn is an 84yo F with PMH of HTN, type 2 DM, Afib on AC, CAD, s/p TAVR, diastolic CHF, PVD, uterine CA s/p hysterectomy, who presented to ED with c/o RUQ pain, found to have cholelithiasis as well as periportal mass. - Patient Problems (1) RUQ pain Comment: - Patient's pain could be secondary to biliary cholic, as she has known cholelithiasis, but she has leukocytosis, and CT showed some pericholecystic stranding. Started on Cefepime for possible acute cholecystitis. Will check HIDA scan today. - EGD was normal 06/11/2019. - Continue PPI. - Dr Jose will evaluate imaging to see if periportal mass is ameanable to biopsy by IR. 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 (2) Colonic thickening Comment: - Seen on CT and patient now has positive FOBT. Never had a colonoscopy. - D/w GI - will likely need colonoscopy now. (3) Anemia Comment: - Drop this admission is likely dilutional in the setting of IVF, but has chronic anemia - suspect iron deficiency anemia - check w/u and monitor H/ H. 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 No evidence of hemolysis at this time. (5) Atrial fibrillation SNOMED Code(s): 42605277 Comment: - Patient is in NSR - continue Sotalol. - According to IPRO protocol for anticoagulation, as patient will need a high risk of bleeding procedure (periportal mass close to vascular structures) and has a moderate thromboemloic risk ([id number] score of 6), recommendation is to interrupt DOAC 3 days before procedure and LMWH bridging is not indicated. (6) Type 2 diabetes mellitus Comment: - Continue FS and Lispro SS. (7) HLD (hyperlipidemia) Comment: - Continue Atorvastatin. (8) DVT prophylaxis Comment: - SCDs. (9) Full code status Status and Disposition: Inpatient. Daughter updated at bedside.
--- NOTE | 2019-06-12 15:40 | PN ---
Progress Note - Progress Note Date of Service: 06/12/19 Note: pt still with abd discomfort; heme + stool; HIDA scan shows cystic duct obstruction VS; 98.8, 105/40, 69, 20, 94% nad, alert +bs, soft, tender throughout WBC 13.3, Hgb 8.2, plts 188 HIDA; noted acute cholecystitis, with cystic duct obstruction------>surgery consult pt may need further GI hobson for anemia, heme + stool, but need to address GB first GI to follow Jose Helms MD
--- NOTE | 2019-06-12 18:08 | PN ---
Progress Note - Progress Note Date of Service: 06/12/19 SOAP: Subjective: Patient reports continued abdominal pain. Denies any nausea or vomiting. No fever or chills. Reports loose BMs. Objective: Vital Signs Temp 98.8 F 06/12/19 07:17 Pulse 69 06/12/19 07:17 Resp 20 06/12/19 08:00 BP 105/40 06/12/19 07:17 Pulse Ox 94 06/12/19 07:17 Intake & Output 06/11/19 06/12/19 06/12/19 18:59 06:59 18:59 Intake Total 1900 0 0 Balance 1900 0 0 Intake: IV Fluids 500 ABX - CEFEPIME 50 NS (0.9%) 450 Oral 1400 0 0 Other: Estimated Void Medium Large Date of Last Bowel Movement # Bowel Movements 2 1 Estimated Stool Amount Medium # Voids 3 2 3 Physical Exam: General: WDWN female sitting up in bed in NAD CV: Irregularly irregular rhythm Resp: Inspiratory wheeze throughout Abdomen: Soft. Well healed incisional scar along the lower abdomen. Positive bowel sounds. Tenderness to RUQ > RLQ. Negative [place] Sign. MSK: No swelling in the LEs. Laboratory Last Values WBC 13.3 10^3/uL (3.5-10.8) H 06/12/19 05:54 RBC 2.42 10^6 /uL (3.70-4.87) L 06/12/19 05:54 Hgb 8.2 g/dL (12.0-16.0) L 06/12/19 05:54 Hct 24 % (35-47) L 06/12/19 05:54 MCV 100 fL (80-97) H 06/12/19 05:54 MCH 34 pg (27-31) H 06/12/19 05:54 MCHC 34 g/dL (31-36) 06/12/19 05:54 RDW 17 % (10-15) H 06/12/19 05:54 Plt Count 188 10^3/uL (150-450) 06/12/19 05:54 MPV 8.0 fL (7.4-10.4) 06/12/19 05:54 Neut % (Auto) 83.1 % 06/12/19 05:54 Lymph % (Auto) 7.9 % 06/12/19 05:54 [place] % (Auto) 7.8 % 06/12/19 05:54 Eos % (Auto) 0.7 % 06/12/19 05:54 Baso % (Auto) 0.5 % 06/12/19 05:54 Absolute Neuts (auto) 11.0 10^3/ul (1.5-7.7) H 06/12/19 05:54 Absolute Lymphs (auto) 1.1 10^3/ul (1.0-4.8) 06/12/19 05:54 Absolute Monos (auto) 1.0 10^3/ul (0-0.8) H 06/12/19 05:54 Absolute Eos (auto) 0.1 10^3/ul (0-0.6) 06/12/19 05:54 Absolute Basos (auto) 0.1 10^3/ul (0-0.2) 06/12/19 05:54 Absolute Nucleated RBC 0.0 10^3/ul 06/12/19 05:54 Nucleated RBC % 0.0 06/12/19 05:54 Sodium 134 mmol/L (135-145) L 06/12/19 05:54 Potassium 4.4 mmol/L (3.5-5.0) 06/12/19 05:54 Chloride 103 mmol/L (101-111) 06/12/19 05:54 Carbon Dioxide 25 mmol/L (22-32) 06/12/19 05:54 Anion Gap 6 mmol/L (2-11) 06/12/19 05:54 BUN 21 mg/dL (6-24) 06/12/19 05:54 Creatinine 1.18 mg/dL (0.51-0.95) H 06/12/19 05:54 Est GFR ( Amer) 53.1 (>60) 06/12/19 05:54 Est GFR (Non-Af Amer) 43.9 (>60) 06/12/19 05:54 BUN/Creatinine Ratio 17.8 (8-20) 06/12/19 05:54 Glucose 154 mg/dL (70-100) H 06/12/19 05:54 POC Glucose (mg/dL) 186 mg/dL (70-100) H 06/12/19 07:45 Hemoglobin A1c 4.7 % (4.0-5.6) 06/10/19 08:43 Lactic Acid 1.0 mmol/L (0.5-2.0) 06/10/19 08:43 Calcium 8.4 mg/dL (8.6-10.3) L 06/12/19 05:54 Magnesium 1.8 mg/dL (1.9-2.7) L 06/10/19 08:43 Iron 86 ug/dL (50-212) 06/10/19 08:43 TIBC 434 mcg/dL (250-450) 06/10/19 08:43 % Saturation 20 % (15-55) 06/10/19 08:43 Unsat Iron Binding < 419 ug/dL 06/10/19 08:43 Transferrin 310 mg/dL (203-362) 06/10/19 08:43 Ferritin 64.2 ng/mL (11-307) 06/10/19 08:43 Total Bilirubin 3.20 mg/dL (0.2-1.0) H 06/12/19 05:54 Direct Bilirubin 1.00 mg/dL (0.03-0.18) H 06/12/19 05:54 Indirect Bilirubin 2.2 mg/dL (0.3-1.0) H 06/12/19 05:54 AST 25 U/L (13-39) 06/12/19 05:54 ALT 19 U/L (7-52) 06/12/19 05:54 Alkaline Phosphatase 94 U/L (34-104) 06/12/19 05:54 Total Creatine Kinase 25 U/L (10-223) 06/10/19 08:43 Troponin I 0.01 ng/mL (<0.03) 06/10/19 08:43 C-Reactive Protein 7.84 mg/L (<8.01) 06/10/19 08:43 C-React Prot High Sens 143.70 mg/L (<2.00) H 06/11/19 07:03 B-Natriuretic Peptide 324 pg/mL (<=100) H 06/10/19 08:43 Total Protein 5.2 g/dL (6.4-8.9) L 06/12/19 05:54 Albumin 3.1 g/dL (3.2-5.2) L 06/12/19 05:54 Globulin 2.1 g/dL (2-4) 06/12/19 05:54 Albumin/Globulin Ratio 1.5 (1-3) 06/12/19 05:54 Amylase 38 U/L (29-103) 06/10/19 08:43 Lipase < 10 U/L (11.0-82.0) L 06/11/19 07:03 Imaging: Galbladder U/S reveals cholelithiasis and a 6.1 CM mass in the periportal region. HIDA scan reveals cystic duct obstruction consistent with acute cholecystitis. Patent common bile duct. Assessment and Plan: This is a 84 year old female with a PMHx of DM, HTN, AFib, with cholecystitis. She is currently stable and in no need of immediate surgical management. Patient has [place] Syndrome and Anemia - managed by hospitalist. Pt seen with PASHA Vail. Patient care discussed with Dr. Dash - conservative management with antibiotics until results of biopsy of the mass. <Layla Rinaldi - Last Filed: 06/12/19 17:44> - Progress Note SOAP: Subjective: []Patient seen and examined w/ PA student. She is scheduled for bx of the periportal mass on 06/13. Agree with above assessment and plan. She is currently on cefipime IV. Discussed w/ Dr. Dash. He will defer surgery until after the biopsy has been obtained. We will continue to follow. Objective: [] Assessment: [] Plan: [] <Neal Gibson - Last Filed: 06/13/19 07:53>
[2019-06-12 18:23] LABS: INR 1.47 (0.82-1.09)
--- NOTE | 2019-06-12 21:44 | CONS ---
CONSULTATION REPORT: DATE OF CONSULT: 06/11/19 REASON FOR CONSULT: Abdominal pain and periportal mass with history of gallstones. HISTORY OF PRESENT ILLNESS: This is an 84-year-old female with atrial fibrillation, on anticoagulation; type 2 diabetes; coronary artery disease; status post TAVR for aortic stenosis; peripheral vascular disease status post angioplasty; and toe amputation, who was admitted to [facility] on with abdominal pain, nausea, and vomiting and an ultrasound demonstrating evidence of a periportal mass which had been noted on previous studies but was enlarged relative to prior studies. She also had elevated WBCs of 14.1 and a total bilirubin was elevated at 2.6 with normal transaminases. I met with the patient and in attendance were her 2 daughters. They are aware of the presence of the periportal mass and report that the patient was to have a followup CT scan performed in July. They understand that the concern is that this may be a cancer. She does have a history of cervical cancer and is status post hysterectomy. The patient has been experiencing no fevers or chills. She denies any change in the color of her urine or change in her bowels. She does not report recurrent episodes of postprandial pain. PAST MEDICAL HISTORY: Significant for the above mentioned illnesses. In addition, she had past surgical history significant for total hysterectomy in 2000, total hip replacement in 1998, and in 2016. MEDICATIONS: Home Medications: 1. Torsemide 20 mg daily. 2. Tylenol 500 mg p.o. t.i.d. as needed. 3. Spironolactone 25 mg p.o. daily. 4. Sotalol 80 mg p.o. b.i.d. 5. Pradaxa 150 mg p.o. b.i.d. 6. Lipitor 40 mg p.o. q.h.s. 7. Aspirin 81 mg p.o. daily. ALLERGIES: Multiple medication allergies are reported including PREDNISONE, PENICILLINS, SULFAS, MORPHINE. FAMILY HISTORY: Significant for diabetes and stroke. SOCIAL HISTORY: Denies alcohol, tobacco, or drug abuse. PHYSICAL EXAM: Temperature is 97.8, pulse is 69, respirations 20, blood pressure 105/36, and O2 sat of 100% on room air. She appears mildly jaundiced. Head is normocephalic and atraumatic. Mucous membranes are moist. Her abdomen had well- healed lower midline scar; was obese, soft, appreciated no masses or hernias. No hepatosplenomegaly. I did not elicit any tenderness or Blood sign. DIAGNOSTIC STUDIES/LAB DATA: Laboratory data was reviewed, significant findings as above. Ultrasound as reported shows a 6.1 cm mass in the periportal region. The patient did have a CT scan of chest, abdomen, and pelvis performed which showed no significant changes in a right middle lobe nodule. Mass in the maximiliano hepatis as noted in the ultrasound. This was measured on CT at 5.8 cm, increased in size. Gallbladder was noted to be nondistended and containing gallstones, no ductal dilatation, and question of mild stranding. IMPRESSION: An 84-year-old female with multiple medical problems with gallstones and a periportal mass which has been observed to be increasing in size and is suspicious for malignancy. PLAN/RECOMMENDATIONS: The patient has been seen by GI today and completed upper endoscopy. Findings were unremarkable. She will need biopsy of a periportal mass and hopefully this can be completed through image-guided biopsy. Alternatively, consideration for a surgical biopsy would be an option. The gallstones did not appear to be an urgent issue; however, if felt to be symptomatic then consideration for cholecystectomy at the time of a surgical biopsy, if warranted, could be considered. [facility] will follow. [id number]/[facility] #: [id number] JACKIE
[2019-06-12] MEDS: Atorvastatin* 40 MG TAB PO SCH (22:05)
[2019-06-13] MEDS: Pantoprazole TAB * 40 MG TAB PO SCH ×2 (06:15→17:28)
[2019-06-13] MEDS: Cefepime 1 GM in Dextrose(*) 1 GM/50 ML BAG IV SCH ×4 (06:15→22:43)
[2019-06-13 07:37] LABS: ABS Eosinophils 0.2 10^3/ul (0-0.6); ABS Monocytes 0.7 10^3/ul (0-0.8); ABS Neutrophils 6.3 10^3/ul (1.5-7.7); Eosinophil % 2.6 %; Hematocrit 24 % (35-47); Hemoglobin 8.1 g/dL (12.0-16.0); Lymphocyte % 12.2 %; Mean Corpuscular HGB Conc 35 g/dL (31-36); Mean Corpuscular Hemoglobin 34 pg (27-31); Mean Corpuscular Volume 99 fL (80-97); Mean Platelet Volume 8.2 fL (7.4-10.4); Platelet Count 176 10^3/uL (150-450); Red Blood Count 2.38 10^6 /uL (3.70-4.87); Red Cell Distribution Width 17 % (10-15); White Blood Count 8.3 10^3/uL (3.5-10.8)
[2019-06-13 07:56] LABS: ALT 15 U/L (7-52); AST 19 U/L (13-39); Albumin 2.9 g/dL (3.2-5.2); Albumin/Globulin Ratio 1.2 (1-3); Alkaline Phosphatase 121 U/L (34-104); Anion Gap 6 mmol/L (2-11); BUN/Creatinine Ratio 19.4 (8-20); Blood Urea Nitrogen 24 mg/dL (6-24); CO2 Carbon Dioxide 27 mmol/L (22-32); Calcium 8.4 mg/dL (8.6-10.3); Chloride 102 mmol/L (101-111); EGFR African American 50.1 (>60); EGFR Non-African American 41.4 (>60); Globulin 2.5 g/dL (2-4); Glucose 168 mg/dL (70-100); Potassium 3.5 mmol/L (3.5-5.0); Sodium 135 mmol/L (135-145); Total Protein 5.4 g/dL (6.4-8.9)
[2019-06-13 08:00] LABS: Total Iron Binding Capacity 267 mcg/dL (250-450); Transferrin 191 mg/dL (203-362)
[2019-06-13 08:01] LABS: % Iron Saturation 7 % (15-55); Iron < 20 ug/dL (50-212)
[2019-06-13 09:34] LABS: Ferritin 150.5 ng/mL (11-307)
[2019-06-13 09:38] LABS: Folate 18.15 ng/mL (>3.99)
[2019-06-13] MEDS: Torsemide TAB* 20 MG PO SCH (09:49)
[2019-06-13] MEDS: Sotalol TAB* 80 MG PO SCH ×2 (09:49→22:43)
[2019-06-13] MEDS: Insulin LISPRO* 1 UNITS UNIT SUBCUT SCH ×4 (09:49→22:56)
[2019-06-13] MEDS ORDERED: Ferric Gluconate IV* 25 MG in NS 0.9% 50 ML* 50 ML IVPB ONE (09:59)
[2019-06-13] MEDS ORDERED: NS 0.9% 500 ML* 500 ML IV SCH (10:00)
--- NOTE | 2019-06-13 10:57 | PN ---
Subjective Date of Service: 06/13/19 Interval History: Pt c/o sensation of RUQ abd being "sore". Last BM yesterday. In the past RUQ would be hurting more when eating Family History: Unchanged from Admission Social History: Unchanged from Admission Past Medical History: Unchanged from Admission Objective Active Medications: Acetaminophen (Tylenol Tab*) 650 mg PO Q6H PRN PRN Reason: MILD PAIN or TEMP > 100.4 Last Admin: 06/12/19 06:19 Dose: 650 mg Atorvastatin Calcium (Lipitor*) 40 mg PO BEDTIME [facility] Last Admin: 06/12/19 22:05 Dose: 40 mg Dextrose (D50w Syringe 50 Ml*) 12.5 gm IV PUSH .FOR FS < 60 - SS PRN PRN Reason: FS < 60 Cefepime HCl (Maxipime 1 Gm In Dextrose Duplex (*)) 1 gm in 50 mls @ 100 mls/ hr IV Q12H [facility] Last Admin: 06/13/19 06:15 Dose: 100 mls/hr Ferric Sodium Gluconate (Complex 25 mg/ Sodium Chloride) 52 mls @ 52 mls/hr IVPB ONCE ONE Stop: 06/13/19 10:58 Ferric Sodium Gluconate Complex 100 mg/ Sodium Chloride 108 mls @ 108 mls/hr IVPB ONCE ONE Stop: 06/13/19 13:29 Sodium Chloride (Ns 0.9% 500 Ml*) 500 mls @ 75 mls/hr IV PER RATE [facility] Stop: 06/13/19 16:39 Insulin Human Lispro (Humalog*) 0 units SUBCUT ACHS [facility]; Protocol Last Admin: 06/13/19 09:49 Dose: 6 units Pantoprazole Sodium (Protonix Tab*) 40 mg PO 0630,1700 [facility] Last Admin: 06/13/19 06:15 Dose: 40 mg Prochlorperazine Edisylate (Compazine Inj*) 5 mg IV Q6H PRN PRN Reason: NAUSEA/VOMITING Sotalol HCl (Betapace Tab*) 80 mg PO BID [facility] Last Admin: 06/13/19 09:49 Dose: 80 mg Torsemide (Demadex*) 20 mg PO DAILY [facility] Last Admin: 06/13/19 09:49 Dose: 20 mg Vital Signs - 8 hr 06/13/19 03:04 Temperature 97.7 F Pulse Rate 72 Respiratory 18 Rate Blood Pressure 114/51 (mmHg) O2 Sat by Pulse 98 Oximetry Oxygen Devices in Use Now: None Appearance: 84 yo F in nAD, aAOx3 Eyes: No Scleral Icterus, PERRLA Ears/Nose/Mouth/Throat: NL Teeth, Lips, Gums, Mucous Membranes Moist Neck: NL Appearance and Movements; NL JVP, Trachea Midline Respiratory: Symmetrical Chest Expansion and Respiratory Effort, Clear to Auscultation Cardiovascular: RRR, - - soft MATTHEW at apex at 1/6 Abdominal: - - RUQ tenderness, mild rebound, no guarding, BS+ Lymphatic: No Cervical Adenopathy Extremities: No Edema Skin: No Nodules or Sclerosis Neurological: Alert and Oriented x 3, NL Muscle Strength and Tone Result Diagrams: 06/13/19 06:26 06/13/19 06:26 Microbiology and Other Data: Microbiology 06/11/19 11:00 Stool Occult Blood (CARRIE) - Final Stool 06/11/19 18:30 Stool Occult Blood (CARRIE) - Final Stool Assess/Plan/Problems-Billing Assessment: Mrs iFnn is an 84yo F with PMH of HTN, type 2 DM, Afib on AC, CAD, s/p TAVR, diastolic CHF, PVD, uterine CA s/p hysterectomy, who presented to ED with c/o RUQ pain, found to have cholelithiasis as well as periportal mass. - Patient Problems (1) RUQ pain Comment: - Patient's pain could be secondary to biliary cholic, as she has known cholelithiasis, but she has leukocytosis, and CT showed some pericholecystic stranding. Started on Cefepime for acute cholecystitis. HIDA scan 06/12 showed occlusion of cystic duct - EGD was normal 06/11/2019. - Continue PPI. - Dr Jose evaluated imaging to see if periportal mass is amenable to biopsy by IR. Plan to do bx as outpatient once Dr. Jose is back on service. 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 surgery following. (2) Anemia Comment: - Drop this admission is likely dilutional in the setting of IVF, but has chronic anemia Hb9-10n at baseline iron deficiency anemia - as per iron studies. Stool heme neg-EGD performed on 06/12/19 -neg will need colonoscopy as outpatient will start iron infusions for now Stopped anticoagulation at admission (3) Atrial fibrillation Comment: - Patient is in NSR - continue Sotalol. - According to IPRO protocol for anticoagulation, as patient will need a high risk of bleeding procedure (periportal mass close to vascular structures) and has a moderate thromboemloic risk ([id number] score of 6), recommendation is to interrupt DOAC 3 days before procedure and LMWH bridging is not indicated. (4) Colonic thickening Comment: - Seen on CT and patient now has positive FOBT. Never had a colonoscopy. - D/w GI - recommend colonoscopy once GB issuse is resolved (5) HLD (hyperlipidemia) Comment: - Continue Atorvastatin. (6) Type 2 diabetes mellitus Comment: - Continue FS and Lispro SS. (7) Increased creatine kinase level Comment: possible slighly prerenal. tx with IV Hold Bumex 20 mg x one day (8) DVT prophylaxis Comment: - SCDs. Status and Disposition: Inpatient. Daughter updated at bedside.
[2019-06-13] MEDS ORDERED: Ferric Gluconate IV* 100 MG in NS 0.9% 100 ML* 100 ML IVPB ONE (12:30)
--- NOTE | 2019-06-13 15:21 | PN ---
Progress Note - Progress Note Date of Service: 06/13/19 SOAP: Subjective:NAD comfortable in bed C/O right sided abdominal discomfort + BM's loose stool not liquid no N/V Tolerating full liquid diet [] Objective: Vital Signs Temp 97.9 F 06/13/19 11:53 Pulse 64 06/13/19 11:53 Resp 20 06/13/19 11:53 BP 119/45 06/13/19 11:53 Pulse Ox 97 06/13/19 11:53 Intake & Output 06/12/19 06/13/19 06/13/19 18:59 06:59 18:59 Intake Total 200 80 120 Output Total 3 Balance 200 80 117 Intake: IV Fluids 30 NS (0.9%) 30 IVPB 50 ABX - CEFEPIME 50 Oral 200 0 120 Output: Urine 3 Other: Estimated Void Large Large Medium Date of Last Bowel [id number] 06/13/19 Movement # Bowel Movements 1 0 1 Estimated Stool Amount Large # Voids 3 1 Laboratory Tests 06/12/19 06/12/19 06/13/19 05:54 17:58 06:26 WBC 13.3 H 8.3 INR (Anticoag Therapy) 1.47 H APTT 127.3 H* PEX: GEN: NAD Chest: CTAB CVS: RRR ABD: Obese, + Tender to palp mid Right side, - Blood's, + BS's Ext: Calves soft non tender [] Assessment: 84 yo female right sided abdominal pain, U/S findings of GS's and a 6cm periportal mass, HIDA shows cystic duct obstruction CBD patent. PMH of Waldron Syndrome and Anemia, being managed non operatively with IV ABX, awaiting bioposy of the periportal mass. on fulls [] Plan:Continue IV ABX, non op mgmnt. AM Labs. Await Bx of mass. Will be presented at tumor board tomorrow. could possibly be taken to OR on or Wednesday after BX []
--- NOTE | 2019-06-13 16:39 | ECHO ---
*[facility]* [place] [address] Fax #: [phone] Transthoracic Echocardiogram Patient: Ashley Finn : 1935 Study Date: 06/13/2019 Age: 84 Gender: F HR: 78 bpm Height: 65 in /165.1 cm BSA: 1.92 m^2 Weight: 185.6 lb /84.4 kg BMI: 31 kg/m^2 *[employer]: * Leonila Lee [facility] *Referring Physician: * Coty Anderson *Reading Physician: * Torres Cornell MD Indications: Murmur. Aortic Valve Disorder. History: Atrial fibrillation, with left bundle branch block. Coronary artery disease. Congestive heart failure. Risk factors: Hypertension. Diabetes mellitus. 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 Bioprosthetic Coker Shaun. Conclusions Summary: - Left ventricle: The cavity size is normal. Wall thickness is mildly to moderately increased. Systolic function is normal. The estimated ejection fraction is 55-60%. Wall motion is normal; there are no regional wall motion abnormalities. - Right ventricle: Systolic function is normal. Systolic pressure is within the normal range. - Mitral valve: Mobility is restricted. The findings are consistent with mild to moderate stenosis. There is mild to moderate regurgitation. The valve area by pressure half-time is 1.6 cm^2. - Aortic valve: There is a bioprosthetic valve. There is no evidence of stenosis. There is no significant regurgitation. The peak systolic velocity is 2.6 m/sec. The mean systolic gradient is 16.0 mm Hg. - Tricuspid valve: There is mild regurgitation. - Compared to study of 02/04/18, there is little change. Study data: Transthoracic echocardiogram. Procedure: Transthoracic echocardiography was performed. Image quality was fair. Complete 2D, spectral Doppler, and color flow Doppler. Location: Bedside. Patient status: Inpatient. Patient room number: 402. Rhythm: Normal sinus rhythm with PAC's. Findings Left ventricle: The cavity size is normal. Wall thickness is mildly to moderately increased. Systolic function is normal. The estimated ejection fraction is 55-60%. Wall motion is normal; there are no regional wall motion abnormalities. Features are consistent with a pseudonormal left ventricular filling pattern, with concomitant abnormal relaxation and increased filling pressure (grade 2 diastolic dysfunction). Right ventricle: The cavity size is moderately dilated. Systolic function is normal. Systolic pressure is within the normal range. Ventricular septum: Ventricular septal wall motion has a postoperative appearance. Left atrium: The atrium is severely dilated. Right atrium: The atrium is at the upper limits of normal in size. Mitral valve: The leaflets are mildly thickened. Mobility is restricted. The findings are consistent with mild to moderate stenosis. There is mild to moderate regurgitation. Aortic valve: There is a bioprosthetic valve. The leaflets are normal thickness. There is no evidence of stenosis. There is no significant regurgitation. Tricuspid valve: The leaflets are normal thickness. There is no evidence of stenosis. There is mild regurgitation. Pulmonic valve: The leaflets are normal thickness. There is no evidence of stenosis. There is trace regurgitation. Aorta: Aortic root: The aortic root is appears normal. Ascending aorta: The ascending aorta is appears normal. Aortic arch: The aortic arch is appears normal. Pericardium: A prominent pericardial fat pad is present. There is no significant pericardial effusion. Pulmonary arteries: The main pulmonary artery is normal-sized. Systolic pressure is within the normal range. Systemic veins: Inferior vena cava: The vessel is normal in size. There is (>= 50%) respiratory change in the IVC dimension. Measurements Left ventricle Value Ref Aortic valve Value Ref RAFITA, LAX 4.1 cm 3.8 - 5.2 Shandra diam, ED 1.7 cm ----- ESD, LAX 3.2 cm 2.2 - 3.5 Peak v, S 2.6 m/sec ----- FS, LAX (L) 22 % 27 - 45 VTI, S 55.8 cm ----- PW, ED, LAX (H) 1.3 cm 0.6 - 0.9 Accel time 83 ms ----- FS (L) 22 % 27 - 45 Mean grad, S 16.0 mm Hg ----- PW, ED (H) 1.3 cm 0.6 - 0.9 Peak grad, S 27.0 mm Hg ----- E', lat shandra, TDI (L) 8.3 cm/sec >=10.0 CYNTHIA, VTI 1.60 cm^2 --- -- E/e', lat shandra, 20 CYNTHIA, Vmax 1.47 cm^2 ----- TDI E', med shandra, TDI (L) 3.7 cm/sec >=7.0 Mitral valve Value Ref E/e', med shandra, 46 Peak E 1.7 m/sec ----- TDI Peak A 1.59 m/sec ----- E', avg, TDI 6.0 cm/sec Decel time 320 ms ----- E/e', avg, TDI (H) 28 <=14 PHT 146 ms --- -- Mean grad, D 5.0 mm Hg ----- LVOT Value Ref Peak grad, D 11.0 mm Hg ----- Diam, S 2.00 cm Peak E/A ratio 1.1 ----- Area 3.1 cm^2 MVA, PHT 1.6 cm^2 ----- Peak juanjo, S 1.22 m/sec Peak grad, S 6 mm Hg Tricuspid valve Value Ref Mean grad, S 3 mm Hg TR peak v 2.61 m/sec <=2.8 SV 81 ml Peak RV-RA grad, S 27 mm Hg ----- SV/bsa 42 ml/m^2 Max TR juanjo 2.38 m/sec ----- Ventricular septum Value Ref Aortic root Value Ref IVS, ED (H) 1.2 cm 0.6 - 0.9 Root diam 2.7 cm <4.1 Right ventricle Value Ref Ascending aorta Value Ref RAFITA, LAX 3.0 cm AAo AP diam, S 3.3 cm ----- RAFITA minor ax, A4C (H) 4.6 cm 1.9 - 3.5 mid Aortic arch Value Ref Pressure, S 30 mm Hg Arch diam 2.2 cm ----- Left atrium Value Ref Decending aorta Value Ref AP dim, ES 3.80 cm 2.70 - Annel peak juanjo 0.76 m/sec ----- 3.80 ML dim, A4C 5.4 cm Pulmonary artery Value Ref SI dim, A4C 5.6 cm Pressure, S 30.0 mm Hg ----- Vol/bsa, ES, 1-p (H) 59 ml/m^2 11 - 40 A4C Inferior vena cava Value Ref Vol/bsa, ES, A/L (H) 57 ml/m^2 16 - 34 Diam 1.6 cm ----- Right atrium Value Ref SI dim, ES 5.2 cm 3.4 - 5.3 ML dim, ES, A4C 4.2 cm 2.6 - 4.4 Estimated RAP 3 mm Hg Legend: (L) and (H) vitor values outside specified reference range. Prepared and electronically signed by Torres Cornell MD 06/13/2019 16:39
--- NOTE | 2019-06-13 16:45 | CONSULT ---
Subjective Date of Service: 06/13/19 Interval History: Ms. Finn is an 84 yo female with PMH significant for HTN, DM2, A fib, CAD, s/p TAVR, D CHF, PVD, and uterine cancer; who presented to the emergency room for ABD pain, nausea and vomiting. She was admitted to the hospital for ABD pain and a periportal mass. She has had a wound to the posterior aspect of her heel for 2 year. She originally developed pain in the left heel in February 2017 and was noted to have drainage on her sock at a podiatry appointment at this point she was found to have a wound on the posterior heel. Originally this took 1.5 years to heel and she was followed by the wound clinic. The wound reopened about 3-4 months ago. She was been treating the wound with an "ointment" at home and had been following with the [facility]. She was referred to vascular surgery but has not been seen due to the provider in [place] not accepting her insurance. Patient seen and examined at bedside. Verbal consent obtained for wound consult and photograph. Family History: Unchanged from Admission Social History: Unchanged from Admission Past Medical History: Unchanged from Admission Review of Systems - Measurements Intake and Output: Intake and Output Last 24 Hours 06/11/19 06/12/19 06/13/19 06/14/19 06:59 06:59 06:59 06:59 Intake Total 2605 1900 280 120 Output Total 750 3 Balance 1855 1900 280 117 Weight 189 lb Intake: IV Fluids 1195 500 30 ABX - CEFEPIME 50 NS (0.9%) 1090 450 30 mag 105 IVPB 50 50 ABX - CEFEPIME 50 50 Oral 1360 1400 200 120 Output: Urine 750 3 Other: Estimated Void Large Medium Large Medium Date of Last Bowel [id number] 06/13/19 Movement # Bowel Movements 2 0 1 Estimated Stool Amount Small Medium Large # Voids 2 2 1 - Review of Systems Constitutional Symptoms: Negative: Fever, Other - Chills Dermatology: Positive: Other - Wound to left heel Cardiology: Positive: Peripheral Vascular Dis Endocrinology: Positive: Obesity, Diabetes Mellitus Objective Active Medications: Acetaminophen (Tylenol Tab*) 650 mg PO Q6H PRN Reason: MILD PAIN or TEMP > 100.4 Atorvastatin Calcium (Lipitor*) 40 mg PO BEDTIME [facility] Dextrose (D50w Syringe 50 Ml*) 12.5 gm IV PUSH .FOR FS < 60 - SS PRN Reason: FS < 60 Cefepime HCl (Maxipime 1 Gm In Dextrose Duplex (*)) 1 gm in 50 mls @ 100 mls/ hr IV Q12H [facility] Sodium Chloride (Ns 0.9% 500 Ml*) 500 mls @ 75 mls/hr IV PER RATE [facility] Stop: 06/13/19 16:39 Insulin Human Lispro (Humalog*) 0 units SUBCUT ACHS [facility]; Protocol Pantoprazole Sodium (Protonix Tab*) 40 mg PO 0630,1700 [facility] Prochlorperazine Edisylate (Compazine Inj*) 5 mg IV Q6H PRN Reason: NAUSEA/ VOMITING Sotalol HCl (Betapace Tab*) 80 mg PO BID [facility] Vital Signs 06/13/19 11:53 Temperature 97.9 F Pulse Rate 64 Respiratory 20 Rate Blood Pressure 119/45 (mmHg) O2 Sat by Pulse 97 Oximetry Oxygen Devices in Use Now: None Appearance: NAD, laying in bed Ears/Nose/Mouth/Throat: Mucous Membranes Moist Respiratory: Symmetrical Chest Expansion and Respiratory Effort Skin: - - See skin note below Neurological: Alert and Oriented x 3 Nutrition: Taking PO's Result Diagrams: 06/18/19 05:30 06/19/19 05:25 Additional Lab and Data: Above labs were pulled into the note, when the note was edited prior to signing the note. See below for labs from day of consultation. Laboratory Tests 06/10/19 06/10/19 06/13/19 08:43 08:43 06:26 WBC 8.3 Hgb 8.1 L Hct 24 L Plt Count 176 Hemoglobin A1c 4.7 C-Reactive Protein 7.84 06/13/19 06:26 Sodium 135 Potassium 3.5 Chloride 102 Carbon Dioxide 27 BUN 24 Creatinine 1.24 H Glucose 168 H Total Protein 5.4 L Albumin 2.9 L Diagnostic Imagin. Exam Date: 04/14/19 - VL ANK/BRACHIAL INDICES Ankle-brachial indices of lower extremity was performed. The right ankle- brachial index is 1.15. Left ankle-brachial index is 1.19. Biphasic waveforms are noted in the posterior tibial and dorsalis pedis arteries bilaterally. Posterior tibial artery on the right is noncompressible. Ankle-brachial index of the left posterior tibial artery 0.62. Decreased upstroke is noted on the pulse volume recording. IMPRESSION: Ankle-brachial index on the right and 1.15 and on the left at 1.19. This is likely artificially elevated due to calcified vessels. 2. Exam Date: 08/19/18 Procedure(s) performed: 1. Diagnostic left lower extremity arteriogram. 2. Partial catheter and wire revascularization of the occluded left posterior tibial artery. 3. Balloon angioplasty of the posterior tibial artery, tibioperoneal trunk and inferior popliteal artery. 4. Percutaneous closure of the left common femoral artery with a Mynx closure device. 3. Exam Date: 04/13/18 - VL LOWER EXT ART DUPLEX LEFT IMPRESSION: Corresponding to the images from the arteriogram dated January 06, 2018, there is occlusion at the mid to distal left posterior tibial artery. The plantar arteries exhibit flow with low flow velocities measuring 8 cm/s laterally and 17 cm/s medially. Skin Deviation Note - Skin Deviation Findings Left posterior heel - There is a small superficial wound, measures 0.3 cm x 0.3 cm x 0.1 cm. The wound base is 100% pink epithelial tissue. The surrounding skin is intact. There is scan serous drainage. No odor. Wound Problem/Plan Assessment: Ms. Finn is an 84 yo female with PMH significant for HTN, DM2, A fib, CAD, s/p TAVR, D CHF, PVD, and uterine cancer; who presented to the emergency room for ABD pain, nausea and vomiting. She was admitted to the hospital for ABD pain and a periportal mass. She presented to the hospital with a known ulcer to the posterior left heel. 1. Chronic pressure related left heel ulcer. This has been present for 2 years. She has followed with the wound clinic and Dr. Jose. Recommend washing the area with soap and water. Apply iodosorb ointment, followed by a non-adherent dressing (i.e. Telfa), and rolled gauze; change every 3 days or as needed for drainage. Keep heels elevated off the bed, use either pillow or multipodus boots. Will add a pre-albumin to the last labs. She should return to the wound clinic at discharge. 2. PVD. Underwent angioplasty with Dr. Jose. She was referred to a a Vascular Surgeon in [place], but they do not accept her insurance. Consider referral to Vascular Surgery. 3. DM2. HgA1C was 4.7 during this admission. Maintain good glycemic control to assist with wound healing. 4. Suspected malnutrition. Albumin was 2.5 and Protein 5.4. Will add a pre- albumin to the last labs. 5. Nutrition. Recommend meeting nutrition requirements to assist with wound healing (Protein 1.2-1.5 grams/kg per day and Calories 30-35 kcal/kg per day). Full liquid diet. 6. Code Status. Full Code Status. 7. Disposition. Inpatient, disposition per primary medicine team. TIME SPENT: Time for this wound consultation was 20 minutes and 10 minutes was spent with the patient discussing past medical history; assessing, measuring, and photographing the wound. Is Patient a Wound Clinic Patient: Yes - Has not followed since April 2019 Current Treatment: Iodosorb Attending: Luisa Calvillo
[2019-06-13 17:15] LABS: Prealbumin 7 mg/dL (18-38)
[2019-06-13 18:09] LABS: Activated Partial Thrombo Time 94.4 seconds (26.0-38.0); INR 1.29 (0.82-1.09)
[2019-06-13] MEDS: Atorvastatin* 40 MG TAB PO SCH (22:43)
[2019-06-14] MEDS: Pantoprazole TAB * 40 MG TAB PO SCH ×2 (06:01→16:58)
[2019-06-14 07:23] LABS: ABS Eosinophils 0.3 10^3/ul (0-0.6); ABS Monocytes 0.5 10^3/ul (0-0.8); ABS Neutrophils 3.3 10^3/ul (1.5-7.7); Eosinophil % 6.4 %; Hematocrit 23 % (35-47); Hemoglobin 8.1 g/dL (12.0-16.0); Lymphocyte % 18.8 %; Mean Corpuscular HGB Conc 35 g/dL (31-36); Mean Corpuscular Hemoglobin 34 pg (27-31); Mean Corpuscular Volume 99 fL (80-97); Mean Platelet Volume 7.9 fL (7.4-10.4); Platelet Count 183 10^3/uL (150-450); Red Blood Count 2.36 10^6 /uL (3.70-4.87); Red Cell Distribution Width 17 % (10-15); White Blood Count 5.1 10^3/uL (3.5-10.8)
[2019-06-14 07:30] LABS: Activated Partial Thrombo Time 94.5 seconds (26.0-38.0); INR 1.24 (0.82-1.09)
[2019-06-14 07:39] LABS: Albumin 2.9 g/dL (3.2-5.2); Albumin/Globulin Ratio 1.1 (1-3); BUN/Creatinine Ratio 20.4 (8-20); C Reactive Protein 133.43 mg/L (<8.01); Calcium 8.3 mg/dL (8.6-10.3); EGFR African American 55.8 (>60); EGFR Non-African American 46.1 (>60); Globulin 2.7 g/dL (2-4); Potassium 3.7 mmol/L (3.5-5.0); Total Bilirubin 1.4 mg/dL (0.2-1.0); Total Protein 5.6 g/dL (6.4-8.9)
[2019-06-14] MEDS: Sotalol TAB* 80 MG PO SCH ×2 (07:51→19:49)
[2019-06-14] MEDS: Insulin LISPRO* 1 UNITS UNIT SUBCUT SCH ×4 (09:26→21:11)
--- NOTE | 2019-06-14 09:35 | PN ---
Progress Note - Progress Note Date of Service: 06/14/19 SOAP: Subjective: Feeling better overall and tolerating full liquid diet. No N/V/D. Has pain in R ribs/RUQ. Reports better with "pills". Understands she needs additional evaluation by Hematology. Objective: Vital Signs Temp 98.1 F 06/14/19 07:15 Pulse 68 06/14/19 07:15 Resp 16 06/14/19 07:55 BP 129/62 06/14/19 07:15 Pulse Ox 96 06/14/19 07:15 Gen: NAD Abd: obese, soft, tender in RUQ, no Blood sx. Intake & Output 06/13/19 06/14/19 06/14/19 18:59 06:59 18:59 Intake Total 140 1050 Output Total 3 Balance 137 1050 Weight 189 lb Intake: IV Fluids 20 25 NS (0.9%) 20 25 IVPB 65 ABX - CEFEPIME 65 Oral 120 960 Output: Urine 3 Other: Estimated Void Medium Date of Last Bowel 06/13/19 Movement # Bowel Movements 1 Estimated Stool Amount Large Laboratory Results - last 24 hr 06/13/19 06/13/19 06/13/19 06:26 12:34 15:40 WBC RBC Hgb Hct MCV MCH MCHC RDW Plt Count MPV Neut % (Auto) Lymph % (Auto) Mcleod % (Auto) Eos % (Auto) Baso % (Auto) Absolute Neuts (auto) Absolute Lymphs (auto) Absolute Monos (auto) Absolute Eos (auto) Absolute Basos (auto) Absolute Nucleated RBC Nucleated RBC % INR (Anticoag Therapy) 1.29 H APTT 94.4 H PT Patient/Normal 1:1 12.5 PTT Patient/Normal 1:1 57.7 H Sodium 135 Potassium 3.5 Chloride 102 Carbon Dioxide 27 Anion Gap 6 BUN 24 Creatinine 1.24 H Est GFR ( Amer) 50.1 Est GFR (Non-Af Amer) 41.4 BUN/Creatinine Ratio 19.4 Glucose 168 H POC Glucose (mg/dL) 212 H Calcium 8.4 L Iron < 20 L TIBC 267 D % Saturation 7 L Unsat Iron Binding < 252 Transferrin 191 L Ferritin 150.5 Total Bilirubin 1.80 H AST 19 ALT 15 Alkaline Phosphatase 121 H C-Reactive Protein Total Protein 5.4 L Albumin 2.9 L Globulin 2.5 Albumin/Globulin Ratio 1.2 Prealbumin 7 L Vitamin B12 377 Folate 18.15 06/13/19 06/13/19 06/14/19 17:04 22:40 06:58 WBC 5.1 RBC 2.36 L Hgb 8.1 L Hct 23 L MCV 99 H MCH 34 H MCHC 35 RDW 17 H Plt Count 183 MPV 7.9 Neut % (Auto) 64.9 Lymph % (Auto) 18.8 Mcleod % (Auto) 9.0 Eos % (Auto) 6.4 Baso % (Auto) 0.9 Absolute Neuts (auto) 3.3 Absolute Lymphs (auto) 1.0 Absolute Monos (auto) 0.5 Absolute Eos (auto) 0.3 Absolute Basos (auto) 0.0 Absolute Nucleated RBC 0.0 Nucleated RBC % 0.0 INR (Anticoag Therapy) APTT PT Patient/Normal 1:1 PTT Patient/Normal 1:1 Sodium Potassium Chloride Carbon Dioxide Anion Gap BUN Creatinine Est GFR ( Amer) Est GFR (Non-Af Amer) BUN/Creatinine Ratio Glucose POC Glucose (mg/dL) 206 H 240 H Calcium Iron TIBC % Saturation Unsat Iron Binding Transferrin Ferritin Total Bilirubin AST ALT Alkaline Phosphatase C-Reactive Protein Total Protein Albumin Globulin Albumin/Globulin Ratio Prealbumin Vitamin B12 Folate 06/14/19 06/14/19 06/14/19 06:58 06:58 08:09 WBC RBC Hgb Hct MCV MCH MCHC RDW Plt Count MPV Neut % (Auto) Lymph % (Auto) Mcleod % (Auto) Eos % (Auto) Baso % (Auto) Absolute Neuts (auto) Absolute Lymphs (auto) Absolute Monos (auto) Absolute Eos (auto) Absolute Basos (auto) Absolute Nucleated RBC Nucleated RBC % INR (Anticoag Therapy) 1.24 H APTT 94.5 H PT Patient/Normal 1:1 PTT Patient/Normal 1:1 Sodium 136 Potassium 3.7 Chloride 101 Carbon Dioxide 28 Anion Gap 7 BUN 23 Creatinine 1.13 H Est GFR ( Amer) 55.8 Est GFR (Non-Af Amer) 46.1 BUN/Creatinine Ratio 20.4 H Glucose 163 H POC Glucose (mg/dL) 176 H Calcium 8.3 L Iron TIBC % Saturation Unsat Iron Binding Transferrin Ferritin Total Bilirubin 1.40 H AST 23 ALT 17 Alkaline Phosphatase 135 H C-Reactive Protein 133.43 H Total Protein 5.6 L Albumin 2.9 L Globulin 2.7 Albumin/Globulin Ratio 1.1 Prealbumin Vitamin B12 Folate Assessment: Acute cholecystitis; periportal mass. Abnormal PTT. Plan: Continue antibiotics. Surgical intervention pending plan for IR biopsy of mass pending Hematology w/u. D/w patient.
[2019-06-14 09:54] LABS: PT/After 1 Hour Incubation 12.8 seconds (9.4-12.5)
[2019-06-14] MEDS: Cefepime 1 GM in Dextrose(*) 1 GM/50 ML BAG IV SCH ×2 (11:19→23:03)
[2019-06-14] MEDS: Heparin VIAL(*) 5000 UNITS/ML VIAL (FIVE THOUSAND) SUBCUT SCH ×2 (13:28→21:13)
--- NOTE | 2019-06-14 13:47 | PN ---
Subjective Date of Service: 06/14/19 Interval History: pt still c/o RUQ abd pain. tolerating liquid diet with no problems Family History: Unchanged from Admission Social History: Unchanged from Admission Past Medical History: Unchanged from Admission Objective Active Medications: Acetaminophen (Tylenol Tab*) 650 mg PO Q6H PRN PRN Reason: MILD PAIN or TEMP > 100.4 Last Admin: 06/12/19 06:19 Dose: 650 mg Atorvastatin Calcium (Lipitor*) 40 mg PO BEDTIME [facility] Last Admin: 06/13/19 22:43 Dose: 40 mg Dextrose (D50w Syringe 50 Ml*) 12.5 gm IV PUSH .FOR FS < 60 - SS PRN PRN Reason: FS < 60 Heparin Sodium (Porcine) (Heparin Vial(*)) 5,000 units SUBCUT Q8HR [facility] Last Admin: 06/14/19 13:28 Dose: 5,000 units Cefepime HCl (Maxipime 1 Gm In Dextrose Duplex (*)) 1 gm in 50 mls @ 100 mls/ hr IV Q12H [facility] Last Admin: 06/14/19 11:19 Dose: 100 mls/hr Insulin Human Lispro (Humalog*) 0 units SUBCUT ACHS [facility]; Protocol Last Admin: 06/14/19 12:03 Dose: 6 units Pantoprazole Sodium (Protonix Tab*) 40 mg PO 0630,1700 [facility] Last Admin: 06/14/19 06:01 Dose: 40 mg Prochlorperazine Edisylate (Compazine Inj*) 5 mg IV Q6H PRN PRN Reason: NAUSEA/VOMITING Sotalol HCl (Betapace Tab*) 80 mg PO BID [facility] Last Admin: 06/14/19 07:51 Dose: 80 mg Vital Signs - 8 hr 06/14/19 06/14/19 06/14/19 07:15 07:55 10:08 Temperature 98.1 F 96.8 F Pulse Rate 68 57 Respiratory 16 16 20 Rate Blood Pressure 129/62 124/43 (mmHg) O2 Sat by Pulse 96 100 Oximetry 06/14/19 11:27 Temperature 98.1 F Pulse Rate 62 Respiratory 18 Rate Blood Pressure 128/52 (mmHg) O2 Sat by Pulse 100 Oximetry Oxygen Devices in Use Now: None Appearance: 84 yo f in nAD, aAOx3 Eyes: No Scleral Icterus, PERRLA Ears/Nose/Mouth/Throat: NL Teeth, Lips, Gums, Mucous Membranes Moist Neck: NL Appearance and Movements; NL JVP, Trachea Midline Respiratory: Symmetrical Chest Expansion and Respiratory Effort, Clear to Auscultation Cardiovascular: NL Sounds; No Murmurs; No JVD, RRR Abdominal: - - RUQ tenderness, no rebound, no guarding, BS+ Lymphatic: No Cervical Adenopathy Extremities: No Edema Skin: No Rash or Ulcers Neurological: Alert and Oriented x 3, NL Muscle Strength and Tone Result Diagrams: 06/14/19 06:58 06/14/19 06:58 Microbiology and Other Data: Microbiology 06/11/19 11:00 Stool Occult Blood (CARRIE) - Final Stool 06/11/19 18:30 Stool Occult Blood (CARRIE) - Final Stool Assess/Plan/Problems-Billing Assessment: Mrs Finn is an 84yo F with PMH of HTN, type 2 DM, Afib on AC, CAD, s/p TAVR, diastolic CHF, PVD, uterine CA s/p hysterectomy, who presented to ED with c/o RUQ pain, found to have cholelithiasis as well as periportal mass. - Patient Problems (1) RUQ pain Comment: Started on Cefepime for acute cholecystitis. HIDA scan 2/ showed occlusion of cystic duct - EGD was normal 06/11/2019. - Continue PPI. - Dr Jose evaluated imaging to see if periportal mass is amenable to biopsy by IR. Plan to do bx as outpatient once Dr. Jose is back on service. Pt is planned for OR on Wednesday with possible bx of periportal mass if amenable. Pt's RCRI score is 2 placing pt at 10.1 % risk of serois complication. ACS preop risk calc places pt at approx 5 % risk or serious op complications. Pt has a good functional status, her echo is unchanged from prior and EF is WNL. Her EKG is baseline LBBB. She is optimized for the anticipated procedure. She does have h/o chronic anemia and is going to receive daily iron infusionons prior to surgery. (2) Elevated partial thromboplastin time (PTT) Comment: appreciate hematology consult mixing study shows likely presence of an inhibitor. Likely lupus anticoagulant. (3) Anemia Comment: - Drop this admission is likely dilutional in the setting of IVF, but has chronic anemia Hb 9-10 at baseline iron deficiency anemia - as per iron studies. Stool heme neg-EGD performed on 06/12/19 -neg will need colonoscopy as outpatient cont daily iron infusions for now Stopped anticoagulation at admission (4) Atrial fibrillation Comment: - Patient is in NSR - continue Sotalol. - According to IPRO protocol for anticoagulation, as patient will need a high risk of bleeding procedure (periportal mass close to vascular structures) and has a moderate thromboemloic risk ([id number] score of 6), recommendation is to interrupt DOAC 3 days before procedure and LMWH bridging is not indicated. (5) Colonic thickening Comment: - Seen on CT and patient now has positive FOBT. Never had a colonoscopy. - D/w GI - recommend colonoscopy once GB issuse is resolved (6) HLD (hyperlipidemia) Comment: - Continue Atorvastatin. (7) Type 2 diabetes mellitus Comment: - Continue FS and Lispro SS. -diet controled at home (8) Increased creatine kinase level Comment: improving Hold Bumex 20 mg (9) DVT prophylaxis Comment: - HSQ Status and Disposition: Inpatient. Daughter updated at bedside.
[2019-06-14] MEDS ORDERED: Ferric Gluconate IV* 100 MG in NS 0.9% 100 ML* 100 ML IVPB ONE (14:06)
[2019-06-14] MEDS ORDERED: Ferric Gluconate IV* 125 MG in NS 0.9% 100 ML* 100 ML IVPB ONE (15:00)
[2019-06-14] MEDS: Atorvastatin* 40 MG TAB PO SCH (19:49)
--- NOTE | 2019-06-14 22:18 | PN ---
Progress Note - Progress Note Date of Service: 06/14/19 Note: Care discussed at [facility] Board 06/14 with oncology and general surgery Imaging and history reviewed I discussed care also with Dr. Anderson and as well as the patient and her daughter Martha on the phone She has persistent RUQ pain although she is tolerating full liquids She has some mild tenderness in the RUQ without mass or guarding. Dr. Anderson's risk assessment appreciated. Although she is at high operative risk we discussed proceeding with a lap choly and biopsy of the portal mass. This is by no means emergent. She feels she has been having pain in the right side for a longer period of time and removing her gallbladder may help this and be diagnostic as well. The other option would be percutaneous drainage of the gallbladder and IR bx of the mass. However, she appears to be as medically optimized as possible at this point and there would probably not be a significant benefit in waiting for 6-8 weeks and proceeding with an interval cholecystectomy. I am willing to proceed with cholecystectomy (now tentatively scheduled for Friday 06/16) as long as she and her family accept the significant risks or mortality and morbidity. We are waiting on results of a hematologic workup with regards to the elevated PTT and this may hold surgery. Another issue is her stable anemia-should she be transfused pre-operatively? Will follow along and tentatively plan OR Wednesday
[2019-06-15] MEDS: Heparin VIAL(*) 5000 UNITS/ML VIAL (FIVE THOUSAND) SUBCUT SCH ×3 (05:48→20:53)
[2019-06-15] MEDS: Pantoprazole TAB * 40 MG TAB PO SCH ×2 (05:51→16:41)
[2019-06-15 06:26] LABS: ABS Eosinophils 0.3 10^3/ul (0-0.6); ABS Lymphocytes 0.8 10^3/ul (1.0-4.8); ABS Monocytes 0.4 10^3/ul (0-0.8); ABS Neutrophils 3.2 10^3/ul (1.5-7.7); Eosinophil % 6.3 %; Hematocrit 23 % (35-47); Hemoglobin 7.9 g/dL (12.0-16.0); Lymphocyte % 16.8 %; Mean Corpuscular HGB Conc 34 g/dL (31-36); Mean Corpuscular Hemoglobin 34 pg (27-31); Mean Corpuscular Volume 99 fL (80-97); Mean Platelet Volume 7.3 fL (7.4-10.4); Platelet Count 195 10^3/uL (150-450); Red Blood Count 2.33 10^6 /uL (3.70-4.87); Red Cell Distribution Width 16 % (10-15); White Blood Count 4.8 10^3/uL (3.5-10.8)
[2019-06-15 06:44] LABS: Albumin 2.8 g/dL (3.2-5.2); Albumin/Globulin Ratio 1.2 (1-3); BUN/Creatinine Ratio 18.9 (8-20); Calcium 8.2 mg/dL (8.6-10.3); EGFR African American 72.5 (>60); EGFR Non-African American 59.9 (>60); Globulin 2.4 g/dL (2-4); Potassium 3.9 mmol/L (3.5-5.0); Total Bilirubin 1.1 mg/dL (0.2-1.0); Total Protein 5.2 g/dL (6.4-8.9)
[2019-06-15] MEDS: Sotalol TAB* 80 MG PO SCH ×2 (07:33→20:48)
[2019-06-15] MEDS: Insulin LISPRO* 1 UNITS UNIT SUBCUT SCH ×4 (09:21→20:48)
--- NOTE | 2019-06-15 09:22 | PN ---
Progress Note - Progress Note Date of Service: 06/15/19 SOAP: Subjective: Notes she feels well Currently denies abdominal pain PTT mix consistent with inhibitor LAC pending Objective: Alert and conversant PERRLA Neck supple abdomen soft Vital Signs - 8 hr 06/15/19 06/15/19 06/15/19 03:15 07:24 07:37 Temperature 97.4 F 97.7 F Pulse Rate 62 55 62 Respiratory 16 22 20 Rate Blood Pressure 147/56 123/39 (mmHg) O2 Sat by Pulse 98 100 Oximetry Laboratory Results - last 24 hr 06/13/19 06/14/19 06/14/19 15:40 11:17 16:20 WBC RBC Hgb Hct MCV MCH MCHC RDW Plt Count MPV Neut % (Auto) Lymph % (Auto) [place] % (Auto) Eos % (Auto) Baso % (Auto) Absolute Neuts (auto) Absolute Lymphs (auto) Absolute Monos (auto) Absolute Eos (auto) Absolute Basos (auto) Absolute Nucleated RBC Nucleated RBC % PT Pat/Norm 1:1 1 Hr 12.8 H PTT Normal Plasma 1 Hr 60.6 H Mixing Interpretation Sodium Potassium Chloride Carbon Dioxide Anion Gap BUN Creatinine Est GFR ( Amer) Est GFR (Non-Af Amer) BUN/Creatinine Ratio Glucose POC Glucose (mg/dL) 222 H 226 H Calcium Total Bilirubin AST ALT Alkaline Phosphatase Total Protein Albumin Globulin Albumin/Globulin Ratio 06/14/19 06/15/19 06/15/19 21:04 06:16 06:16 WBC 4.8 RBC 2.33 L Hgb 7.9 L Hct 23 L MCV 99 H MCH 34 H MCHC 34 RDW 16 H Plt Count 195 MPV 7.3 L Neut % (Auto) 67.1 Lymph % (Auto) 16.8 [place] % (Auto) 8.9 Eos % (Auto) 6.3 Baso % (Auto) 0.9 Absolute Neuts (auto) 3.2 Absolute Lymphs (auto) 0.8 L Absolute Monos (auto) 0.4 Absolute Eos (auto) 0.3 Absolute Basos (auto) 0.0 Absolute Nucleated RBC 0.0 Nucleated RBC % 0.0 PT Pat/Norm 1:1 1 Hr PTT Normal Plasma 1 Hr Mixing Interpretation Sodium 138 Potassium 3.9 Chloride 104 Carbon Dioxide 30 Anion Gap 4 BUN 17 Creatinine 0.90 Est GFR ( Amer) 72.5 Est GFR (Non-Af Amer) 59.9 BUN/Creatinine Ratio 18.9 Glucose 140 H POC Glucose (mg/dL) 152 H Calcium 8.2 L Total Bilirubin 1.10 H AST 22 ALT 17 Alkaline Phosphatase 135 H Total Protein 5.2 L Albumin 2.8 L Globulin 2.4 Albumin/Globulin Ratio 1.2 06/15/19 08:11 WBC RBC Hgb Hct MCV MCH MCHC RDW Plt Count MPV Neut % (Auto) Lymph % (Auto) [place] % (Auto) Eos % (Auto) Baso % (Auto) Absolute Neuts (auto) Absolute Lymphs (auto) Absolute Monos (auto) Absolute Eos (auto) Absolute Basos (auto) Absolute Nucleated RBC Nucleated RBC % PT Pat/Norm 1:1 1 Hr PTT Normal Plasma 1 Hr Mixing Interpretation Sodium Potassium Chloride Carbon Dioxide Anion Gap BUN Creatinine Est GFR ( Amer) Est GFR (Non-Af Amer) BUN/Creatinine Ratio Glucose POC Glucose (mg/dL) 157 H Calcium Total Bilirubin AST ALT Alkaline Phosphatase Total Protein Albumin Globulin Albumin/Globulin Ratio Intake and Output Last 24 Hours 06/13/19 06/14/19 06/15/19 06/16/19 06:59 06:59 06:59 06:59 Intake Total 280 1190 2230 Output Total 3 Balance 280 1187 2230 Weight 189 lb 192 lb 9.6 oz Intake: IV Fluids 30 45 20 NS (0.9%) 30 45 20 IVPB 50 65 50 ABX - CEFEPIME 50 65 50 Oral 200 1080 2160 Output: Urine 3 Other: Estimated Void Large Medium Large Date of Last Bowel [id number] 06/13/19 Movement # Bowel Movements 0 1 Estimated Stool Amount Large # Voids 1 2 Acetaminophen (Tylenol Tab*) 650 mg PO Q6H PRN PRN Reason: MILD PAIN or TEMP > 100.4 Last Admin: 06/12/19 06:19 Dose: 650 mg Atorvastatin Calcium (Lipitor*) 40 mg PO BEDTIME [facility] Last Admin: 06/14/19 19:49 Dose: 40 mg Dextrose (D50w Syringe 50 Ml*) 12.5 gm IV PUSH .FOR FS < 60 - SS PRN PRN Reason: FS < 60 Heparin Sodium (Porcine) (Heparin Vial(*)) 5,000 units SUBCUT Q8HR [facility] Last Admin: 06/15/19 05:48 Dose: 5,000 units Heparin Sodium (Porcine) (Heparin Flush Picc/Ml/Cvc(*)) 1 ml FLUSH 0600,1800 [facility]; Protocol Last Admin: 06/15/19 05:48 Dose: 1 ml Cefepime HCl (Maxipime 1 Gm In Dextrose Duplex (*)) 1 gm in 50 mls @ 100 mls/ hr IV Q12H [facility] Last Admin: 06/14/19 23:03 Dose: 100 mls/hr Ferric Sodium Gluconate Complex 125 mg/ Sodium Chloride 110 mls @ 110 mls/hr IVPB ONCE ONE Stop: 06/15/19 15:59 Insulin Human Lispro (Humalog*) 0 units SUBCUT ACHS [facility]; Protocol Last Admin: 06/14/19 21:11 Dose: 3 units Pantoprazole Sodium (Protonix Tab*) 40 mg PO 0630,1700 [facility] Last Admin: 06/15/19 05:51 Dose: 40 mg Prochlorperazine Edisylate (Compazine Inj*) 5 mg IV Q6H PRN PRN Reason: NAUSEA/VOMITING Sotalol HCl (Betapace Tab*) 80 mg PO BID [facility] Last Admin: 06/15/19 07:33 Dose: 80 mg Assessment: Cholecystitis Periportal mass Multifactorial anemia Elevated PTT with mixing studies consistent with inhibitor Plan: Await LAC screen. If positive and given absence of bleeding history with prior studies , would explain the elevated PTT For possible cholecystectomy and biopsy of periportal mass Wednesday if #1 returns May require perioperative PRBC transfusion given current Hg Will follow SANDRA Maynard MD
--- NOTE | 2019-06-15 09:47 | PN ---
Subjective Date of Service: 06/15/19 Interval History: Pt still has "pain in her side"-indicating RUQ. Tolerating liquid diet Family History: Unchanged from Admission Social History: Unchanged from Admission Past Medical History: Unchanged from Admission Objective Active Medications: Acetaminophen (Tylenol Tab*) 650 mg PO Q6H PRN PRN Reason: MILD PAIN or TEMP > 100.4 Last Admin: 06/12/19 06:19 Dose: 650 mg Atorvastatin Calcium (Lipitor*) 40 mg PO BEDTIME [facility] Last Admin: 06/14/19 19:49 Dose: 40 mg Dextrose (D50w Syringe 50 Ml*) 12.5 gm IV PUSH .FOR FS < 60 - SS PRN PRN Reason: FS < 60 Heparin Sodium (Porcine) (Heparin Vial(*)) 5,000 units SUBCUT Q8HR [facility] Last Admin: 06/15/19 05:48 Dose: 5,000 units Heparin Sodium (Porcine) (Heparin Flush Picc/Ml/Cvc(*)) 1 ml FLUSH 0600,1800 [facility]; Protocol Last Admin: 06/15/19 05:48 Dose: 1 ml Cefepime HCl (Maxipime 1 Gm In Dextrose Duplex (*)) 1 gm in 50 mls @ 100 mls/ hr IV Q12H [facility] Last Admin: 06/14/19 23:03 Dose: 100 mls/hr Ferric Sodium Gluconate Complex 125 mg/ Sodium Chloride 110 mls @ 110 mls/hr IVPB ONCE ONE Stop: 06/15/19 15:59 Insulin Human Lispro (Humalog*) 0 units SUBCUT ACHS [facility]; Protocol Last Admin: 06/15/19 09:21 Dose: 3 units Pantoprazole Sodium (Protonix Tab*) 40 mg PO 0630,1700 [facility] Last Admin: 06/15/19 05:51 Dose: 40 mg Prochlorperazine Edisylate (Compazine Inj*) 5 mg IV Q6H PRN PRN Reason: NAUSEA/VOMITING Sotalol HCl (Betapace Tab*) 80 mg PO BID [facility] Last Admin: 06/15/19 07:33 Dose: 80 mg Vital Signs - 8 hr 06/15/19 06/15/19 06/15/19 03:15 07:24 07:37 Temperature 97.4 F 97.7 F Pulse Rate 62 55 62 Respiratory 16 22 20 Rate Blood Pressure 147/56 123/39 (mmHg) O2 Sat by Pulse 98 100 Oximetry Oxygen Devices in Use Now: None Appearance: 84 yo F in nAD, aAOx3 Eyes: No Scleral Icterus, PERRLA Ears/Nose/Mouth/Throat: NL Teeth, Lips, Gums, Mucous Membranes Moist Neck: NL Appearance and Movements; NL JVP, Trachea Midline Respiratory: Symmetrical Chest Expansion and Respiratory Effort, Clear to Auscultation Cardiovascular: NL Sounds; No Murmurs; No JVD, RRR Abdominal: - - RUQ tenderness, no rebound, no guarding, BS+ Lymphatic: No Cervical Adenopathy Extremities: No Edema, No Clubbing, Cyanosis Skin: No Rash or Ulcers, No Nodules or Sclerosis Neurological: Alert and Oriented x 3, NL Muscle Strength and Tone Result Diagrams: 06/15/19 06:16 06/15/19 06:16 Microbiology and Other Data: Microbiology 06/11/19 11:00 Stool Occult Blood (CARRIE) - Final Stool 06/11/19 18:30 Stool Occult Blood (CARRIE) - Final Stool Assess/Plan/Problems-Billing Assessment: Mrs Finn is an 84yo F with PMH of HTN, type 2 DM, Afib on AC, CAD, s/p TAVR, diastolic CHF, PVD, uterine CA s/p hysterectomy, who presented to ED with c/o RUQ pain, found to have cholelithiasis as well as periportal mass. - Patient Problems (1) RUQ pain Comment: Started on Cefepime for acute cholecystitis. HIDA scan 2/3 showed occlusion of cystic duct - EGD was normal 06/11/2019. - Continue PPI. - Dr Jose evaluated imaging to see if periportal mass is amenable to biopsy by IR. Plan to do bx as outpatient once Dr. Jose is back on service. Pt is planned for OR on Wednesday with possible bx of periportal mass if amenable. Pt's RCRI score is 2 placing pt at 10.1 % risk of serois complication. ACS preop risk calc places pt at approx 5 % risk or serious op complications. Pt has a good functional status, her echo is unchanged from prior and EF is WNL. Her EKG is baseline LBBB. She is optimized for the anticipated procedure. She does have h/o chronic anemia and is going to receive daily iron infusionons prior to surgery. We're waiting for lupus anticoagulant to come back preop, as per d/w Dr. Maynard, pt should not go to OR without this lab resulted (2) Elevated partial thromboplastin time (PTT) Comment: appreciate hematology consult mixing study shows likely presence of an inhibitor. Likely lupus anticoagulant. Labs for LAC will come back in 1-3 days (3) Anemia Comment: - Drop this admission is likely dilutional in the setting of IVF, but has chronic anemia Hb 9-10 at baseline iron deficiency anemia - as per iron studies. Stool heme neg-EGD performed on 06/12/19 -neg will need colonoscopy as outpatient Hb at 7.9 in light of h/o CAD and planned OR will transfuse 1 U today cont daily iron infusions for now Stopped anticoagulation at admission (4) Atrial fibrillation Comment: - Patient is in NSR - continue Sotalol. - According to IPRO protocol for anticoagulation, as patient will need a high risk of bleeding procedure (periportal mass close to vascular structures) and has a moderate thromboemloic risk ([id number] score of 6), recommendation is to interrupt DOAC 3 days before procedure and LMWH bridging is not indicated. (5) Colonic thickening Comment: - Seen on CT and patient now has positive FOBT. Never had a colonoscopy. - D/w GI - recommend colonoscopy once GB issuse is resolved (6) HLD (hyperlipidemia) Comment: - Continue Atorvastatin. (7) Type 2 diabetes mellitus Comment: - Continue FS and Lispro SS. -diet controled at home (8) Increased creatine kinase level Comment: resolved Hold Bumex 20 mg (9) DVT prophylaxis Comment: - HSQ Status and Disposition: Inpatient. Daughter updated at bedside.
[2019-06-15] MEDS ORDERED: Furosemide IV* 10 MG/ML 2 ML VIAL (20 MG) IV ONE (09:54)
[2019-06-15] MEDS: Cefepime 1 GM in Dextrose(*) 1 GM/50 ML BAG IV SCH ×2 (10:42→23:22)
[2019-06-15] MEDS ORDERED: Ferric Gluconate IV* 125 MG in NS 0.9% 100 ML* 100 ML IVPB SCH (11:00)
[2019-06-15] MEDS ORDERED: Buffered Lidocaine 1% SYRIN* 1 ML/SYRINGE INTRADERM ONE (11:46)
[2019-06-15 13:27] LABS: LAC APTT 58 sec (25 - 37); LAC INR 1.3 (0.9-1.1); Prothrombin Time(LAC) 13.9 sec (9.4 - 12.5)
[2019-06-15 13:35] LABS: Thrombin Time (Bovine), P 39.5 sec
--- NOTE | 2019-06-15 14:53 | PN ---
Progress Note - Progress Note Date of Service: 06/15/19 Note: S: Complains of Right sided abdominal discomfort that is worse with movement and cough. Tolerating PO intake well. Passing BM and flatus. Denies nausea, emesis, fever, chills, SOB. O: Vital Signs - 8 hr 06/15/19 06/15/19 06/15/19 07:24 07:37 10:08 Temperature 97.7 F Pulse Rate 55 62 Respiratory 22 20 20 Rate Blood Pressure 123/39 (mmHg) O2 Sat by Pulse 100 Oximetry 06/15/19 11:15 Temperature 98.2 F Pulse Rate 72 Respiratory 18 Rate Blood Pressure 125/65 (mmHg) O2 Sat by Pulse 99 Oximetry Intake and Output Last 24 Hours 06/13/19 06/14/19 06/15/19 06/16/19 06:59 06:59 06:59 06:59 Intake Total 280 1190 2230 1130 Output Total 3 Balance 280 1187 2230 1130 Weight 189 lb 192 lb 9.6 oz Intake: IV Fluids 30 45 20 NS (0.9%) 30 45 20 IVPB 50 65 50 ABX - CEFEPIME 50 65 50 Oral 200 1080 2160 1130 Output: Urine 3 Other: Estimated Void Large Medium Large Medium Date of Last Bowel [id number] 06/13/19 Movement # Bowel Movements 0 1 1 Estimated Stool Amount Large Medium # Voids 1 2 2 Laboratory Last Values WBC 4.8 10^3/uL (3.5-10.8) 06/15/19 06:16 RBC 2.33 10^6 /uL (3.70-4.87) L 06/15/19 06:16 Hgb 7.9 g/dL (12.0-16.0) L 06/15/19 06:16 Hct 23 % (35-47) L 06/15/19 06:16 MCV 99 fL (80-97) H 06/15/19 06:16 MCH 34 pg (27-31) H 06/15/19 06:16 MCHC 34 g/dL (31-36) 06/15/19 06:16 RDW 16 % (10-15) H 06/15/19 06:16 Plt Count 195 10^3/uL (150-450) 06/15/19 06:16 MPV 7.3 fL (7.4-10.4) L 06/15/19 06:16 Neut % (Auto) 67.1 % 06/15/19 06:16 Lymph % (Auto) 16.8 % 06/15/19 06:16 [place] % (Auto) 8.9 % 06/15/19 06:16 Eos % (Auto) 6.3 % 06/15/19 06:16 Baso % (Auto) 0.9 % 06/15/19 06:16 Absolute Neuts (auto) 3.2 10^3/ul (1.5-7.7) 06/15/19 06:16 Absolute Lymphs (auto) 0.8 10^3/ul (1.0-4.8) L 06/15/19 06:16 Absolute Monos (auto) 0.4 10^3/ul (0-0.8) 06/15/19 06:16 Absolute Eos (auto) 0.3 10^3/ul (0-0.6) 06/15/19 06:16 Absolute Basos (auto) 0.0 10^3/ul (0-0.2) 06/15/19 06:16 Absolute Nucleated RBC 0.0 10^3/ul 06/15/19 06:16 Nucleated RBC % 0.0 06/15/19 06:16 INR 1.3 (0.9-1.1) 06/14/19 11:48 INR (Anticoag Therapy) 1.24 (0.82-1.09) H 06/14/19 06:58 APTT 94.5 seconds (26.0-38.0) H 06/14/19 06:58 PT Patient/Normal 1:1 12.5 seconds (9.4-12.5) 06/13/19 15:40 PT Pat/Norm 1:1 1 Hr 12.8 seconds (9.4-12.5) H 06/13/19 15:40 PTT Normal Plasma 1 Hr 60.6 seconds (26.0-38.0) H 06/13/19 15:40 PTT Patient/Normal 1:1 47 sec (25 - 37) H 06/14/19 11:48 Mixing Interpretation 06/13/19 15:40 Lupus Anticoag PT 13.9 sec (9.4 - 12.5) H 06/14/19 11:48 Lupus Anticoag aPTT 58 sec (25 - 37) H 06/14/19 11:48 LA Thrombin Time 39.5 sec H 06/14/19 11:48 dRVVT Screen Ratio 2.59 ratio (<1.20) H 06/14/19 11:48 LA dRVVT Confirm Ratio 1.62 ratio (<1.20) H 06/14/19 11:48 dRVVT Mix Ratio 1.92 ratio (<1.20) H 06/14/19 11:48 LA Reptilase Time 22.9 sec 06/14/19 11:48 Lup Anticoag Scrn Intrp See comment 06/14/19 11:48 Sodium 138 mmol/L (135-145) 06/15/19 06:16 Potassium 3.9 mmol/L (3.5-5.0) 06/15/19 06:16 Chloride 104 mmol/L (101-111) 06/15/19 06:16 Carbon Dioxide 30 mmol/L (22-32) 06/15/19 06:16 Anion Gap 4 mmol/L (2-11) 06/15/19 06:16 BUN 17 mg/dL (6-24) 06/15/19 06:16 Creatinine 0.90 mg/dL (0.51-0.95) 06/15/19 06:16 Est GFR ( Amer) 72.5 (>60) 06/15/19 06:16 Est GFR (Non-Af Amer) 59.9 (>60) 06/15/19 06:16 BUN/Creatinine Ratio 18.9 (8-20) 06/15/19 06:16 Glucose 140 mg/dL (70-100) H 06/15/19 06:16 POC Glucose (mg/dL) 143 mg/dL (70-100) H 06/15/19 12:46 Hemoglobin A1c 4.7 % (4.0-5.6) 06/10/19 08:43 Lactic Acid 1.0 mmol/L (0.5-2.0) 06/10/19 08:43 Calcium 8.2 mg/dL (8.6-10.3) L 06/15/19 06:16 Magnesium 1.8 mg/dL (1.9-2.7) L 06/10/19 08:43 Iron < 20 ug/dL (50-212) L 06/13/19 06:26 TIBC 267 mcg/dL (250-450) D 06/13/19 06:26 % Saturation 7 % (15-55) L 06/13/19 06:26 Unsat Iron Binding < 252 ug/dL 06/13/19 06:26 Transferrin 191 mg/dL (203-362) L 06/13/19 06:26 Ferritin 150.5 ng/mL (11-307) 06/13/19 06:26 Direct Bilirubin 1.00 mg/dL (0.03-0.18) H 06/12/19 05:54 Total Bilirubin 1.10 mg/dL (0.2-1.0) H 06/15/19 06:16 Indirect Bilirubin 2.2 mg/dL (0.3-1.0) H 06/12/19 05:54 AST 22 U/L (13-39) 06/15/19 06:16 ALT 17 U/L (7-52) 06/15/19 06:16 Alkaline Phosphatase 135 U/L (34-104) H 06/15/19 06:16 Total Creatine Kinase 25 U/L (10-223) 06/10/19 08:43 Troponin I 0.01 ng/mL (<0.03) 06/10/19 08:43 C-React Prot High Sens 143.70 mg/L (<2.00) H 06/11/19 07:03 C-Reactive Protein 133.43 mg/L (<8.01) H 06/14/19 06:58 B-Natriuretic Peptide 324 pg/mL (<=100) H 06/10/19 08:43 Total Protein 5.2 g/dL (6.4-8.9) L 06/15/19 06:16 Albumin 2.8 g/dL (3.2-5.2) L 06/15/19 06:16 Globulin 2.4 g/dL (2-4) 06/15/19 06:16 Albumin/Globulin Ratio 1.2 (1-3) 06/15/19 06:16 Prealbumin 7 mg/dL (18-38) L 06/13/19 06:26 Amylase 38 U/L (29-103) 06/10/19 08:43 Lipase < 10 U/L (11.0-82.0) L 06/11/19 07:03 Vitamin B12 377 pg/mL (180-914) 06/13/19 06:26 Folate 18.15 ng/mL (>3.99) 06/13/19 06:26 Urine Color Yellow 06/10/19 08:22 Urine Appearance Clear 06/10/19 08:22 Urine pH 5.0 (5-9) 06/10/19 08:22 Ur Specific [place] 1.038 (1.010-1.030) H 06/10/19 08:22 Urine Protein Negative (Negative) 06/10/19 08:22 Urine Ketones Negative (Negative) 06/10/19 08:22 Urine Blood Negative (Negative) 06/10/19 08:22 Urine Nitrate Negative (Negative) 06/10/19 08:22 Urine Bilirubin Negative (Negative) 06/10/19 08:22 Urine Urobilinogen Negative (Negative) 06/10/19 08:22 Ur Leukocyte Esterase Negative (Negative) 06/10/19 08:22 Urine Glucose Negative (Negative) 06/10/19 08:22 Blood Type O Positive 06/15/19 06:16 Antibody Screen Negative 06/15/19 06:16 Crossmatch See Detail 06/15/19 06:16 PEX: General: Alert and in NAD or discomfort Integumentary: No rashes or jaundice HEENT: Oropharynx clear, PERRLA Heart: RRR, no MRG Lungs: CTAB, no WRR ABD: BS present. Soft, nondistended. Tender in RUQ. Positive guarding and [place] 's. Negative rebound tenderness. Extremities: Calves nontender and soft. Distal pulses intact bilaterally. No edema. Assessment and plan: 84 yo F with right sided abdominal pain and sheila portal mass. Awaiting interpretation of lupus anticoagulant study. On schedule for cholecystectomy tomorrow. NPO at midnight tonight.
[2019-06-15] MEDS ORDERED: Ferric Gluconate IV* 125 MG in NS 0.9% 100 ML* 100 ML IVPB ONE (15:00)
[2019-06-15] MEDS: Atorvastatin* 40 MG TAB PO SCH (20:48)
[2019-06-16] MEDS ORDERED: Lactated Ringers 1000 ML Bag* 1,000 ML IV SCH (06:00)
[2019-06-16] MEDS: Heparin VIAL(*) 5000 UNITS/ML VIAL (FIVE THOUSAND) SUBCUT SCH (06:02)
[2019-06-16 06:12] LABS: ABS Basophils 0.1 10^3/ul (0-0.2); ABS Eosinophils 0.3 10^3/ul (0-0.6); ABS Monocytes 0.4 10^3/ul (0-0.8); ABS Neutrophils 2.2 10^3/ul (1.5-7.7); Eosinophil % 7.7 %; Hematocrit 25 % (35-47); Hemoglobin 8.7 g/dL (12.0-16.0); Lymphocyte % 25.9 %; Mean Corpuscular HGB Conc 35 g/dL (31-36); Mean Corpuscular Hemoglobin 34 pg (27-31); Mean Corpuscular Volume 96 fL (80-97); Mean Platelet Volume 7.5 fL (7.4-10.4); Platelet Count 171 10^3/uL (150-450); Red Blood Count 2.59 10^6 /uL (3.70-4.87); Red Cell Distribution Width 17 % (10-15)
[2019-06-16 06:29] LABS: Albumin 2.8 g/dL (3.2-5.2); Albumin/Globulin Ratio 1.1 (1-3); BUN/Creatinine Ratio 16.1 (8-20); Calcium 8.3 mg/dL (8.6-10.3); EGFR African American 75.4 (>60); EGFR Non-African American 62.3 (>60); Globulin 2.5 g/dL (2-4); Potassium 4.1 mmol/L (3.5-5.0); Total Bilirubin 1.4 mg/dL (0.2-1.0); Total Protein 5.3 g/dL (6.4-8.9)
[2019-06-16] MEDS ORDERED: Pantoprazole IV* 40 MG IV ONE (06:40)
[2019-06-16] MEDS: Pantoprazole TAB * 40 MG TAB PO SCH ×2 (06:41→18:29)
[2019-06-16] MEDS: Insulin LISPRO* 1 UNITS UNIT SUBCUT SCH ×4 (08:15→21:00)
[2019-06-16] MEDS: Sotalol TAB* 80 MG PO SCH ×2 (08:15→21:00)
--- NOTE | 2019-06-16 10:07 | PN ---
Progress Note - Progress Note Date of Service: 07/04/19 SOAP: Subjective: Doing well Still with RUQ abdominal pain Feels distended Objective: Temp Pulse Resp BP Pulse Ox 98.1 F 55 16 130/42 100 06/16/19 07:15 06/16/19 07:15 06/16/19 07:15 06/16/19 07:15 06/16/19 07:15 PEX: Comfortable Lungs Clear Abd is soft and mildly distended Tender RUQ, no mass or peritoneal irritation Laboratory Results - last 24 hr 06/14/19 06/15/19 06/15/19 11:48 06:16 12:46 WBC RBC Hgb Hct MCV MCH MCHC RDW Plt Count MPV Neut % (Auto) Lymph % (Auto) [place] % (Auto) Eos % (Auto) Baso % (Auto) Absolute Neuts (auto) Absolute Lymphs (auto) Absolute Monos (auto) Absolute Eos (auto) Absolute Basos (auto) Absolute Nucleated RBC Nucleated RBC % INR 1.3 PTT Patient/Normal 1:1 47 H Lupus Anticoag PT 13.9 H Lupus Anticoag aPTT 58 H LA Thrombin Time 39.5 H dRVVT Screen Ratio 2.59 H LA dRVVT Confirm Ratio 1.62 H dRVVT Mix Ratio 1.92 H LA Reptilase Time 22.9 Lupus Anticoag Interp See comment Lup Anticoag Scrn Intrp See comment Lupus Anticoag Review See comment Sodium Potassium Chloride Carbon Dioxide Anion Gap BUN Creatinine Est GFR ( Amer) Est GFR (Non-Af Amer) BUN/Creatinine Ratio Glucose POC Glucose (mg/dL) 143 H Calcium Total Bilirubin AST ALT Alkaline Phosphatase Total Protein Albumin Globulin Albumin/Globulin Ratio Blood Type O Positive Antibody Screen Negative Crossmatch See Detail 06/15/19 06/15/19 06/16/19 16:55 20:07 06:00 WBC 4.0 RBC 2.59 L Hgb 8.7 L Hct 25 L MCV 96 MCH 34 H MCHC 35 RDW 17 H Plt Count 171 MPV 7.5 Neut % (Auto) 54.8 Lymph % (Auto) 25.9 [place] % (Auto) 10.3 Eos % (Auto) 7.7 Baso % (Auto) 1.3 Absolute Neuts (auto) 2.2 Absolute Lymphs (auto) 1.0 Absolute Monos (auto) 0.4 Absolute Eos (auto) 0.3 Absolute Basos (auto) 0.1 Absolute Nucleated RBC 0.0 Nucleated RBC % 0.0 INR PTT Patient/Normal 1:1 Lupus Anticoag PT Lupus Anticoag aPTT LA Thrombin Time dRVVT Screen Ratio LA dRVVT Confirm Ratio dRVVT Mix Ratio LA Reptilase Time Lupus Anticoag Interp Lup Anticoag Scrn Intrp Lupus Anticoag Review Sodium Potassium Chloride Carbon Dioxide Anion Gap BUN Creatinine Est GFR ( Amer) Est GFR (Non-Af Amer) BUN/Creatinine Ratio Glucose POC Glucose (mg/dL) 192 H 195 H Calcium Total Bilirubin AST ALT Alkaline Phosphatase Total Protein Albumin Globulin Albumin/Globulin Ratio Blood Type Antibody Screen Crossmatch 06/16/19 06/16/19 06/16/19 06:00 06:56 07:44 WBC RBC Hgb Hct MCV MCH MCHC RDW Plt Count MPV Neut % (Auto) Lymph % (Auto) [place] % (Auto) Eos % (Auto) Baso % (Auto) Absolute Neuts (auto) Absolute Lymphs (auto) Absolute Monos (auto) Absolute Eos (auto) Absolute Basos (auto) Absolute Nucleated RBC Nucleated RBC % INR PTT Patient/Normal 1:1 Lupus Anticoag PT Lupus Anticoag aPTT LA Thrombin Time dRVVT Screen Ratio LA dRVVT Confirm Ratio dRVVT Mix Ratio LA Reptilase Time Lupus Anticoag Interp Lup Anticoag Scrn Intrp Lupus Anticoag Review Sodium 140 Potassium 4.1 Chloride 106 Carbon Dioxide 31 Anion Gap 3 BUN 14 Creatinine 0.87 Est GFR ( Amer) 75.4 Est GFR (Non-Af Amer) 62.3 BUN/Creatinine Ratio 16.1 Glucose 130 H POC Glucose (mg/dL) 149 H 155 H Calcium 8.3 L Total Bilirubin 1.40 H AST 19 ALT 16 Alkaline Phosphatase 124 H Total Protein 5.3 L Albumin 2.8 L Globulin 2.5 Albumin/Globulin Ratio 1.1 Blood Type Antibody Screen Crossmatch Assessment: Acute cholecystitis Sheila-portal mass Plan: Laparoscopic cholecystectomy with biopsy of sheila-portal intra-abdominal mass. The procedure was discussed with the patient and her daughter, Martha, and the risks of, but not limited to, of bleeding, infection, abscess, common bile duct injury, injury to peritoneal and retroperitoneal structures, possibility of an open procedure, blood clots, anesthetic risks, , pulmonary failure, renal failure, ICU admission after OR were all explained.
--- NOTE | 2019-06-16 10:26 | PN ---
Subjective Date of Service: 06/16/19 Interval History: Pt feels well, still c/o "soreness" in RUQ Family History: Unchanged from Admission Social History: Unchanged from Admission Past Medical History: Unchanged from Admission Objective Active Medications: Acetaminophen (Tylenol Tab*) 650 mg PO Q6H PRN PRN Reason: MILD PAIN or TEMP > 100.4 Last Admin: 06/12/19 06:19 Dose: 650 mg Atorvastatin Calcium (Lipitor*) 40 mg PO BEDTIME [facility] Last Admin: 06/15/19 20:48 Dose: 40 mg Dextrose (D50w Syringe 50 Ml*) 12.5 gm IV PUSH .FOR FS < 60 - SS PRN PRN Reason: FS < 60 Heparin Sodium (Porcine) (Heparin Vial(*)) 5,000 units SUBCUT Q8HR [facility] Last Admin: 06/16/19 06:02 Dose: 5,000 units Heparin Sodium (Porcine) (Heparin Flush Picc/Ml/Cvc(*)) 1 ml FLUSH 0600,1800 [facility]; Protocol Last Admin: 06/16/19 06:01 Dose: 1 ml Cefepime HCl (Maxipime 1 Gm In Dextrose Duplex (*)) 1 gm in 50 mls @ 100 mls/ hr IV Q12H [facility] Last Admin: 06/15/19 23:22 Dose: 100 mls/hr Lactated Ringer's (Lactated Ringers 1000 Ml Bag*) 1,000 mls @ 25 mls/hr IV PER RATE [facility] Last Admin: 06/16/19 06:03 Dose: 25 mls/hr Insulin Human Lispro (Humalog*) 0 units SUBCUT ACHS [facility]; Protocol Last Admin: 06/16/19 08:15 Dose: 3 units Pantoprazole Sodium (Protonix Tab*) 40 mg PO 0630,1700 [facility] Last Admin: 06/16/19 06:41 Dose: Not Given Prochlorperazine Edisylate (Compazine Inj*) 5 mg IV Q6H PRN PRN Reason: NAUSEA/VOMITING Sotalol HCl (Betapace Tab*) 80 mg PO BID [facility] Last Admin: 06/16/19 08:15 Dose: 80 mg Vital Signs - 8 hr 06/16/19 06/16/19 02:57 07:15 Temperature 98.0 F 98.1 F Pulse Rate 54 55 Respiratory 20 16 Rate Blood Pressure 140/47 130/42 (mmHg) O2 Sat by Pulse 98 100 Oximetry Oxygen Devices in Use Now: None Appearance: 84 yo F in nAD, aAOx3 Eyes: No Scleral Icterus, PERRLA Ears/Nose/Mouth/Throat: NL Teeth, Lips, Gums, Mucous Membranes Moist Neck: NL Appearance and Movements; NL JVP, Trachea Midline Respiratory: Symmetrical Chest Expansion and Respiratory Effort, Clear to Auscultation Cardiovascular: RRR, - - 2/6 MATTHEW Abdominal: No Hepatosplenomegaly, - - tender in RUQ, no rebound, no guarding, BS + Lymphatic: No Cervical Adenopathy Extremities: No Edema, No Clubbing, Cyanosis Skin: No Rash or Ulcers, No Nodules or Sclerosis Neurological: Alert and Oriented x 3 Result Diagrams: 06/16/19 06:00 06/16/19 06:00 Microbiology and Other Data: Microbiology 06/11/19 11:00 Stool Occult Blood (CARRIE) - Final Stool 06/11/19 18:30 Stool Occult Blood (CARRIE) - Final Stool Assess/Plan/Problems-Billing Assessment: Mrs Finn is an 84yo F with PMH of HTN, type 2 DM, Afib on AC, CAD, s/p TAVR, diastolic CHF, PVD, uterine CA s/p hysterectomy, who presented to ED with c/o RUQ pain, found to have cholelithiasis as well as periportal mass. - Patient Problems (1) RUQ pain Comment: Cont Cefepime for acute cholecystitis. HIDA scan 2/3 showed occlusion of cystic duct - EGD was normal 06/11/2019. - Continue PPI. - Dr Jose evaluated imaging to see if periportal mass is amenable to biopsy by IR. Plan to do bx as outpatient once Dr. Jose is back on service. Pt is planned for OR today with possible bx of periportal mass if amenable. Pt's RCRI score is 2 placing pt at 10.1 % risk of serois complication. ACS preop risk calc places pt at approx 5 % risk or serious op complications. Pt has a good functional status, her echo is unchanged from prior and EF is WNL. Her EKG is baseline LBBB. She is optimized for the anticipated procedure. She does have h/o chronic anemia and is going to receive daily iron infusions periperatively Mixing studies positive for upus anticoagulant -as d/w Dr. Israel-pt is at a higher risk of clotting due to that. Asked surgical service to restart HSQ for DVT prophylaxis post op when OK'ed by surgical service (2) Elevated partial thromboplastin time (PTT) Comment: appreciate hematology consult mixing study shows likely lupus anticoagulant-see above (3) Anemia Comment: - Drop this admission is likely dilutional in the setting of IVF, but has chronic anemia Hb 9-10 at baseline iron deficiency anemia - as per iron studies. Stool heme neg-EGD performed on 06/12/19 -neg will need colonoscopy as outpatient S/p transfusion of 1 U 06/15/19 cont daily iron infusions for now Stopped anticoagulation at admission to be restarted when feasible post op (4) Atrial fibrillation Comment: - Patient is in NSR - continue Sotalol. - According to IPRO protocol for anticoagulation, as patient will need a high risk of bleeding procedure (periportal mass close to vascular structures) and has a moderate thromboemloic risk ([id number] score of 6), recommendation is to interrupt DOAC 3 days before procedure and will d/c LMWH bridging with hematology (5) Colonic thickening Comment: - Seen on CT and patient now has positive FOBT. Never had a colonoscopy. - D/w GI - recommend colonoscopy once GB issuse is resolved (6) HLD (hyperlipidemia) Comment: - Continue Atorvastatin. (7) Type 2 diabetes mellitus Comment: - Continue FS and Lispro SS. -diet controled at home (8) Increased creatine kinase level Comment: resolved Hold Bumex 20 mg start gentle IVF when NPO (9) DVT prophylaxis Comment: - HSQ stopped preop Status and Disposition: Inpatient.
[2019-06-16] MEDS ORDERED: fentaNYL* 50 MCG/ML 2 ML VIAL (100 MCG VIAL) ONE (10:27)
[2019-06-16] MEDS ORDERED: NS 0.9% 1000 ML** 1,000 ML IV SCH (10:30)
[2019-06-16] MEDS ORDERED: Bupivacaine 0.5% W/EPI SDV* 10 ML VIAL INJ ONE ×2 (10:58→11:00)
[2019-06-16] MEDS ORDERED: Naloxone* 0.4 MG/ML 1 ML VIAL IV PRN (11:03)
[2019-06-16] MEDS ORDERED: Rocuronium* 10 MG/ML VIAL ONE ×2 (11:38→11:52)
[2019-06-16] MEDS ORDERED: Lidocaine 2% PF * 5 ML VIAL ONE (11:52)
[2019-06-16] MEDS ORDERED: Propofol* 10 MG/ML 20 ML BTL ONE (11:52)
[2019-06-16] MEDS ORDERED: Dexamethasone IV* 4 MG/ML 1 ML (4 MG) ONE (11:52)
[2019-06-16] MEDS ORDERED: Etomidate* 2 MG/ML 10 ML VIAL ONE (11:52)
[2019-06-16] MEDS ORDERED: Phenylephrine 40 MCG/ML SYRINGE ONE (11:55)
[2019-06-16] MEDS ORDERED: EPHEDrine (Pressors)* 50 MG/ML VIAL ONE (11:55)
[2019-06-16] MEDS: Cefepime 1 GM in Dextrose(*) 1 GM/50 ML BAG IV SCH ×2 (13:15→23:23)
[2019-06-16] MEDS ORDERED: Ondansetron INJ* 2 MG/ML VIAL ONE (13:37)
[2019-06-16] MEDS ORDERED: Sugammadex * 200 MG/2 ML VIAL IV PUSH ONE (13:37)
--- NOTE | 2019-06-16 14:04 | OP ---
Operative Report - Blank - Operative Report Date of Operation: 06/16/19 Note: OPERATIVE REPORT Pre-op: Acute calculous cholecystitis, elyssa-portal mass Post-Op: 1. Acute calculous cholecystitis 2. Elyssa-portal mass--frozen section showing adenocarcinoma 3. Nodular liver Procedure: 1. Laparoscopic cholecystectomy 2. Biopsy of elyssa-portal mass-frozen and permanent specimen 3. Biopsy of left lobe of over-permanent specimen Surgeon: MD Carey Asst: Arthur PAK Anes: general with local , Dr. Estrella IVF: 600 cc crystalloid EBL:NR Specimen: 1. Gallbladder 2. Liver biopsy 3. Biopsy of portal mass Drain: #10 BOO in RUQ abdomen Wound: 4 Findings: Acute calculous cholecystitis, nodular liver, portal mass To PACU
[2019-06-16] MEDS ORDERED: HYDROmorphone INJ1* 1 MG/ML SYRINGE ONE (14:21)
[2019-06-16] MEDS ORDERED: Acetaminophen TAB* 325 MG ONE (14:22)
[2019-06-16] MEDS: Acetaminophen TAB* 325 MG PO PRN (14:25)
[2019-06-16] MEDS: HYDROmorphone INJ1* 1 MG/ML SYRINGE IV PRN ×2 (14:47→15:07)
[2019-06-16] MEDS ORDERED: oxyCODONE/Acetamin 5/325 MG* TAB PO PRN (16:20)
[2019-06-16] MEDS ORDERED: HYDROmorphone INJ* 0.5 MG/0.5 ML SYRINGE IV SLOW PU PRN (16:23)
[2019-06-16] MEDS ORDERED: LR @ 40 MLS/HR IV SCH (17:00)
[2019-06-16] MEDS: Atorvastatin* 40 MG TAB PO SCH (21:00)
--- NOTE | 2019-06-16 22:21 | OP ---
CC: DELORES; Dr. Israel, Oncology; Dr. Miah Cintron; Dr. Coral Schmitz * DATE OF OPERATION: 06/16/19 - ROOM #334 DATE OF : 39 SURGEON: Landon Patino MD QUARTZ ORIENTATOR: PASHA San ANESTHESIOLOGIST: Dr. Estrella. ANESTHESIA: General with local. PRE-OP DIAGNOSES: 1. Acute calculous cholecystitis. 2. Periportal intraabdominal mass. POST-OP DIAGNOSES: 1. Acute calculous cholecystitis. 2. Periportal intraabdominal mass, frozen section showing adenocarcinoma. 3. Diffuse nodular liver. OPERATIVE PROCEDURE: 1. Laparoscopic cholecystectomy. 2. Left lobe of the liver biopsy. 3. Biopsy of periportal intraabdominal mass. ESTIMATED BLOOD LOSS: Not recorded. IV FLUIDS: 600 cc of crystalloid. SPECIMENS: 1. Gallbladder. 2. Liver biopsy from the lateral segment of the left lobe. 3. Biopsy from periportal mass. WOUND CLASSIFICATION: IV. DRAINS: #10 BOO drain at the right upper quadrant. COMPLICATIONS: None. FINDINGS: As above. DESCRIPTION OF PROCEDURE: Written informed consent was obtained, the abdomen was marked with an indelible ink. The patient was already on preoperative antibiotics and she was taken to the operating room and placed in the supine position. Sequential compression devices and warming blanket were applied. General anesthesia was administered. The abdomen was prepped and draped in the usual sterile fashion. Time-out verification was completed. 1% lidocaine was infiltrated just above the umbilicus. A small transverse incision was made in the peritoneal cavity, was entered under direct vision. A 12-mm blunt port was inserted and the abdomen was insufflated to 15 mmHg. Under direct vision, a 12-mm epigastric port was placed and two 5-mm ports were placed in the right side of the abdominal wall. On general evaluation of the abdomen, there was no evidence of peritoneal metastatic disease or ascites. Lower abdomen was unremarkable. There were some adhesions to the anterior abdominal wall from the omentum, which were taken down using the LigaSure device. The liver was identified. It was diffusely nodular, but not contracted or indurated. There were no obvious discrete lesions. Gallbladder was obviously distended and inflamed with a thickened wall and pericholecystic fluid and greenish grayish in color, all consistent with acute calculous cholecystitis. There was omentum adherent to it and this was taken down bluntly. We proceeded to identify the periportal mass identified on the CT scan. This was in the lesser sac along the lesser curvature of the stomach between the stomach and the liver and the space was entered using the LigaSure device. This appeared to be a large lymph node and using the biopsy forceps, I was able to take several large bites from the surface, and sent this for both frozen and permanent section. Frozen section returned as an adenocarcinoma. Hemostasis was assured with some superficial cautery as well as packing with a 4x4 gauze. In light of the appearance of the liver, I used the LigaSure device to take a generous biopsy from the left lateral segment of the left lobe of the liver and this was sent in formalin and sent separately from the previous biopsy. Hemostasis was assured as well. Attention was then turned to the gallbladder. We were able to grasp this; however, I did enter the gallbladder and there was significant amount of purulent material along with some stones which were extruded. The stones were extracted from the abdominal cavity. This gives the wound classification IV. Using a combination of blunt and sharp dissection, the thickened peritoneum and omentum was swept down, I was able to identify the infundibulum of the gallbladder as well as a cystic duct. There was an enlarged lymph node in the usual position, this was swept inferiorly to expose the cystic artery as well. The artery was then doubly clipped and divided. I subsequently developed a space behind the liver to assure myself that this was the cystic duct entering the gallbladder and using the critical view technique I made certain there were no other structures entering the gallbladder. The cystic duct did not appear to be dilated. Using the large clip can line operator, the cystic duct was clipped and then subsequently divided without difficulty. The gallbladder was removed from the liver bed once again using a combination of cautery as well as blunt dissection; it was quite inflamed and there was a large rind to the liver itself. The gallbladder was placed in an EndoCatch bag. The right upper quadrant was then thoroughly irrigated and hemostasis was assured. The liver bed and liver biopsy site as well as the portal mass biopsy site were examined and there was no evidence of bleeding and hemostasis was assured. In addition, there had been a concern for a possible area of the proximal transverse colon which may have been abnormal; however, by evaluating this, there was a significant amount of pericolonic fat, but we did not identify any obvious masses or abnormality. #10 BOO drain was then placed and brought up through the right lateral port site. This was placed up into the Morison's pouch area and sutured to the skin with 3-0 Prolene suture. Gallbladder was then removed through the epigastric port. It was necessary to make this somewhat larger in size. The epigastric fascia was then closed with a single 0 Vicryl suture. The umbilical fascia was closed with three separate 0 Vicryl suture. The skin at all 4 incisions was approximated with a subcuticular 4-0 Vicryl suture. The wound glue was placed. It should be noted that I placed a third 5-mm port in the left upper quadrant of the abdomen for biopsy of the liver as well as the portal mass. The patient tolerated the procedure well and was taken to the recovery room in stable condition. [id number]/CPS #: [id number] MTDD
[2019-06-17] MEDS ORDERED: HYDROmorphone INJ* 0.5 MG/0.5 ML SYRINGE IV SLOW PU PRN (03:00)
[2019-06-17 06:20] LABS: ABS Lymphocytes 0.8 10^3/ul (1.0-4.8); ABS Monocytes 0.8 10^3/ul (0-0.8); ABS Neutrophils 9.8 10^3/ul (1.5-7.7); Hematocrit 26 % (35-47); Hemoglobin 8.8 g/dL (12.0-16.0); Lymphocyte % 6.9 %; Mean Corpuscular HGB Conc 34 g/dL (31-36); Mean Corpuscular Hemoglobin 33 pg (27-31); Mean Corpuscular Volume 97 fL (80-97); Mean Platelet Volume 7.8 fL (7.4-10.4); Platelet Count 179 10^3/uL (150-450); Red Blood Count 2.68 10^6 /uL (3.70-4.87); Red Cell Distribution Width 17 % (10-15); White Blood Count 11.4 10^3/uL (3.5-10.8)
[2019-06-17] MEDS: Pantoprazole TAB * 40 MG TAB PO SCH ×2 (06:33→17:57)
[2019-06-17 06:37] LABS: BUN/Creatinine Ratio 17.2 (8-20); Calcium 8.2 mg/dL (8.6-10.3); EGFR African American 69.8 (>60); EGFR Non-African American 57.7 (>60); Potassium 4.8 mmol/L (3.5-5.0)
[2019-06-17] MEDS: Sotalol TAB* 80 MG PO SCH ×2 (08:58→22:53)
[2019-06-17] MEDS: Insulin LISPRO* 1 UNITS UNIT SUBCUT SCH ×4 (08:58→22:53)
--- NOTE | 2019-06-17 09:05 | PN ---
Progress Note - Progress Note Date of Service: 06/17/19 SOAP: Subjective: Minimal abdominal discomfort Post lap heike dRRVT with LAC and likely heparin presence based upon prolonged thrombin time and normal Reptilase time. Prelim biopsy periportal mass , adenocarcinoma, by verbal report Objective: alert and oriented, tearful Abdomen soft with minimal tenderness PERRLA Neuro nonfocal Vital Signs - 8 hr 06/17/19 06/17/19 06/17/19 02:59 08:03 08:56 Temperature 98.4 F 97.6 F Pulse Rate 60 62 Respiratory 16 18 Rate Blood Pressure 118/35 98/36 107/40 (mmHg) O2 Sat by Pulse 95 96 Oximetry Laboratory Results - last 24 hr 06/16/19 06/16/19 06/16/19 10:42 17:56 20:49 WBC RBC Hgb Hct MCV MCH MCHC RDW Plt Count MPV Neut % (Auto) Lymph % (Auto) [place] % (Auto) Eos % (Auto) Baso % (Auto) Absolute Neuts (auto) Absolute Lymphs (auto) Absolute Monos (auto) Absolute Eos (auto) Absolute Basos (auto) Absolute Nucleated RBC Nucleated RBC % Sodium Potassium Chloride Carbon Dioxide Anion Gap BUN Creatinine Est GFR ( Amer) Est GFR (Non-Af Amer) BUN/Creatinine Ratio Glucose POC Glucose (mg/dL) 120 H 220 H 314 H Calcium 06/17/19 06/17/19 06/17/19 06:08 06:08 07:47 WBC 11.4 H RBC 2.68 L Hgb 8.8 L Hct 26 L MCV 97 MCH 33 H MCHC 34 RDW 17 H Plt Count 179 MPV 7.8 Neut % (Auto) 86.0 Lymph % (Auto) 6.9 [place] % (Auto) 6.9 Eos % (Auto) 0.0 Baso % (Auto) 0.2 Absolute Neuts (auto) 9.8 H Absolute Lymphs (auto) 0.8 L Absolute Monos (auto) 0.8 Absolute Eos (auto) 0.0 Absolute Basos (auto) 0.0 Absolute Nucleated RBC 0.0 Nucleated RBC % 0.0 Sodium 135 Potassium 4.8 Chloride 104 Carbon Dioxide 27 Anion Gap 4 BUN 16 Creatinine 0.93 Est GFR ( Amer) 69.8 Est GFR (Non-Af Amer) 57.7 BUN/Creatinine Ratio 17.2 Glucose 199 H POC Glucose (mg/dL) 208 H Calcium 8.2 L Intake and Output Last 24 Hours 06/15/19 06/16/19 06/17/19 06/18/19 06:59 06:59 06:59 06:59 Intake Total 2230 2280 1210 Output Total 640 340 Balance 2230 1640 870 Weight 192 lb 9.6 oz 196 lb 11.2 oz 197 lb 6.4 oz Intake: IV Fluids 20 80 600 ABX - CEFEPIME 50 LR 600 NS (0.9%) 20 30 IVPB 50 ABX - CEFEPIME 50 Oral 2160 2200 610 Output: BOO #1 240 Urine 640 100 Other: Estimated Void Large # Bowel Movements 0 Estimated Stool Amount Medium # Voids 2 0 0 Acetaminophen (Tylenol Tab*) 650 mg PO Q6H PRN PRN Reason: MILD PAIN or TEMP > 100.4 Last Admin: 06/16/19 14:25 Dose: 650 mg Atorvastatin Calcium (Lipitor*) 40 mg PO BEDTIME [facility] Last Admin: 06/16/19 21:00 Dose: 40 mg Dextrose (D50w Syringe 50 Ml*) 12.5 gm IV PUSH .FOR FS < 60 - SS PRN PRN Reason: FS < 60 Heparin Sodium (Porcine) (Heparin Flush Picc/Ml/Cvc(*)) 1 ml FLUSH 0600,1800 [facility]; Protocol Last Admin: 06/17/19 05:56 Dose: 1 ml Heparin Sodium (Porcine) (Heparin Vial(*)) 5,000 units SUBCUT Q8HR [facility] Hydromorphone HCl (Dilaudid Inj*) 0.5 mg IV SLOW PU Q1H PRN PRN Reason: Pain Cefepime HCl (Maxipime 1 Gm In Dextrose Duplex (*)) 1 gm in 50 mls @ 100 mls/ hr IV Q12H [facility] Last Admin: 06/16/19 23:23 Dose: 100 mls/hr Lactated Ringer's (Lactated Ringers 1000 Ml Bag*) 1,000 mls @ 25 mls/hr IV PER RATE [facility] Insulin Human Lispro (Humalog*) 0 units SUBCUT ACHS [facility]; Protocol Last Admin: 06/17/19 08:58 Dose: 6 units Oxycodone/Acetaminophen (Percocet 5/325 Tab*) 1 tab PO Q6H PRN PRN Reason: Pain Pantoprazole Sodium (Protonix Tab*) 40 mg PO 0630,1700 [facility] Last Admin: 06/17/19 06:33 Dose: 40 mg Prochlorperazine Edisylate (Compazine Inj*) 5 mg IV Q6H PRN PRN Reason: NAUSEA/VOMITING Sotalol HCl (Betapace Tab*) 80 mg PO BID [facility] Last Admin: 06/17/19 08:58 Dose: 80 mg Assessment: Cholecystitis post Lap Heike Periportal mass with preliminary verbal adenocarcinoma Heme positive stools, no sofie bleeding reported Circumferential thickening of colon at hepatic flexure Lupus anticoagulant History of atrial fibrillation Plan: Reviewed with Hospitalist team Await final pathology Check Hepatitis C AB, CEA, CA 19-9 Consideration for future colonoscopy in part dependent upon final pathology from portal mass and patient's desire for aggressive therapy Cautious prophylaxis with Unfractionated or LMWH with monitoring of Hg and any signs of blood loss Will follow up on final pathology with additional recommendations SANDRA Maynard MD
--- NOTE | 2019-06-17 09:17 | PN ---
Subjective Date of Service: 06/17/19 Interval History: Pt feels well post op, still nos passed flatus, tolerating clears PO. Still "soreness" in RUQ. When talking about her path report she was informed that her daughter requested to be present to discuss detail, but pt requested to be informed. She is AAOx3. She became tearful when told that it's likely cancer, we discussed that further detail will be known when path comes back in 2-3 days Family History: Unchanged from Admission Social History: Unchanged from Admission Past Medical History: Unchanged from Admission Objective Active Medications: Acetaminophen (Tylenol Tab*) 650 mg PO Q6H PRN PRN Reason: MILD PAIN or TEMP > 100.4 Last Admin: 06/16/19 14:25 Dose: 650 mg Atorvastatin Calcium (Lipitor*) 40 mg PO BEDTIME [facility] Last Admin: 06/16/19 21:00 Dose: 40 mg Dextrose (D50w Syringe 50 Ml*) 12.5 gm IV PUSH .FOR FS < 60 - SS PRN PRN Reason: FS < 60 Heparin Sodium (Porcine) (Heparin Flush Picc/Ml/Cvc(*)) 1 ml FLUSH 0600,1800 [facility]; Protocol Last Admin: 06/17/19 05:56 Dose: 1 ml Heparin Sodium (Porcine) (Heparin Vial(*)) 5,000 units SUBCUT Q8HR [facility] Hydromorphone HCl (Dilaudid Inj*) 0.5 mg IV SLOW PU Q1H PRN PRN Reason: Pain Cefepime HCl (Maxipime 1 Gm In Dextrose Duplex (*)) 1 gm in 50 mls @ 100 mls/ hr IV Q12H [facility] Last Admin: 06/16/19 23:23 Dose: 100 mls/hr Lactated Ringer's (Lactated Ringers 1000 Ml Bag*) 1,000 mls @ 25 mls/hr IV PER RATE [facility] Insulin Human Lispro (Humalog*) 0 units SUBCUT ACHS [facility]; Protocol Last Admin: 06/17/19 08:58 Dose: 6 units Oxycodone/Acetaminophen (Percocet 5/325 Tab*) 1 tab PO Q6H PRN PRN Reason: Pain Pantoprazole Sodium (Protonix Tab*) 40 mg PO 0630,1700 [facility] Last Admin: 06/17/19 06:33 Dose: 40 mg Prochlorperazine Edisylate (Compazine Inj*) 5 mg IV Q6H PRN PRN Reason: NAUSEA/VOMITING Sotalol HCl (Betapace Tab*) 80 mg PO BID [facility] Last Admin: 06/17/19 08:58 Dose: 80 mg Vital Signs - 8 hr 06/17/19 06/17/19 06/17/19 02:59 08:03 08:56 Temperature 98.4 F 97.6 F Pulse Rate 60 62 Respiratory 16 18 Rate Blood Pressure 118/35 98/36 107/40 (mmHg) O2 Sat by Pulse 95 96 Oximetry Oxygen Devices in Use Now: None Appearance: 84 yo f in nAD, aAOx3 Eyes: No Scleral Icterus, PERRLA Ears/Nose/Mouth/Throat: NL Teeth, Lips, Gums, Mucous Membranes Moist Neck: NL Appearance and Movements; NL JVP, Trachea Midline Respiratory: Symmetrical Chest Expansion and Respiratory Effort, Clear to Auscultation Cardiovascular: RRR, - - 2/6 MATTHEW Abdominal: - - soft, tender in RUQ, no rebund, no guarding, BS +, incisions steri stripped-no dehiscence Lymphatic: No Cervical Adenopathy Extremities: - - trace ankle and hand edema b/l Skin: No Nodules or Sclerosis Neurological: Alert and Oriented x 3, NL Muscle Strength and Tone Result Diagrams: 06/17/19 06:08 06/17/19 06:08 Additional Lab and Data: Above labs were pulled into the note, when the note was edited prior to signing the note. See below for labs from day of consultation. Laboratory Tests 06/10/19 06/10/19 06/13/19 08:43 08:43 06:26 WBC 8.3 Hgb 8.1 L Hct 24 L Plt Count 176 Hemoglobin A1c 4.7 C-Reactive Protein 7.84 06/13/19 06:26 Sodium 135 Potassium 3.5 Chloride 102 Carbon Dioxide 27 BUN 24 Creatinine 1.24 H Glucose 168 H Total Protein 5.4 L Albumin 2.9 L Microbiology and Other Data: Microbiology 06/11/19 11:00 Stool Occult Blood ([facility]) - Final Stool 06/11/19 18:30 Stool Occult Blood ([facility]) - Final Stool Diagnostic Imaging: . Assess/Plan/Problems-Billing Assessment: Mrs Finn is an 84yo F with PMH of HTN, type 2 DM, Afib on AC, CAD, s/p TAVR, diastolic CHF, PVD, uterine CA s/p hysterectomy, who presented to ED with c/o RUQ pain, found to have cholelithiasis as well as periportal mass. - Patient Problems (1) Periportal lymphadenopathy Comment: re: periportal mass: perliminary path results indicate likely adenocarcinoma-pt is aware. Awiting further path report Heme/onc following (2) RUQ pain Comment: Due to acute cholecystitis, s/o lap anne 06/16/19. Cont Cefepime for now, will probably be able to d/c it soon post op. - Continue PPI. -clears for diet (3) Elevated partial thromboplastin time (PTT) Comment: appreciate hematology consult mixing study shows likely lupus anticoagulant. (4) Anemia Comment: - Drop this admission is likely dilutional in the setting of IVF, but has chronic anemia Hb 9-10 at baseline iron deficiency anemia - as per iron studies. Stool heme positive -EGD performed on 06/12/19 -neg will need colonoscopy as outpatient-CT showing abn of colon S/p transfusion of 1 U 06/15/19 pt received 2 iron infusions will re-check stool guaiac to guide anticoagulation in the future (5) Atrial fibrillation Comment: - Patient is in NSR - continue Sotalol. -Pradaxa held at admission -d/w heme/onc : OK to start DVT prophylaxis today (6) Colonic thickening Comment: - Seen on CT and patient now has positive FOBT. Never had a colonoscopy. - D/w GI - recommended colonoscopy , but as per Dw. heme/onc -will await path report from periortal mass bx first (7) HLD (hyperlipidemia) Comment: - Continue Atorvastatin. (8) Type 2 diabetes mellitus Comment: - Continue FS and Lispro SS. -diet controled at home (9) Increased creatine kinase level Comment: resolved Hold Bumex 20 mg from home cont gentle IVF when on clears (10) DVT prophylaxis Comment: - HSQ restarted today Status and Disposition: Inpatient.
--- NOTE | 2019-06-17 11:22 | PN ---
Progress Note - Progress Note Date of Service: 06/17/19 Note: Surgery Progress Note S: Patient is doing well. She appears in good spirits. She is tolearting CLD, no nausea or emesis. She has minimal pain. Her preliminary diagnosis of cancer (biopsy of periportal lymph node) has been reviewed with her. O: Vital Signs - 24 hr 06/16/19 06/16/19 06/16/19 14:06 14:10 14:11 Temperature 97.0 F Pulse Rate 61 61 Respiratory 27 15 Rate Blood Pressure 169/71 156/45 (mmHg) O2 Sat by Pulse 100 98 Oximetry 06/16/19 06/16/19 06/16/19 14:16 14:20 14:26 Temperature Pulse Rate 71 58 59 Respiratory 28 14 16 Rate Blood Pressure 147/55 145/57 140/72 (mmHg) O2 Sat by Pulse 94 94 94 Oximetry 06/16/19 06/16/19 06/16/19 14:30 14:46 14:47 Temperature Pulse Rate 60 60 Respiratory 21 13 14 Rate Blood Pressure 154/65 152/76 (mmHg) O2 Sat by Pulse 95 98 Oximetry 06/16/19 06/16/19 06/16/19 15:00 15:01 15:07 Temperature Pulse Rate 59 59 Respiratory 19 21 12 Rate Blood Pressure 144/61 (mmHg) O2 Sat by Pulse 92 92 Oximetry 06/16/19 06/16/19 06/16/19 15:15 15:30 15:45 Temperature Pulse Rate 59 57 Respiratory 20 18 Rate Blood Pressure 140/57 136/59 143/59 (mmHg) O2 Sat by Pulse 91 92 Oximetry 06/16/19 06/16/19 06/16/19 16:37 17:41 18:54 Temperature 97.6 F 97.7 F 97.8 F Pulse Rate 57 59 67 Respiratory 18 18 18 Rate Blood Pressure 134/51 131/50 127/48 (mmHg) O2 Sat by Pulse 95 95 96 Oximetry 06/16/19 06/16/19 06/16/19 20:17 20:28 23:15 Temperature 98.6 F 98.6 F Pulse Rate 69 67 Respiratory 16 16 18 Rate Blood Pressure 140/51 131/42 (mmHg) O2 Sat by Pulse 97 96 Oximetry 06/17/19 06/17/19 06/17/19 02:59 08:00 08:03 Temperature 98.4 F 97.6 F Pulse Rate 60 62 Respiratory 16 18 18 Rate Blood Pressure 118/35 98/36 (mmHg) O2 Sat by Pulse 95 96 Oximetry 06/17/19 08:56 Temperature Pulse Rate Respiratory Rate Blood Pressure 107/40 (mmHg) O2 Sat by Pulse Oximetry Laboratory Results - last 24 hr 06/16/19 06/16/19 06/17/19 17:56 20:49 06:08 WBC RBC Hgb Hct MCV MCH MCHC RDW Plt Count MPV Neut % (Auto) Lymph % (Auto) [place] % (Auto) Eos % (Auto) Baso % (Auto) Absolute Neuts (auto) Absolute Lymphs (auto) Absolute Monos (auto) Absolute Eos (auto) Absolute Basos (auto) Absolute Nucleated RBC Nucleated RBC % Sodium 135 Potassium 4.8 Chloride 104 Carbon Dioxide 27 Anion Gap 4 BUN 16 Creatinine 0.93 Est GFR ( Amer) 69.8 Est GFR (Non-Af Amer) 57.7 BUN/Creatinine Ratio 17.2 Glucose 199 H POC Glucose (mg/dL) 220 H 314 H Calcium 8.2 L 06/17/19 06/17/19 06:08 07:47 WBC 11.4 H RBC 2.68 L Hgb 8.8 L Hct 26 L MCV 97 MCH 33 H MCHC 34 RDW 17 H Plt Count 179 MPV 7.8 Neut % (Auto) 86.0 Lymph % (Auto) 6.9 Miller % (Auto) 6.9 Eos % (Auto) 0.0 Baso % (Auto) 0.2 Absolute Neuts (auto) 9.8 H Absolute Lymphs (auto) 0.8 L Absolute Monos (auto) 0.8 Absolute Eos (auto) 0.0 Absolute Basos (auto) 0.0 Absolute Nucleated RBC 0.0 Nucleated RBC % 0.0 Sodium Potassium Chloride Carbon Dioxide Anion Gap BUN Creatinine Est GFR ( Amer) Est GFR (Non-Af Amer) BUN/Creatinine Ratio Glucose POC Glucose (mg/dL) 208 H Calcium Intake & Output 06/16/19 06/17/19 06/17/19 22:59 06:59 14:59 Intake Total 200 360 Output Total 240 100 Balance -40 360 -100 Weight 197 lb 6.4 oz Intake: Oral 200 360 Output: BOO #1 140 100 Urine 100 Other: # Voids 0 Physical exam: Abdomen- soft, NTND, incisions c/d/i with steris in place, BOO drain with minimal serosanguinous fluid A/P: 84 F with acute cholecystitis and periportal lymph node, POD 1 from laparoscopic cholecystectomy, lymph node and liver biopsies, doing well. - Advance diet to soft, hep lock IV - Continue cefepime - Started HSQ for ppx and lupus anticoagulant - Pathology pending, preliminary adenocarcinoma of lymph node, patient with heme positive stools, will need a colonoscopy Discussed with Dr. Anderson
[2019-06-17] MEDS: Cefepime 1 GM in Dextrose(*) 1 GM/50 ML BAG IV SCH ×2 (11:43→22:52)
[2019-06-17 12:20] LABS: Hepatitis B Surface Antigen Nonreactive (Nonreactive)
[2019-06-17 12:37] LABS: Hepatitis B Surface Ab Not Immune (Immune)
[2019-06-17 12:38] LABS: Hepatitis C Antibody Negative (Negative)
[2019-06-17] MEDS: Heparin VIAL(*) 5000 UNITS/ML VIAL (FIVE THOUSAND) SUBCUT SCH ×2 (13:47→22:54)
[2019-06-17] MEDS: Acetaminophen TAB* 325 MG PO PRN (14:32)
[2019-06-17] MEDS: Atorvastatin* 40 MG TAB PO SCH (22:53)
[2019-06-18] MEDS: Acetaminophen TAB* 325 MG PO PRN ×3 (03:36→21:35)
[2019-06-18] MEDS: Heparin VIAL(*) 5000 UNITS/ML VIAL (FIVE THOUSAND) SUBCUT SCH ×3 (05:24→21:35)
[2019-06-18] MEDS: Pantoprazole TAB * 40 MG TAB PO SCH ×2 (05:26→17:06)
[2019-06-18 05:53] LABS: ABS Basophils 0.1 10^3/ul (0-0.2); ABS Eosinophils 0.1 10^3/ul (0-0.6); ABS Lymphocytes 1.1 10^3/ul (1.0-4.8); ABS Monocytes 0.7 10^3/ul (0-0.8); ABS Neutrophils 6.7 10^3/ul (1.5-7.7); Eosinophil % 1.6 %; Hematocrit 25 % (35-47); Hemoglobin 8.4 g/dL (12.0-16.0); Lymphocyte % 12.6 %; Mean Corpuscular HGB Conc 34 g/dL (31-36); Mean Corpuscular Hemoglobin 33 pg (27-31); Mean Corpuscular Volume 97 fL (80-97); Mean Platelet Volume 8.1 fL (7.4-10.4); Platelet Count 176 10^3/uL (150-450); Red Blood Count 2.52 10^6 /uL (3.70-4.87); Red Cell Distribution Width 17 % (10-15); White Blood Count 8.6 10^3/uL (3.5-10.8)
[2019-06-18 06:02] LABS: BUN/Creatinine Ratio 19.3 (8-20); EGFR African American 74.4 (>60); EGFR Non-African American 61.5 (>60); Potassium 4.7 mmol/L (3.5-5.0)
[2019-06-18] MEDS: Insulin LISPRO* 1 UNITS UNIT SUBCUT SCH ×4 (07:50→21:37)
--- NOTE | 2019-06-18 08:24 | PN ---
Subjective Date of Service: 06/18/19 Interval History: Pt has not passed flatus of had a BM yet. tolerating solid food. Abd still "sore " in LUQ Family History: Unchanged from Admission Social History: Unchanged from Admission Past Medical History: Unchanged from Admission Objective Active Medications: Acetaminophen (Tylenol Tab*) 650 mg PO Q6H PRN PRN Reason: MILD PAIN or TEMP > 100.4 Last Admin: 06/18/19 03:36 Dose: 650 mg Atorvastatin Calcium (Lipitor*) 40 mg PO BEDTIME COUNTS INCLUDE 234 BEDS AT THE [facility] Last Admin: 06/17/19 22:53 Dose: 40 mg Dextrose (D50w Syringe 50 Ml*) 12.5 gm IV PUSH .FOR FS < 60 - SS PRN PRN Reason: FS < 60 Heparin Sodium (Porcine) (Heparin Flush Picc/Ml/Cvc(*)) 1 ml FLUSH 0600,1800 COUNTS INCLUDE 234 BEDS AT THE [facility]; Protocol Last Admin: 06/18/19 05:24 Dose: 2 ml Heparin Sodium (Porcine) (Heparin Vial(*)) 5,000 units SUBCUT Q8HR COUNTS INCLUDE 234 BEDS AT THE [facility] Last Admin: 06/18/19 05:24 Dose: 5,000 units Hydromorphone HCl (Dilaudid Inj*) 0.5 mg IV SLOW PU Q1H PRN PRN Reason: Pain Cefepime HCl (Maxipime 1 Gm In Dextrose Duplex (*)) 1 gm in 50 mls @ 100 mls/ hr IV Q12H COUNTS INCLUDE 234 BEDS AT THE [facility] Last Admin: 06/17/19 22:52 Dose: 100 mls/hr Insulin Human Lispro (Humalog*) 0 units SUBCUT ACHS COUNTS INCLUDE 234 BEDS AT THE [facility]; Protocol Last Admin: 06/18/19 07:50 Dose: Not Given Oxycodone/Acetaminophen (Percocet 5/325 Tab*) 1 tab PO Q6H PRN PRN Reason: Pain Pantoprazole Sodium (Protonix Tab*) 40 mg PO 0630,1700 COUNTS INCLUDE 234 BEDS AT THE [facility] Last Admin: 06/18/19 05:26 Dose: 40 mg Prochlorperazine Edisylate (Compazine Inj*) 5 mg IV Q6H PRN PRN Reason: NAUSEA/VOMITING Sotalol HCl (Betapace Tab*) 80 mg PO BID COUNTS INCLUDE 234 BEDS AT THE [facility] Last Admin: 06/17/19 22:53 Dose: 80 mg Vital Signs - 8 hr 06/18/19 06/18/19 03:40 08:02 Temperature 98.9 F 97.7 F Pulse Rate 62 59 Respiratory 18 18 Rate Blood Pressure 125/46 120/52 (mmHg) O2 Sat by Pulse 98 97 Oximetry Oxygen Devices in Use Now: None Appearance: 84 yo F in nAD, AAOx3 Eyes: No Scleral Icterus, PERRLA Ears/Nose/Mouth/Throat: NL Teeth, Lips, Gums, Mucous Membranes Moist Neck: NL Appearance and Movements; NL JVP, Trachea Midline Respiratory: Symmetrical Chest Expansion and Respiratory Effort, Clear to Auscultation Cardiovascular: RRR, - - 2/6 MATTHEW Abdominal: - - soft, tender in LUQ, no rebound, no guarding, BS+, post op incisions with no dehiscence, R sided BOO with scant amount of blood tinged serous fluid. Lymphatic: No Cervical Adenopathy Extremities: No Edema Skin: No Nodules or Sclerosis Neurological: Alert and Oriented x 3, NL Muscle Strength and Tone Result Diagrams: 06/18/19 05:30 06/18/19 05:30 Additional Lab and Data: Above labs were pulled into the note, when the note was edited prior to signing the note. See below for labs from day of consultation. Laboratory Tests 06/10/19 06/10/19 06/13/19 08:43 08:43 06:26 WBC 8.3 Hgb 8.1 L Hct 24 L Plt Count 176 Hemoglobin A1c 4.7 C-Reactive Protein 7.84 06/13/19 06:26 Sodium 135 Potassium 3.5 Chloride 102 Carbon Dioxide 27 BUN 24 Creatinine 1.24 H Glucose 168 H Total Protein 5.4 L Albumin 2.9 L Microbiology and Other Data: Microbiology 06/11/19 11:00 Stool Occult Blood (CARRIE) - Final Stool 06/11/19 18:30 Stool Occult Blood (CARRIE) - Final Stool Diagnostic Imaging: . Assess/Plan/Problems-Billing Assessment: Mrs Finn is an 84yo F with PMH of HTN, type 2 DM, Afib on AC, CAD, s/p TAVR, diastolic CHF, PVD, uterine CA s/p hysterectomy, who presented to ED with c/o RUQ pain, found to have cholelithiasis as well as periportal mass. - Patient Problems (1) Periportal lymphadenopathy Comment: re: periportal mass: perliminary path results indicate likely adenocarcinoma-pt is aware. Awaiting further path report Heme/onc following (2) RUQ pain Comment: Due to acute cholecystitis, s/o lap anne 06/16/19. Cont Cefepime for now, will probably be able to d/c it soon . - Continue PPI. -tolerating solid diet (3) Elevated partial thromboplastin time (PTT) Comment: appreciate hematology consult mixing study shows likely lupus anticoagulant. (4) Anemia Comment: - Drop this admission is likely dilutional in the setting of IVF, but has chronic anemia Hb 9-10 at baseline iron deficiency anemia - as per iron studies. Stool heme positive -EGD performed on 06/12/19 -neg will need colonoscopy, and depending on the pathology of the periportal mass it may need to be done either as outpatient or inpatient. CT showing abn of colon S/p transfusion of 1 U 06/15/19 pt received 2 iron infusions Re-checking stool guaiac to guide anticoagulation in the future (5) Atrial fibrillation Comment: - Patient is in NSR - continue Sotalol. -Pradaxa held at admission -d/w heme/onc : started DVT prophylaxis 06/17/19, awaiting repeat stool guaiac to guide poss full anticoagulation in the future (6) Colonic thickening Comment: - Seen on CT and patient now has positive FOBT. Never had a colonoscopy. - D/w GI - recommended colonoscopy , but as per Dw. heme/onc -will await path report from periortal mass bx first (7) HLD (hyperlipidemia) Comment: - Continue Atorvastatin. (8) Type 2 diabetes mellitus Comment: - Continue FS and Lispro SS. -diet controled at home (9) Increased creatine kinase level Comment: resolved Hold Bumex 20 mg from home (10) DVT prophylaxis Comment: - HSQ Status and Disposition: Inpatient.
[2019-06-18] MEDS: Sotalol TAB* 80 MG PO SCH ×2 (08:28→20:14)
--- NOTE | 2019-06-18 11:02 | PN ---
Progress Note - Progress Note Date of Service: 06/18/19 Note: Surgery Progress Note S: Patient is doing well. Tolerating a soft diet. No nausea or emesis. Has some soreness still in her RUQ. She is ambulating. O: Vital Signs - 24 hr 06/17/19 06/17/19 06/17/19 11:32 15:56 19:09 Temperature 97.8 F 97.8 F 98.2 F Pulse Rate 65 63 78 Respiratory 22 16 16 Rate Blood Pressure 124/39 123/45 128/49 (mmHg) O2 Sat by Pulse 98 100 100 Oximetry 06/17/19 06/17/19 06/18/19 21:30 23:18 03:40 Temperature 98.5 F 98.9 F Pulse Rate 70 62 Respiratory 18 18 18 Rate Blood Pressure 135/49 125/46 (mmHg) O2 Sat by Pulse 100 98 Oximetry 06/18/19 06/18/19 08:02 08:30 Temperature 97.7 F Pulse Rate 59 Respiratory 18 18 Rate Blood Pressure 120/52 (mmHg) O2 Sat by Pulse 97 Oximetry Laboratory Results - last 24 hr 06/17/19 06/17/19 06/17/19 11:02 11:02 11:52 WBC RBC Hgb Hct MCV MCH MCHC RDW Plt Count MPV Neut % (Auto) Lymph % (Auto) [place] % (Auto) Eos % (Auto) Baso % (Auto) Absolute Neuts (auto) Absolute Lymphs (auto) Absolute Monos (auto) Absolute Eos (auto) Absolute Basos (auto) Absolute Nucleated RBC Nucleated RBC % Sodium Potassium Chloride Carbon Dioxide Anion Gap BUN Creatinine Est GFR ( Amer) Est GFR (Non-Af Amer) BUN/Creatinine Ratio Glucose POC Glucose (mg/dL) 285 H Calcium Carcinoembryonic Ag 3.1 Hepatitis B Antibody Not immune A Hep Bs Antigen Nonreactive Hepatitis C Antibody Negative Hepatitis C Ab Index 0.02 06/17/19 06/17/19 06/18/19 16:52 20:59 05:30 WBC RBC Hgb Hct MCV MCH MCHC RDW Plt Count MPV Neut % (Auto) Lymph % (Auto) [place] % (Auto) Eos % (Auto) Baso % (Auto) Absolute Neuts (auto) Absolute Lymphs (auto) Absolute Monos (auto) Absolute Eos (auto) Absolute Basos (auto) Absolute Nucleated RBC Nucleated RBC % Sodium 136 Potassium 4.7 Chloride 105 Carbon Dioxide 27 Anion Gap 4 BUN 17 Creatinine 0.88 Est GFR ( Amer) 74.4 Est GFR (Non-Af Amer) 61.5 BUN/Creatinine Ratio 19.3 Glucose 128 H POC Glucose (mg/dL) 200 H 212 H Calcium 8.0 L Carcinoembryonic Ag Hepatitis B Antibody Hep Bs Antigen Hepatitis C Antibody Hepatitis C Ab Index 06/18/19 05:30 WBC 8.6 RBC 2.52 L Hgb 8.4 L Hct 25 L MCV 97 MCH 33 H MCHC 34 RDW 17 H Plt Count 176 MPV 8.1 Neut % (Auto) 77.2 Lymph % (Auto) 12.6 [place] % (Auto) 8.0 Eos % (Auto) 1.6 Baso % (Auto) 0.6 Absolute Neuts (auto) 6.7 Absolute Lymphs (auto) 1.1 Absolute Monos (auto) 0.7 Absolute Eos (auto) 0.1 Absolute Basos (auto) 0.1 Absolute Nucleated RBC 0.0 Nucleated RBC % 0.0 Sodium Potassium Chloride Carbon Dioxide Anion Gap BUN Creatinine Est GFR ( Amer) Est GFR (Non-Af Amer) BUN/Creatinine Ratio Glucose POC Glucose (mg/dL) Calcium Carcinoembryonic Ag Hepatitis B Antibody Hep Bs Antigen Hepatitis C Antibody Hepatitis C Ab Index Intake & Output 06/17/19 06/18/19 06/18/19 22:59 06:59 14:59 Intake Total 250 295 Output Total 60 15 Balance 190 280 Weight 197 lb Intake: IVPB 55 ABX - CEFEPIME 55 Oral 250 240 Output: BOO #1 60 15 Urine 0 Other: Estimated Void Medium # Voids 2 Physical exam: Abdomen- soft, minimally tender over incisions, incisions c/d/i with steristrips in place. BOO with serosanguinous fluid A/P: 84 F POD 2 from laparoscopic cholecystectomy, liver and periportal lymph node biopsies for acute cholecystitis, doing well. - Continue soft diet - Continue OOB and ambulation - HSQ for ppx - Continue cefepime - Awaiting biopsy results
[2019-06-18] MEDS: Cefepime 1 GM in Dextrose(*) 1 GM/50 ML BAG IV SCH ×2 (11:05→23:06)
[2019-06-18] MEDS: Atorvastatin* 40 MG TAB PO SCH (20:14)
[2019-06-19] MEDS: Heparin VIAL(*) 5000 UNITS/ML VIAL (FIVE THOUSAND) SUBCUT SCH ×3 (05:27→21:43)
[2019-06-19 05:56] LABS: BUN/Creatinine Ratio 18.3 (8-20); EGFR African American 80.8 (>60); EGFR Non-African American 66.7 (>60); Potassium 4.7 mmol/L (3.5-5.0)
[2019-06-19] MEDS: Pantoprazole TAB * 40 MG TAB PO SCH ×2 (06:20→17:22)
--- NOTE | 2019-06-19 08:36 | PN ---
Progress Note - Progress Note Date of Service: 06/19/19 SOAP: Subjective:] Patient reports to be feeling much better than yesterday. She is siting up in bed, talking and in good cheer. States that her pain is much improved - she reports she is slightly sore in the LUQ + RUQ. She is tolerating diet well, no nausea or vomiting. She reports eructation and flatus, but denies any bowel movements. States she has been OOB and ambulating. Objective: [] Vital Signs Temp 98.2 F 06/19/19 07:31 Pulse 73 06/19/19 07:31 Resp 18 06/19/19 07:31 BP 128/62 06/19/19 07:31 Pulse Ox 95 06/19/19 07:31 Intake & Output 06/18/19 06/19/19 18:59 06:59 Intake Total 520 930 Output Total 260 90 Balance 260 840 Weight 195 lb 11.2 oz Intake: IVPB 50 ABX - CEFEPIME 50 Oral 520 880 Output: BOO #1 60 90 Urine 200 0 Other: Estimated Void Small Large # Voids 1 1 Laboratory Results - last 24 hr 06/18/19 06/19/19 21:11 05:25 Sodium 137 Potassium 4.7 Chloride 107 Carbon Dioxide 27 Anion Gap 3 BUN 15 Creatinine 0.82 Est GFR ( Amer) 80.8 Est GFR (Non-Af Amer) 66.7 BUN/Creatinine Ratio 18.3 Glucose 134 H POC Glucose (mg/dL) 229 H Calcium 8.0 L Physical Exam: General: NAD, sitting up in bed CV: RRR, no m/r/g Resp: CTAB Abdomen: Soft, nondistended. Dressing c/d/i. Positive normoactive bowel sounds. R abdomen has a BOO drain, bulb with minimal blood tinged serous fluid. Moderate tenderness to palpation in the RUQ, mild tenderness to RLQ. Assessment: This is a 84 year old female with a PMHx of AFib, HTN, HLD, DMT2 and uterine CA s/p hysterectomy POD #3 s/p cholecystectomy, and biopsy of periportal lymph node and liver, she is stable. Plan: Will discuss further plan of care with Dr. Patino. Still awaiting biopsy results. Continue diet as tolerated, ambulation OOB, incentive spirometry.
[2019-06-19] MEDS ORDERED: Insulin GLARGINE(*) 1 UNITS UNIT SUBCUT SCH (09:00)
[2019-06-19] MEDS: Sotalol TAB* 80 MG PO SCH ×2 (09:30→20:52)
[2019-06-19] MEDS: Insulin LISPRO* 1 UNITS UNIT SUBCUT SCH ×4 (09:30→21:42)
--- NOTE | 2019-06-19 09:41 | PN ---
Progress Note - Progress Note Date of Service: 06/19/19 SOAP: Subjective: Doing well-tolerating regular po and passing flatus Mild incisional and drain pain Ambulating in halls Objective: Temp Pulse Resp BP Pulse Ox 98.2 F 73 18 128/62 95 06/19/19 07:31 06/19/19 07:31 06/19/19 07:31 06/19/19 07:31 06/19/19 07:31 Intake & Output 06/17/19 06/18/19 06/19/19 06/20/19 06:59 06:59 06:59 06:59 Intake Total 1210 1215 1450 Output Total 340 175 350 Balance 870 1040 1100 Weight 197 lb 6.4 oz 197 lb 195 lb 11.2 oz Intake: IV Fluids 600 20 LR 600 NS (0.9%) 20 IVPB 105 50 ABX - CEFEPIME 105 50 Oral 610 1090 1400 Output: BOO #1 240 175 150 Urine 100 0 200 Other: Estimated Void Small Large # Voids 0 1 1 PEX: Comfortable Abd is soft and slightly distended. 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 OK for D/C home from surgical standpoint Results from OR discussed with daughter on phone on Wednesday06/16/19.
[2019-06-19 12:21] LABS: ABS Basophils 0.1 10^3/ul (0-0.2); ABS Eosinophils 0.2 10^3/ul (0-0.6); ABS Lymphocytes 0.7 10^3/ul (1.0-4.8); ABS Monocytes 0.5 10^3/ul (0-0.8); ABS Neutrophils 5.5 10^3/ul (1.5-7.7); Eosinophil % 2.9 %; Hematocrit 27 % (35-47); Lymphocyte % 10.4 %; Mean Corpuscular HGB Conc 34 g/dL (31-36); Mean Corpuscular Hemoglobin 33 pg (27-31); Mean Corpuscular Volume 97 fL (80-97); Mean Platelet Volume 7.9 fL (7.4-10.4); Platelet Count 227 10^3/uL (150-450); Red Blood Count 2.76 10^6 /uL (3.70-4.87); Red Cell Distribution Width 17 % (10-15)
[2019-06-19] MEDS: Acetaminophen TAB* 325 MG PO PRN (13:43)
--- NOTE | 2019-06-19 14:36 | PN ---
Progress Note - Progress Note Date of Service: 06/19/19 Note: BOO drain removed with PASHA [place]. Patient tolerated procedure well. No bleeding or complications. Dressed with dry, sterile dressing.
--- NOTE | 2019-06-19 15:08 | PN ---
Subjective Date of Service: 06/19/19 Interval History: Patient understands that we are still awaiting final biopsy results, but understands that the biopsy demonstrated likely cancer. She tells me that she would pursue aggressive therapy if she were found to have cancer, including if metastatic. Evaluated minutes after BOO drain removal and tells me she has abdominal pain at right abdomen at site of BOO drain removal, but otherwise was overall comfortable prior to removal. Hadn't had BM since surgery and felt constipated today, had BM after suppository given. Denies nausea, fever/chills, chest pain, difficulty breathing. Family History: Unchanged from Admission Social History: Unchanged from Admission Past Medical History: Unchanged from Admission Objective Active Medications: Acetaminophen (Tylenol Tab*) 650 mg PO Q6H PRN PRN Reason: MILD PAIN or TEMP > 100.4 Last Admin: 06/19/19 13:43 Dose: 650 mg Atorvastatin Calcium (Lipitor*) 40 mg PO BEDTIME [facility] Last Admin: 06/18/19 20:14 Dose: 40 mg Dextrose (D50w Syringe 50 Ml*) 12.5 gm IV PUSH .FOR FS < 60 - SS PRN PRN Reason: FS < 60 Heparin Sodium (Porcine) (Heparin Flush Picc/Ml/Cvc(*)) 1 ml FLUSH 0600,1800 [facility]; Protocol Last Admin: 06/19/19 11:58 Dose: 1 ml Heparin Sodium (Porcine) (Heparin Vial(*)) 5,000 units SUBCUT Q8HR [facility] Last Admin: 06/19/19 13:41 Dose: 5,000 units Hydromorphone HCl (Dilaudid Inj*) 0.5 mg IV SLOW PU Q1H PRN PRN Reason: Pain Insulin Glargine (Lantus(*)) 5 units SUBCUT Q24H [facility] Last Admin: 06/19/19 09:30 Dose: 5 unit Insulin Human Lispro (Humalog*) 0 units SUBCUT ACHS [facility]; Protocol Last Admin: 06/19/19 13:38 Dose: 6 units Oxycodone/Acetaminophen (Percocet 5/325 Tab*) 1 tab PO Q6H PRN PRN Reason: Pain Pantoprazole Sodium (Protonix Tab*) 40 mg PO 0630,1700 [facility] Last Admin: 06/19/19 06:20 Dose: 40 mg Prochlorperazine Edisylate (Compazine Inj*) 5 mg IV Q6H PRN PRN Reason: NAUSEA/VOMITING Sotalol HCl (Betapace Tab*) 80 mg PO BID [facility] Last Admin: 06/19/19 09:30 Dose: 80 mg Vital Signs - 8 hr 06/19/19 06/19/19 06/19/19 07:31 09:10 11:15 Temperature 98.2 F 98.9 F Pulse Rate 73 73 Respiratory 18 16 18 Rate Blood Pressure 128/62 118/59 (mmHg) O2 Sat by Pulse 95 98 Oximetry Oxygen Devices in Use Now: None Appearance: Elderly, white female, sitting in chair, appearing comfortable and in NAD Eyes: No Scleral Icterus, - - PERRL Ears/Nose/Mouth/Throat: Mucous Membranes Moist Neck: Trachea Midline Respiratory: Symmetrical Chest Expansion and Respiratory Effort, Clear to Auscultation Cardiovascular: RRR, - - grade 1 systolic murmur Abdominal: - - normoactive BS x4Q, 4 incision sites with clean/dry/intact dressings, minimal tenderness to palpation at site of BOO removal on RUQ, nondistended Extremities: No Edema, No Clubbing, Cyanosis Skin: No Rash or Ulcers Neurological: Alert and Oriented x 3 Result Diagrams: 06/19/19 12:00 06/19/19 05:25 Additional Lab and Data: Above labs were pulled into the note, when the note was edited prior to signing the note. See below for labs from day of consultation. Laboratory Tests 06/10/19 06/10/19 06/13/19 08:43 08:43 06:26 WBC 8.3 Hgb 8.1 L Hct 24 L Plt Count 176 Hemoglobin A1c 4.7 C-Reactive Protein 7.84 06/13/19 06:26 Sodium 135 Potassium 3.5 Chloride 102 Carbon Dioxide 27 BUN 24 Creatinine 1.24 H Glucose 168 H Total Protein 5.4 L Albumin 2.9 L Microbiology and Other Data: Microbiology 06/11/19 11:00 Stool Occult Blood (CARRIE) - Final Stool 06/11/19 18:30 Stool Occult Blood (CARRIE) - Final Stool Assess/Plan/Problems-Billing Assessment: Mrs Finn is an 84yo F with PMH of HTN, type 2 DM, Afib on AC, CAD, s/p TAVR, diastolic CHF, PVD, uterine CA s/p hysterectomy, who presented to ED with c/o RUQ pain, found to have cholelithiasis as well as periportal mass. Now status post laparoscopic cholecystectomy on 06/16/19 and pending full pathology results from periportal mass, biospy taken at time of anne. - Patient Problems (1) Periportal lymphadenopathy Current Visit: Yes Status: Acute Code(s): R59.9 - ENLARGED LYMPH NODES, UNSPECIFIED SNOMED Code(s): 656325455 Comment: -with known periportal mass -biopsied 06/16/19 and perliminary path results indicate likely adenocarcinoma. Pt is aware. Awaiting further path report -Heme/onc following -attempted goals of care conversation today. Patient tells me she would be interested in aggressive therapy if this were found to be metastatic cancer. Obviously worth further discussion when more information is available with pathology. -CEA wnl and CA 19-9 pending (2) Colonic thickening Current Visit: Yes Status: Acute Code(s): K63.9 - DISEASE OF INTESTINE, UNSPECIFIED SNOMED Code(s): 521935268 Comment: - Seen on CT and patient now has positive FOBT. Never had a colonoscopy outpatient - Colonoscopy has been recommended by GI, but as per Dw. heme/onc rec will await path report from periortal mass bx first (3) Anemia Current Visit: Yes Status: Acute Code(s): D64.9 - ANEMIA, UNSPECIFIED SNOMED Code(s): 779556025 Comment: - decreased H&H this admission is likely dilutional in the setting of IVF, but has chronic anemia with Hgb 9-10 at baseline -has iron deficiency anemia as per iron studies during this hospitalization -S/p transfusion of 1 U PRBCs 06/15/19 and 2 iron infusions -Stool heme positive at admission, pending repeat -EGD performed on 06/12/19 was negative for acute source of bleed -will need colonoscopy, and depending on the pathology of the periportal mass it may need to be done either as outpatient or inpatient. CT showing abnormality of colon and there is concern for possible malignancy. GI to evaluate when possibility of c-scope possible considering recent surgery -H&H rising today, repeat stool guaiac pending (4) Acute cholecystitis Current Visit: Yes Status: Acute Code(s): K81.0 - ACUTE CHOLECYSTITIS SNOMED Code(s): 19536711 Comment: -HIDA scan found cystic duct obstruction consistent with cholecystitis -s/p lap anne 06/16/19 -appreciate gen surg involvement -continue pain mgmt; patient had first post op BM today (5) Elevated partial thromboplastin time (PTT) Current Visit: Yes Status: Acute Code(s): R79.1 - ABNORMAL COAGULATION PROFILE SNOMED Code(s): 694114360 Comment: -appreciate hematology consult -mixing study shows likely lupus anticoagulant -at this point, no strong recommendation toward AC. Patient does not appear to have VTE history (6) Atrial fibrillation Current Visit: Yes Status: Acute Code(s): I48.91 - UNSPECIFIED ATRIAL FIBRILLATION SNOMED Code(s): 34678895 Comment: -rate controlled -home Pradaxa held at admission -continue sotalol -previously discussed with heme/onc: started DVT prophylaxis 06/17/19, awaiting repeat stool guaiac to guide poss full anticoagulation in the future. Patient was previously constipated the last few days, stool guaiac collected today and pending (7) Type 2 diabetes mellitus Current Visit: Yes Status: Acute Comment: - Continue FS and Lispro SS. - diet controlled at home - A1c = 4.7% - Hyperglycemia in the 200s for 3+ days, starting 5U insulin glargine (do not anticipate need at discharge due to very low A1c) (8) Heart failure with preserved ejection fraction Current Visit: Yes Status: Acute Code(s): I50.30 - UNSPECIFIED DIASTOLIC ( CONGESTIVE) HEART FAILURE SNOMED Code(s): 785957853 Comment: -takes torsemide and spironolactone at home -will restart torsemide and monitor BMP (9) HLD (hyperlipidemia) Current Visit: Yes Status: Acute Code(s): E78.5 - HYPERLIPIDEMIA, UNSPECIFIED SNOMED Code(s): 39461055 Comment: - Continue Atorvastatin (10) DVT prophylaxis Current Visit: Yes Status: Acute Priority: High Code(s): NZX1297 - SNOMED Code(s): 453198409 Comment: - HSQ (11) Full code status Current Visit: Yes Status: Acute Priority: High Code(s): Z78.9 - OTHER SPECIFIED HEALTH STATUS SNOMED Code(s): 781323120 Status and Disposition: Inpatient.
--- NOTE | 2019-06-19 15:43 | PN ---
Progress Note - Progress Note Date of Service: 06/19/19 Note: pt seen, examined, chart reviewed POD #3 from lap anne, periportal mass bx----prelim +adenoca +flatus, pt states very small bm tthis am after suppository pain at incision site, santi diet CT with possible hepatic flexure thickening/mass VS; 98.4, 137/45, 73 nad, alert +bs, soft obese, tender in RUQ pt will need colonoscopy at some point, just POD #3, minimal bms---->still likely a few days away if done as inpt, vs more likely as outpt She is Dr Cintron's pt and he can decide timing tomorrow when he sees her. Jose Helms MD [facility] [phone]
[2019-06-19] MEDS: Atorvastatin* 40 MG TAB PO SCH (20:52)
[2019-06-20] MEDS ORDERED: diPHENhydraMINE PO* 25 MG PO PRN (00:57)
--- NOTE | 2019-06-20 01:10 | PN ---
Hospitalist Progress Note Date of Service: 06/20/19 Called for new rash, patient states it is itchy and reddened. ? reaction, lantus new today, will d/c, has several allergies to antihistamines and steroids , will try topical therapies first,
[2019-06-20] MEDS ORDERED: hydrOXYzine HCL TAB* 25 MG PO ONE (02:16)
[2019-06-20] MEDS: Calamine LOTION* 120 ML TOPICAL SCH ×4 (02:32→20:51)
[2019-06-20] MEDS ORDERED: Famotidine TAB* 20 MG PO ONE (02:40)
[2019-06-20] MEDS: Heparin VIAL(*) 5000 UNITS/ML VIAL (FIVE THOUSAND) SUBCUT SCH ×2 (05:27→13:35)
[2019-06-20 05:36] LABS: ABS Basophils 0.1 10^3/ul (0-0.2); ABS Eosinophils 0.2 10^3/ul (0-0.6); ABS Monocytes 0.5 10^3/ul (0-0.8); Eosinophil % 3.3 %; Hematocrit 24 % (35-47); Hemoglobin 8.2 g/dL (12.0-16.0); Lymphocyte % 16.7 %; Mean Corpuscular HGB Conc 34 g/dL (31-36); Mean Corpuscular Hemoglobin 32 pg (27-31); Mean Corpuscular Volume 97 fL (80-97); Mean Platelet Volume 7.9 fL (7.4-10.4); Platelet Count 221 10^3/uL (150-450); Red Blood Count 2.52 10^6 /uL (3.70-4.87); Red Cell Distribution Width 17 % (10-15); White Blood Count 5.7 10^3/uL (3.5-10.8)
[2019-06-20 05:55] LABS: BUN/Creatinine Ratio 19.3 (8-20); Calcium 8.2 mg/dL (8.6-10.3); EGFR African American 79.6 (>60); EGFR Non-African American 65.8 (>60); Potassium 4.5 mmol/L (3.5-5.0)
[2019-06-20] MEDS: Pantoprazole TAB * 40 MG TAB PO SCH ×2 (06:15→17:10)
[2019-06-20] MEDS: Insulin LISPRO* 1 UNITS UNIT SUBCUT SCH ×4 (08:51→20:53)
[2019-06-20] MEDS: Acetaminophen TAB* 325 MG PO PRN (08:51)
[2019-06-20] MEDS: Sotalol TAB* 80 MG PO SCH ×2 (08:51→20:51)
[2019-06-20] MEDS ORDERED: Torsemide TAB* 20 MG PO SCH (09:00)
--- NOTE | 2019-06-20 10:51 | PN ---
Progress Note - Progress Note Date of Service: 06/20/19 SOAP: Subjective: Patient reports still feeling slight itching on the arms - calamine lotion was applied with some relief. As for abdominal pain, she reports that she still has some minimal pain in the RUQ, where the BOO drain was located. She is tolerating a regular diet without nausea or vomiting. She has been ambulating OOB. Objective: [] Vital Signs Temp 98.4 F 06/20/19 07:28 Pulse 79 06/20/19 07:28 Resp 18 06/20/19 08:00 BP 135/45 06/20/19 07:28 Pulse Ox 96 06/20/19 07:28 Intake & Output 06/19/19 06/20/19 18:59 06:59 Intake Total 600 460 Output Total 100 0 Balance 500 460 Weight 196 lb Intake: Oral 600 460 Output: Urine 100 0 Other: Estimated Void Medium Medium Date of Last Bowel 06/19/19 Movement Estimated Stool Amount Small # Voids 3 1 Laboratory Results - last 24 hr 06/19/19 12:00 WBC 7.0 RBC 2.76 L Hgb 9.0 L Hct 27 L MCV 97 MCH 33 H MCHC 34 RDW 17 H Plt Count 227 MPV 7.9 Neut % (Auto) 78.2 Lymph % (Auto) 10.4 Harmon % (Auto) 7.6 Eos % (Auto) 2.9 Baso % (Auto) 0.9 Absolute Neuts (auto) 5.5 Absolute Lymphs (auto) 0.7 L Absolute Monos (auto) 0.5 Absolute Eos (auto) 0.2 Absolute Basos (auto) 0.1 Absolute Nucleated RBC 0.0 Nucleated RBC % 0.0 06/20/19 06/20/19 05:22 05:22 WBC 5.7 RBC 2.52 L Hgb 8.2 L Hct 24 L MCV 97 MCH 32 H MCHC 34 RDW 17 H Plt Count 221 MPV 7.9 Neut % (Auto) 70.9 Lymph % (Auto) 16.7 Harmon % (Auto) 8.2 Eos % (Auto) 3.3 Baso % (Auto) 0.9 Absolute Neuts (auto) 4.0 Absolute Lymphs (auto) 1.0 Absolute Monos (auto) 0.5 Absolute Eos (auto) 0.2 Absolute Basos (auto) 0.1 Absolute Nucleated RBC 0.0 Nucleated RBC % 0.0 Sodium 137 Potassium 4.5 Chloride 106 Carbon Dioxide 27 Anion Gap 4 BUN 16 Creatinine 0.83 Est GFR ( Amer) 79.6 Est GFR (Non-Af Amer) 65.8 BUN/Creatinine Ratio 19.3 Glucose 155 H Calcium 8.2 L Physical Exam: General: NAD, sitting up in chair CV: RRR, no m/r/g Resp: CTAB Abdomen: Soft, nondistended. Dressings c/d/i. Positive normoactive bowel sounds. Moderate tenderness to palpation in lower umbilical region, mild tenderness to RUQ. Assessment and Plan: This is a 84 year old female with a PMHx of AFib, HTN, HLD, DMT2 and uterine CA s/p hysterectomy POD #4 s/p cholecystectomy, and biopsy of periportal lymph node and liver, she is stable and recovering appropriately. Pain is well controlled. Continue ambulation OOB and incentive spirometry. From surgical standpoint, patient is able to be discharged. <Layla Rinaldi - Last Filed: 06/20/19 10:33> - Progress Note SOAP: Subjective: [I saw patient with PA student, Sami Rinaldi, and agree with assessment and plan. She seems to believe that her hives were 2/2 a "new" insulin that had been given to her. Her BOO site had minimal serous drainage; dry sterile dressing was replaced. We have gone over her discharge instructions re: her cholecystectomy and will add them to her d/c plan, as well as an appointment for surgical f/u. Objective: [] Assessment: [] Plan: [] <Neal Gibson - Last Filed: 06/20/19 11:10>
[2019-06-20 14:11] LABS: CA 19-9 57 U/mL (<35)
--- NOTE | 2019-06-20 16:30 | PN ---
Subjective Date of Service: 06/20/19 Interval History: Patient has no complaints today. Abd pain is improving. No nausea, fever/chills , chest pain or difficulty breathing. Patient overnight developed a rash which sounds like possible hives overnight, on the right arm and on back. Family History: Unchanged from Admission Social History: Unchanged from Admission Past Medical History: Unchanged from Admission Objective Active Medications: Acetaminophen (Tylenol Tab*) 650 mg PO Q6H PRN PRN Reason: MILD PAIN or TEMP > 100.4 Last Admin: 06/20/19 08:51 Dose: 650 mg Atorvastatin Calcium (Lipitor*) 40 mg PO BEDTIME [facility] Last Admin: 06/19/19 20:52 Dose: 40 mg Calamine (Calamine Lotion*) 1 applic TOPICAL TID [facility] Last Admin: 06/20/19 13:35 Dose: 1 applic Dextrose (D50w Syringe 50 Ml*) 12.5 gm IV PUSH .FOR FS < 60 - SS PRN PRN Reason: FS < 60 Heparin Sodium (Porcine) (Heparin Flush Picc/Ml/Cvc(*)) 1 ml FLUSH 0600,1800 [facility]; Protocol Last Admin: 06/20/19 05:23 Dose: 2 ml Heparin Sodium (Porcine) (Heparin Vial(*)) 5,000 units SUBCUT Q8HR [facility] Last Admin: 06/20/19 13:35 Dose: 5,000 units Hydromorphone HCl (Dilaudid Inj*) 0.5 mg IV SLOW PU Q1H PRN PRN Reason: Pain Insulin Human Lispro (Humalog*) 0 units SUBCUT ACHS [facility]; Protocol Last Admin: 06/20/19 12:54 Dose: 6 units Oxycodone/Acetaminophen (Percocet 5/325 Tab*) 1 tab PO Q6H PRN PRN Reason: Pain Pantoprazole Sodium (Protonix Tab*) 40 mg PO 0630,1700 [facility] Last Admin: 06/20/19 06:15 Dose: 40 mg Prochlorperazine Edisylate (Compazine Inj*) 5 mg IV Q6H PRN PRN Reason: NAUSEA/VOMITING Sotalol HCl (Betapace Tab*) 80 mg PO BID [facility] Last Admin: 06/20/19 08:51 Dose: 80 mg Torsemide (Demadex*) 20 mg PO DAILY [facility] Last Admin: 06/20/19 08:51 Dose: 20 mg Vital Signs - 8 hr 06/20/19 06/20/19 12:04 15:27 Temperature 97.5 F 98.2 F Pulse Rate 76 66 Respiratory 16 16 Rate Blood Pressure 137/54 130/67 (mmHg) O2 Sat by Pulse 99 97 Oximetry Oxygen Devices in Use Now: None Appearance: Obese, elderly white female, sitting in chair, appearing comfortable and in NAD Eyes: No Scleral Icterus, - - PERRL Ears/Nose/Mouth/Throat: Mucous Membranes Moist Neck: Trachea Midline Respiratory: Symmetrical Chest Expansion and Respiratory Effort, Clear to Auscultation Cardiovascular: NL Sounds; No Murmurs; No JVD, RRR Abdominal: NL Sounds; No Tenderness; No Distention Extremities: No Edema, No Clubbing, Cyanosis Skin: No Rash or Ulcers Neurological: Alert and Oriented x 3, NL Gait Result Diagrams: 06/20/19 05:22 06/20/19 05:22 Additional Lab and Data: Above labs were pulled into the note, when the note was edited prior to signing the note. See below for labs from day of consultation. Laboratory Tests 06/10/19 06/10/19 06/13/19 08:43 08:43 06:26 WBC 8.3 Hgb 8.1 L Hct 24 L Plt Count 176 Hemoglobin A1c 4.7 C-Reactive Protein 7.84 06/13/19 06:26 Sodium 135 Potassium 3.5 Chloride 102 Carbon Dioxide 27 BUN 24 Creatinine 1.24 H Glucose 168 H Total Protein 5.4 L Albumin 2.9 L Microbiology and Other Data: Microbiology 06/11/19 11:00 Stool Occult Blood (CARRIE) - Final Stool 06/11/19 18:30 Stool Occult Blood (CARRIE) - Final Stool Assess/Plan/Problems-Billing Assessment: Mrs Finn is an 84yo F with PMH of HTN, type 2 DM, Afib on AC, CAD, s/p TAVR, diastolic CHF, PVD, uterine CA s/p hysterectomy, who presented to ED with c/o RUQ pain, found to have cholelithiasis as well as periportal mass. Now status post laparoscopic cholecystectomy on 06/16/19 and pending full pathology results from periportal mass, biospy taken at time of anne. - Patient Problems (1) Rash Current Visit: Yes Status: Acute Code(s): R21 - RASH AND OTHER NONSPECIFIC SKIN ERUPTION SNOMED Code(s): 983297288 Comment: -patient developed rash overnight which was described as possible hives -only new drug started yesterday was insulin glargine -patient was already taking insulin lispro and seems less likely to be a drug rash, but will discontinue nonetheless (2) Periportal lymphadenopathy Current Visit: Yes Status: Acute Code(s): R59.9 - ENLARGED LYMPH NODES, UNSPECIFIED SNOMED Code(s): 023075469 Comment: -with known periportal mass -biopsied 06/16/19 and perliminary path results indicate likely adenocarcinoma. Pt is aware. Awaiting further path report, will likely need to follow up outpatient -Heme/onc following -attempted goals of care conversation today. Patient tells me she would be interested in aggressive therapy if this were found to be metastatic cancer. Obviously worth further discussion when more information is available with pathology. -CEA wnl and CA 19-9 pending (3) Colonic thickening Current Visit: Yes Status: Acute Code(s): K63.9 - DISEASE OF INTESTINE, UNSPECIFIED SNOMED Code(s): 431585433 Comment: - Seen on CT and patient had positive FOBT at admission, repeat negative. Never had a colonoscopy outpatient - Colonoscopy has been recommended by GI, but as per D/w heme/onc rec will await path report from periortal mass bx first - Will need colonoscopy outpatient (4) Anemia Current Visit: Yes Status: Acute Code(s): D64.9 - ANEMIA, UNSPECIFIED SNOMED Code(s): 338268678 Comment: - decreased H&H this admission is likely dilutional in the setting of IVF, but has chronic anemia with Hgb 9-10 at baseline -has iron deficiency anemia as per iron studies during this hospitalization -S/p transfusion of 1 U PRBCs 06/15/19 and 2 iron infusions -Stool heme positive at admission, repeat negative -EGD performed on 06/12/19 was negative for acute source of bleed -will need colonoscopy as previously described -repeat stool guaiac neg (5) Acute cholecystitis Current Visit: Yes Status: Acute Code(s): K81.0 - ACUTE CHOLECYSTITIS SNOMED Code(s): 91608553 Comment: -HIDA scan found cystic duct obstruction consistent with cholecystitis -s/p lap anne 06/16/19 -appreciate gen surg involvement -continue pain mgmt; patient had first post op BM yesterday -cleared from a surgical standpoint for d/c (6) Elevated partial thromboplastin time (PTT) Current Visit: Yes Status: Acute Code(s): R79.1 - ABNORMAL COAGULATION PROFILE SNOMED Code(s): 890107370 Comment: -appreciate hematology consult -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 Israel and he approves restarting home pradaxa; will utilize eliquis in the hospital as home pradaxa is nonformulary (8) Type 2 diabetes mellitus Current Visit: Yes Status: Acute Comment: - Continue FS and Lispro SS - diet controlled at home - A1c = 4.7% - d/c insulin glargine; will not need any meds at d/c as clearly well controlled with diet otherwise (9) Heart failure with preserved ejection fraction Current Visit: Yes Status: Acute Code(s): I50.30 - UNSPECIFIED DIASTOLIC ( CONGESTIVE) HEART FAILURE SNOMED Code(s): 895968895 Comment: -takes torsemide and spironolactone at home -will restart torsemide and monitor BMP (10) HLD (hyperlipidemia) Current Visit: Yes Status: Acute Code(s): E78.5 - HYPERLIPIDEMIA, UNSPECIFIED SNOMED Code(s): 06888763 Comment: - Continue Atorvastatin (11) DVT prophylaxis Current Visit: Yes Status: Acute Priority: High Code(s): VIZ9590 - SNOMED Code(s): 742863808 Comment: -starting eliquis (as home pradaxa is nonformulary and unable to have family bring in from home) (12) Full code status Current Visit: Yes Status: Acute Priority: High Code(s): Z78.9 - OTHER SPECIFIED HEALTH STATUS SNOMED Code(s): 909168935 Status and Disposition: Inpatient. Pending MELVIN placement
[2019-06-20] MEDS: Atorvastatin* 40 MG TAB PO SCH (20:52)
[2019-06-20] MEDS ORDERED: CMCS: Dabigatran CAP(NF) 150 MG CAP PO SCH (21:00)
[2019-06-20] MEDS ORDERED: Apixaban* 5 MG TAB PO SCH (21:00)
[2019-06-20] MEDS: CMCS: Dabigatran CAP(NF) 150 MG CAP PO SCH (22:15)
[2019-06-21] MEDS: Acetaminophen TAB* 325 MG PO PRN ×2 (01:43→23:36)
[2019-06-21] MEDS ORDERED: Calamine LOTION* 120 ML TOPICAL PRN (03:01)
[2019-06-21 05:19] LABS: Hematocrit 24 % (35-47); Hemoglobin 8.2 g/dL (12.0-16.0); Mean Corpuscular HGB Conc 34 g/dL (31-36); Mean Corpuscular Hemoglobin 32 pg (27-31); Mean Corpuscular Volume 96 fL (80-97); Mean Platelet Volume 7.6 fL (7.4-10.4); Platelet Count 235 10^3/uL (150-450); Red Blood Count 2.55 10^6 /uL (3.70-4.87); Red Cell Distribution Width 17 % (10-15)
[2019-06-21] MEDS: Pantoprazole TAB * 40 MG TAB PO SCH ×2 (05:59→16:24)
[2019-06-21] MEDS: Sotalol TAB* 80 MG PO SCH ×2 (09:36→20:14)
[2019-06-21] MEDS: Torsemide TAB 10 MG PO SCH (09:38)
[2019-06-21] MEDS: CMCS: Dabigatran CAP(NF) 150 MG CAP PO SCH ×2 (09:38→20:14)
[2019-06-21] MEDS: Insulin LISPRO* 1 UNITS UNIT SUBCUT SCH ×4 (09:38→20:16)
--- NOTE | 2019-06-21 16:25 | PN ---
Subjective Date of Service: 06/21/19 Interval History: Pt seen and evaluated at bedside, sitting up in bed playing with tablet. Pt reports feeling better. C/O abdominal soreness only. Reports 2 formed bowel movements today, denies any N/V/D, denies SOB, denies CP, Denies dizziness, headaches, numbness, or tingling. Pt does report feeling anxious about going to halfway/rehab because she is uncertain how she will be cared for. She states that she is unable to get a bed in [place] and she is very comfortable with them from past experience. Family History: Unchanged from Admission Social History: Unchanged from Admission Past Medical History: Unchanged from Admission Objective Active Medications: Acetaminophen (Tylenol Tab*) 650 mg PO Q6H PRN PRN Reason: MILD PAIN or TEMP > 100.4 Last Admin: 06/21/19 01:43 Dose: 650 mg Atorvastatin Calcium (Lipitor*) 40 mg PO BEDTIME [facility] Last Admin: 06/20/19 20:52 Dose: 40 mg Calamine (Calamine Lotion*) 1 applic TOPICAL TID PRN PRN Reason: ITCHING Last Admin: 06/21/19 09:40 Dose: 1 applic Dabigatran (Pradaxa Cap(Nf)) 150 mg PO Q12HR [facility] Last Admin: 06/21/19 09:38 Dose: 150 mg Dextrose (D50w Syringe 50 Ml*) 12.5 gm IV PUSH .FOR FS < 60 - SS PRN PRN Reason: FS < 60 Heparin Sodium (Porcine) (Heparin Flush Picc/Ml/Cvc(*)) 1 ml FLUSH 0600,1800 [facility]; Protocol Last Admin: 06/21/19 05:11 Dose: 2 ml Hydromorphone HCl (Dilaudid Inj*) 0.5 mg IV SLOW PU Q1H PRN PRN Reason: Pain Insulin Human Lispro (Humalog*) 0 units SUBCUT ACHS [facility]; Protocol Last Admin: 06/21/19 12:53 Dose: 6 units Oxycodone/Acetaminophen (Percocet 5/325 Tab*) 1 tab PO Q6H PRN PRN Reason: Pain Pantoprazole Sodium (Protonix Tab*) 40 mg PO 0630,1700 [facility] Last Admin: 06/21/19 05:59 Dose: 40 mg Prochlorperazine Edisylate (Compazine Inj*) 5 mg IV Q6H PRN PRN Reason: NAUSEA/VOMITING Sotalol HCl (Betapace Tab*) 80 mg PO BID [facility] Last Admin: 06/21/19 09:36 Dose: 80 mg Torsemide (Torsemide) 20 mg PO DAILY [facility] Last Admin: 06/21/19 09:38 Dose: 20 mg Vital Signs - 8 hr 06/21/19 06/21/19 11:11 15:36 Temperature 97.8 F 98.4 F Pulse Rate 74 78 Respiratory 16 20 Rate Blood Pressure 136/42 138/68 (mmHg) O2 Sat by Pulse 100 97 Oximetry Oxygen Devices in Use Now: None Appearance: Elderly woman sitting up in bed, alert and oriented no acute distress Eyes: No Scleral Icterus, PERRLA Ears/Nose/Mouth/Throat: NL Teeth, Lips, Gums, Clear Oropharnyx, Mucous Membranes Moist Neck: NL Appearance and Movements; NL JVP, Trachea Midline Respiratory: Symmetrical Chest Expansion and Respiratory Effort, Clear to Auscultation Cardiovascular: NL Sounds; No Murmurs; No JVD, RRR, - Abdominal: - - Tenderness with movement. Puncture sites healing well without drainage, redness, or dehiscence Extremities: - - +2 pitting edema bilateral lower extrems, No edema noted in upper extrems. +CMST bilat feet, unable to palpate pedal pulses. Skin: - - Dressing CDI to left foot Neurological: Alert and Oriented x 3, NL Sensation Nutrition: Taking PO's Result Diagrams: 06/21/19 05:10 06/20/19 05:22 Additional Lab and Data: Above labs were pulled into the note, when the note was edited prior to signing the note. See below for labs from day of consultation. Laboratory Tests 06/10/19 06/10/19 06/13/19 08:43 08:43 06:26 WBC 8.3 Hgb 8.1 L Hct 24 L Plt Count 176 Hemoglobin A1c 4.7 C-Reactive Protein 7.84 06/13/19 06:26 Sodium 135 Potassium 3.5 Chloride 102 Carbon Dioxide 27 BUN 24 Creatinine 1.24 H Glucose 168 H Total Protein 5.4 L Albumin 2.9 L Microbiology and Other Data: Microbiology 06/11/19 11:00 Stool Occult Blood ([facility]E) - Final Stool 06/11/19 18:30 Stool Occult Blood (CARRIE) - Final Stool Diagnostic Imagin. Exam Date: 04/14/19 - VL ANK/BRACHIAL INDICES Ankle-brachial indices of lower extremity was performed. The right ankle- brachial index is 1.15. Left ankle-brachial index is 1.19. Biphasic waveforms are noted in the posterior tibial and dorsalis pedis arteries bilaterally. Posterior tibial artery on the right is noncompressible. Ankle-brachial index of the left posterior tibial artery 0.62. Decreased upstroke is noted on the pulse volume recording. IMPRESSION: Ankle-brachial index on the right and 1.15 and on the left at 1.19. This is likely artificially elevated due to calcified vessels. 2. Exam Date: 08/19/18 Procedure(s) performed: 1. Diagnostic left lower extremity arteriogram. 2. Partial catheter and wire revascularization of the occluded left posterior tibial artery. 3. Balloon angioplasty of the posterior tibial artery, tibioperoneal trunk and inferior popliteal artery. 4. Percutaneous closure of the left common femoral artery with a Mynx closure device. 3. Exam Date: 04/13/18 - LOWER EXT ART DUPLEX LEFT IMPRESSION: Corresponding to the images from the arteriogram dated January 06, 2018, there is occlusion at the mid to distal left posterior tibial artery. The plantar arteries exhibit flow with low flow velocities measuring 8 cm/s laterally and 17 cm/s medially. Assess/Plan/Problems-Billing Assessment: Mrs Finn is an 84yo F with PMH of HTN, type 2 DM, Afib on AC, CAD, s/p TAVR, diastolic CHF, PVD, uterine CA s/p hysterectomy, who presented to ED with c/o RUQ pain, found to have cholelithiasis as well as periportal mass. Now status post laparoscopic cholecystectomy on 06/16/19 and pending full pathology results from periportal mass, biospy taken at time of anne. - Patient Problems (1) Rash Current Visit: Yes Comment: Resolved -Pt denies itching on posterior legs or groin today. 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 Pt is aware. Awaiting further path report, will likely need to follow up outpatient -Heme/onc following -Patient is interested in aggressive therapy if this were found to be metastatic cancer. Obviously worth further discussion when more information is available with pathology. -CEA wnl and CA 19-9 pending (3) Colonic thickening Current Visit: Yes Comment: - Seen on CT and patient had positive FOBT at admission, repeat negative. Never had a colonoscopy outpatient - Colonoscopy has been recommended by GI, but as per D/w heme/onc rec will await path report from periortal mass bx first - Will need colonoscopy outpatient (4) Anemia Current Visit: Yes Comment: -Continue to monitor H&H - decreased H&H this admission is likely dilutional in the setting of IVF, but has chronic anemia with Hgb 9-10 at baseline -has iron deficiency anemia as per iron studies during this hospitalization -S/p transfusion of 1 U PRBCs 06/15/19 and 2 iron infusions -Stool heme positive at admission, repeat negative -EGD performed on 06/12/19 was negative for acute source of bleed -will need colonoscopy as outpatient (5) Acute cholecystitis Current Visit: Yes Code(s): K81.0 - ACUTE CHOLECYSTITIS Comment: -HIDA scan found cystic duct obstruction consistent with cholecystitis -s/p lap anne 06/16/19 -appreciate gen surg involvement -continue pain mgmt; patient had two formed BM's today (6) Elevated partial thromboplastin time (PTT) Current Visit: Yes Comment: -appreciate hematology consult -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 Israel and he approves restarting home pradaxa that was held on admission; will utilize eliquis in the hospital as home pradaxa is nonformulary (8) Type 2 diabetes mellitus Current Visit: Yes Comment: - Continue FS and Lispro SS - diet controlled at home - A1c = 4.7% - d/c insulin glargine; will not need any meds at d/c as clearly well controlled with diet otherwise (9) Heart failure with preserved ejection fraction Current Visit: Yes Comment: -takes torsemide and spironolactone at home -will continue torsemide and monitor BMP (10) HLD (hyperlipidemia) Current Visit: Yes Comment: - Continue Atorvastatin (11) DVT prophylaxis Current Visit: Yes Comment: -Continue pradaxa (12) Full code status Current Visit: Yes Status and Disposition: Inpatient. Pending MELVIN placement
--- NOTE | 2019-06-21 18:50 | PN ---
Progress Note - Progress Note Date of Service: 06/21/19 Note: BRIEF GI FOLLOW-UP NOTE Reviewed chart. Met with patient. She is comfortable. Eating dinner with family at bedside. 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 No gallbladder neoplasm noted on resected specimen. EGD earlier in hospital course negative for esophageal or gastric mass. Liver biopsy also noted micronodular cirrhosis. Recommend MRCP to evaluate biliary tree in closer detail. Onc to see patient tmrw. Will defer colonoscopy for now (colonic thickening on CT) as colonic source of malignancy felt to be unlikely, per path. Adriana Pham MD Gastroenterology
[2019-06-21] MEDS: Atorvastatin* 40 MG TAB PO SCH (20:14)
[2019-06-22] MEDS: Pantoprazole TAB * 40 MG TAB PO SCH ×2 (06:13→16:09)
[2019-06-22 08:15] LABS: Calcium 7.9 mg/dL (8.6-10.3); Potassium 4.3 mmol/L (3.5-5.0)
[2019-06-22 08:23] LABS: BUN/Creatinine Ratio 19.6 (8-20); EGFR African American 62.8 (>60); EGFR Non-African American 51.9 (>60)
[2019-06-22] MEDS: Sotalol TAB* 80 MG PO SCH ×3 (08:40→21:11)
[2019-06-22] MEDS: Torsemide TAB 10 MG PO SCH ×2 (08:40→11:13)
[2019-06-22] MEDS: CMCS: Dabigatran CAP(NF) 150 MG CAP PO SCH ×3 (08:40→21:11)
--- NOTE | 2019-06-22 08:42 | PN ---
Progress Note - Progress Note Date of Service: 06/22/19 SOAP: Subjective: Tells me she feels stronger. Abdominal pain has resolved Pathology from periportal mass most c/w upper tract primary possibly cholangiocarcinoma CA 19-9 mildly elevated. Liver biopsy with advanced micronodular cirrhosis ( ? DILLARD) Back on Pradaxa Colonoscopy currently deferred Objective: Alert and conversant Neck Supple PERRLA Lungs CTA Cardia with II/ MATTHEW Abdomen soft and nontender Extremities w/o CCE Neuro nonfocal Vital Signs - 8 hr 06/22/19 06/22/19 03:21 07:25 Temperature 97.8 F Pulse Rate 58 Respiratory 16 18 Rate Blood Pressure 123/45 (mmHg) O2 Sat by Pulse 98 Oximetry Laboratory Results - last 24 hr 06/21/19 06/21/19 06/21/19 07:52 11:38 16:43 Sodium Potassium Chloride Carbon Dioxide Anion Gap BUN Creatinine Est GFR ( Amer) Est GFR (Non-Af Amer) BUN/Creatinine Ratio Glucose POC Glucose (mg/dL) 153 H 233 H 163 H Calcium 06/21/19 06/22/19 20:00 06:30 Sodium 138 Potassium 4.3 Chloride 101 Carbon Dioxide 33 H Anion Gap 4 BUN 20 Creatinine 1.02 H Est GFR ( Amer) 62.8 Est GFR (Non-Af Amer) 51.9 BUN/Creatinine Ratio 19.6 Glucose 133 H POC Glucose (mg/dL) 188 H Calcium 7.9 L Intake and Output Last 24 Hours 06/20/19 06/21/19 06/22/19 06/23/19 06:59 06:59 06:59 06:59 Intake Total 1060 1500 980 Output Total 100 200 0 Balance 960 1300 980 Weight 196 lb 195 lb Intake: Oral 1060 1500 980 Output: Urine 100 200 0 Other: Estimated Void Medium Large Medium Date of Last Bowel 06/19/19 Movement # Bowel Movements 1 Estimated Stool Amount Small Large # Voids 1 1 1 Acetaminophen (Tylenol Tab*) 650 mg PO Q6H PRN PRN Reason: MILD PAIN or TEMP > 100.4 Last Admin: 06/21/19 23:36 Dose: 650 mg Atorvastatin Calcium (Lipitor*) 40 mg PO BEDTIME [facility] Last Admin: 06/21/19 20:14 Dose: 40 mg Calamine (Calamine Lotion*) 1 applic TOPICAL TID PRN PRN Reason: ITCHING Last Admin: 06/21/19 09:40 Dose: 1 applic Dabigatran (Pradaxa Cap(Nf)) 150 mg PO Q12HR [facility] Last Admin: 06/21/19 20:14 Dose: 150 mg Dextrose (D50w Syringe 50 Ml*) 12.5 gm IV PUSH .FOR FS < 60 - SS PRN PRN Reason: FS < 60 Heparin Sodium (Porcine) (Heparin Flush Picc/Ml/Cvc(*)) 1 ml FLUSH 0600,1800 [facility]; Protocol Last Admin: 06/22/19 06:13 Dose: 2 ml Hydromorphone HCl (Dilaudid Inj*) 0.5 mg IV SLOW PU Q1H PRN PRN Reason: Pain Insulin Human Lispro (Humalog*) 0 units SUBCUT ACHS [facility]; Protocol Last Admin: 06/21/19 20:16 Dose: 3 units Oxycodone/Acetaminophen (Percocet 5/325 Tab*) 1 tab PO Q6H PRN PRN Reason: Pain Pantoprazole Sodium (Protonix Tab*) 40 mg PO 0630,1700 [facility] Last Admin: 06/22/19 06:13 Dose: 40 mg Prochlorperazine Edisylate (Compazine Inj*) 5 mg IV Q6H PRN PRN Reason: NAUSEA/VOMITING Sotalol HCl (Betapace Tab*) 80 mg PO BID [facility] Last Admin: 06/21/19 20:14 Dose: 80 mg Torsemide (Torsemide) 20 mg PO DAILY [facility] Last Admin: 06/21/19 09:38 Dose: 20 mg Assessment: Lupus Anticoagulant with prolonged PTT. 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 To date it appears that she would be unlikely to proceed to chemotherapy/radiotherapy SANDRA Maynard MD
[2019-06-22] MEDS: Insulin LISPRO* 1 UNITS UNIT SUBCUT SCH ×4 (09:23→21:11)
--- NOTE | 2019-06-22 10:03 | PN ---
Subjective Date of Service: 06/22/19 Interval History: Patient sitting in chair on assessment. MRCP was ordered for today but cancelled as patient needs to be 6 wks post op before getting MRCP. Patient reports she feels well today. Reports she is tolerating her diet well. Denies abd pain, nausea, vomiting, diarrhea. Reports she has formed stool yesterday. Family History: Unchanged from Admission Social History: Unchanged from Admission Past Medical History: Unchanged from Admission Objective Active Medications: Acetaminophen (Tylenol Tab*) 650 mg PO Q6H PRN PRN Reason: MILD PAIN or TEMP > 100.4 Last Admin: 06/21/19 23:36 Dose: 650 mg Atorvastatin Calcium (Lipitor*) 40 mg PO BEDTIME [facility] Last Admin: 06/21/19 20:14 Dose: 40 mg Calamine (Calamine Lotion*) 1 applic TOPICAL TID PRN PRN Reason: ITCHING Last Admin: 06/21/19 09:40 Dose: 1 applic Dabigatran (Pradaxa Cap(Nf)) 150 mg PO Q12HR [facility] Last Admin: 06/22/19 08:40 Dose: Not Given Dextrose (D50w Syringe 50 Ml*) 12.5 gm IV PUSH .FOR FS < 60 - SS PRN PRN Reason: FS < 60 Heparin Sodium (Porcine) (Heparin Flush Picc/Ml/Cvc(*)) 1 ml FLUSH 0600,1800 [facility]; Protocol Last Admin: 06/22/19 06:13 Dose: 2 ml Hydromorphone HCl (Dilaudid Inj*) 0.5 mg IV SLOW PU Q1H PRN PRN Reason: Pain Insulin Human Lispro (Humalog*) 0 units SUBCUT ACHS [facility]; Protocol Last Admin: 06/22/19 09:23 Dose: 3 units Oxycodone/Acetaminophen (Percocet 5/325 Tab*) 1 tab PO Q6H PRN PRN Reason: Pain Pantoprazole Sodium (Protonix Tab*) 40 mg PO 0630,1700 [facility] Last Admin: 06/22/19 06:13 Dose: 40 mg Prochlorperazine Edisylate (Compazine Inj*) 5 mg IV Q6H PRN PRN Reason: NAUSEA/VOMITING Sotalol HCl (Betapace Tab*) 80 mg PO BID [facility] Last Admin: 06/22/19 08:40 Dose: Not Given Torsemide (Torsemide) 20 mg PO DAILY [facility] Last Admin: 06/22/19 08:40 Dose: Not Given Vital Signs - 8 hr 06/22/19 06/22/19 06/22/19 03:21 07:25 08:00 Temperature 97.8 F 97.8 F Pulse Rate 58 58 Respiratory 16 18 18 Rate Blood Pressure 123/45 128/45 (mmHg) O2 Sat by Pulse 98 98 Oximetry Oxygen Devices in Use Now: None Appearance: Comfortable, NAD Eyes: No Scleral Icterus Ears/Nose/Mouth/Throat: Clear Oropharnyx, Mucous Membranes Moist Neck: NL Appearance and Movements; NL JVP Respiratory: Symmetrical Chest Expansion and Respiratory Effort, Clear to Auscultation Cardiovascular: NL Sounds; No Murmurs; No JVD, RRR, - - Nonpitting edema bilaterally Abdominal: NL Sounds; No Tenderness; No Distention Extremities: No Clubbing, Cyanosis Skin: - - Lap sites on abd benign. Dressing to left heal cdi. Neurological: Alert and Oriented x 3 Nutrition: Taking PO's Result Diagrams: 06/21/19 05:10 06/22/19 06:30 Additional Lab and Data: Laboratory Results - last 24 hr 06/21/19 06/21/19 06/22/19 16:43 20:00 06:30 Sodium 138 Potassium 4.3 Chloride 101 Carbon Dioxide 33 H Anion Gap 4 BUN 20 Creatinine 1.02 H Est GFR ( Amer) 62.8 Est GFR (Non-Af Amer) 51.9 BUN/Creatinine Ratio 19.6 Glucose 133 H POC Glucose (mg/dL) 163 H 188 H Calcium 7.9 L 06/22/19 06/22/19 07:38 11:53 Sodium Potassium Chloride Carbon Dioxide Anion Gap BUN Creatinine Est GFR ( Amer) Est GFR (Non-Af Amer) BUN/Creatinine Ratio Glucose POC Glucose (mg/dL) 164 H 219 H Calcium Microbiology and Other Data: . Diagnostic Imaging: . Assess/Plan/Problems-Billing Assessment: Mrs Finn is an 84yo F with PMH of HTN, type 2 DM, Afib on AC, CAD, s/p TAVR, diastolic CHF, PVD, uterine CA s/p hysterectomy, who presented to ED with c/o RUQ pain, found to have cholelithiasis as well as periportal mass. Now status post laparoscopic cholecystectomy on 06/16/19 and pending full pathology results from periportal mass, biospy taken at time of anne. - Patient Problems (1) Periportal lymphadenopathy Current Visit: Yes Comment: - Plan for possible ERCP as outpatient depending on PET results - Periportal mass which was biopsied on 06/16/19 and consistent with moderately differentiated adenocarcinoma - GI recommended MRCP for better evaluation of biliary tree but cannot be completed until 6 weeks post op per MRI therefore order cancelled - Heme/onc following and will need PET as outpatient (2) Colonic thickening Comment: - Per Hem/Onc: Further consideration of colonoscopy will be addressed after results of PET. All of which will be done outpatient - Seen on CT and patient had positive FOBT at admission, repeat negative. Never had a colonoscopy outpatient - Colonoscopy has been recommended by GI (3) Dilip Comment: - Resolved (4) Acute cholecystitis Comment: - S/P lap anne 06/16/19 - Appreciate gen surg involvement who have signed off at this time. (5) Anemia Comment: - Stable - Continue to monitor H&H - Chronic anemia with Hgb 9-10 at baseline - S/P transfusion of 1 U PRBCs 06/15/19 and 2 iron infusions - Stool heme positive at admission, repeat negative - EGD performed on 06/12/19 was negative for acute source of bleed - Will need colonoscopy as outpatient (6) Atrial fibrillation Comment: - Rate controlled - Continue sotalol - Restarted home pradaxa (Okay'd by Dr ryan). (7) Elevated partial thromboplastin time (PTT) Comment: - Cautious with unfractionated or LMWH per hematology - Likely lupus anticoagulant - Patient does not appear to have VTE history (8) HLD (hyperlipidemia) Comment: - Continue Atorvastatin (9) Heart failure with preserved ejection fraction Comment: - Appears euvolemic. - Weights stable - Takes torsemide and spironolactone at home - Continue torsemide (10) Type 2 diabetes mellitus Comment: - Glucose has been in mid 100s to low 200s - Continue FS and Lispro SS - diet controlled at home - A1c = 4.7% (11) DVT prophylaxis Comment: -Continue pradaxa (12) Full code status Status and Disposition: Inpatient. Pending MELVIN placement Attending: Thelma Dale
[2019-06-22] MEDS: Acetaminophen TAB* 325 MG PO PRN (18:25)
[2019-06-22] MEDS: Atorvastatin* 40 MG TAB PO SCH (21:11)
[2019-06-23] MEDS: Pantoprazole TAB * 40 MG TAB PO SCH (06:06)
--- NOTE | 2019-06-23 08:50 | PN ---
Progress Note - Progress Note Date of Service: 06/23/19 SOAP: Subjective: Notes that she feels well Eager for discharge soon Reviewed status with dr Rivera yesterday Objective: Alert and conversant Abdomen soft Extrem w/o CCE Neuro nonfocal Vital Signs - 8 hr 06/23/19 06/23/19 06/23/19 03:13 07:57 07:59 Temperature 97.7 F 97.2 F Pulse Rate 56 69 Respiratory 20 16 14 Rate Blood Pressure 134/50 136/58 (mmHg) O2 Sat by Pulse 99 100 Oximetry 06/23/19 08:00 Temperature Pulse Rate Respiratory 14 Rate Blood Pressure (mmHg) O2 Sat by Pulse Oximetry Laboratory Results - last 24 hr 06/22/19 06/22/19 06/22/19 07:38 11:53 16:49 POC Glucose (mg/dL) 164 H 219 H 203 H 06/22/19 21:05 POC Glucose (mg/dL) 168 H Intake and Output Last 24 Hours 06/21/19 06/22/19 06/23/19 06/24/19 06:59 06:59 06:59 06:59 Intake Total 8062 892 5488 Output Total 200 0 300 Balance 8190 129 1111 Weight 195 lb 204 lb 4.8 oz Intake: Oral 9790 860 9320 Output: Urine 200 0 300 Other: Estimated Void Large Medium Large Large # Bowel Movements 1 1 Estimated Stool Amount Large Small # Voids 1 1 1 1 Acetaminophen (Tylenol Tab*) 650 mg PO Q6H PRN PRN Reason: MILD PAIN or TEMP > 100.4 Last Admin: 06/22/19 18:25 Dose: 650 mg Atorvastatin Calcium (Lipitor*) 40 mg PO BEDTIME [facility] Last Admin: 06/22/19 21:11 Dose: 40 mg Calamine (Calamine Lotion*) 1 applic TOPICAL TID PRN PRN Reason: ITCHING Last Admin: 06/21/19 09:40 Dose: 1 applic Dabigatran (Pradaxa Cap(Nf)) 150 mg PO Q12HR [facility] Last Admin: 06/22/19 21:11 Dose: 150 mg Dextrose (D50w Syringe 50 Ml*) 12.5 gm IV PUSH .FOR FS < 60 - SS PRN PRN Reason: FS < 60 Heparin Sodium (Porcine) (Heparin Flush Picc/Ml/Cvc(*)) 1 ml FLUSH 0600,1800 [facility]; Protocol Last Admin: 06/23/19 06:01 Dose: 2 ml Hydromorphone HCl (Dilaudid Inj*) 0.5 mg IV SLOW PU Q1H PRN PRN Reason: Pain Insulin Human Lispro (Humalog*) 0 units SUBCUT ACHS [facility]; Protocol Last Admin: 06/22/19 21:11 Dose: 3 units Oxycodone/Acetaminophen (Percocet 5/325 Tab*) 1 tab PO Q6H PRN PRN Reason: Pain Pantoprazole Sodium (Protonix Tab*) 40 mg PO 0630,1700 [facility] Last Admin: 06/23/19 06:06 Dose: 40 mg Prochlorperazine Edisylate (Compazine Inj*) 5 mg IV Q6H PRN PRN Reason: NAUSEA/VOMITING Sotalol HCl (Betapace Tab*) 80 mg PO BID [facility] Last Admin: 06/22/19 21:11 Dose: 80 mg Torsemide (Torsemide) 20 mg PO DAILY [facility] Last Admin: 06/22/19 11:13 Dose: 20 mg Assessment: Post cholecystectomy for cholecystitis 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 To date colonoscopy has been deferred (now back on Pradaxa) SANDRA Maynard MD
[2019-06-23] MEDS: Insulin LISPRO* 1 UNITS UNIT SUBCUT SCH ×2 (09:02→13:25)
[2019-06-23] MEDS: Torsemide TAB 10 MG PO SCH (09:03)
[2019-06-23] MEDS: CMCS: Dabigatran CAP(NF) 150 MG CAP PO SCH (09:03)
[2019-06-23] MEDS: Sotalol TAB* 80 MG PO SCH (09:03)
[2019-06-23 11:28] VITALS: BP 115/60
--- NOTE | 2019-06-23 12:45 | DS ---
CC: Dr. Coral Schmitz * DISCHARGE SUMMARY: DATE OF ADMISSION: 06/10/19 DATE OF DISCHARGE: 06/23/19 PRIMARY CARE PROVIDER: Dr. Coral Schmitz. ATTENDING PROVIDER: Kisha Cervantes MD * ( DICTATED BY MAURY FARNSWORTH NP) CONSULTING GENERAL SURGEON: Dr. Diego Dash, Dr. Landon Patino, Dr. Delia Andrews, Dr. Luisa Calvillo. CONSULTING BAT CARRIER: Dr. Miah Cintron, Dr. Rivera, Dr. Helms, Dr. Adriana Pham. PRIMARY DIAGNOSES: 1. 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 2. Micronodular cirrhosis. 3. Periportal lymphadenopathy. 4. Colonic thickening. 5. Rash. 6. Acute cholecystitis. 7. Anemia. 8. Atrial fibrillation. 9. Elevated PTT. 10. Hyperlipidemia. 11. Heart failure with preserved ejection fraction. 12. Type 2 diabetes. STUDIES WHILE IN THE HOSPITAL: 1. Chest, abdomen, pelvis CT: Impression: A 5.8 cm mass in the maximiliano hepatis has slightly increased in size. As above, the mass contacts several critical vascular structures. Distended gallbladder contains gallstones. There is mild pericholecystic stranding with no intra or extrahepatic biliary duct dilatation. Pulmonary nodules have not changed in size. Segment of colon near the hepatic flexure demonstrates smooth circumferential wall thickening. Coronary artery disease, aortic valve plasty and mitral valve annulus calcification. There is unchanged equivocal thin circumlinear hypoattenuation along the right margin of the liver. 2. EGD: Normal EGD. No erosions despite the patient being on aspirin daily. 3. Hepatobiliary scan nuclear medicine: Cystic duct obstruction consistent with acute cholecystitis. Patent common bile duct. 4. Transthoracic echocardiogram: Left ventricle: The cavity size is normal. Wall thickness is baqyus-ja-zaspoxpbtz increased. Systolic function is normal. Estimated ejection fraction is 55% to 60%. Wall motion is normal. There is no regional wall motion abnormalities. Right ventricle: Systolic function is normal. Systolic pressure is within the normal range. Mitral valve: Mobility: Mobility is restricted. Findings are consistent with cjvj-nw-yrfdxyeg stenosis. There is kzhg-nj-[id number] regurgitation. The valve area by pressure is 1.6 cm2. 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 There is no evidence of stenosis. There is no significant regurgitation. The peak systolic velocity is 2.6 mm per second. The mean systolic gradient is 16 mmHg. Tricuspid valve: There is mild regurgitation. Compared to the study on 01/27/18 , there is little change. PROCEDURES WHILE IN THE HOSPITAL: Laparoscopic cholecystectomy, biopsy of periportal mass, liver biopsy. DISCHARGE HOME MEDICATIONS: Continued home medications: 1. Torsemide 20 mg p.o. daily. 2. Acetaminophen 500 mg p.o. t.i.d. p.r.n. 3. Spironolactone 25 mg p.o. daily. 4. Sotalol 80 mg p.o. b.i.d. 5. Pradaxa 150 mg p.o. b.i.d. 6. Lipitor 40 mg p.o. at bedtime. 7. Aspirin 81 mg p.o. daily. New home medications: 1. Protonix 40 mg p.o. b.i.d. Discontinued home medications: No home medications discontinued. Changed home medications: No home medications changed. HISTORY OF PRESENT ILLNESS/HOSPITAL COURSE: Mrs. Finn is an 84-year-old female with a past medical history significant for atrial fibrillation, type 2 diabetes, CAD, , status post TAVR, diastolic congestive heart failure, PVD, status post right third toe amputation, and angioplasty of the lower extremity, streptococcus septicemia, who presented to the emergency department with complaints of diffuse abdominal pain, nausea and vomiting on 06/10/19. Please see history and physical dictated by Dr. Thelma Cortez for complete summary of events leading up to hospitalization, but in short while in the emergency room, periportal mass was noted on imaging. The patient was then admitted to the hospital for nausea, vomiting, abdominal pain, and further evaluation of this periportal mass. While hospitalized, the patient had further imaging, which revealed pericholecystic stranding and given this and the patient's right upper quadrant pain, she was started on cefepime for possible acute cholecystitis and underwent a HIDA scan. As mentioned above, HIDA scan revealed cystic duct obstruction consistent with acute cholecystitis. The patient was then evaluated by General Surgery and the decision was made for the patient to undergo laparoscopic cholecystectomy with biopsies of periportal mass and liver. The patient underwent this procedure on 06/16/19. During this intermediate time, the patient was noted to have an elevated PTT, therefore Oncology was consulted. The patient had labs, which revealed likely lupus anticoagulant. Post laparoscopic cholecystectomy, the patient recovered nicely. The patient's biopsies revealed periportal adenocarcinoma, likely cholangiocarcinoma. Biopsy of liver revealed micronodular cirrhosis. Given these findings, Oncology was also consulted for this reason. Initially, the plan was made for the patient to undergo an ERCP while hospitalized. Unfortunately, given her recent cholecystectomy, she could not undergo an MRI until 6 weeks postop. Given this, the decision was made for the patient to have a PET scan upon discharge and depending on the results of the PET scan, the patient will undergo an ERCP. In addition, there was also colonic thickening noticed on the CT image of her abdomen. To further evaluate this, the patient will need a colonoscopy as an outpatient. Once again, the patient will undergo PET scan for further discussion of whether or not to proceed with colonoscopy, ERCP, and what treatment is necessary. The patient's hospitalization has also been slightly complicated due to elevated blood glucose in the mid 100s to low 200s. It should be noted that the patient does carry a history of diabetes, but is not currently on medications at home. Here, she was on the sliding scale and lispro for coverage. The patient's hemoglobin A1c is only 4.7. The patient's hospitalization was also further complicated due to anemia. The patient was transfused on 06/15/19. It was noted that the patient's anemia was likely secondary to iron deficiency anemia. Therefore, she also received 2 iron infusions. It should be noted that the patient's initial stool heme was positive, but upon repeating it was negative. It should also be noted the EGD was performed on 06/12/19 and was negative for sources of bleed. The patient's H and H is currently stable. The patient is stable for discharge to [facility] in [place]. Vital Signs : Temp 97.2, HR 69, RR 16, O2 saturation is 100% on room air, BP is 136/58. REVIEW OF SYSTEMS: The patient reports mild pain at right mid quadrant where previous drain was placed. The patient denies other abdominal pain. The patient denies bloating, nausea, vomiting, diarrhea, chest pain, shortness of breath, fever, chills, weakness, lightheadedness. A 14-point review of systems was completed and all others were negative. PHYSICAL EXAM: General: Mrs. Finn is well developed. She is sitting in a chair. Appears to be in no acute distress. Appears stated age. HEENT: EOMs intact. Sclerae without icterus. Oral mucosa is moist without lesions. Posterior pharynx is clear. Neck: No lymphadenopathy. Respiratory: Symmetric chest expansion. No accessory muscle use. Lungs are clear to auscultation. No rhonchi, wheezes, or rales. CV: Regular rate and rhythm. S1 , S2 present. Systolic murmur. No rubs or gallops. No JVD. Extremities: Skin is warm and smooth bilaterally. Pedal edema noted bilaterally. No clubbing or cyanosis. Pedal pulses 2+ bilaterally. Musculoskeletal: No pain or deformities. Abdomen: Soft. Tender to right mid quadrants, otherwise nontender. Bowel sounds normoactive. Neuro: Awake, alert, and oriented x4. Motor strength is 5/5 in upper and lower extremities. Skin: Lap sites to abdomen area clean, dry, and intact. Remainder of skin is grossly intact without lesion. DIAGNOSTIC STUDIES/LABORATORY DATA: WBC 6, hemoglobin 8.2, hematocrit 24, platelets 235. Sodium 138, potassium 4.3, chloride 101, carbon dioxide 33, BUN 20, creatinine 1.02. DISCHARGE PLAN/FOLLOWUP: 1. Status post cholecystectomy for cholecystitis. The patient has recovered nicely. The patient's incisions appear benign. The patient is tolerating her diet. The patient is not requiring pain management at this time. The patient should follow up with Any Esqueda NP from General Surgery on 06/27/19 as scheduled. 2. 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 Plan is for the patient to have an outpatient PET scan and then decision will be made whether or not proceed with colonoscopy and ERCP. At this time, decision will also be made based on treatment. The patient should follow up with Hematology/Oncology as they have recommended. 3. Micronodular cirrhosis: As mentioned above, the patient did have a biopsy of her liver during her cholecystectomy. This biopsy revealed micronodular cirrhosis. The patient should follow up with GI. 4. Colonic thickening: As mentioned above, the patient will have a PET scan. Based on the PET scan, the decision will be made whether or not to proceed with the colonoscopy. GI has recommended the colonoscopy as outpatient. Once gain, this can be discussed at her Hematology and Oncology followup. 5. Anemia: The patient's H and H is currently stable and at her baseline. I would recommend a repeat CBC in 1 week. Decision about further iron infusions can be made by Hematology/Oncology. 6. Lupus anticoagulant: The patient had noted elevated PTT during admission. The patient had a workup and it was found that she possibly has lupus anticoagulant. Caution should be taken whenever using unfractionated or low molecular weight heparin with this patient. 7. Atrial fibrillation: The patient should continue her sotalol. The patient should continue her Pradaxa, which has been okayed by Hematology. 8. Hyperlipidemia: The patient should continue her atorvastatin. 9. Heart failure with preserved ejection fraction: The patient currently appears euvolemic. She should continue her torsemide and spironolactone as she was at home. I would recommend a repeat CMP in 1 week. 10. Diabetes: As mentioned above the patient was not on diabetes medication, which she presented to the hospital. The patient has had some elevated sugars, but I suspect this is secondary to her disease process. Therefore, I will not be discharging her on insulin, but instead I am recommending a.c., h.s. fingersticks and a followup in 1 week with her primary care provider to discuss further treatment if needed. 11. Followup: The patient should follow up with Any Esuqeda NP, General Surgery on 06/27/19 as already scheduled. The patient should follow up with her primary care provider in 1 to 3 days. The patient should follow up with GI in 1 to 2 weeks. The patient should follow up with Hematology/Oncology in 1 to 2 weeks. I believe Hematology and Oncology will be contacting the patient for followup PET scan and appointment. 12. Education: The patient is educated on signs and symptoms, new or worsening condition and when to return to the emergency department. The patient stated understanding. This is a summarized report of a complex medical history and hospital stay. For further details, please see the entire medical record. TIME SPENT: Approximately 70 minutes was spent on this discharge, greater than half of that time was spent [id number] with the patient discussing discharge plans and instructions. MAURY FARNSWORTH NP [id number]/[facility] #: [id number] MTDD
== END 2019-06-23 18:55 | DRG 418 ==
LOC: ED 08:01 → MED 10:27 → OBSVTOIN 06-11 09:45 → SSU 06-16 15:54
PROVIDERS: ADMIT Internal Medicine; ATTEND Hospitalist
PROC: 0DJ08ZZ Inspection of Upper Intestinal Tract, Via Natural or Artificial Opening Endoscopic (ICD-10-PCS; 2019-06-11)
PROC: 30233N1 Transfusion of Nonautologous Red Blood Cells into Peripheral Vein, Percutaneous Approach (ICD-10-PCS; 2019-06-15)
PROC: 0FB24ZX Excision of Left Lobe Liver, Percutaneous Endoscopic Approach, Diagnostic (ICD-10-PCS; 2019-06-16)
PROC: 07BC4ZX Excision of Pelvis Lymphatic, Percutaneous Endoscopic Approach, Diagnostic (ICD-10-PCS; 2019-06-16)
PROC: 0FT44ZZ Resection of Gallbladder, Percutaneous Endoscopic Approach (ICD-10-PCS; principal; 2019-06-16 11:30)
DX: C22.1 Intrahepatic bile duct carcinoma (principal); K80.01 Calculus of gallbladder with acute cholecystitis with obstruction; I50.32 Chronic diastolic (congestive) heart failure; I25.10 Atherosclerotic heart disease of native coronary artery without angina pectoris; I11.0 Hypertensive heart disease with heart failure; Z96.641 Presence of right artificial hip joint; H91.90 Unspecified hearing loss, unspecified ear; E11.51 Type 2 diabetes mellitus with diabetic peripheral angiopathy without gangrene; I44.7 Left bundle-branch block, unspecified; E78.5 Hyperlipidemia, unspecified; E83.42 Hypomagnesemia; L89.629 Pressure ulcer of left heel, unspecified stage; R21 Rash and other nonspecific skin eruption; I48.0 Paroxysmal atrial fibrillation; K74.69 Other cirrhosis of liver; D50.9 Iron deficiency anemia, unspecified; E80.4 Gilbert syndrome; R79.1 Abnormal coagulation profile; Z88.0 Allergy status to penicillin; Z88.2 Allergy status to sulfonamides; Z88.8 Allergy status to other drugs, medicaments and biological substances; Z88.6 Allergy status to analgesic agent; Z88.5 Allergy status to narcotic agent; Z85.42 Personal history of malignant neoplasm of other parts of uterus; Z90.710 Acquired absence of both cervix and uterus; Z95.2 Presence of prosthetic heart valve; Z98.42 Cataract extraction status, left eye; Z98.41 Cataract extraction status, right eye; Z89.421 Acquired absence of other right toe(s); Z79.82 Long term (current) use of aspirin
CPT/HCPCS: 36415; 71260; 74177; 76705; 78226; 80048; 80053; 80076; 80500; 81003; 82150; 82248; 82272; 82378; 82550; 82607; 82728; 82746; 83036; 83540; 83550; 83605; 83690; 83735; 83880; 84134; 84484; 85025; 85027; 85610; 85613; 85730; 86140; 86141; 86301; 86704; 86706; 86803; 86850; 86900; 86901; 86922; 87340; 88304; 88305; 88307; 88331; 88341; 88342; 88360; 93005; 93306; 96365; 99156; 99157; 99232; 99233; 99284; A9270-GY; A9537; C1751; J0692; J1100; J1170; J1644; J1940; J2250; J2405; J2704; J2916; J3010; J3475; P9040; Q9967

== ENCOUNTER 2019-06-30 07:16 | Emergency (ER) | payer MEDICARE, MEDICAID ==
--- NOTE | 2019-06-30 07:34 | ED ---
Abdominal Pain/Female - HPI Summary HPI Summary: The patient is an 84 y/o F arriving via ambulance to [facility] with a chief complaint of radiating RUQ pain onset this morning. She reports that the pain woke her up, and she had been unable to get back to sleep secondary to the pain. The pain radiates from the RUQ area across the upper abdomen, as well as across the back. She endorses abdominal bloating, nausea, and cough. Her last BM was this morning, and she last ate at 0530. She denies any fevers, vomiting, diarrhea, hematochezia, CP, SOB, or dysuria or burning with urination, although she is chronically incontinent. Symptoms rated 9/10 in severity. Yesterday morning, she had a follow-up appointment for a cholecystectomy that she had on performed by Dr. Patino. She also notes a liver biopsy recently (2019) which was positive for a mass in the liver. No stated respiratory/ pulmonology history. Cardiac history significant for atrial fibrillation, CAD, aortic valve replacement, HTN, HLD, DVT, murmur. Currently on Pradaxa, ASA. PMHx also includes diabetes, osteomyelitis. Nonsmoker, no EtOH, no substance use. Medications reviewed. Allergies noted. - History of Current Complaint Chief Complaint: EDAbdPain Stated Complaint: URQ ABD PAIN PER EMS Time Seen by Provider: 06/30/19 07:25 Hx Obtained From: Patient Hx Last Menstrual Period: post jean Onset/Duration: Sudden Onset, Lasting Hours, Still Present Timing: Constant Severity Initially: Severe Severity Currently: Severe Pain Intensity: 9 Pain Scale Used: 0-10 Numeric Location: Discrete At: RUQ Radiates: Yes Radiates to: Back, Other - epigastric, LUQ Character: Other: - aching Aggravating Factor(s): Nothing Alleviating Factor(s): Nothing Associated Signs and Symptoms: Positive: Cough, Back Pain, Nausea, Other: - abdominal bloating; Negative: CP, SOB. Negative: Fever, Constipation, Urinary Symptoms, Vomiting, Diarrhea Allergies/Adverse Reactions: Allergies Allergy/AdvReac Type Severity Reaction Status Date / Time prednisone Allergy Severe heavy Verified 06/10/19 08:17 bleeding Penicillins Allergy Mild Rash Verified 06/10/19 08:17 Sulfa (Sulfonamide Allergy Mild Edema Verified 06/10/19 08:17 Antibiotics) morphine Allergy Unknown Unknown Verified 06/10/19 08:17 Reaction Details Antihistamines - Alkylamine Allergy Unknown Verified 06/10/19 08:17 Reaction Details Antihistamines - Ethanolamine Allergy Unknown Verified 06/10/19 08:17 Reaction Details Antihistamines - Allergy Unknown Verified 06/10/19 08:17 Ethylenediamine Reaction Details Antihistamines - Piperazine Allergy Unknown Verified 06/10/19 08:17 Reaction Details Antihistamines - Piperidine Allergy Unknown Verified 06/10/19 08:17 Reaction Details aspirin AdvReac Mild GI Upset Verified 06/10/19 08:17 cephalexin AdvReac Mild GI Upset Verified 06/10/19 08:17 ciprofloxacin AdvReac Mild GI Upset Verified 06/10/19 08:17 diphenhydramine AdvReac GI Upset Verified 06/10/19 08:17 Home Medications: Home Medications Atorvastatin* [Lipitor 40 MG*] 40 mg PO BEDTIME 09/21/17 [History Confirmed ] Dabigatran CAP(NF) [Pradaxa CAP(NF)] 150 mg PO BID 09/21/17 [History Confirmed 06/30/19] Sotalol TAB* [Betapace 80 MG TAB*] 80 mg PO BID 09/21/17 [History Confirmed ] Acetaminophen [Tylenol Extra Strength] 500 mg PO Q8H PRN 04/28/18 [History Confirmed 06/30/19] Spironolactone 25 mg PO DAILY 06/10/19 [History Confirmed 06/30/19] Torsemide TAB* [Demadex 20 MG*] 20 mg PO DAILY 06/10/19 [History Confirmed 06/30] Omeprazole CAP (NF) [Prilosec CAP* 20 MG] 20 mg PO BID 06/30/19 [History Confirmed 06/30/19] PMH/Surg Hx/FS Hx/Imm Hx Endocrine/Hematology History: Reports: Hx Diabetes Denies: Hx Thyroid Disease, Hx Anemia Cardiovascular History: Reports: Hx Atrial Fibrillation, Hx Coronary Artery Disease, Hx Deep Vein Thrombosis, Hx Hypercholesterolemia, Hx Hypertension, Hx Peripheral Vascular Disease, Hx Valvular Heart Disease, Other Cardiovascular Problems/Disorders - heart murmur Denies: Hx Aneurysm, Hx Angina, Hx Cardiac Arrest, Hx Pacemaker/ICD Respiratory History: Denies: Hx Asthma, Hx Chronic Obstructive Pulmonary Disease (COPD) GI History: Reports: Hx Gall Bladder Disease - GALL STONES, Other GI Disorders - cholangiosarcoma Denies: Hx Gastroesophageal Reflux Disease, Hx Ulcer History: Reports: Other Problems/Disorders - UTI Denies: Hx Dialysis, Hx Renal Disease Musculoskeletal History: Denies: Hx Arthritis, Hx Back Problems Sensory History: Reports: Hx Cataracts - BILAT, Hx Contacts or Glasses, Hx Hearing Problem Denies: Hx Glaucoma, Hx Deafness, Hx Hearing Aid Opthamlomology History: Reports: Hx Cataracts - BILAT, Hx Contacts or Glasses Denies: Hx Glaucoma Neurological History: Denies: Hx Dementia, Hx Headaches, Hx Migraine, Hx Seizures, Hx Transient Ischemic Attacks (TIA) Psychiatric History: Denies: Hx Panic Disorder - Cancer History Cancer Type, 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 HYSTERECTOMY 2000,. T&A at age 17,. CATARACTS bilat eyes,. CARDIAC CATH (BALLOONING) FEB 2017,. RIGHT HIP PARTIAL REPLACEMENT SURGERY FOR FX,. OPEN HEART/HEART VALVE REPLACEMENT MAR 2017, Hx Anesthesia Reactions: No - Immunization History Date of Tetanus Vaccine: Unk Date of Influenza Vaccine: refuses Infectious Disease History: No Infectious Disease History: Denies: Hx Clostridium Difficile, Hx Hepatitis, Hx Human Immunodeficiency Virus (HIV), Hx of Known/Suspected MRSA, Hx Shingles, Hx Tuberculosis, Hx Known/ Suspected VRE, Hx Known/Suspected VRSA, History Other Infectious Disease, Traveled Outside the [place] in Last 30 Days - Family History Known Family History: Positive: Cardiac Disease - Mother, father and brother - Social History Alcohol Use: None Hx Substance Use: No Substance Use Type: Reports: None Hx Tobacco Use: No Smoking Status (MU): Never Smoked Tobacco Have You Smoked in the Last Year: No Review of Systems Negative: Fever Negative: Chest Pain Positive: Cough. Negative: Shortness Of Breath Positive: Abdominal Pain - RUQ radiating across upper abdomen and into back, Nausea, Other - abdominal bloating; Negative: blood in stool. Negative: Vomiting, Diarrhea Negative: burning, dysuria All Other Systems Reviewed And Are Negative: Yes Physical Exam - Summary Physical Exam Summary: Constitutional: Well-developed, Well-nourished, Alert. (-) Distressed Skin: Slightly jaundiced, Warm, Dry HENT: Normocephalic; Atraumatic Eyes: Conjunctiva normal Neck: Musculoskeletal ROM normal neck. (-) JVD, (-) Stridor, (-) Tracheal deviation Cardio: Rhythm regular, rate normal, Heart sounds normal; Intact distal pulses; The pedal pulses are 2+ and symmetric. Radial pulses are 2+ and symmetric. (-) Murmur Pulmonary/Chest wall: Effort normal. (+) Faint b/l basilar crackles, (-) Respiratory distress, (-) Wheezes, (-) Rales Abd: Soft, (+) RUQ tenderness, (+) Slight distension, (-) Guarding, (-) Rebound Musculoskeletal: (-) Edema Lymph: (-) Cervical adenopathy Neuro: Alert, Oriented x3 Psych: Mood and affect Normal Triage Information Reviewed: Yes Vital Signs On Initial Exam: Initial Vitals Temp Pulse Resp BP Pulse Ox 98.7 F 90 14 159/75 95 06/30/19 07:20 06/30/19 07:20 06/30/19 07:20 06/30/19 07:20 06/30/19 07:20 Vital Signs Reviewed: Yes Procedures - Sedation Patient Received Moderate/Deep Sedation with Procedure: No Diagnostics - Vital Signs Vital Signs Temp Pulse Resp BP Pulse Ox 06/30/19 07:20 98.7 F 90 14 159/75 95 - Laboratory Result Diagrams: 06/30/19 08:09 06/30/19 08:09 Lab Statement: Any lab studies that have been ordered have been reviewed, and results considered in the medical decision making process. - Radiology CXR Radiology Interpretation Completed By: Radiologist Summary of Radiographic Findings: Impression: Mild cardiomegaly. This imaging report was reviewed by Dr. Muñiz. - CT Abd/Pel CT CT Interpretation Completed By: Radiologist Summary of CT Findings: Impression: Likely postoperative change in the gallbladder fossa with multiple surgical clips. Minimal amount of fluid is noted in the gallbladder fossa. No drainable fluid collections are noted in the abdomen and pelvis. Borderline splenomegaly. This imaging report was reviewed by Dr. Muñiz. - Ultrasound Abdominal US Ultrasound Interpretation Completed By: Radiologist Summary of Ultrasound Findings: Impression: 1. Trace fluid in the gallbladder fossa. 2. Known periportal mass better characterized by comparison imaging. This imaging report was reviewed by Dr. Muñiz. - EKG 0824 Cardiac Rate: NL - 71 BPM EKG Rhythm: Sinus Rhythm Summary of EKG Findings: An EKG at 0824 reveals sinus rhythm at rate of 71 BPM. LBBB. No STEMI. This EKG was reviewed and interpreted by Dr. Muñiz. Re-Evaluation - Re-Evaluation First Eval Re-Evaluation Time: 12:00 Comment: Patient agreeable with transfer plan. Abdominal Pain Fem Course/Dx - Course Course Of Treatment: 84 y/o F presenting recent post-cholecystectomy (06/16/2019) and positive liver mass on biopsy (06/12/2019) c/o RUQ radiating across the abdomen and into the back which woke her up this morning. Associated symptoms of cough, nausea, abdominal bloating. No constipation, diarrhea, decreased appetite. Hx significant for diabetes, afib, aortic valve replacement, HTN, HLD , CAD, current blood thinners. Physical exam is positive for RUQ tenderness, slight abdominal distension, faint b/l basilar crackles, slightly jaundiced skin. PICC/IV access obtained. Patient received fluids. Blood work reveals abnormalities including anemia with RBCs of 2.66, hemoglobin of 8.58, and hematocrit of 25, INR of 2.18, PTT of 219.6, sodium of 133, chloride of 98, creatinine of 0.96, glucose of 185, calcium of 8.3, hyperbilirubinemia of 6, elevated LFTs with AST of 201 and ALT of 139, alkaline phosphatase of 720, elevated troponin of 0.03, BNP of 386, and lipase <10. An EKG at 0824 reveals sinus rhythm at rate of 71 BPM, LBBB, no STEMI. CXR shows mild cardiomegaly but is otherwise benign. Abd/Pel CT impression reveals post-op changes in gallbladder with minimal amount of fluid without drainable fluid collections, borderline splenomegaly. Abd US impression reveals trace fluid in gallbladder fossa, known periportal mass. Patient received second liter of fluids. I spoke with Dr. Patino, who performed the patients surgery, and he recommends speaking with GI with concerns for needing ERCP. I discussed the patients case with Dr. 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 Dr. Manjit Ortiz accepts the patient for transfer from [facility] to [place] [facility]. Patient agreeable with plan. - Diagnoses Provider Diagnoses: Elevated LFTs, Hyperbilirubinemia, Liver tumor - Provider Notifications Discussed Care Of Patient With: Adriana Pham - GI Time Discussed With Above Provider: 11:00 Instructed by Provider To: Transfer - Discussed the patient's case with Dr. Patino as he performed the patient's cholecystectomy; he recommends GI consultation [[id number]]. I spoke with Dr. 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 I spoke with Dr. Manjit Ortiz at [facility], who accepts the patient for transfer ED to ED [ [id number]]. Reason For Transfer: Other: - patient needs ERCP which is unavailable at this time, recommended transfer by GI Discharge ED - Sign-Out/Discharge Documenting (check all that apply): Patient Departure - Patient accepted to [facility] ED to ED transfer by Dr. Ortiz. - Discharge Plan Condition: Stable Disposition: TRANS HIGHER LVL OF CARE FAC Referrals: Coral Schmitz MD [Primary Care Provider] - - Billing Disposition and Condition Condition: STABLE Disposition: Trans Higher Lvl of Care Fac - Attestation Statements Document Initiated by Jesus Manuel: Yes Documenting Scribe: Maddi Hays Provider For Whom Jesus Manuel is Documenting (Include Credential): Dr. Juan Muñiz DO Scribe Attestation: Maddi Obregon scribed for Dr. Juan Muñiz DO on 06/30/19 at 1312. Scribe Documentation Reviewed: Yes Provider Attestation: The documentation as recorded by the Maddi rapp accurately reflects the service I personally performed and the decisions made by me, Dr. Juan Muñiz DO Status of Jesus Manuel Document: Viewed
--- OUTSIDE RECORDS SUMMARY | 2019-06-30 07:46 | XMS REPORT | Continuity of Care Document ---
:1935 External Reference #:[id number] Author Name PASHA Randle (transmitted by agent of provider Soniya Cesar) Address [address] [place] [address] Problems Active Problems Provider Date Neurological disorder [...] Coral Schmitz M.D. 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 Onset: 05/17 leg with ulceration of other part of foot Social History Type Date Description Comments Sex Unknown Tobacco Use Start: Unknown Never Smoked Cigarettes Smoking Status Reviewed: 06/29/19 Never Smoked Cigarettes ETOH Use Denies alcohol [...] Medications SIG Qnty Indications Ordering Date Provider Omeprazole 1 by mouth every 90caps Coral Schmitz, 06/26/2019 40mg day M.DIssa Capsules DR Conrad 1 by mouth twice 60tabs Aniket Ackerman [...] Garment four times a day 120units N39.42 Coral Schmitz, 2018 Liner 10"X24"/Extra for urinary M.D. 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 Large/X-Large Max dx-i69.959, N39.42 Absorb L24.89 Misc Contour Blood Glucose use to test blood 100units Zo 04/12/2019 Test Strips sugar twice daily MD Homer Strips Microlet Lancets use for testing 100units Zo 04/12/2019 Misc twice daily and as MD Homer needed 3-In-1 Bedside Toilet as needed Dx I50.30 Coral Schmitz, 03/16/2019 i5030 M.D. 3-In-1 Misc Calmoseptine apply prn 1units Coral Schmitz, 02/16/2019 M.D. Underpads Regular change several 300units N39.41 Coral Schmitz, 2018 Misc times daily as M.D. needed. length of need= lifetime medicaid id# [id number] dx r39.81 Contour Next Blood use to test blood 200units Coral Schmitz, 03/28/2018 Glucose Test sugar twice daily. M.D. Strips brand may be altered to fit insurance coverage Depend Underwear For wear as needed for 4Boxes Coral Schmitz, 01/28/2018 Wom Men Large Maximum incontinence M.D. Absorbency Misc Atorvastatin Calcium 1 by mouth every E78.5 Coral Schmitz, 11/17/2017 day M.D. 40mg Tablets Aspirin Adult Low Take one tablet 90tabs Coral Schmitz, 10/19/2017 Dose once daily M.D. 81mg Tablets Sotalol HCL (AF) Twice Daily Unknown 09/21/2017 80mg Tablets Underpads Extra Large medicaid id [id number] Coral Schmitz, 07/15/2017 [id number], length Eddy.DIssa 23"X36" [facility] [place] need 99, icd10 r39.81 Adult Protective medicaid id [id number] Gabriela 07/15/2017 Underwear [id number], length Cheryl Lopez of need 99, icd10 r39.81,n39.49 size large Contour Strips check once a day 100units Coral Schmitz, 04/27/2017 M.D. Lancets Micro Thin use twice daily 100units E11.9 Coral Schmitz, 2015 33G and as needed M.D. Thin 33G [facility] Florentino Contour Blood ck FS am fasting 60units E11.8 Sapphire Sultana, 2015 Glucose Test Strips and 2 hours after M.D. dinner Strips Shower Sit as directed 1units Sapphire Sultana, 03/08/2014 M.D. Florentino Contour Blood 2-3 x week Dx 50units Vik Bustillos NP 01/16/2014 Glucose Test Strips Code 250.62 Strips Quad Cane use as needed dx 1units V15.88 Sapphire Sultana, 01/12/2014 [facility] [place] code v15.88, M.D. 250.62 Pradaxa take 1 capsule by 60caps Coral Schmitz, 150mg Capsules mouth twice a day M.D. Spironolactone once a day Unknown 25mg Tablets Tylenol Extra 2 by mouth 3 times Unknown Strength daily as needed 500mg Tablets Immunizations CPT Code Status Date Vaccine Lot # [id number] Refused 01/18/2018 Influenza Virus Vaccine, Quadrivalent, Split, Preservative Free [id number] Refused 07/19/2017 Pneumococcal Conjugate Vaccine 13 Valent For Intramuscular Use 88173 Refused 04/27/2017 Zoster (Zostavax) 44239 Refused 04/27/2017 Tdap - Tetanus/Diptheria/Acellular Pertussis 28600 Refused 04/27/2017 Influenza Virus Vaccine, Quadrivalent, Split, Preservative Free 16808 Refused 04/27/2017 Pneumococcal Conjugate Vaccine 13 Valent For Intramuscular Use 27602 Refused 01/12/2014 Pneumonia Vaccine [id number] Refused 01/12/2014 Flu Vaccine Split Virus Preservative Free For Indiv 3Yr Older Vital Signs Date Vital Result Comment 06/29/2019 2:26pm Height 65 inches 5'5" Weight 186.00 lb Heart Rate 76 /min BP Systolic Sitting 124 mmHg BP Diastolic Sitting 58 mmHg Respiratory Rate 16 /min Body Temperature 99.9 F BMI (Body Mass Index) 30.9 kg/m2 05/17/2019 11:39am Height 65 inches 5'5" Weight 188.50 lb w/ boots Heart Rate 60 /min R. radial, regular BP Systolic 118 mmHg LA, lg cuff BP Diastolic 58 mmHg LA, lg cuff BMI (Body Mass Index) 31.4 kg/m2 Results Test Acquired Date Facility Test Result H/L Range Note Surgical 06/16/2019 [facility] Surgical SEE RESULT [address] [place] [address] [phone] PDFReport SEE IMAGE CBC Auto 06/10/2019 [facility] White Blood 14.1 10^3/uL High 3.5-10.[address] [place] [address] [phone] Red Blood Count 2.90 10^6/uL Low 3.70-4.87 Hemoglobin 9.6 g/dL Low 12.0-16.0 Hematocrit 29 % Low 35-47 Mean Corpuscular Volume 100 fL High 80-97 Mean Corpuscular Hemoglobin 33 pg High 27-31 Mean Corpuscular HGB Conc 33 g/dL Normal 31-36 Red Cell Distribution Width 17 % High 10-15 Platelet Count 264 10^3/uL Normal 150-450 Mean Platelet Volume 7.5 fL Normal 7.4-10.4 Abs Neutrophils 12.4 10^3/uL High 1.5-7.7 Abs Lymphocytes 0.7 10^3/uL Low 1.0-4.8 Abs Monocytes 0.8 10^3/uL Normal 0-0.8 Abs Eosinophils 0.1 10^3/uL Normal 0-0.6 Abs Basophils 0.1 10^3/uL Normal 0-0.2 Abs Nucleated RBC 0.0 10^3/uL Granulocyte % 88.1 % Lymphocyte % 4.8 % Monocyte % 6.0 % Eosinophil % 0.5 % Basophil % 0.6 % Nucleated Red Blood Cells % 0.0 Laboratory test 06/10/2019 [facility] Troponin-I 0.01 ng/mL < 0.03 2 finding 101 (TnI) [place] [address] [phone] Comp Metabolic 06/10/2019 [facility] Sodium 133 mmol/L Low 135 -145 [place] [address] [phone] Potassium 4.2 mmol/L Normal 3.5-5.0 Chloride 99 mmol/L Low 101-111 Co2 Carbon Dioxide 26 mmol/L Normal 22-32 Anion Gap 8 mmol/L Normal 2-11 Glucose 181 mg/dL High 70-100 Blood Urea Nitrogen 22 mg/dL Normal 6-24 Creatinine 0.96 mg/dL High 0.51-0.95 BUN/Creatinine Ratio 22.9 High 8-20 Calcium 9.2 mg/dL Normal 8.6-10.3 Total Protein 6.7 g/dL Normal 6.4-8.9 Albumin 4.0 g/dL Normal 3.2-5.2 Globulin 2.7 g/dL Normal 2-4 Albumin/Globulin Ratio 1.5 Normal 1-3 Total Bilirubin 2.60 mg/dL High 0.2-1.0 Alkaline Phosphatase 113 U/L High 34-104 Alt 14 U/L Normal 7-52 Ast 22 U/L Normal 13-39 Egfr Non- 55.6 >60 Egfr 67.3 >60 3 Laboratory test 06/10/2019 [facility] Magnesium 1.8 mg/dL Low 1.9-2.7 finding [address] [place] [address] [phone] Amylase 38 U/L Normal 29-103 Lipase < 10 U/L Low 11.0-82.0 Creatine Kinase(CK) 25 U/L Normal 10-223 C Reactive Protein 7.84 mg/L Normal <8.01 B-Type Natriuretic Peptide BNP 324 pg/mL High <=100 Lactic Acid 1.0 mmol/L Normal 0.5-2.0 4 Iron & Iron Binding 06/10/2019 [facility] Iron 86 g/dL Normal 50-212 Capacity [address] [place] [address] [phone] Unsaturated Iron Binding < 419 g/dL Total Iron Binding Capacity 434 g/dL Normal 250-450 Transferrin 310 mg/dL Normal 203-362 % Iron Saturation 20 % Normal 15-55 Laboratory test 06/10/2019 [facility] Ferritin 64.2 ng/mL Normal 11-[address] [place] [address] [phone] Hemoglobin A1c (Glyco HGB) 4.7 % Normal 4.0-5.6 5 Urinalysis Profile 06/10/2019 [facility] Urine Color Yellow [address] [place] [address] [phone] Urine Appearance Clear Urine Specific Kn[place] 1.038 High 1.010-1.030 Urine pH 5.0 Normal 5-9 Urine Urobilinogen Negative Negative Urine Ketones Negative Negative Urine Protein Negative Negative Urine Leukocytes Negative Negative Urine Blood Negative Negative Urine Nitrite Negative Negative Urine Bilirubin Negative Negative Urine Glucose Negative Negative Urine Microalbumin 04/11/2019 [facility] Ur Microalbumin < 15.[address] (mg/L) mg/L [place], [place] [address] [phone] Urine Creatinine 143.19 mg/dL Urine Microalbumin/Creatinine TNP <31 6 Laboratory test 04/11/2019 [employer] In House Hemoglobin A1c 5.7 5-7 finding Urine Culture And 03/06/2019 [facility] Urine Culture SEE RESULT [address] [place] [address] [phone] Laboratory test 03/06/2019 [facility] Blood Culture SEE RESULT [address] [place] [address] [phone] Urinalysis Profile 03/06/2019 [facility] Urine Color Olga Lidia [address] [place] [address] [phone] Urine Appearance Cloudy Urine Specific [place] 1.024 Normal 1.010-1.030 Urine pH 5.0 Normal 5-9 Urine Urobilinogen Negative Negative Urine Ketones Negative Negative Urine Protein Negative Negative Urine Leukocytes Trace Abnormal Negative Urine Blood 2+ Abnormal Negative * * Abnormal Negative 9 Urine Nitrite Negative Negative Urine Bilirubin Negative Negative Urine Glucose Negative Negative Urine White Blood Cell Trace(0-5/hpf) Absent Urine Red Blood Cell 2+(6-10/hpf) Abnormal Absent Urine Bacteria Absent Absent Urine Squamous Epithelial Cell Present Abnormal Absent Urine Hyaline Casts Present Abnormal Absent Manual 03/06/2019 [facility] Immature 6.0 % Normal 0-[address] [place] [address] [phone] Neutrophil % 88.0 % Band % 6.0 % Normal 0-8 Lymphocytes % 3.0 % Monocytes % 3.0 % Polychromasia 1+ Tear Drop Cells 1+ Abs Neutrophils 10.3 10^3/uL High 1.5-7.7 Abs Lymphocytes 0.3 10^3/uL Low 1.0-4.8 Abs Monocytes 0.3 10^3/uL Normal 0-0.8 CBC Auto 03/06/2019 [facility] White Blood 10.9 10^3/uL High 3.5-10.[address] [place] [address] [phone] Red Blood Count 2.89 10^6/uL Low 3.70-4.87 [...] 10^3/uL Nucleated Red Blood Cells % 0.1 Laboratory test 03/06/2019 [facility] Amylase 42 U/L Normal 29 -103 finding [address] [place] [address] [phone] Lipase < 10 U/L Low 11.0-82.0 C Reactive Protein 20.55 mg/L High <8.01 Comp Metabolic 03/06/2019 [facility] Sodium 135 mmol/L Normal 135-145 Panel [address] [place] [address] [phone] Chloride 104 mmol/L Normal 101-111 Co2 Carbon [...] Egfr Non- 52.6 >60 Egfr 63.7 >60 10 Potassium 5.1 mmol/L High 3.5-5.0 Anion Gap 10 mmol/L Normal 2-11 Ast 24 U/L Normal 13-39 Inr/Protime 03/06/2019 [facility] Inr 1.57 High 0.82-1.[address] [place] [address] [phone] Laboratory test 02/14/2019 [facility] B-Type 285 High <=[address] Natriuretic pg/[place] [address] Peptide BNP [phone] Basic Metabolic 02/14/2019 [facility] Sodium 139 Normal 135- [address] mmol/[place] [address] [phone] Potassium 4.3 mmol/L Normal 3.5-5.0 Chloride 106 mmol/L Normal 101-111 Co2 Carbon Dioxide 24 mmol/L Normal 22-32 Anion Gap 9 mmol/L Normal 2-11 Glucose 131 mg/dL High 70-100 Blood Urea Nitrogen 23 mg/dL Normal 6-24 Creatinine 1.01 mg/dL High 0.51-0.95 BUN/Creatinine Ratio 22.8 High 8-20 Calcium 9.1 mg/dL Normal 8.6-10.3 Egfr Non- 52.6 >60 Egfr 63.7 >60 12 1 SEE RESULT BELOW Name: TONYA,ASHLEY B : [address]: Kisha Cervantes DO Acct: [id number] Unit: [id number] AGE: 84 Location: [facility] 334-01 Re06/11/19 Dis: 06/23/19 SEX: F Status: DIS IN SPEC: [id number] GHISLAINE: 06/16/[address] [facility] DR: Landon Patino MD REQ: [id number] RECD: 06/16/19 STATUS: NOAH ESQUIVEL DR: Thelma Castle MD _ ORDERED: FS 1ST PER SPEC, LEVEL 3, LEVEL 4, LEVEL 5, IMMUNO-FIRST, IMMUNO- ADDL/9, IMMUNO-QUANT ADDENDUM Repeat immunohistochemical stains, with appropriately reacting controls, were performed with the following results: PMS-2 absent MSH-2 intact Absence of expression of one or more mismatch repair proteins indicates microsatellite instability from either a somatic or germline mutation. Consideration of genetic counseling with possible additional testing is warranted to exclude Hernandez Syndrome. Addendum Signed (signature on file)__Liliana_ Sarahy Granger MD 0828 Additional immunohistochemical stains, with appropriately reacting controls, were performed with the following results: PD-L1 0% tumor, 10% microenvironment MLH-1 intact PMS-2 pending repeat MSH-2 pending repeat MSH-6 intact Addendum Signed (signature on file)Ronna Granger MD 1532 FINAL DIAGNOSIS 1. Periportal mass, biopsy: -- Moderately differentiated adenocarcinoma, most characteristic of upper gastrointestinal CONTINUED ON NEXT PAGE DEPARTMENT OF PATHOLOGY, [address] [place], [place] [id number] Devante Be M.D. Director [facility] # [id number] primary. See comment. 2. Liver, wedge biopsy: -- Liver tissue with end-stage micronodular cirrhosis. -- No evidence of malignancy identified. 3. Gallbladder and contents: -- Acute and chronic cholecystitis with cholelithiasis. -- No evidence of neoplasia identified. Comment: The following immunohistochemical stains are performed with appropriate controls in part 1 CK7 positive CK20 minimal focal positive CDX-2 strong positive CEA strong positive CA19-9 variable positive The morphologic and immunophenotypic findings are most characteristic of an upper gastrointestinal primary which includes cholangiocarcinoma (favored) as well as gallbladder, small bowel, gastric or esophageal primary. Correlation with imaging findings is recommended. A lower intestina/colonic l primary is unlikely. Mismatch repair protein analysis as well as PDL 1 stain are pending and will be reported in an addendum. PATHOLOGY SURGICAL CONSULT Frozen section (FS)/Touch Prep (TP)/Gross Consult (GC) FS1) Periportal abdominal mass, biopsy: Adenocarcinoma. (EP) Findings discuss with Dr. Patino 06/16/19 1247 CONTINUED ON NEXT PAGE DEPARTMENT OF PATHOLOGY, [address] [place] [address] Devante Be M.D. 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 The specimen is received fresh labeled, with the patient's name and "biopsy of periportal mass" and consists of multiple torrez singh hemorrhagic soft tissue fragments measuring 1.6 x 1.4 x 0.3 cm in aggregate. Submitted entirely for frozen section and subsequent permanent section in the cassette 1. 2. The specimen is received in formalin labeled, Liver Biopsy, and consists of a 1.8 x 1.7 by up to 1.1 cm torrez-howe smooth to shaggy triangular rubbery soft tissue fragment. The cut surface is slightly lobulated to nodular torrez-yellow. The specimen is serially sectioned and entirely submitted in two cassettes. 3. The specimen is received in formalin labeled, Gallbladder and Contents, and consists of an 8.2 x 4.0 x 2.7 cm focally disrupted gallbladder. The serosa is smooth to focally shaggy rubbery torrez-white. Within the lumen and the container there are multiple black smooth choleliths ranging from 0.2 cm to 1.0 cm admixed with translucent torrez-pink viscid bile and rubbery purulent material. The mucosa is granular to reticulated torrez with a few torrez-white shaggy rubbery purulent areas. The wall thickness measures up to 0.6 cm. Teacher'S Aide sections, one cassette. Signed by and Reported on: Devante Be MD 04/28 1444 END OF REPORT DEPARTMENT OF PATHOLOGY, [address] [place] [address] Devante Be M.D. Director [facility] # [id number] 2 Troponin-I testing on Plasma Separator Tubes (PST) has a known false positive rate of 0.20-0.40%. All positive troponins reflex immediately to secondary confirmatory testing. Using the [employer] 800 Access Immunoassay systems, the 99th percentile upper reference limit was demonstrated to be < 0.03 ng/mL. 3 Because ethnic data is not always [...] 5 Kidney failure <15 (or dialysis) 4 [place] Severe Sepsis and Septic Shock Management Bundle Measure requires all lactic acids initially measuring >2.0 mmol/L be repeated. 5 Therapeutic target for the treatment of diabetes mellitus patients is <7% HBA1C, and in selective patients <6.0%. Please refer to [employer] diabetic care guidelines for further information. 6 Unable to calculate due to low microalbumin 7 SEE RESULT BELOW Name: ASHLEY FINN : [address]: Arlette Navarro MD Acct: [id number] Unit: [id number] AGE: 83 Location: ED Re03/06/19 SEX: F Status: DEP ER SPEC: [id number] GHISLAINE: 03/06/[address]: Arlette Navarro MD REQ: [id number] RECD: 03/06/19 STATUS: COMP [facility] DR: Coral Schmitz MD _ SOURCE: URINE SPDESC: ORDERED: Urine Culture Procedure Result Reported Site Urine Culture Final 03/09/19- 0236 ML Organism 1 ESCHERICHIA COLI [place] Count >100,000 (Many) CFU/ML Organism 2 NORMAL RANDI [place] Count 25-50,000 (Moderate) CFU/ML 1. ESCHERICHIA COLI [...] . END OF REPORT DEPARTMENT OF PATHOLOGY, [address] [place] [address] Devante Be M.D. Director [facility] # [id number] SEE RESULT BELOW Name: ASHLEY FINN : [address]: Arlette Navarro MD Acct: [id number] Unit: [id number] AGE: 83 Location: ED Re03/06/19 SEX: F Status: DEP ER SPEC: [id number] GHISLAINE: 03/06/[address] [facility] DR: Arlette Navarro MD REQ: [id number] RECD: 03/06/19 STATUS: RES OTHR DR: Coral Schmitz MD _ SOURCE: BLOOD,VENO SPDESC: ORDERED: Blood Cult Procedure Result Reported Site Aerobic Culture Bottle Preliminary 03/10/192156 ML No Growth Day 4 Anaerobic Culture Bottle Final 03/11/192156 ML No Growth Day 5 * ML - Main Lab . END OF REPORT DEPARTMENT OF PATHOLOGY, [address] [place] [address] Devante Be M.D. Director [facility] # [id number] 9 *Ascorbic acid is present which may interfere with detection of blood. 10 Because ethnic data is not always readily [...] 15-29 5 Kidney failure <15 (or dialysis) 11 Standard intensity warfarin therapeutic range: 2.0-3.0 High intensity warfarin therapeutic range: 2.5-3.5 12 Because ethnic data is not always [...] (or dialysis) Procedures Date Code Description Status 06/16/2019 28593 Laparoscopy/Peritoneoscopy With Biopsy (Single Or Completed Multiple) 06/16/2019 62931 Laparoscopy/Peritoneoscopy With Biopsy (Single Or Completed Multiple) 06/16/2019 96678 Laparoscopy Cholecystectomy Completed 06/16/2019 10313 Laparoscopy Cholecystectomy Completed 06/13/2019 84387 ECHO Transthorasic Realtime 2D W Doppler & Color Flow Completed Hosp 06/11/2019 87358 Esophagogastroduodenoscopy, diagnostic, incl Completed brush/wash if perfor 03/14/2019 02463910 Mammogram Completed 04/20/2018 262206422 Diabetic Retinal Eye Exam Completed 03/11/2018 09059185 Mammogram Completed 06/12/2017 972429138 Diabetic Foot Exam Completed 01/21/2016 89441858 Mammogram Completed 10/31/2015 210893702 Bone Mineral Density Test Completed 02/04/2015 842579757 Diabetic Retinal Eye Exam Completed 01/15/2015 69176344 Mammogram Completed 01/12/2015 23267519 Mammogram Completed 08/09/2014 791870341 Diabetic Retinal Eye Exam Completed 01/12/2014 24455910 Mammogram Completed 07/09/2011 53982546 Mammogram Completed 01/08/2011 49909314 Mammogram Completed Medical Devices Description No Information Available Encounters Type Date Location Provider Dx Diagnosis Office Visit 06/22/2019 [facility] [place] R59.9 Enlarged lymph 10:40a Assoc,pc Shortle, TRUSS BUILDER nodes, unspecified Hospitalists D64.9 Anemia, unspecified I48.91 Unspecified atrial fibrillation R79.1 Abnormal coagulation profile E78.5 Hyperlipidemia, unspecified I50.30 Unspecified diastolic (congestive) heart failure E11.9 Type 2 diabetes mellitus without complications Office Visit 06/21/2019 10:38a [facility] Gene Sultana, R59.9 Enlarged lymph Assoc,pc TRUSS BUILDER nodes, Hospitalists unspecified D64.9 Anemia, unspecified K81.0 Acute cholecystitis R79.1 Abnormal coagulation profile I48.91 Unspecified atrial fibrillation E11.9 Type 2 diabetes mellitus without complications I50.30 Unspecified diastolic (congestive) heart failure E78.5 Hyperlipidemia, unspecified Office Visit 06/20/2019 10:38a [facility] Amira R21 Rash and other Assoc,charlotte Pearl PA-C nonspecific skin Hospitalists eruption R59.9 Enlarged lymph nodes, unspecified D64.9 Anemia, unspecified K81.0 Acute cholecystitis R79.1 Abnormal coagulation profile I48.91 Unspecified atrial fibrillation E11.9 Type 2 diabetes mellitus without complications I50.30 Unspecified diastolic (congestive) heart failure E78.5 Hyperlipidemia, unspecified Office Visit 06/19/2019 10:37a [facility] Amira D64.9 Anemia, Assoc,charlotte Pearl PA-C unspecified Hospitalists K81.0 Acute cholecystitis R79.1 Abnormal coagulation profile I48.91 Unspecified atrial fibrillation E11.9 Type 2 diabetes mellitus without complications I50.30 Unspecified diastolic (congestive) heart failure E78.5 Hyperlipidemia, unspecified Office Visit 06/18/2019 10:36a [facility] Coty Anderson, R10.11 Right upper Assoc,charlotte Luna quadrant pain Hospitalists D64.9 Anemia, unspecified I48.91 Unspecified atrial fibrillation E78.5 Hyperlipidemia, unspecified E11.9 Type 2 diabetes mellitus without complications Office Visit 06/17/2019 10:36a [facility] Coty Anderson, R10.11 Right upper Assoc,pc MStephanie quadrant pain Hospitalists D64.9 Anemia, unspecified I48.91 Unspecified atrial fibrillation E78.5 Hyperlipidemia, unspecified E11.9 Type 2 diabetes mellitus without complications Office Visit 06/16/2019 Surgical Landon S. K81.0 Acute cholecystitis 7:00a Associates Gómez Patino MD [employer]bound Tele[employer] Representative K76.89 Other specified diseases of liver Office Visit 06/16/2019 10:35a [facility] Coty Anderson, R10.11 Right upper Assoc,pc MIssaDIssa quadrant pain Hospitalists D64.9 Anemia, unspecified I48.91 Unspecified atrial fibrillation E78.5 Hyperlipidemia, unspecified E11.9 Type 2 diabetes mellitus without complications Office Visit 06/15/2019 10:34a [facility] Coty Anderson, R10.11 Right upper Assoc,charlotte Luna quadrant pain Hospitalists D64.9 Anemia, unspecified I48.91 Unspecified atrial fibrillation E78.5 Hyperlipidemia, unspecified E11.9 Type 2 diabetes mellitus without complications Office Visit 06/15/2019 Surgical Paolo P K81.0 Acute cholecystitis 7:00a [facility] [place] Outbound Telemarketing Representative Office Visit 06/14/2019 Surgical Diego Dash, K81.0 Acute cholecystitis 7:00a [facility] CLARA FRANK [facility] K76.89 Other specified diseases of liver Office Visit 06/14/2019 Surgical Landon Hernandez K81.0 Acute cholecystitis 7:00a [facility] MD Carey [facility] K76.89 Other specified diseases of liver Office Visit 06/14/2019 10:34a [facility] Coty Anderson, R10.11 Right upper Assoc,charlotte Luna quadrant pain Hospitalists D64.9 Anemia, unspecified I48.91 Unspecified atrial fibrillation E78.5 Hyperlipidemia, unspecified E11.9 Type 2 diabetes mellitus without complications R74.8 Abnormal levels of other serum enzymes Office Visit 06/13/2019 Surgical Paolo P K81.0 Acute 7:00a [facility] [place] PA-C cholecystitis Office Visit 06/13/2019 [facility] Coty R10.11 Right upper 10:33a Assoccharlotte M.D. quadrant pain Hospitalists D64.9 Anemia, unspecified I48.91 Unspecified atrial fibrillation E78.5 Hyperlipidemia, unspecified E11.9 Type 2 diabetes mellitus without complications R74.8 Abnormal levels of other serum enzymes Office Visit 06/13/2019 8:00a Wound Care Leonila Mcgraw L89.623 Pressure ulcer [facility] [place] of left heel, stage 3 I73.9 Peripheral vascular disease, unspecified L97.422 Non-prs chr ulcer of left heel and midfoot w fat layer expos E11.621 Type 2 diabetes mellitus with foot ulcer Office Visit 06/12/2019 7:00a Surgical Diego Dash, R10.9 Unspecified [facility] FRANK FACS abdominal pain K76.89 Other specified diseases of liver K81.9 Cholecystitis, unspecified Office Visit 06/12/2019 10:33a [place] [facility] R10.11 Right upper Assoccharlotte M.D. quadrant pain Hospitalists D64.9 Anemia, unspecified I48.91 Unspecified atrial fibrillation E11.9 Type 2 diabetes mellitus without complications E78.5 Hyperlipidemia, unspecified Office Visit 06/12/2019 Surgical Chelejerardo Jaxson K80.20 Calculus of 7:00a [facility] Gibson gallbladder w/o [employer] Representative cholecystitis w/o obstruction K76.89 Other specified diseases of liver Office Visit 06/11/2019 7:00a Surgical Diego Dash, R10.9 Unspecified [facility] FRANK FACS abdominal pain K76.89 Other specified diseases of liver Office Visit 06/11/2019 10:32a [facility] R10.11 Right upper Assoc,charlotte Dale M.D. quadrant pain Hospitalists I48.91 Unspecified atrial fibrillation E11.9 Type 2 diabetes mellitus without complications E78.5 Hyperlipidemia, unspecified Office Visit 06/10/2019 [facility] R16.0 Hepatomegaly, not 10:32a Assoc,charlotte Dale M.D. elsewhere Hospitalists classified E11.9 Type 2 diabetes mellitus without complications I48.91 Unspecified atrial fibrillation E83.42 Hypomagnesemia E78.5 Hyperlipidemia, unspecified Office Visit 05/17/2019 11:00a [facility] Aniket Ackerman I70.245 [facility] [place] [facility] Jose M.D. arteries of left leg w ulceration oth prt foot Office Visit 04/19/2019 1:30p Wound Care Luisa Andrews E11.621 Type 2 diabetes [facility] [place] Rajinder mellitus with foot ulcer I73.9 Peripheral vascular disease, unspecified Office Visit 03/29/2019 1:30p Wound Care Luisacontreras Andrews E11.621 Type 2 diabetes Center AT [facility] [place] Rajinder mellitus with foot ulcer Office Visit 03/22/2019 12:45p Wound Care Luisa Andrews E11.621 Type 2 diabetes Center AT [facility] [place] Rajinder mellitus with foot ulcer Office Visit 03/16/2019 1:20p [facility] Internal Coral I50.30 Unspecified Medicine - Cheryl Schmitz diastolic Ccmob (congestive) heart failure N39.0 Urinary tract infection, site not specified N39.42 Incontinence without sensory awareness Office Visit 02/16/2019 1:40p [facility] Internal Coral I50.30 Unspecified Medicine - Cheryl Schmitz diastolic Ccmob (congestive) heart failure R60.0 Localized edema Office Visit 02/08/2019 2:20p [facility] Internal Coral Ainsley, R60.0 Localized edema Medicine - Kristie Luna Assessments Date Code Description Provider 06/29/2019 K81.0 Acute cholecystitis PASHA Randle 06/29/2019 K74.69 Other cirrhosis of liver Juan Gibson PA 06/29/2019 C26.9 Malignant neoplasm of ill-defined PASHA Randle sites within the digestive system 06/22/2019 R59.9 Enlarged lymph nodes, unspecified Geneva Shortle, [employer]USS BU[employer]DER 06/22/2019 D64.9 Anemia, unspecified Geneva Shortle, [employer]USS BUILDER 06/22/2019 I48.91 Unspecified atrial fibrillation Geneva Shortle, [employer]USS BUILDER 06/22/2019 R79.1 Abnormal coagulation profile Geneva Shortle, [employer]USS BUILDER 06/22/2019 E78.5 Hyperlipidemia, unspecified Geneva Shortle, TRUSS BUILDER 06/22/2019 I50.30 Unspecified diastolic (congestive) Geneva Shortle, [employer] BUILDER heart failure 06/22/2019 E11.9 Type 2 diabetes mellitus without Geneva Shortle, [employer]USS BUILDER complications 06/21/2019 R59.9 Enlarged lymph nodes, unspecified Gene Sultana, [employer]USS BUILDER 06/21/2019 D64.9 Anemia, unspecified Gene Sultana, TRUSS BUILDER 06/21/2019 K81.[address], TRUSS BUILDER 06/21/2019 R79.1 Abnormal coagulation profile Gene Rd, TRUSS BUILDER 06/21/2019 I48.91 Unspecified atrial fibrillation [address], TRUSS BUILDER 06/21/2019 E11.9 Type 2 diabetes mellitus without [address], TRUSS BUILDER complications 06/21/2019 I50.30 Unspecified diastolic (congestive) Gene Rd, TRUSS BUILDER heart failure 06/21/2019 E78.5 Hyperlipidemia, unspecified Gene Sultana, TRUSS BUILDER 06/20/2019 K80.12 Calculus of gallbladder with acute Landon Patino MD and chronic cholecystitis without obstruction 06/20/2019 R21 Rash and other nonspecific skin PASHA Barbosa-Celsa eruption 06/20/2019 K74.69 Other cirrhosis of liver Landon Patino MD 06/20/2019 R59.9 Enlarged lymph nodes, unspecified Amira O'brandee, PA-C 06/20/2019 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 Landon Patino MD 06/20/2019 D64.9 Anemia, unspecified Amira O'brandee, PA-C 06/20/2019 K81.0 Acute cholecystitis Amira O'brandee, PA-C 06/20/2019 R79.1 Abnormal coagulation profile Amira O'brandee, PA-C 06/20/2019 I48.91 Unspecified atrial fibrillation Amira O'brandee, PA-C 06/20/2019 E11.9 Type 2 diabetes mellitus without Amira O'brandee, PA-C complications 06/20/2019 I50.30 Unspecified diastolic (congestive) Amira O'brandee, PA-C heart failure 06/20/2019 E78.5 Hyperlipidemia, unspecified Amira O'brandee, PA-C 06/19/2019 K80.12 Calculus of gallbladder with acute Juan Gibson PA and chronic cholecystitis without obstruction 06/19/2019 K80.12 Calculus of gallbladder with acute Juan Gibson PA and chronic cholecystitis without obstruction 06/19/2019 K74.69 Other cirrhosis of liver Juan Gibson, PA 06/19/2019 K80.12 Calculus of gallbladder with acute Landon Patino MD and chronic cholecystitis without obstruction 06/19/2019 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 Christjerardo LIssa Gibson, PA 06/19/2019 K74.69 Other cirrhosis of liver Juan Gracek, PA 06/19/2019 D64.9 Anemia, unspecified Amira O'brandee, PA-C 06/19/2019 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 Christpawaner LIssa Gibson, PA 06/19/2019 K74.69 Other cirrhosis of liver Landon Patino MD 06/19/2019 K81.0 Acute cholecystitis Amira O'brandee, PA-C 06/19/2019 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 06/18/2019 K74.69 Other cirrhosis of liver Delia Andrews MD 06/18/2019 D64.9 Anemia, unspecified Coty Anderson M.D. 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 06/18/2019 E78.5 Hyperlipidemia, unspecified Coty Anderson M.D. 06/18/2019 E11.9 Type 2 diabetes mellitus without Coty Anderson M.D. complications 06/17/2019 K80.12 Calculus of gallbladder with acute Delia Andrews MD and chronic cholecystitis without obstruction 06/17/2019 R10.11 Right upper quadrant pain Coty Anderson M.D. 06/17/2019 K74.69 Other cirrhosis of liver Delia Andrews MD 06/17/2019 D64.9 Anemia, unspecified Coty Anderson M.D. 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 06/17/2019 E78.5 Hyperlipidemia, unspecified Coty Anderson M.D. 06/17/2019 E11.9 Type 2 diabetes mellitus without Coty Anderson M.D. complications 06/16/2019 K81.0 Acute cholecystitis Landon Patino MD 06/16/2019 R10.11 Right upper quadrant pain Coyt Anderson M.D. 06/16/2019 K76.89 Other specified diseases of liver Landon Patino MD 06/16/2019 K80.12 Calculus of gallbladder with acute PASHA Randle and chronic cholecystitis without obstruction 06/16/2019 K80.12 Calculus of gallbladder with acute Landon Patino MD and chronic cholecystitis without obstruction 06/16/2019 D64.9 Anemia, unspecified Coty Anderson M.D. 06/16/2019 C22.0 Liver cell carcinoma Landon Patino MD 06/16/2019 I48.91 Unspecified atrial fibrillation Coty Anderson M.D. 06/16/2019 C22.0 Liver cell carcinoma PASHA Randle 06/16/2019 K74.69 Other cirrhosis of liver Landon Patino MD 06/16/2019 E78.5 Hyperlipidemia, unspecified Coty Anderson M.D. 06/16/2019 E11.9 Type 2 diabetes mellitus without Coty Anderson M.D. complications 06/16/2019 K74.69 Other cirrhosis of liver PASHA Randle 06/15/2019 K81.0 Acute cholecystitis Paolo Winchester PA-C 06/15/2019 R10.11 Right upper quadrant pain Coty Anderson M.D. 06/15/2019 D64.9 Anemia, unspecified Coty Anderson M.D. 06/15/2019 I48.91 Unspecified atrial fibrillation Coty Anderson M.D. 06/15/2019 E78.5 Hyperlipidemia, unspecified Coty Anderson M.D. 06/15/2019 E11.9 Type 2 diabetes mellitus without Coty Anderson M.D. complications 06/14/2019 K81.0 Acute cholecystitis Landon Patino MD 06/14/2019 K81.0 Acute cholecystitis Diego Dash MD, FACS 06/14/2019 K76.89 Other specified diseases of liver Landon Patino MD 06/14/2019 R10.11 Right upper quadrant pain Coty Anderson M.D. 06/14/2019 K76.89 Other specified diseases of liver Diego Dash MD, FACS 06/14/2019 D64.9 Anemia, unspecified Coty Anderson M.D. 06/14/2019 I48.91 Unspecified atrial fibrillation Coty Anderson M.D. 06/14/2019 E78.5 Hyperlipidemia, unspecified Coty Anderson M.D. 06/14/2019 E11.9 Type 2 diabetes mellitus without Coty Anderson M.D. complications 06/14/2019 R74.8 Abnormal levels of other serum Coty Anderson M.D. enzymes 06/13/2019 K81.0 Acute cholecystitis Paolo Winchester PA-C 06/13/2019 R01.1 Cardiac murmur, unspecified Torres Cornell M.D. 06/13/2019 R10.11 Right upper quadrant pain Coty Anderson M.D. 06/13/2019 L89.623 Pressure ulcer of left heel, stage 3 Leonila Borrego NP 06/13/2019 D64.9 Anemia, unspecified Coty Anderson M.D. 06/13/2019 I73.9 Peripheral vascular disease, Leonila Borrego NP unspecified 06/13/2019 I48.91 Unspecified atrial fibrillation Coty Anderson M.D. 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 06/13/2019 E11.9 Type 2 diabetes mellitus without Coty Anderson M.D. complications 06/13/2019 R74.8 Abnormal levels of other serum Coty Anderson M.D. enzymes 06/12/2019 R10.9 Unspecified abdominal pain Diego Dash MD, FACS 06/12/2019 R10.11 Right upper quadrant pain Thelma Dale M.D. 06/12/2019 K76.89 Other specified diseases of liver Diego Dash MD, FACS 06/12/2019 K80.20 Calculus of gallbladder without Juan Gibson, PA cholecystitis without obstruction 06/12/2019 K81.9 Cholecystitis, unspecified Diego Dash MD, FACS 06/12/2019 D64.9 Anemia, unspecified Thelma Dale M.D. 06/12/2019 K76.89 Other specified diseases of liver Juan Gibson, PA 06/12/2019 I48.91 Unspecified atrial fibrillation Thelma Dale M.D. 06/12/2019 E11.9 Type 2 diabetes mellitus without Thelma Dale M.D. complications 06/12/2019 E78.5 Hyperlipidemia, unspecified Thelma Dale M.D. 06/11/2019 R10.9 Unspecified abdominal pain Diego Dash MD, FACS 06/11/2019 R10.9 Unspecified abdominal pain Miah Cintron MD 06/11/2019 K76.89 Other specified diseases of liver Diego Dash MD, FACS 06/11/2019 R10.11 Right upper quadrant pain Thelma Dale M.D. 06/11/2019 I48.91 Unspecified atrial fibrillation Thelma Dale M.D. 06/11/2019 E11.9 Type 2 diabetes mellitus without Thelma Dale M.D. complications 06/11/2019 E78.5 Hyperlipidemia, unspecified Thelma Dale M.D. 06/10/2019 R19.01 Right upper quadrant abdominal Miah Cintron MD swelling, mass and lump 06/10/2019 R16.0 Hepatomegaly, not elsewhere Thelma Dale M.D. classified 06/10/2019 E11.9 Type 2 diabetes mellitus without Thelma Dale M.D. complications 06/10/2019 I48.91 Unspecified atrial fibrillation Thelma Dale M.D. 06/10/2019 E83.42 Hypomagnesemia Thelma Dale M.D. 06/10/2019 E78.5 Hyperlipidemia, unspecified Thelma Dale M.D. 05/17/2019 I70.245 Atherosclerosis of [place] arteries of Aniket Jose M.D. left leg with ulcerati 04/19/2019 E11.621 Type 2 diabetes mellitus with foot Luisa Calvillo MD ulcer 04/19/2019 I73.9 Peripheral vascular disease, Luisa Calvillo MD unspecified 04/11/2019 E11.621 Type 2 diabetes mellitus with foot Coral Schmitz M.D. ulcer 04/11/2019 N39.42 Incontinence without sensory Coral Schmitz M.D. awareness 04/11/2019 L24.89 Irritant contact dermatitis due to Coral Schmitz M.D. other agents 04/11/2019 D50.9 Iron deficiency anemia, unspecified Coral Schmitz M.D. 04/11/2019 E11.9 Type 2 diabetes mellitus without Coral Schmitz M.D. complications 03/29/2019 E11.621 Type 2 diabetes mellitus with foot Luisa Calvillo MD ulcer 03/22/2019 E11.621 Type 2 diabetes mellitus with foot Luisa Calvillo MD ulcer 03/16/2019 I50.30 Unspecified diastolic (congestive) Coral Schmitz M.D. heart failure 03/16/2019 N39.0 Urinary tract infection, site not Coral Schmitz M.D. specified 03/16/2019 N39.42 Incontinence without sensory Coral Schmitz M.D. awareness 02/16/2019 I50.30 Unspecified diastolic (congestive) Coral Schmitz M.D. heart failure 02/16/2019 R60.0 Localized edema Coral Schmitz M.D. 02/08/2019 R60.0 Localized edema Coral Schmitz M.D. Plan of Treatment 06/29/2019 - Juan Gibson, PAK81.0 Acute cholecystitisFollow up:as fnoefyM40.69 Other cirrhosis of ichqcD96.9 Malignant neoplasm of ill-defined sites within the digestive system Functional Status Description No Information Available Mental Status Description No Information Available Referrals Refer to Reason for Referral Status Appt Date Diego Starkey M.D. Sent [address] [place] [address] [phone]
[2019-06-30] MEDS ORDERED: NS 0.9% 1000 ML** 1,000 ML IV ONE ×2 (08:06→11:19)
[2019-06-30 08:29] LABS: ABS Eosinophils 0.1 10^3/ul (0-0.6); ABS Lymphocytes 0.7 10^3/ul (1.0-4.8); ABS Monocytes 0.6 10^3/ul (0-0.8); ABS Neutrophils 8.2 10^3/ul (1.5-7.7); Eosinophil % 0.6 %; Hematocrit 25 % (35-47); Hemoglobin 8.8 g/dL (12.0-16.0); Lymphocyte % 6.9 %; Mean Corpuscular HGB Conc 35 g/dL (31-36); Mean Corpuscular Hemoglobin 33 pg (27-31); Mean Corpuscular Volume 94 fL (80-97); Mean Platelet Volume 7.9 fL (7.4-10.4); Platelet Count 231 10^3/uL (150-450); Red Blood Count 2.66 10^6 /uL (3.70-4.87); Red Cell Distribution Width 17 % (10-15); White Blood Count 9.6 10^3/uL (3.5-10.8)
[2019-06-30 08:48] LABS: INR 2.18 (0.82-1.09)
[2019-06-30 08:49] LABS: ALT 139 U/L (7-52); AST 201 U/L (13-39); Albumin 3.2 g/dL (3.2-5.2); Alkaline Phosphatase 720 U/L (34-104); Anion Gap 8 mmol/L (2-11); BUN/Creatinine Ratio 17.7 (8-20); Blood Urea Nitrogen 17 mg/dL (6-24); CO2 Carbon Dioxide 27 mmol/L (22-32); Calcium 8.3 mg/dL (8.6-10.3); Chloride 98 mmol/L (101-111); EGFR African American 67.3 (>60); EGFR Non-African American 55.6 (>60); Globulin 3.2 g/dL (2-4); Glucose 185 mg/dL (70-100); Sodium 133 mmol/L (135-145); Total Protein 6.4 g/dL (6.4-8.9)
[2019-06-30 08:50] LABS: Troponin I 0.03 ng/mL (<0.03)
[2019-06-30] MEDS ORDERED: Iodixanol* (CONTRAST) 320 MG/ML 100 ML SDV IV ONE (08:56)
[2019-06-30 09:25] LABS: Activated Partial Thrombo Time 219.6 seconds (26.0-38.0)
[2019-06-30 13:19] VITALS: BP 109/93
== END 2019-06-30 13:20 | disposition short-term general hospital (02) ==
LOC: ED 07:16
DX: R79.89 Other specified abnormal findings of blood chemistry (principal); E80.6 Other disorders of bilirubin metabolism; D37.6 Neoplasm of uncertain behavior of liver, gallbladder and bile ducts; R10.11 Right upper quadrant pain; I10 Essential (primary) hypertension; E11.9 Type 2 diabetes mellitus without complications; R05 Cough; I25.10 Atherosclerotic heart disease of native coronary artery without angina pectoris; E78.00 Pure hypercholesterolemia, unspecified; Z88.2 Allergy status to sulfonamides; Z88.5 Allergy status to narcotic agent; Z88.0 Allergy status to penicillin; Z79.899 Other long term (current) drug therapy; Z86.718 Personal history of other venous thrombosis and embolism; Z85.42 Personal history of malignant neoplasm of other parts of uterus
CPT/HCPCS: 36415; 71045; 74177; 76705; 80053; 82248; 83690; 83880; 84484; 85025; 85610; 85730; 93005; 96360; 99285; Q9967